=== PATIENT | male | born 1980 | race Caucasian/White ===

== ENCOUNTER 2022-05-20 16:24 | Inpatient (IN) | payer OTHER, SELFPAY ==
--- NOTE | ~2022-05-20 | CT_ITS ---
EXAMINATION: CT HEAD WITHOUT CONTRAST CT CERVICAL SPINE WITHOUT CONTRAST CLINICAL INFORMATION: Loss of consciousness. EtOH COMPARISON: None. TECHNIQUE: Imaging was performed from the skull base to vertex without intravenous administration of contrast. In addition, helical noncontrast CT imaging was acquired through the cervical spine and source images were reviewed along with axial reconstructions and sagittal and coronal MPRs. [This CT examination was performed using dose optimization techniques as appropriate, variously including the following: *Automated exposure control *Adjustment of mA and/or kV according to patient size (this includes techniques or standardized protocols for targeted exams where dose is matched to indication/reason for exam; i.e. extremities or head) *Use of iterative reconstruction technique] DLP: 1048 mGy-cm FINDINGS: HEAD: No intracranial mass, hemorrhage, or midline shift is visualized. The ventricles and sulci are proportional. No extra-axial collections are identified. The paranasal sinuses and mastoid air cells are well aerated. CERVICAL SPINE: There is no evidence of acute cervical spine fracture. Vertebral bodies remain normal in height. Cervical vertebrae have normal alignment. Degenerative endplate spurring and mild disc height narrowing C5-C6. No pre- or paravertebral soft tissue abnormality is identified. Limited assessment of the lung apices is unremarkable. CT/CT head/brain wo con IMPRESSION: 1. No acute intracranial pathology. 2. No CT evidence of acute cervical spine fracture or traumatic subluxation
--- NOTE | ~2022-05-20 | XR_ITS ---
EXAMINATION: XR CHEST CLINICAL INFORMATION: 8 0H COMPARISON: None TECHNIQUE: Frontal view of the chest was obtained. FINDINGS: No significant abnormality is noted involving the heart, lungs, mediastinum, bony thorax or soft tissues. XR/XR chest 1V IMPRESSION: Normal chest x-ray.
--- NOTE | ~2022-05-20 | CT_ITS ---
EXAMINATION: CT HEAD WITHOUT CONTRAST CT CERVICAL SPINE WITHOUT CONTRAST CLINICAL INFORMATION: Loss of consciousness. EtOH COMPARISON: None. TECHNIQUE: Imaging was performed from the skull base to vertex without intravenous administration of contrast. In addition, helical noncontrast CT imaging was acquired through the cervical spine and source images were reviewed along with axial reconstructions and sagittal and coronal MPRs. [This CT examination was performed using dose optimization techniques as appropriate, variously including the following: *Automated exposure control *Adjustment of mA and/or kV according to patient size (this includes techniques or standardized protocols for targeted exams where dose is matched to indication/reason for exam; i.e. extremities or head) *Use of iterative reconstruction technique] DLP: 1048 mGy-cm FINDINGS: HEAD: No intracranial mass, hemorrhage, or midline shift is visualized. The ventricles and sulci are proportional. No extra-axial collections are identified. The paranasal sinuses and mastoid air cells are well aerated. CERVICAL SPINE: There is no evidence of acute cervical spine fracture. Vertebral bodies remain normal in height. Cervical vertebrae have normal alignment. Degenerative endplate spurring and mild disc height narrowing C5-C6. No pre- or paravertebral soft tissue abnormality is identified. Limited assessment of the lung apices is unremarkable. CT/CT cervical spine wo con IMPRESSION: 1. No acute intracranial pathology. 2. No CT evidence of acute cervical spine fracture or traumatic subluxation
[2022-05-20 16:39] VITALS: BP 127/94; BP 134/100; PULSE 109; PULSE 123; RESP 18; TEMP 37.1; O2SAT 95; O2SAT 96; BMI 23.0
--- NOTE | 2022-05-20 16:53 | ED_ITS ---
HPI - Seizure General Chief Complaint: Seizure Stated Complaint: seizure Time Seen by Provider: 05/20/22 16:44 Source: patient and EMS Mode of arrival: EMS Limitations: no limitations History of Present Illness HPI Narrative: 42-year-old male presents via EMS for EtOH withdrawal seizure. Patient states that he drinks approximately 32 drinks per day of vodka, tried to detox at home by himself. Stopped drinking yesterday. He does have history of EtOH withdrawal seizures. He does not recall the events of his seizure, he does not know if he hit his head. He states that he is interested in detox and denies an y other drug use. States to be confused at times, denies chest pain or pressure, shortness of breath, abdominal pain, abdominal distention, jaundice, dysuria, hematuria, melena or hematochezia. MD complaint: seizure and other (ETOH withdrawal) Onset (ago): hour(s) (Within the hour of arrival) Description of Episode: tonic-clonic movement -: second(s) Witnessed: Yes - by Bystander Trauma: No Seizure History: Yes Place: Home Possible Precipitating Event: alcohol withdrawal Associated symptoms: denies other symptoms Treatments prior to arrival: none Related Data Home Medications Medication Instructions Recorded Confirmed No Known Home Meds 05/20/22 05/20/22 Allergies Allergy/AdvReac Type Severity Reaction Status Date / Time No Known Allergies Allergy Unverified 07/06/20 19:00 [No Known Allergies*] Review of Systems Review of Systems: Constitutional: No Fever, No Chills, positive seizure ENT/Mouth: No Ear Pain, No Hoarseness, No sore throat Eyes: No Eye Pain, No Swelling, No Redness, No Foreign Body Cardiovascular: No Chest Pain, No SOB Respiratory: No Cough, No Dyspnea Gastrointestinal: No Nausea, No Vomiting, No Diarrhea, No abdominal Pain Genitourinary: No Dysuria, No Hematuria Musculoskeletal: No joint pain, No Myalgias, No Joint Swelling Skin: No Skin lacerations, No rash Neuro: No Weakness, No Numbness, No Paresthesias, No Loss of Consciousness, No Dizziness, No Headache Psych: Positive alcohol withdrawal, No Anxiety/Panic, No Depression Heme/Lymph: no easy bruising, no Lymphadenopathy Endocrine: No Polyuria, No Polydipsia Yes all other systems are reviewed and are negative [facility] Past Medical History Attestation statement: The following information was validated with the patient. Source: old records reviewed Social History Social History Alcohol intake: current Alcohol intake frequency: 3 or more drinks per day Patient Tobacco Use Status: Current everyday Tobacco user Smoked in Last 30 Days: Yes Use of substances other than those prescribed or required for medical reasons: No Advance Directives: No Advance Directives Information Provided: No Physical Exam Vital Signs: Vital Signs: Last Vital Signs Temp 98.7 F 05/20/22 18:25 Pulse 102 H 05/20/22 18:25 Resp 13 05/20/22 18:25 BP 132/98 H 05/20/22 18:25 Pulse Ox 100 05/20/22 18:25 O2 Del Method 05/20/22 18:25 BMI result Body Mass Index 23.0 Appearance: Alert. Oriented X3. Tremors. Appears anxious. Eyes: Pupils equal, round and reactive to light. Sclera nonicteric. ENT: Pharynx normal. Dry mucous membranes. Neck: Normal inspection. Neck supple. CVS: Tachycardic heart rate and rhythm. Apical pulses 2 pulses to extremities. Respiratory: No respiratory distress. Breath sounds normal. Abdomen: Soft and nontender. Nondistended. Skin: Skin warm and dry. Normal skin color. Normal skin turgor. Extremities: No lower extremity edema. Moves all extremities against resistance. No asterixis is noted. Neuro: No motor deficit. No sensory deficit. Cranial nerves 2-12 intact. Course Course Course Narrative: 42-year-old male presents with EtOH withdrawal and seizure. States drink at least 32 oz of vodka daily. Has a history of EtOH withdrawal seizures, is interested in detox. Patient is not suicidal or homicidal at this time. CIWA score is 12 at this time. Will order Librium as Ativan is not available. Patient does report episodes of confusion, will order CT scan of head and cervical spine. Patient does not eat on a regular basis, will only drink Pedialyte and alcohol. Will order CBC, chemistry, lipase, LFTs, ammonia, B12 and folate. ETOH and acetone or pending. 19:02 magnesium critically low at 0.8 order for Mag 2 g IV 19:25 phosphorus noted to be 0.8. Potassium is 3.3. Will resuscitate with 15 millimoles of potassium phosphate. Potassium is 3.3. I did discuss this plan with Dr. Matthews, who agrees with this plan. 19:55 CK 228. 2 L of IV fluids ordered. 20:55 patient states to feel better, his tremors, phenobarbital given. 21:52 discussion with hospitalist, plan of care is to admit for EtOH withdrawal. Potassium phosphorus is infusing, hospitalist would like p.o. Neutra-Phos at this time. Consultations Consultation #1: Chang Time: 21:55 MDM - Seizure MDM Narrative Medical decision making narrative: ETOH withdrawal, ETOH ketoacidosis, CVA, electrolyte imbalance, encephalopathy Differential Diagnosis Differential diagnosis: Likely generalized seizure Medical Records Attestation: I reviewed the patient's medical records. Lab Data Attestation: I reviewed the patient's lab results. Result diagrams: 05/20/22 18:07 05/20/22 18:07 Labs: Lab Results 05/20/22 05/20/22 05/20/22 Range/Units 18:07 18:07 18:07 WBC 4.4 L (4.8-10.8) X10*3/uL RBC 4.03 L (4.60-5.80) X10*6/uL Hgb 14.3 (14.0-18.0) g/dl Hct 40.0 L (42.0-52.0) % MCV 99.3 H (80.0-98.0) fL MCH 35.5 H (27.0-33.0) pg MCHC 35.8 (31.0-36.0) g/dl RDW 12.2 (11.0-16.0) % Plt Count 71 L (160-400) X10*3/uL MPV 10.6 (9.4-12.4) fL Immature Gran % (Auto) 0.5 H (0.0-0.4) % Neut % (Auto) 68.9 (45-73) % Lymph % (Auto) 15.9 L (20-40) % Cameron % (Auto) 14.5 H (2-11) % Eos % (Auto) 0.0 (0-4) % Baso % (Auto) 0.2 (0-2) % Lymph # (Auto) 0.7 L (1.2-4.9) X10*3/uL Cameron # (Auto) 0.6 (0.1-1.2) X10*3/uL Eos # (Auto) 0.0 (0.0-0.4) X10*3/uL Baso # (Auto) 0.0 (0.0-0.2) X10*3/uL Abs Immat Gran (auto) 0.02 (0.00-0.03) X10*3/uL Absolute Neuts (auto) 3.0 (2.0-8.3) x10*3/uL Absolute Nucleated RBC 0.000 (0.0-0.012) X10*3/uL Nucleated RBC % (auto) 0.0 (0.0-0.2) /100WBC Smear Tech's Comments VERIFIED APTT 28.7 (26.0-36.4) SEC Sodium 134 L (135-145) mmol/L Potassium 3.3 (3.3-5.1) mmol/L Chloride 93 L (96-108) mmol/L Carbon Dioxide 25 (22-29) mmol/L Anion Gap 19 (12-20) BUN 8 L (9-16) mg/dL Creatinine 0.91 (0.5-1.4) mg/dL Estim Creat Clear Calc 114.1 Estimated GFR > 60 Random Glucose 134 H (60-115) mg/dL Calcium 8.6 (8.4-10.2) mg/dL Phosphorus 0.8 L* (2.7-4.5) mg/dL Magnesium 0.8 L* (1.6-2.6) mg/dL Total Bilirubin 1.7 H (0.0-1.0) mg/dL Direct Bilirubin 0.7 H (0.0-0.5) mg/dL AST 35 (5-37) U/L ALT 17 (0-40) U/L Alkaline Phosphatase 69 (39-117) U/L Ammonia (13-55) umol/L Total Creatine Kinase 228 H (38-174) U/L Troponin I High Sens (<3.5-35.0) ng/L Total Protein 8.1 H (6.5-8.0) g/dL Albumin 4.7 (3.5-5.0) g/dL Lipase 72 (8-78) U/L Vitamin B12 (200-900) pg/mL Folate (> or = 4.0) ng/mL Ethyl Alcohol < 10 mg/dL Acetone, Qual (Negative) COVID-19 (KECIA) (Negative) COVID-19 Clin Com 05/20/22 05/20/22 05/20/22 Range/Units 18:07 18:07 18:07 WBC (4.8-10.8) X10*3/uL RBC (4.60-5.80) X10*6/uL Hgb (14.0-18.0) g/dl Hct (42.0-52.0) % MCV (80.0-98.0) fL MCH (27.0-33.0) pg MCHC (31.0-36.0) g/dl RDW (11.0-16.0) % Plt Count (160-400) X10*3/uL MPV (9.4-12.4) fL Immature Gran % (Auto) (0.0-0.4) % Neut % (Auto) (45-73) % Lymph % (Auto) (20-40) % Cameron % (Auto) (2-11) % Eos % (Auto) (0-4) % Baso % (Auto) (0-2) % Lymph # (Auto) (1.2-4.9) X10*3/uL Cameron # (Auto) (0.1-1.2) X10*3/uL Eos # (Auto) (0.0-0.4) X10*3/uL Baso # (Auto) (0.0-0.2) X10*3/uL Abs Immat Gran (auto) (0.00-0.03) X10*3/uL Absolute Neuts (auto) (2.0-8.3) x10*3/uL Absolute Nucleated RBC (0.0-0.012) X10*3/uL Nucleated RBC % (auto) (0.0-0.2) /100WBC Smear Tech's Comments APTT (26.0-36.4) SEC Sodium (135-145) mmol/L Potassium (3.3-5.1) mmol/L Chloride (96-108) mmol/L Carbon Dioxide (22-29) mmol/L Anion Gap (12-20) BUN (9-16) mg/dL Creatinine (0.5-1.4) mg/dL Estim Creat Clear Calc Estimated GFR Random Glucose (60-115) mg/dL Calcium (8.4-10.2) mg/dL Phosphorus Cancelled (2.7-4.5) mg/dL Magnesium (1.6-2.6) mg/dL Total Bilirubin (0.0-1.0) mg/dL Direct Bilirubin (0.0-0.5) mg/dL AST (5-37) U/L ALT (0-40) U/L Alkaline Phosphatase (39-117) U/L Ammonia (13-55) umol/L Total Creatine Kinase (38-174) U/L Troponin I High Sens < 3.5 (<3.5-35.0) ng/L Total Protein (6.5-8.0) g/dL Albumin (3.5-5.0) g/dL Lipase (8-78) U/L Vitamin B12 (200-900) pg/mL Folate (> or = 4.0) ng/mL Ethyl Alcohol Cancelled mg/dL Acetone, Qual Negative (Negative) COVID-19 (KECIA) (Negative) COVID-19 Clin Com 05/20/22 05/20/22 05/20/22 Range/Units 18:07 18:07 18:39 WBC (4.8-10.8) X10*3/uL RBC (4.60-5.80) X10*6/uL Hgb (14.0-18.0) g/dl Hct (42.0-52.0) % MCV (80.0-98.0) fL MCH (27.0-33.0) pg MCHC (31.0-36.0) g/dl RDW (11.0-16.0) % Plt Count (160-400) X10*3/uL MPV (9.4-12.4) fL Immature Gran % (Auto) (0.0-0.4) % Neut % (Auto) (45-73) % Lymph % (Auto) (20-40) % Cameron % (Auto) (2-11) % Eos % (Auto) (0-4) % Baso % (Auto) (0-2) % Lymph # (Auto) (1.2-4.9) X10*3/uL Cameron # (Auto) (0.1-1.2) X10*3/uL Eos # (Auto) (0.0-0.4) X10*3/uL Baso # (Auto) (0.0-0.2) X10*3/uL Abs Immat Gran (auto) (0.00-0.03) X10*3/uL Absolute Neuts (auto) (2.0-8.3) x10*3/uL Absolute Nucleated RBC (0.0-0.012) X10*3/uL Nucleated RBC % (auto) (0.0-0.2) /100WBC Smear Tech's Comments APTT (26.0-36.4) SEC Sodium (135-145) mmol/L Potassium (3.3-5.1) mmol/L Chloride (96-108) mmol/L Carbon Dioxide (22-29) mmol/L Anion Gap (12-20) BUN (9-16) mg/dL Creatinine (0.5-1.4) mg/dL Estim Creat Clear Calc Estimated GFR Random Glucose (60-115) mg/dL Calcium (8.4-10.2) mg/dL Phosphorus (2.7-4.5) mg/dL Magnesium (1.6-2.6) mg/dL Total Bilirubin (0.0-1.0) mg/dL Direct Bilirubin (0.0-0.5) mg/dL AST (5-37) U/L ALT (0-40) U/L Alkaline Phosphatase (39-117) U/L Ammonia 22 (13-55) umol/L Total Creatine Kinase (38-174) U/L Troponin I High Sens (<3.5-35.0) ng/L Total Protein (6.5-8.0) g/dL Albumin (3.5-5.0) g/dL Lipase (8-78) U/L Vitamin B12 522 (200-900) pg/mL Folate > 20.0 (> or = 4.0) ng/mL Ethyl Alcohol mg/dL Acetone, Qual (Negative) COVID-19 (KECIA) Negative (Negative) COVID-19 Clin Com See Note Imaging Data CT head cervical spine: Attestation: I personally reviewed and interpreted this imaging study as follows: Radiologist's impression: EXAMINATION: CT HEAD WITHOUT CONTRAST CT CERVICAL SPINE WITHOUT CONTRAST CLINICAL INFORMATION: Loss of consciousness. EtOH? COMPARISON: None. TECHNIQUE: Imaging was performed from the skull base to vertex without intravenous administration of contrast. In addition, helical noncontrast CT imaging was acquired through the cervical spine and source images were reviewed along with axial reconstructions and sagittal and coronal MPRs. [This CT examination was performed using dose optimization techniques as appropriate, variously including the following: *Automated exposure control *Adjustment of mA and/or kV according to patient size (this includes techniques or standardized protocols for targeted exams where dose is matched to indication/reason for exam; i.e. extremities or head) *Use of iterative reconstruction technique] DLP: 1048 mGy-cm FINDINGS: HEAD: No intracranial mass, hemorrhage, or midline shift is visualized. The ventricles and sulci are proportional. No extra-axial collections are identified. The paranasal sinuses and mastoid air cells are well aerated. CERVICAL SPINE: There is no evidence of acute cervical spine fracture. Vertebral bodies remain normal in height. Cervical vertebrae have normal alignment. Degenerative endplate spurring and mild disc height narrowing C5-C6. No pre- or paravertebral soft tissue abnormality is identified. Limited assessment of the lung apices is unremarkable. CT/CT head/brain wo con IMPRESSION: 1. No acute intracranial pathology. 2. No CT evidence of acute cervical spine fracture or traumatic subluxation ? Chest x-ray: Attestation: I personally reviewed and interpreted this imaging study as follows: Radiologist's impression: EXAMINATION: XR CHEST CLINICAL INFORMATION: 8 0H COMPARISON: None TECHNIQUE: Frontal view of the chest was obtained. FINDINGS: No significant abnormality is noted involving the heart, lungs, mediastinum, bony thorax or soft tissues. XR/XR chest 1V IMPRESSION: Normal chest x-ray. ? ECG Data Attestation: I personally reviewed and interpreted this ECG as follows: ECG interpretation date: 05/20/22 ECG interpretation time: 18:24 Prior ECG tracings: available for review Interpretation: Vent. rate 84 BPM DC interval 170 ms QRS duration 80 ms QT/QTc 390/460 ms P-R-T axes 60 89 76 Normal sinus rhythm Septal infarct , age undetermined Abnormal ECG When compared with ECG of 11-OCT-2015 23:39, No significant change was found Critical Care Time Critical Care Time Critical Care Time: Yes Total Critical Care Time: 45 Attestation: I have personally provided critical care time exclusive of time spent on separately billable procedures. Time includes review of laboratory data, radiology results, discussion with consultants, and monitoring for potential decompensation. Interventions were performed as documented. Discharge Plan Discharge Clinical Impression: Hypomagnesemia, Hypophosphatemia, Anemia of chronic disease, Alcoholism, Alcohol withdrawal seizure, Alcohol withdrawal Patient Disposition: Admitted As Inpatient
--- NOTE | 2022-05-20 16:57 | ECG_ITS ---
Test Reason : SEIZURE Blood Pressure : / mmHG Vent. Rate : 084 BPM Atrial Rate : 084 BPM P-R Int : 170 ms QRS Dur : 080 ms QT Int : 390 ms P-R-T Axes : 060 089 076 degrees QTc Int : 460 ms Normal sinus rhythm Septal infarct , age undetermined Abnormal ECG When compared with ECG of 11-OCT-2015 23:39, No significant change was found Referred By: Ping Valdez Electronically Signed By:WINSTON KING MD
[2022-05-20] MEDS: Folic Acid 1 MG in 0.9 % Sodium Chloride 50 ML 100.4 MG IV (17:53)
[2022-05-20] MEDS: Thiamine HCL 100 MG in 0.9 % Sodium Chloride 100 ML 202 MG IV (17:54)
[2022-05-20] MEDS: 0.9 % Sodium Chloride 1,000 ML 999 ML IVCONT ×2 (17:57→20:23)
[2022-05-20] MEDS: chlordiazePOXIDE HCl 25 MG CAPSULE 50 MG PO (18:08)
[2022-05-20 18:25] VITALS: BP 132/98; PULSE 102; RESP 13; TEMP 37.1; O2SAT 100
[2022-05-20 18:28] LABS: Basophils Percent Auto 0.2 % (0-2); Monocytes Absolute Auto 0.6 X10*3/uL (0.1-1.2); Neutrophils Percent Auto 68.9 % (45-73); PLT CLUMP 1; SCAN SMEAR FLAG 1
[2022-05-20 18:30] LABS: Hemoglobin 14.3 g/dl (14.0-18.0); Imm Gran Abs Auto 0.02 X10*3/uL (0.00-0.03); Imm Gran Pct Auto 0.5 % (0.0-0.4); Lymphocytes Absolute Auto 0.7 X10*3/uL (1.2-4.9); Lymphocytes Percent Auto 15.9 % (20-40); MANUAL DIFF FLAG SCAN; Mean Corpuscular HGB Conc 35.8 g/dl (31.0-36.0); Mean Corpuscular Hemoglobin 35.5 pg (27.0-33.0); Mean Corpuscular Volume 99.3 fL (80.0-98.0); Monocytes Percent Auto 14.5 % (2-11); Red Blood Count 4.03 X10*6/uL (4.60-5.80); Red Cell Distribution Width 12.2 % (11.0-16.0)
[2022-05-20 18:31] LABS: White Blood Count 4.4 X10*3/uL (4.8-10.8)
[2022-05-20 18:32] LABS: Partial Thromboplastin Time 28.7 SEC (26.0-36.4)
--- NOTE | 2022-05-20 18:42 | PHA.MEDREC ---
Pharmacy Consult ? Medication Reconciliation Pharmacy has completed the medication reconciliation.
[2022-05-20 18:49] LABS: Mean Platelet Volume 10.6 fL (9.4-12.4); Platelet Count 71 X10*3/uL (160-400); SLIDE REVIEW VERIFIED
[2022-05-20 18:51] LABS: COVID-19 Test Negative (Negative); IDNOW Serial# 9DB6401D
[2022-05-20 19:00] LABS: Acetone, serum QL Negative (Negative); Troponin-I High Sensitivity < 3.5 ng/L (<3.5-35.0)
[2022-05-20 19:00] LABS: Ammonia 22 umol/L (13-55)
[2022-05-20 19:05] LABS: Alanine Aminotransferase 17 U/L (0-40); Albumin Level 4.7 g/dL (3.5-5.0); Alkaline Phosphatase 69 U/L (39-117); Anion Gap 19 (12-20); Aspartate Amino Transferase 35 U/L (5-37); Bilirubin Direct 0.7 mg/dL (0.0-0.5); Bilirubin Total 1.7 mg/dL (0.0-1.0); Blood Urea Nitrogen 8 mg/dL (9-16); Calcium 8.6 mg/dL (8.4-10.2); Carbon Dioxide 25 mmol/L (22-29); Chloride 93 mmol/L (96-108); Creatinine Clr Calc Pharmacy 114.1; Estimated Glomerular Filt Rate > 60; Ethanol < 10 mg/dL; Glucose Random 134 mg/dL (60-115); Lipase 72 U/L (8-78); Magnesium 0.8 mg/dL (1.6-2.6); Potassium 3.3 mmol/L (3.3-5.1); Sodium 134 mmol/L (135-145); Total Protein 8.1 g/dL (6.5-8.0)
--- NOTE | 2022-05-20 19:07 | MHC.RECOVSUP ---
? Reason for consult: Recovery Support o Current location: ED12? o Identified substance use concern: Alcohol? - Withdrawal - Support ? Intervention: o MAT started or to be started o Community resources provided o Harm reduction discussion ? Plan: o Referral to CCC ? Additional information:?I was able to connect with patient for [employer] consult with AUD. Patient is a 42 year old retired , has a long history of alcoholism dated back since his was a teenager. Patient is not employed, has relocated to [place] from [place] and resides with his girl friend at this time. Patient claims he was connected to the [facility] before and hasn't followed through with the program which resulted in a reoccurrence. In addition to patient's recent reoccurrence, David has had a few losses this past year and doesn't have the tools to cope with life. We were able to review harm reduction strategies and other options for care. Patient refuses detox, TSS or CSS at this time. I was able to leave community resources and referrals for RC and CCC. If patient is admitted a follow up is suggested.
[2022-05-20] MEDS: Magnesium Sulfate/H2O 2 GM/50 ML PIGGYBACK IV (19:30)
[2022-05-20 19:31] LABS: Phosphorus 0.8 mg/dL (2.7-4.5)
[2022-05-20 19:36] LABS: Folate > 20.0 ng/mL (> or = 4.0); Vitamin B12 522 pg/mL (200-900)
[2022-05-20] MEDS: Potassium Phosphate/NS 15 MMOL/250 ML PLAST..BAG 62.5 MMOL IV (20:19)
[2022-05-20] MEDS: PHENobarbitaL sodium 130 MG/ML IM ONCE 364 MG IM (20:30)
--- NOTE | 2022-05-20 21:51 | PM.IMHP ---
History of Present Illness Date of Service: 05/20/22 Chief Complaint: Seizure 42-year-old male with a past medical history of alcohol abuse, alcohol withdrawal seizures presented to the hospital today with a chief complaint of an episode of seizure. Patient reports that he drinks about 30 drinks of vodka every day; last drink was the day prior to coming to the hospital. Had an episode of seizure today. Denies any loss of consciousness, tongue biting, bowel or bladder incontinence. Denies any headaches numbness tingling or focal weakness. Denies any falls or trauma. Mentioned that he had similar episode in the past secondary to withdrawals from alcohol. Mentioned that he wants to go for alcohol detox this time. Denies any chest pain palpitations lightheadedness or dizziness. Denies any fever chills cough, GI symptoms. Review of all other systems is negative except mentioned above ER course: Per ER team patient noted to be dry; mildly tremulous; concern for alcohol withdrawal; given IV fluids; also started on phenobarb protocol. On labs noted to have severe hypoglycemia/hypophosphatemia-given IV magnesium and K-Phos, Neutra-Phos. Admitted to the hospital for further management PMFSH Social History Alcohol intake: current Alcohol intake frequency: 3 or more drinks per day Patient Tobacco Use Status: Current everyday Tobacco user Smoked in Last 30 Days: Yes Use of substances other than those prescribed or required for medical reasons: No Advance Directives: No Advance Directives Information Provided: No Meds Allergies Allergy/AdvReac Type Severity Reaction Status Date / Time No Known Allergies Allergy Unverified 07/06/20 19:00 [No Known Allergies*] Active Medications: Current Medications Potassium Phosphate (Kphos) 15 mmol in 250 mls @ 62.5 mls/hr IV ONCE ONE Stop: 05/20/22 23:26 Last Admin: 05/20/22 20:19 Dose: 62.5 mls/hr Pharmacy Consult (Consult Rx Etoh Phenob Im/Po) 1 each MISCELLANE ONCE PRN; Protocol PRN Reason: Consult order Phenobarbital (Phenobarbital 30 Mg Tablet) 60 mg PO BID RAFFY; Protocol Stop: 05/22/22 21:01 Phenobarbital (Phenobarbital 30 Mg Tablet) 30 mg PO BID RAFFY; Protocol Stop: 05/24/22 21:01 Phenobarbital (Phenobarbital 30 Mg Tablet) 30 mg PO DAILY RAFFY; Protocol Stop: 05/26/22 09:01 Phenobarbital Sodium (Phenobarbital Sodium 130 Mg/Ml Vial Im Q3hx2) 260 mg IM Q3H RAFFY; Protocol Stop: 05/21/22 02:01 Home Medications Medication Instructions Recorded Confirmed Last Taken Type No Known Home Meds 05/20/22 05/20/22 Unknown History Physical Exam Vital Signs and Narrative: Vital Signs: Last Vital Signs Temp 98.7 F 05/20/22 18:25 Pulse 102 H 05/20/22 18:25 Resp 13 05/20/22 18:25 BP 132/98 H 05/20/22 18:25 Pulse Ox 100 05/20/22 18:25 O2 Del Method 05/20/22 18:25 BMI result Body Mass Index 23.0 Gen: Appears be in no acute distress HEENT: NCAT, dry mucosa. Pulmonary: Vesicular breath sounds, fair air entry CVS: Normal S1-S2 Abdomen: BS+, Soft, Nontender Extremities: Warm well perfused Neuro: Alert and awake. Grossly nonfocal Results Labs CBC and Chem 7: 05/20/22 18:07 05/20/22 18:07 Labs: Laboratory Results - last 24 hr 05/20/22 05/20/22 05/20/22 18:07 18:07 18:07 MCV 99.3 H MCH 35.5 H MCHC 35.8 RDW 12.2 Plt Count 71 L MPV 10.6 Immature Gran % (Auto) 0.5 H Neut % (Auto) 68.9 Lymph % (Auto) 15.9 L Mitchell % (Auto) 14.5 H Eos % (Auto) 0.0 Baso % (Auto) 0.2 Lymph # (Auto) 0.7 L Mitchell # (Auto) 0.6 Eos # (Auto) 0.0 Baso # (Auto) 0.0 Abs Immat Gran (auto) 0.02 Absolute Neuts (auto) 3.0 Absolute Nucleated RBC 0.000 Nucleated RBC % (auto) 0.0 Smear Tech's Comments VERIFIED APTT 28.7 Anion Gap 19 Estim Creat Clear Calc 114.1 Estimated GFR > 60 Random Glucose 134 H Calcium 8.6 Phosphorus 0.8 L* Magnesium 0.8 L* Total Bilirubin 1.7 H Direct Bilirubin 0.7 H AST 35 ALT 17 Alkaline Phosphatase 69 Ammonia Total Creatine Kinase 228 H Total Protein 8.1 H Albumin 4.7 Lipase 72 Vitamin B12 Folate Ethyl Alcohol < 10 Acetone, Qual COVID-19 (KECIA) COVID-19 [employer] 05/20/22 05/20/22 05/20/22 18:07 18:07 18:07 MCV MCH MCHC RDW Plt Count MPV Immature Gran % (Auto) Neut % (Auto) Lymph % (Auto) Mitchell % (Auto) Eos % (Auto) Baso % (Auto) Lymph # (Auto) Mitchell # (Auto) Eos # (Auto) Baso # (Auto) Abs Immat Gran (auto) Absolute Neuts (auto) Absolute Nucleated RBC Nucleated RBC % (auto) Smear Tech's Comments APTT Anion Gap Estim Creat Clear Calc Estimated GFR Random Glucose Calcium Phosphorus Cancelled Magnesium Total Bilirubin Direct Bilirubin AST ALT Alkaline Phosphatase Ammonia Total Creatine Kinase Total Protein Albumin Lipase Vitamin B12 522 Folate > 20.0 Ethyl Alcohol Cancelled Acetone, Qual Negative COVID-19 (KECIA) COVID-NAVX 05/20/22 05/20/22 18:07 18:39 MCV MCH MCHC RDW Plt Count MPV Immature Gran % (Auto) Neut % (Auto) Lymph % (Auto) Mitchell % (Auto) Eos % (Auto) Baso % (Auto) Lymph # (Auto) Mitchell # (Auto) Eos # (Auto) Baso # (Auto) Abs Immat Gran (auto) Absolute Neuts (auto) Absolute Nucleated RBC Nucleated RBC % (auto) Smear Tech's Comments APTT Anion Gap Estim Creat Clear Calc Estimated GFR Random Glucose Calcium Phosphorus Magnesium Total Bilirubin Direct Bilirubin AST ALT Alkaline Phosphatase Ammonia 22 Total Creatine Kinase Total Protein Albumin Lipase Vitamin B12 Folate Ethyl Alcohol Acetone, Qual COVID-19 (KECIA) Negative COVID-NAVX See Note Imaging Radiologist's Impressions: Impressions Chest X-Ray 05/20/22 17:12 IMPRESSION: Normal chest x-ray. Cervical Spine CT 05/20/22 18:01 IMPRESSION: 1. No acute intracranial pathology. 2. No CT evidence of acute cervical spine fracture or traumatic subluxation Head CT 05/20/22 18:01 IMPRESSION: 1. No acute intracranial pathology. 2. No CT evidence of acute cervical spine fracture or traumatic subluxation Assessment and Plan (1) Seizure: Status: Acute (2) Alcohol withdrawal: Status: Acute (3) Hypomagnesemia: Status: Acute (4) Hyperphosphatemia: Status: Acute Plan 42-year-old male with a past medical history of alcohol abuse, alcohol withdrawal seizures presented to the hospital today with a chief complaint of an episode of seizure. Admitted for following Seizure: In the setting of alcohol withdrawal. Seizure precautions. If any recurrent episodes will consider Neurology consult. Exam nonfocal. Reportedly Patient had similar episode in the past. Alcohol withdrawal: Patient was started on phenobarb protocol. Thiamine folate and multivitamin. willow worker/case management follow-up for possible detox placement eventually. Severe hypomagnesemia: Repleted Severe hyperphosphatemia: Repleted Thrombocytopenia: Likely in setting of alcohol use. No obvious signs of bleeding currently. Will continue to monitor. DVT prophylaxis: SCD boots. No pharmacologic agents given severe thrombocytopenia. Code status: Full code Quality Stroke Does the patient have a stroke diagnosis?: No VTE Prior VTE?: No VTE Risk Level:: Medical - moderate - high VTE Device Contraindication: N/A - Device Ordered VTE Drug Contraindication: Treatment Not Indicated
--- NOTE | 2022-05-20 22:41 | MHC.CM.PN ---
CM attempted to meet with patient in regards to D/C planning. Pt sleeping x2.
[2022-05-20] MEDS: Sodium,Potassium Phosphates POWD.PACK 2 PACKET PO (22:56)
[2022-05-21] VITALS (8 sets, daily range): BP systolic 112–138; BP diastolic 73–97; PULSE 72–106; RESP 14–19; TEMP 36.7–37.2; O2SAT 95–99; BMI 23.0
[2022-05-21] MEDS: Dextrose 5 % and 0.9 % NaCl 1,000 ML 100 ML IVCONT (00:32)
[2022-05-21] MEDS: PHENobarbitaL sodium 130 MG/ML VIAL IM Q3Hx2 260 MG IM ×2 (00:37→04:14)
[2022-05-21 04:54] LABS: Amphetamine Screen Urine Not Detected (Not Detect); Barbiturates, Urine POSITIVE (Not Detect); Benzodiazepines Screen Urine POSITIVE (Not Detect); Cannabinoid Screen Urine Not Detected (Not Detect); Cocaine Screen Urine Not Detected (Not Detect); Fentanyl, urine Not Detected (Not Detect); Opiate Screen Urine Not Detected (Not Detect); Phencyclidine Screen Urine Not Detected (Not Detect)
[2022-05-21 04:56] LABS: Appearance Urine CLEAR; Color Urine YELLOW; Glucose Urine UA NEG (NEG); Leukocyte Esterase Urine NEG (NEG); Nitrite Urine NEG (NEG); PH 8.5 (5.0-8.0); Specific Gravity - Urine 1.015 (1.005-1.025); Urine Blood NEG (NEG); Urine Ketones NEG (NEG); Urine Protein NEG (NEG-TRACE)
[2022-05-21 06:59] LABS: MANUAL DIFF FLAG NO
--- NOTE | 2022-05-21 07:05 | PC.NURSE ---
Assumed care at 0300 - patient resting, cooperative, seizure prec in place. Patient requesting food, recieved 2nd out of 3 doses of IMC pheno. Denies hallucinations or headache. Vitals stable. HR SR.
[2022-05-21 07:07] LABS: Basophils Percent Auto 0.5 % (0-2); Eosinophils Percent Auto 0.5 % (0-4); Hematocrit 37.1 % (42.0-52.0); Hemoglobin 12.8 g/dl (14.0-18.0); Imm Gran Abs Auto 0.01 X10*3/uL (0.00-0.03); Imm Gran Pct Auto 0.3 % (0.0-0.4); Lymphocytes Percent Auto 24.5 % (20-40); Mean Corpuscular HGB Conc 34.5 g/dl (31.0-36.0); Mean Corpuscular Hemoglobin 34.8 pg (27.0-33.0); Mean Corpuscular Volume 100.8 fL (80.0-98.0); Mean Platelet Volume 10.9 fL (9.4-12.4); Monocytes Absolute Auto 0.6 X10*3/uL (0.1-1.2); Neutrophils Absolute Auto 2.3 x10*3/uL (2.0-8.3); Neutrophils Percent Auto 58.2 % (45-73); Platelet Count 57 X10*3/uL (160-400); Red Blood Count 3.68 X10*6/uL (4.60-5.80)
[2022-05-21 07:25] LABS: Anion Gap 15 (12-20); Blood Urea Nitrogen 5 mg/dL (9-16); Calcium 7.4 mg/dL (8.4-10.2); Carbon Dioxide 25 mmol/L (22-29); Chloride 101 mmol/L (96-108); Creatinine Clr Calc Pharmacy 131.5; Estimated Glomerular Filt Rate > 60; Glucose Random 98 mg/dL (60-115); Potassium 2.6 mmol/L (3.3-5.1); Sodium 138 mmol/L (135-145)
[2022-05-21 07:41] LABS: Magnesium 1.2 mg/dL (1.6-2.6); Phosphorus 2.3 mg/dL (2.7-4.5)
--- NOTE | 2022-05-21 07:44 | PC.NURSE ---
pt had a xxlg loose bm. aware
--- NOTE | 2022-05-21 09:00 | PC.NURSE ---
pt ate 75% of breakfast.
[2022-05-21] MEDS: PHENobarbitaL 30 MG TABLET 60 MG PO ×2 (09:40→20:32)
[2022-05-21] MEDS: Folic Acid 1 MG TABLET PO (09:41)
[2022-05-21] MEDS: Famotidine 20 MG TABLET PO ×2 (09:41→20:32)
[2022-05-21] MEDS: Magnesium Oxide 400 MG TABLET 800 MG PO ×2 (09:41→17:54)
[2022-05-21] MEDS: Thiamine HCL 100 MG TABLET PO (09:41)
[2022-05-21] MEDS: Multivitamin TABLET 1 TAB PO (09:41)
[2022-05-21] MEDS: 0.9 % Sodium Chloride Flush 3 ML SYRINGE IVFLUSH ×2 (09:42→20:32)
--- NOTE | 2022-05-21 10:53 | MHC.CM.PN ---
Attempted to meet with patient in regards to discharge planning. Patient currently sleeping. No family present. Will attempt to meet again. Continue to monitor for d/c needs.
--- NOTE | 2022-05-21 11:20 | PC.NURSE ---
rn to rn given to matthew pt transferred to ed overflow unit.
--- NOTE | 2022-05-21 11:40 | HO.PM.IMPN ---
Subjective Subjective Date of Service: 05/21/22 Interval History: cc: convulsions interval history:shaky Cardiovascular Cardiovascular: Reports no additional cardiovascular complaints Respiratory Respiratory: Reports no additional respiratory complaints Physical Exam Vital Signs: Vital Signs: Last Vital Signs Temp 98.0 F 05/21/22 07:33 Pulse 83 05/21/22 11:11 Resp 16 05/21/22 11:11 BP 138/97 H 05/21/22 11:11 Pulse Ox 97 05/21/22 11:11 O2 Del Method 05/21/22 11:11 BMI result Body Mass Index 23.0 General: AO X 3, no acute distress Resp: CTA bilateral, no accessory muscles used CVS: S1,S2,RRR GI: soft, non tender, non distended Neuro: motor grossly intact, alert, tremor Psych: appropriate affect, appropriate insight Objective Data Active Medications Famotidine (Famotidine 20 Mg Tablet) 20 mg PO BID [facility] Last Admin: 05/21/22 09:41 Dose: 20 mg Documented By: BRENDA Folic Acid (Folic Acid 1 Mg Tablet) 1 mg PO DAILY [facility] Stop: 05/24/22 08:59 Last Admin: 05/21/22 09:41 Dose: 1 mg Documented By: BRENDA [facility] Mg [facility] Admin: 05/21/22 09:41 Dose: 800 mg Documented By: BRENDA Multivitamins/Vitamin C (Multivitamin Tablet) 1 tab PO DAILY [facility] Stop: 05/24/22 08:59 Last Admin: 05/21/22 09:41 Dose: 1 tab Documented By: BRENDA Pharmacy Consult (Consult Rx Etoh Phenob Im/Po) 1 each MISCELLANE ONCE PRN; Protocol PRN Reason: Consult order Phenobarbital (Phenobarbital 30 Mg Tablet) 60 mg PO BID [facility]; Protocol Stop: 05/22/22 21:01 Last Admin: 05/21/22 09:40 Dose: 60 mg Documented By: BRENDA Phenobarbital (Phenobarbital 30 Mg Tablet) 30 mg PO BID [facility]; Protocol Stop: 05/24/22 21:01 Phenobarbital (Phenobarbital 30 Mg Tablet) 30 mg PO DAILY [facility]; Protocol Stop: 05/26/22 09:01 Senna (Sennosides 8.6 Mg Tablet) 17.2 mg PO BEDTIME PRN PRN Reason: Constipation Sodium Chloride (0.9 % Sodium Chloride Flush 3 Ml Syringe) 3 ml IVFLUSH QSHIFT [facility] Last Admin: 05/21/22 09:42 Dose: 3 ml Documented By: BRENDA Thiamine HCl (Thiamine Hcl 100 Mg Tablet) 100 mg PO DAILY [facility] Stop: 05/24/22 08:59 Last Admin: 05/21/22 09:41 Dose: 100 mg Documented By: BRENDA Labs CBC & Chem 7: 05/21/22 06:15 05/21/22 06:15 Labs: Laboratory Results - last 24 hr 05/20/22 05/20/22 05/20/22 18:07 18:07 18:07 MCV 99.3 H MCH 35.5 H MCHC 35.8 RDW 12.2 Plt Count 71 L MPV 10.6 Immature Gran % (Auto) 0.5 H Neut % (Auto) 68.9 Lymph % (Auto) 15.[address] [place] % (Auto) 14.5 H Eos % (Auto) 0.0 Baso % (Auto) 0.2 Lymph # (Auto) 0.[address] [place] # (Auto) 0.6 Eos # (Auto) 0.0 Baso # (Auto) 0.0 Abs Immat Gran (auto) 0.02 Absolute Neuts (auto) 3.0 Absolute Nucleated RBC 0.000 Nucleated RBC % (auto) 0.0 Smear Tech's Comments VERIFIED APTT 28.7 Anion Gap 19 Estim Creat Clear Calc 114.1 Estimated GFR > 60 Random Glucose 134 H Calcium 8.6 Phosphorus 0.8 L* Magnesium 0.8 L* Total Bilirubin 1.7 H Direct Bilirubin 0.7 H AST 35 ALT 17 Alkaline Phosphatase 69 Ammonia Total Creatine Kinase 228 H Total Protein 8.1 H Albumin 4.7 Lipase 72 Vitamin B12 Folate Urine Color Urine Appearance Urine pH Ur Specific [place] Urine Protein Urine Glucose (UA) Urine Ketones Urine Blood Urine Nitrite Ur Leukocyte Esterase Urine Opiates Screen Urine Fentanyl Screen Ur Barbiturates Screen Ur Phencyclidine Scrn Ur Amphetamines Screen U Benzodiazepines Scrn Urine Cocaine Screen U Marijuana (THC) Screen Ethyl Alcohol < 10 Acetone, Qual COVID-19 ([facility]) COVID-19 Clin Com 05/20/22 05/20/22 05/20/22 18:07 18:07 18:07 MCV MCH MCHC RDW Plt Count MPV Immature Gran % (Auto) Neut % (Auto) Lymph % (Auto) [place] % (Auto) Eos % (Auto) Baso % (Auto) Lymph # (Auto) [place] # (Auto) Eos # (Auto) Baso # (Auto) Abs Immat Gran (auto) Absolute Neuts (auto) Absolute Nucleated RBC Nucleated RBC % (auto) Smear Tech's Comments APTT Anion Gap Estim Creat Clear Calc Estimated GFR Random Glucose Calcium Phosphorus Cancelled Magnesium Total Bilirubin Direct Bilirubin AST ALT Alkaline Phosphatase Ammonia Total Creatine Kinase Total Protein Albumin Lipase Vitamin B12 522 Folate > 20.0 Urine Color Urine Appearance Urine pH Ur Specific [place] Urine Protein Urine Glucose (UA) Urine Ketones Urine Blood Urine Nitrite Ur Leukocyte Esterase Urine Opiates Screen Urine Fentanyl Screen Ur Barbiturates Screen Ur Phencyclidine Scrn Ur Amphetamines Screen U Benzodiazepines Scrn Urine Cocaine Screen U Marijuana (THC) Screen Ethyl Alcohol Cancelled Acetone, Qual Negative COVID-19 ([facility]) COVID-Extended Care Information Network 05/20/22 05/20/22 05/21/22 18:07 18:39 04:35 MCV MCH MCHC RDW Plt Count MPV Immature Gran % (Auto) Neut % (Auto) Lymph % (Auto) [place] % (Auto) Eos % (Auto) Baso % (Auto) Lymph # (Auto) [place] # (Auto) Eos # (Auto) Baso # (Auto) Abs Immat Gran (auto) Absolute Neuts (auto) Absolute Nucleated RBC Nucleated RBC % (auto) Smear Tech's Comments APTT Anion Gap Estim Creat Clear Calc Estimated GFR Random Glucose Calcium Phosphorus Magnesium Total Bilirubin Direct Bilirubin AST ALT Alkaline Phosphatase Ammonia 22 Total Creatine Kinase Total Protein Albumin Lipase Vitamin B12 Folate Urine Color YELLOW Urine Appearance CLEAR Urine pH 8.5 H Ur Specific [place] 1.015 Urine Protein NEG Urine Glucose (UA) NEG Urine Ketones NEG Urine Blood NEG Urine Nitrite NEG Ur Leukocyte Esterase NEG Urine Opiates Screen Urine Fentanyl Screen Ur Barbiturates Screen Ur Phencyclidine Scrn Ur Amphetamines Screen U Benzodiazepines Scrn Urine Cocaine Screen U Marijuana (THC) Screen Ethyl Alcohol Acetone, Qual COVID-19 ([facility]) Negative COVID-Extended Care Information Network See Note 05/21/22 05/21/22 05/21/22 04:35 06:15 06:15 MCV 100.8 H MCH 34.8 H MCHC 34.5 RDW 12.0 Plt Count 57 L MPV 10.9 Immature Gran % (Auto) 0.3 Neut % (Auto) 58.2 Lymph % (Auto) 24.5 [place] % (Auto) 16.0 H Eos % (Auto) 0.5 Baso % (Auto) 0.5 Lymph # (Auto) 1.[address] [place] # (Auto) 0.6 Eos # (Auto) 0.0 Baso # (Auto) 0.0 Abs Immat Gran (auto) 0.01 Absolute Neuts (auto) 2.3 Absolute Nucleated RBC 0.000 Nucleated RBC % (auto) 0.0 Smear Tech's Comments APTT Anion Gap 15 Estim Creat Clear Calc 131.5 Estimated GFR > 60 Random Glucose 98 Calcium 7.4 L D Phosphorus 2.3 L Magnesium 1.2 L* Total Bilirubin Direct Bilirubin AST ALT Alkaline Phosphatase Ammonia Total Creatine Kinase Total Protein Albumin Lipase Vitamin B12 Folate Urine Color Urine Appearance Urine pH Ur Specific [place] Urine Protein Urine Glucose (UA) Urine Ketones Urine Blood Urine Nitrite Ur Leukocyte Esterase Urine Opiates Screen Not Detected Urine Fentanyl Screen Not Detected Ur Barbiturates Screen POSITIVE H Ur Phencyclidine Scrn Not Detected Ur Amphetamines Screen Not Detected U Benzodiazepines Scrn POSITIVE H Urine Cocaine Screen Not Detected U Marijuana (THC) Screen Not Detected Ethyl Alcohol Acetone, Qual COVID-19 ([facility]) COVID-19 Clin Com Assessment and Plan (1) Hypomagnesemia: Status: Acute Plan 42M presented with seizure alcohol dependence with withdrawal and seizure phenobarb, ciwa, seizure precautions hypomagnesemia, hypophostphatemia replace and monitor thrombocytopenia due to etoh dvt prophylaxis - mechanical due to low platelets full code reason for continued hospitalization: ongiong withdrawal symptoms and severe hypomagnesemia Quality Stroke Does the patient have a stroke diagnosis?: No VTE Prior VTE?: No VTE Risk Level:: Medical - moderate - high VTE Device Contraindication: N/A - Device Ordered VTE Drug Contraindication: Treatment Not Indicated
[2022-05-21] MEDS: Potassium Chloride ER 20 MEQ TAB.ER.PRT 40 MEQ PO ×2 (15:36→20:32)
[2022-05-22] VITALS: BP 119/82; PULSE 82; RESP 18; TEMP 37.1; O2SAT 96
[2022-05-22 03:39] VITALS: BP 106/58; PULSE 68; RESP 20; TEMP 37; O2SAT 95
[2022-05-22 07:08] VITALS: BP 136/93; PULSE 87; RESP 20; TEMP 36.6; O2SAT 100
[2022-05-22 07:28] LABS: INTERNATIONAL NORM RATIO 0.9 (0.9-1.1); Prothrombin Time 10.8 SEC (10.0-13.1)
[2022-05-22 07:34] LABS: Hematocrit 37.8 % (42.0-52.0); Mean Corpuscular HGB Conc 34.4 g/dl (31.0-36.0); Mean Corpuscular Hemoglobin 35.2 pg (27.0-33.0); Mean Corpuscular Volume 102.4 fL (80.0-98.0); Mean Platelet Volume 10.7 fL (9.4-12.4); Red Blood Count 3.69 X10*6/uL (4.60-5.80); Red Cell Distribution Width 12.1 % (11.0-16.0)
[2022-05-22 07:39] LABS: Platelet Count 78 X10*3/uL (160-400)
[2022-05-22] MEDS: Folic Acid 1 MG TABLET PO (08:01)
[2022-05-22] MEDS: Famotidine 20 MG TABLET PO (08:01)
[2022-05-22] MEDS: PHENobarbitaL 30 MG TABLET 60 MG PO (08:01)
[2022-05-22] MEDS: Magnesium Oxide 400 MG TABLET 800 MG PO (08:01)
[2022-05-22] MEDS: Thiamine HCL 100 MG TABLET PO (08:01)
[2022-05-22] MEDS: Multivitamin TABLET 1 TAB PO (08:01)
[2022-05-22] MEDS: 0.9 % Sodium Chloride Flush 3 ML SYRINGE IVFLUSH (08:02)
[2022-05-22 08:07] LABS: Alanine Aminotransferase 18 U/L (0-40); Albumin Level 4.2 g/dL (3.5-5.0); Alkaline Phosphatase 84 U/L (39-117); Anion Gap 16 (12-20); Aspartate Amino Transferase 50 U/L (5-37); Bilirubin Direct 0.3 mg/dL (0.0-0.5); Bilirubin Total 0.7 mg/dL (0.0-1.0); Blood Urea Nitrogen 6 mg/dL (9-16); Calcium 8.3 mg/dL (8.4-10.2); Carbon Dioxide 24 mmol/L (22-29); Chloride 102 mmol/L (96-108); Creatinine Clr Calc Pharmacy 126.6; Estimated Glomerular Filt Rate > 60; Glucose Fasting 76 mg/dL (60-99); Magnesium 1.4 mg/dL (1.6-2.6); Phosphorus 2.7 mg/dL (2.7-4.5); Potassium 3.6 mmol/L (3.3-5.1); Sodium 138 mmol/L (135-145)
--- NOTE | 2022-05-22 09:06 | PM.DS ---
DS: Providers Provider Date of Service: 05/22/22 Date of admission: 05/20/22 21:49 Primary care physician: Nonstaff Physician DS: Diagnosis Discharge Diagnosis (1) Hypomagnesemia: Status: Acute DS: Summary Hospital Course Hospital Course: from initial hpi: 42-year-old male with a past medical history of alcohol abuse, alcohol withdrawal seizures presented to the hospital today with a chief complaint of an episode of seizure.? Patient reports that he drinks about 30 drinks of vodka every day; last drink was the day prior to coming to the hospital.? Had an episode of seizure today.? Denies any loss of consciousness, tongue biting, bowel or bladder incontinence.? Denies any headaches numbness tingling or focal weakness.? Denies any falls or trauma.? Mentioned that he had similar episode in the past secondary to withdrawals from alcohol.? Mentioned that he wants to go for alcohol detox this time.? Denies any chest pain palpitations lightheadedness or dizziness.? Denies any fever chills cough, GI symptoms.? Review of all other systems is negative except mentioned above ER course: Per ER team patient noted to be dry; mildly tremulous; concern for alcohol withdrawal; given IV fluids; also started on phenobarb protocol.? On labs noted to have severe hypoglycemia/hypophosphatemia-given IV magnesium and K-Phos, Neutra-Phos.? Admitted to the hospital for further management hospital course: Patient was admitted with alcohol dependence with withdrawal and seizure complicated by hypomagnesemia, hypokalemia, hypophosphatemia and thrombocytopenia. He was treated with phenobarbital and electrolyte repletion. He did not have any more seizures, He continued to have withdrawal symptoms and electrolyte abnormalities, however, patient decided to leave against medical advice. He was able to express all the risks of doing so including . Time Spent with Patient Time attestation: Total time spent providing and/or coordinating discharge services: Discharge coordination time: Greater than 30 minutes Quality: Safe Use of Opioids Does Pt have an Active Cancer Diagnosis on the Problem List?: No Quality: Stroke Does the patient have a stroke diagnosis?: No Physical Exam Vital Signs: Vital Signs: Last Vital Signs Temp 97.9 F 05/22/22 07:08 Pulse 87 05/22/22 07:08 Resp 20 05/22/22 07:08 BP 136/93 H 08/03/22 07:08 Pulse Ox 100 05/22/22 07:08 O2 Del Method 05/22/22 07:08 BMI result Body Mass Index 23.0 General: AO X 3, no acute distress Resp: CTA bilateral, no accessory muscles used CVS: S1,S2,RRR GI: soft, non tender, non distended Neuro: motor grossly intact, alert, tremor Psych: appropriate affect, appropriate insight DS: Data Data Completed and Pending Labs on day of discharge: Laboratory Results - last 24 hr 05/22/22 05/22/22 05/22/22 07:00 07:00 07:10 WBC 4.0 L RBC 3.69 L Hgb 13.0 L Hct 37.8 L MCV 102.4 H MCH 35.2 H MCHC 34.4 RDW 12.1 Plt Count 78 L D MPV 10.7 Absolute Nucleated RBC 0.000 Nucleated RBC % (auto) 0.0 PT 10.8 INR 0.9 Sodium 138 Potassium 3.6 D Chloride 102 Carbon Dioxide 24 Anion Gap 16 BUN 6 L Creatinine 0.82 Estim Creat Clear Calc 126.6 Estimated GFR > 60 Fasting Glucose 76 Calcium 8.3 L D Phosphorus 2.7 Magnesium 1.4 L* Total Bilirubin 0.7 Direct Bilirubin 0.3 AST 50 H D ALT 18 Alkaline Phosphatase 84 D Total Protein 7.0 Albumin 4.2 Discharge Plan Discharge Patient Disposition: Left Against Medical Advice Discharge Diagnosis: etoh withdrawal seizure Referrals: Physician,Nonstaff [Primary Care Provider] - 1 Week Discharge Medications: No Action No Known Home Meds Discharge Orders: Discharge Order (Routine); Ordered 05/22/22 Ordered By: Familia Agarwal Diet: Advance to usual diet Activity on Discharge: As tolerated Care Plan Goals: avoid seizures Health Concerns: etoh dependence with withdrawal and electorlyte abnormalities Plan of Treatment: cannot properly treat out of hospital Assessment: see above
--- NOTE | 2022-05-22 09:16 | MHC.CM.PN ---
Male 42 DX ETOH SZ Lives alone independent all functional mobility. DP home private transport. He is discharged today.
== END 2022-05-22 09:13 | disposition left against medical advice (07) | DRG 101 ==
LOC: HO.ED 21:58 → HO.EDOVER 22:00 → HO.IMC 05-21 14:51
PROVIDERS: Nurse Practitioner Family; Admitting Provider Hospitalist; Emergency Provider Emergency Medicine Emergency Medical Services; Visit Provider Internal Medicine
DX: R56.9 Unspecified convulsions (principal); F10.239 Alcohol dependence with withdrawal, unspecified; E83.42 Hypomagnesemia; Z20.822 Contact with and (suspected) exposure to COVID-19; E83.39 Other disorders of phosphorus metabolism; E16.2 Hypoglycemia, unspecified; D69.59 Other secondary thrombocytopenia; F17.210 Nicotine dependence, cigarettes, uncomplicated; Z71.6 Tobacco abuse counseling
CPT/HCPCS: 36415; 70450; 71045; 72125; 80048; 80076; 80307; 81003; 82009; 82077; 82140; 82550; 82607; 82746; 83690; 83735; 84100; 84484; 85025; 85027; 85610; 85730; 87635; 93005; 96361; 96372; 96374; 96375; 99285; J2560; J3411; J3475

== ENCOUNTER 2022-07-01 11:14 | Emergency (ER) | payer OTHER, SELFPAY ==
[2022-07-01] VITALS (7 sets, daily range): BP systolic 118–146; BP diastolic 82–102; PULSE 73–100; RESP 12–18; TEMP 36.6–37.1; O2SAT 94–99; BMI 22.4
--- NOTE | 2022-07-01 14:47 | ED.ALCOHOL ---
HPI - Alcohol General Chief Complaint: ETOH/Substance Use <Juan Mahmood MD - Last Filed: 07/01/22 19:09> Stated Complaint: detox <Juan Mahmood MD - Last Filed: 07/01/22 19:09> Time Seen by Provider: 07/01/22 14:13 <Juan Mahmood MD - Last Filed: 07/01/22 19:09> Source: patient and old records reviewed <Juan Mahmood MD - Last Filed: 07/01/22 19:09> History of Present Illness HPI narrative: Patient with a history of long-term alcohol use disorder. He states his typical alcohol intake is 20-30 shots of vodka per day. He states he typically has withdrawal symptoms if he does not start drinking in the morning. He drank normally yesterday. Today he states he had 3/4 of a drink total. He feels slightly tremulous. He has a history of withdrawal seizures in the past. He was hospitalized a little over a month ago at this facility secondary to alcohol abstinence syndrome. He states he would like to get into a detox program as he is ?sick of it?. He has had no specific precipitating factors. He denies current weight nausea vomiting or abdominal pain. No recent illness. <Juan Mahmood MD - Last Filed: 07/01/22 19:09> Related Data Home Medications: Home Medications Medication Instructions Recorded Confirmed No Known Home Meds 05/20/22 05/20/22 <Juan Mahmood MD - Last Filed: 07/01/22 19:09> Allergies/Adverse Reactions: Allergies Allergy/AdvReac Type Severity Reaction Status Date / Time No Known Allergies Allergy Unverified 07/06/20 19:00 [No Known Allergies*] <Juan Mahmood MD - Last Filed: 07/01/22 19:09> Review of Systems Constitutional: Comments: No fevers or chills. He does describe mild tremors at the moment <Juan Mahmood MD - Last Filed: 07/01/22 19:09> Cardiovascular: Comments: No chest pain or palpitations <Juan Mahmood MD - Last Filed: 07/01/22 19:09> Respiratory: Comments: Shortness of breath or cough <Juan Mahmood MD - Last Filed: 07/01/22 19:09> Gastrointestinal: Comments: No nausea vomiting or abdominal pain <Juan Mahmood MD - Last Filed: 07/01/22 19:09> Musculoskeletal: Comments: No musculoskeletal complaints <Juan Mahmood MD - Last Filed: 07/01/22 19:09> Neurologic: Comments: No seizures with this episode of alcohol abstinence at the moment <Juan Mahmood MD - Last Filed: 07/01/22 19:09> Psychiatric: Comments: Feeling depressed but no suicidal ideation <Juan Mahmood MD - Last Filed: 07/01/22 19:09> [facility] Social History Social History: Social History Household Members: Significant Other Housing: House Do you presently have visiting nurse or other home services: No Alcohol intake: current Alcohol intake frequency: 3 or more drinks per day Alcohol type: hard liquor Patient Tobacco Use Status: Current everyday Tobacco user Tobacco use type: Cigarette e-Cigarette/Vaping Use: Never Used Second Hand Smoke Exposure: Yes Use of substances other than those prescribed or required for medical reasons: No Advance Directives: No Advance Directives Information Provided: No service: Yes Current occupational status: retired <Juan Mahmood MD - Last Filed: 07/01/22 19:09> Physical Exam ED Vital Signs: Vital Signs - 24 hr 07/01/22 12:08 07/01/22 13:03 07/01/22 14:06 Temperature 98 F 98.2 F Pulse Rate 100 79 96 Respiratory Rate 16 13 15 Blood Pressure 146/99 H 132/90 H 118/82 Pulse Oximetry 96 99 94 Oxygen Delivery Method Room Air Room Air Room Air 07/01/22 17:19 07/01/22 19:01 07/01/22 21:02 Temperature 98.3 F 98.4 F 98.7 F Pulse Rate 73 84 76 Respiratory Rate 12 13 18 Blood Pressure 134/86 137/95 H 137/97 H Pulse Oximetry 98 98 97 Oxygen Delivery Method Room Air Room Air Room Air 07/01/22 22:21 07/02/22 00:06 Temperature 98.8 F 98.5 F Pulse Rate 82 76 Respiratory Rate 15 16 Blood Pressure 140/102 H 136/74 Pulse Oximetry 95 94 Oxygen Delivery Method Room Air Room Air BMI result Body Mass Index 22.4 <Juan Mahmood MD - Last Filed: 07/01/22 19:09> Vital Signs - 24 hr 07/01/22 12:08 07/01/22 13:03 07/01/22 14:06 Temperature 98 F 98.2 F Pulse Rate 100 79 96 Respiratory Rate 16 13 15 Blood Pressure 146/99 H 132/90 H 118/82 Pulse Oximetry 96 99 94 Oxygen Delivery Method Room Air Room Air Room Air 07/01/22 17:19 07/01/22 19:01 07/01/22 21:02 Temperature 98.3 F 98.4 F 98.7 F Pulse Rate 73 84 76 Respiratory Rate 12 13 18 Blood Pressure 134/86 137/95 H 137/97 H Pulse Oximetry 98 98 97 Oxygen Delivery Method Room Air Room Air Room Air 07/01/22 22:21 07/02/22 00:06 Temperature 98.8 F 98.5 F Pulse Rate 82 76 Respiratory Rate 15 16 Blood Pressure 140/102 H 136/74 Pulse Oximetry 95 94 Oxygen Delivery Method Room Air Room Air BMI result Body Mass Index 22.4 <Corinne Castro DO - Last Filed: 07/02/22 08:11> Const Other: Awake and alert in no acute distress <Juan Mahmood MD - Last Filed: 07/01/22 19:09> Eyes Other: No scleral icterus <Juan Mahmood MD - Last Filed: 07/01/22 19:09> Resp Other: Clear and equal bilaterally <Juan Mahmood MD - Last Filed: 07/01/22 19:09> Cardio Other: Regular rate and rhythm without murmurs rubs or gallops. Not tachycardic at the moment <Juan Mahmood MD - Last Filed: 07/01/22 19:09> GI Other: Soft and nontender. Nondistended <Juan Mahmood MD - Last Filed: 07/01/22 19:09> Skin Other: Warm pink and dry without jaundice <Juan Mahmood MD - Last Filed: 07/01/22 19:09> Neuro Other: Nonfocal neuro exam. Mild resting tremor <Juan Mahmood MD - Last Filed: 07/01/22 19:09> Psych Other: Describes depression. Denies suicidal ideation. <Juan Mahmood MD - Last Filed: 07/01/22 19:09> Course Course Course Narrative: Patient with alcohol use disorder with past history of abstinence induced seizures. Currently in mild withdrawal. Will treat with p.o. medication and reassess. Care team to be consulted 15:19. Patient with macrocytic anemia and thrombocytopenia consistent with severe alcohol use disorder 19:09. Patient re-evaluated. Still feels mildly tremulous. Vital signs are stable with a heart rate of 88. Discussing further, patient does describe history of hallucinations when withdrawing consistent with delirium tremens. Given risk of seizures, he is not safe for discharge home at the moment. Inpatient detox is not available at the moment. Will observed in the emergency department and treated with Librium in anticipation of outpatient detox. If patient deteriorates, however, he will need inpatient hospitalization. <Juan Mahmood MD - Last Filed: 07/01/22 19:09> Patient with alcohol use disorder with past history of abstinence induced seizures. Currently in mild withdrawal. Will treat with p.o. medication and reassess. Care team to be consulted 15:19. Patient with macrocytic anemia and thrombocytopenia consistent with severe alcohol use disorder 19:09. Patient re-evaluated. Still feels mildly tremulous. Vital signs are stable with a heart rate of 88. Discussing further, patient does describe history of hallucinations when withdrawing consistent with delirium tremens. Given risk of seizures, he is not safe for discharge home at the moment. Inpatient detox is not available at the moment. Will observed in the emergency department and treated with Librium in anticipation of outpatient detox. If patient deteriorates, however, he will need inpatient hospitalization. ADDENDUM: 809amPhysician observation continued. Still pending help with detox. VS stable, started on PRN ativan and IM dose of versed to allow PO to help, zofran as well. Pending detox help this AM. Patient resting comfortably, NAD <Corinne Castro DO - Last Filed: 07/02/22 08:11> MDM - Alcohol Lab Data Result diagrams: : 07/01/22 14:54 07/01/22 14:54 <Juan Mahmood MD - Last Filed: 07/01/22 19:09> Labs: Lab Results 07/01/22 07/01/22 07/01/22 Range/Units 14:54 14:54 18:06 WBC 3.3 L (4.8-10.8) X10*3/uL RBC 4.03 L (4.60-5.80) X10*6/uL Hgb 13.7 L (14.0-18.0) g/dl Hct 39.8 L (42.0-52.0) % MCV 98.8 H (80.0-98.0) fL MCH 34.0 H (27.0-33.0) pg MCHC 34.4 (31.0-36.0) g/dl RDW 12.5 (11.0-16.0) % Plt Count 50 L D (160-400) X10*3/uL MPV 8.6 L (9.4-12.4) fL Immature Gran % (Auto) 0.0 (0.0-0.4) % Neut % (Auto) 54.5 (45-73) % Lymph % (Auto) 31.7 (20-40) % [place] % (Auto) 11.7 H (2-11) % Eos % (Auto) 1.5 (0-4) % Baso % (Auto) 0.6 (0-2) % Lymph # (Auto) 1.0 L (1.2-4.9) X10*3/uL [place] # (Auto) 0.4 (0.1-1.2) X10*3/uL Eos # (Auto) 0.1 (0.0-0.4) X10*3/uL Baso # (Auto) 0.0 (0.0-0.2) X10*3/uL Abs Immat Gran (auto) 0.00 (0.00-0.03) X10*3/uL Absolute Neuts (auto) 1.8 L (2.0-8.3) x10*3/uL Absolute Nucleated RBC 0.000 (0.0-0.012) X10*3/uL Nucleated RBC % (auto) 0.0 (0.0-0.2) /100WBC Sodium 145 (135-145) mmol/L Potassium 3.9 (3.3-5.1) mmol/L Chloride 102 (96-108) mmol/L Carbon Dioxide 29 (22-29) mmol/L Anion Gap 18 (12-20) BUN 8 L (9-16) mg/dL Creatinine 0.84 (0.5-1.4) mg/dL Estim Creat Clear Calc 120.0 Estimated GFR > 60 Random Glucose 94 (60-115) mg/dL Calcium 8.4 (8.4-10.2) mg/dL Total Bilirubin 0.9 (0.0-1.0) mg/dL AST 59 H (5-37) U/L ALT 20 (0-40) U/L Alkaline Phosphatase 73 (39-117) U/L Total Protein 7.3 (6.5-8.0) g/dL Albumin 4.4 (3.5-5.0) g/dL Ethyl Alcohol 282 mg/dL COVID-19 ([facility]) Negative (Negative) COVID-19 Clin Com See Note <Juan Mahmood MD - Last Filed: 07/01/22 19:09> Lab Results 07/01/22 07/01/22 07/01/22 Range/Units 14:54 14:54 18:06 WBC 3.3 L (4.8-10.8) X10*3/uL RBC 4.03 L (4.60-5.80) X10*6/uL Hgb 13.7 L (14.0-18.0) g/dl Hct 39.8 L (42.0-52.0) % MCV 98.8 H (80.0-98.0) fL MCH 34.0 H (27.0-33.0) pg MCHC 34.4 (31.0-36.0) g/dl RDW 12.5 (11.0-16.0) % Plt Count 50 L D (160-400) X10*3/uL MPV 8.6 L (9.4-12.4) fL Immature Gran % (Auto) 0.0 (0.0-0.4) % Neut % (Auto) 54.5 (45-73) % Lymph % (Auto) 31.7 (20-40) % [place] % (Auto) 11.7 H (2-11) % Eos % (Auto) 1.5 (0-4) % Baso % (Auto) 0.6 (0-2) % Lymph # (Auto) 1.0 L (1.2-4.9) X10*3/uL [place] # (Auto) 0.4 (0.1-1.2) X10*3/uL Eos # (Auto) 0.1 (0.0-0.4) X10*3/uL Baso # (Auto) 0.0 (0.0-0.2) X10*3/uL Abs Immat Gran (auto) 0.00 (0.00-0.03) X10*3/uL Absolute Neuts (auto) 1.8 L (2.0-8.3) x10*3/uL Absolute Nucleated RBC 0.000 (0.0-0.012) X10*3/uL Nucleated RBC % (auto) 0.0 (0.0-0.2) /100WBC Sodium 145 (135-145) mmol/L Potassium 3.9 (3.3-5.1) mmol/L Chloride 102 (96-108) mmol/L Carbon Dioxide 29 (22-29) mmol/L Anion Gap 18 (12-20) BUN 8 L (9-16) mg/dL Creatinine 0.84 (0.5-1.4) mg/dL Estim Creat Clear Calc 120.0 Estimated GFR > 60 Random Glucose 94 (60-115) mg/dL Calcium 8.4 (8.4-10.2) mg/dL Total Bilirubin 0.9 (0.0-1.0) mg/dL AST 59 H (5-37) U/L ALT 20 (0-40) U/L Alkaline Phosphatase 73 (39-117) U/L Total Protein 7.3 (6.5-8.0) g/dL Albumin 4.4 (3.5-5.0) g/dL Ethyl Alcohol 282 mg/dL COVID-19 ([facility]) Negative (Negative) COVID-19 Clin Com See Note <Corinne Castro DO - Last Filed: 07/02/22 08:11> Discharge Plan Discharge Clinical Impression: Alcohol withdrawal, Alcoholism <Juan Mahmood MD - Last Filed: 07/01/22 19:09> Patient Disposition: Still a Patient <Juan Mahmood MD - Last Filed: 07/01/22 19:09> Prescriptions: No Action No Known Home Meds <Juan Mahmood MD - Last Filed: 07/01/22 19:09>
[2022-07-01 15:09] LABS: MANUAL DIFF FLAG NO
[2022-07-01 15:12] LABS: Basophils Percent Auto 0.6 % (0-2); Eosinophils Absolute Auto 0.1 X10*3/uL (0.0-0.4); Eosinophils Percent Auto 1.5 % (0-4); Hematocrit 39.8 % (42.0-52.0); Hemoglobin 13.7 g/dl (14.0-18.0); Lymphocytes Percent Auto 31.7 % (20-40); Mean Corpuscular HGB Conc 34.4 g/dl (31.0-36.0); Mean Corpuscular Volume 98.8 fL (80.0-98.0); Mean Platelet Volume 8.6 fL (9.4-12.4); Monocytes Absolute Auto 0.4 X10*3/uL (0.1-1.2); Monocytes Percent Auto 11.7 % (2-11); Neutrophils Absolute Auto 1.8 x10*3/uL (2.0-8.3); Neutrophils Percent Auto 54.5 % (45-73); Red Blood Count 4.03 X10*6/uL (4.60-5.80); Red Cell Distribution Width 12.5 % (11.0-16.0); White Blood Count 3.3 X10*3/uL (4.8-10.8)
[2022-07-01 15:13] LABS: Platelet Count 50 X10*3/uL (160-400)
[2022-07-01] MEDS: PHENobarbitaL 30 MG TABLET 120 MG PO (15:26)
[2022-07-01 15:27] LABS: Alanine Aminotransferase 20 U/L (0-40); Albumin Level 4.4 g/dL (3.5-5.0); Alkaline Phosphatase 73 U/L (39-117); Anion Gap 18 (12-20); Aspartate Amino Transferase 59 U/L (5-37); Bilirubin Total 0.9 mg/dL (0.0-1.0); Blood Urea Nitrogen 8 mg/dL (9-16); Calcium 8.4 mg/dL (8.4-10.2); Carbon Dioxide 29 mmol/L (22-29); Chloride 102 mmol/L (96-108); Estimated Glomerular Filt Rate > 60; Ethanol 282 mg/dL; Glucose Random 94 mg/dL (60-115); Potassium 3.9 mmol/L (3.3-5.1); Sodium 145 mmol/L (135-145); Total Protein 7.3 g/dL (6.5-8.0)
[2022-07-01] MEDS: Ondansetron ODT 4 MG TAB.RAPDIS TRANSLINGU (15:27)
--- NOTE | 2022-07-01 17:51 | ECG_ITS ---
Test Reason : SUBSTANCE USE Blood Pressure : / mmHG Vent. Rate : 077 BPM Atrial Rate : 077 BPM P-R Int : 178 ms QRS Dur : 086 ms QT Int : 390 ms P-R-T Axes : 064 087 077 degrees QTc Int : 441 ms Normal sinus rhythm Septal infarct (cited on or before 20-MAY-2022) Abnormal ECG When compared with ECG of 20-MAY-2022 18:24, No significant change was found Referred By: Juan Mahmood Electronically Signed By:KARIS QUICK
--- NOTE | 2022-07-01 17:55 | MHC.CARE ---
CARE team consult received for 42 year old male who arrived to the ED this afternoon seeking detox for severe alcohol use disorder. CARE team met with the pt in the main ED room 1. He was alert and oriented, dressed in hospital attire, hygiene and grooming were unremarkable, and he engaged easily in conversation. 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 He was directed to come to the ED for medical clearance. There are no concerns at this time for acute mental health symptoms (SI/HI/AVH) and decline in daily functioning and depressed mood is an outcome of his heavy alcohol use. CARE team contacted the [facility] re: availability. [place] requested labs, assessment, and medical clearance to be faxed to [phone]. ED attending physician and nurse have been notified of the additional labs requested.
[2022-07-01 18:39] LABS: COVID-19 Test Negative (Negative)
--- NOTE | 2022-07-01 19:04 | MHC.CARE ---
[facility] contacted [facility]ARE team- due to pt's history of withdrawal symptoms, most recently one month ago, he isn't able to be admitted to their facility for detox. CARE team contacted [facility] re: their availability this evening, which there is not. CARE team spoke with ED attending physician re: the change in the plan and discussed the pt remaining in the ED overnight for detox placement tomorrow. CARE team met with pt to update him and what he can expect between this evening and tomorrow. Recovery/CARE team will continue detox bedsearch in the morning.
[2022-07-01] MEDS: chlordiazePOXIDE HCl 25 MG CAPSULE 75 MG PO (19:30)
--- NOTE | 2022-07-01 19:37 | PC.NURSE ---
Assumed care of pt. at 1900. Pt. in room in bed alert and oriented. Pt. requesting food at this time. Provided with a turkey sandwich. Pt. is slightly tremulous and a bit nauseaus and thinking that some food will settle his stomach. Medicated with librium per DEC. Turned down the lights and. pt resting in bed.
[2022-07-02 00:06] VITALS: BP 136/74; PULSE 76; RESP 16; TEMP 36.9; O2SAT 94
[2022-07-02] MEDS: LORazepam 1 MG TABLET 2 MG PO ×4 (03:08→16:15)
--- NOTE | 2022-07-02 05:53 | PC.NURSE ---
I assumed nursing care of David at 1900. David has been being observed overnight as a PhysObs until AM in order to determine if he can be medically cleared to attend a detox outside of the hospital (? [facility]) or if he will need a medical admission. David has been sleeping soundly for the majority of my shift. However, after midnight the pt rang his call horn and stated that he felt as if he was beginning to withdraw. He appeared moderately tremulous, c/o SPIVEY and anxiety, and he was visibly diaphoretic. BP and HR were elevated (see VS in EMR). At that time CIWA was 9. Yadira CASTRO was notified and pt was administered 2mg PO Ativan and has been sleeping since then without visible signs of acute withdrawal. Otherwise David has had an uneventful night. He has been calm, cooperative, makes eye contact with staff. He takes PO food and fluids without difficulty. He has had mild nausea without vomiting. He has been voiding into a bedside urinal without difficulty. We will continue to monitor David.
[2022-07-02] MEDS: Midazolam HCl/PF 2 MG/2 ML VIAL IM (08:05)
[2022-07-02] MEDS: Ondansetron ODT 4 MG TAB.RAPDIS TRANSLINGU (08:05)
[2022-07-02 08:11] VITALS: BP 139/106; PULSE 70; RESP 14; TEMP 36.9; O2SAT 100
--- NOTE | 2022-07-02 08:46 | PC.NURSE ---
PT WAS MEDICATED FOR VOMITING AND ETOH WITHDRAWAL CHARTED. HE IS TREMOROUS AND HTN
--- NOTE | 2022-07-02 09:44 | MHC.RECOVRN ---
[facility] has bed availability. Referral sent, intake completed. Waiting for review.
[2022-07-02] MEDS: Nicotine 21 MG PATCH.TD24 TRANSDERMA (10:11)
[2022-07-02 10:34] VITALS: BP 147/104
--- NOTE | 2022-07-02 12:11 | MHC.RECOVRN ---
Pt declined from [facility] due to insurance reasons. [facility] requesting documentation from [facility] regarding denial for billing purposes as well as VA referral. Spoke with Linda, [place] community RN ([phone]), who informed t/w that [facility] is not contracted with the [facility]. Furthermore, Linda reporting pt needs medical admission for withdrawal and suggesting pt go to [facility]. Pts [facility] denial notification # [id number]. Currently [facility] rep is speaking with Linda. Awaiting return call from [facility].
--- NOTE | 2022-07-02 12:28 | PC.NURSE ---
pt was medicated as charted earlier, he is sleeping but easily arousable. no vomiting, withdrawal sxs are managed at this time. no seizure activity noted
[2022-07-02 14:08] VITALS: BP 152/108; PULSE 83; RESP 14; TEMP 38; O2SAT 97
--- NOTE | 2022-07-02 15:33 | MHC.RECOVRN ---
[facility] is contracted with the [place], however, VA options must be exhausted prior to referral. Pt is unable to be accepted to local [facility] due to history of seizures, pt does not meet criteria for medical [place] [facility]. Per Winifred ([place] social media developer, ext [phone]), pts case needs to be presented to Maur[facility] Munson as a [place] medical level of care case, which would include a doc to doc. Discussed options with pt, pt choosing to discharge home. Pt does report having naltrexone at home that had been prescribed by [facility], pt plans to follow up with outpatient providers. ED provider aware.
--- NOTE | 2022-07-02 19:24 | PC.NURSE ---
steady gait out of the ed. no acute sxs pt did not experience and seizure or seizure like activity during his ED stay
== END 2022-07-02 19:24 | disposition home or self-care (01) ==
PROVIDERS: Emergency Provider Emergency Medicine
DX: F10.230 Alcohol dependence with withdrawal, uncomplicated (principal); Y90.8 Blood alcohol level of 240 mg/100 ml or more; R25.1 Tremor, unspecified; D53.9 Nutritional anemia, unspecified; D69.6 Thrombocytopenia, unspecified; Z20.822 Contact with and (suspected) exposure to COVID-19; F17.210 Nicotine dependence, cigarettes, uncomplicated
CPT/HCPCS: 80053; 82077; 85025; 87635; 93005; 96372; 99285; J2250

== ENCOUNTER 2023-03-10 14:10 | Outpatient (REF) | payer OTHER, SELFPAY ==
--- NOTE | ~2023-03-10 | MR_ITS ---
EXAMINATION: MRI SHOULDER WITHOUT CONTRAST, LEFT CLINICAL INFORMATION: Left shoulder pain. Worsening. Weakness. Symptoms x5-6 months. Patient denies recent injury. COMPARISON: None available. TECHNIQUE: MR images of the shoulder were obtained on a 1.5 Abril high-field strength scanner without intravenous contrast material. FINDINGS: ROTATOR CUFF: Intact. No muscle atrophy or fatty infiltration. BICEPS: Normal. CORACOACROMIAL ARCH: The undersurface of the acromion is flat with no subacromial spur. Minimal acromioclavicular osteoarthritis. Small volume of fluid in subacromial subdeltoid bursa measures up to 2 mm in thickness. LABRUM/CAPSULE: There is a linear band of abnormal increased signal intensity at the anterior labrum which is contiguous with the anterosuperior sublabral foramen. This tear likely extends from the 2 o'clock position to the anteroinferior 4 o'clock position. There is minimal edema signal in the underlying glenoid rim anteriorly. The joint capsule is thickened at the rotator interval involving both the coracohumeral and superior glenohumeral ligaments. There is minimal surrounding edema signal at the coracohumeral ligament. GLENOHUMERAL JOINT/MARROW: Articular cartilage is well-preserved. No fracture or malalignment. No joint effusion. No osseous lesions. MR/MR shoulder LT wo con IMPRESSION: 1. Anterior labral tear. 2. Capsular thickening and mild adjacent edema signal at the rotator interval, potentially due to prior capsular sprain. Adhesive capsulitis is also possible provided the appropriate clinical findings. 3. Minimal subacromial subdeltoid bursitis.
== END 2023-03-10 14:11 | disposition home or self-care (01) ==
LOC: HO.MRI 14:10
PROVIDERS: Visit Provider Nurse Practitioner Family
DX: M25.512 Pain in left shoulder (principal)
CPT/HCPCS: 73221

== ENCOUNTER 2023-06-23 12:44 | Emergency (ER) | payer OTHER, SELFPAY ==
[2023-06-23 12:49] VITALS: BP 148/98; PULSE 99; O2SAT 16
[2023-06-23 12:55] VITALS: BP 152/96; PULSE 82; RESP 18; TEMP 36.4; O2SAT 100; BMI 22.7
--- NOTE | 2023-06-23 13:06 | PC.NURSE ---
Patient alert and oriented, arrived after smoking crack and stating that he felt lightheaded and had blurry vision. Patient reports the lightheadedness has resolved but still has some blurry vision. With patient consent security checked patients for safety. Patient denies chest pain, sob, or headache. Patient reports smokes crack often and has never had this sensation so wanted to make sure it was not laced with anything. Patient calm and cooperative.
--- NOTE | 2023-06-23 14:20 | PC.NURSE ---
Patient went to the bathroom and then left facility
== END 2023-06-23 14:21 | disposition left against medical advice (07) ==
PROVIDERS: Emergency Provider Emergency Medicine
DX: R11.2 Nausea with vomiting, unspecified (principal); R42 Dizziness and giddiness; F14.10 Cocaine abuse, uncomplicated
CPT/HCPCS: 99283; 99284

== ENCOUNTER 2024-07-18 19:11 | Outpatient (REF) | payer OTHER, SELFPAY ==
--- NOTE | ~2024-07-18 | MR_ITS ---
EXAMINATION: MR CERVICAL SPINE WITHOUT CONTRAST CLINICAL INFORMATION: Neck pain.. COMPARISON: CT cervical spine 05/20/2022. TECHNIQUE: MRI of the cervical spine was obtained using routine sequences without contrast. FINDINGS: Alignment is normal. Vertebral body heights are preserved. No acute bone marrow signal changes. There is disc desiccation at multiple levels without substantial loss of intervertebral Family Services Assistant. There is no canal compromise or cord compression. No abnormal intramedullary signal changes. The cervicomedullary junction is normal. Limited visualization of the posterior fossa reveals no abnormal finding. The occipital condyles and lateral C1 masses are intact. There is degenerative arthrosis of the atlantodental joint. C1-C2 articular facets are unremarkable. At C2-C3 the annular contour is normal. No canal stenosis. Asymmetric uncovertebral joint spurring causes mild left neuroforaminal encroachment. At C3-C4 there is a bulging disc. No canal stenosis. Asymmetric uncovertebral joint spurring and facet degenerative change causes mild left neuroforaminal encroachment. At C4-C5 there is a bulging disc. No canal stenosis. Uncovertebral joint spurring and facet degenerative change causes mild bilateral neuroforaminal encroachment. At C5-C6 there is a bulging disc. No canal stenosis. Uncovertebral joint spurring and facet degenerative change causes mild left neuroforaminal encroachment. At C6-C7 there is a shallow right foraminal soft disc protrusion superimposed upon a diffusely bulging disc. Mild canal stenosis. Uncovertebral joint spurring and facet degenerative change causes moderate to severe bilateral neuroforaminal encroachment, slightly greater on the right. At C7-T1 the annular contour is normal. No canal or neuroforaminal compromise. Visualized soft tissues of the neck are normal. Vascular flow voids are maintained. MR/MR cervical spine wo con IMPRESSION: There is multilevel degenerative spondylosis of the cervical spine. A shallow right foraminal soft disc protrusion at C6-C7 superimposed upon a bulging disc causing mild canal stenosis. There is also moderate to severe bilateral neuroforaminal encroachment, slightly greater on the right. Otherwise no canal compromise. No cord compression or abnormal intramedullary signal changes. Mild neuroforaminal encroachment at multiple additional levels. Electronically signed by: Jake Jenkins MD 07/29/2024 05:42 PM EDT RP
== END 2024-07-18 19:12 | disposition home or self-care (01) ==
LOC: HO.MRI 19:11
PROVIDERS: PCP Nurse Practitioner Family; Visit Provider Nurse Practitioner Family
DX: M54.2 Cervicalgia (principal)
CPT/HCPCS: 72141

== ENCOUNTER 2024-09-01 09:13 | Outpatient (AMB) | payer OTHER, SELFPAY ==
--- NOTE | 2024-09-01 09:25 | MHC.OFFVIS ---
Vital Signs 09/01/24 09:54 Height 6 ft Weight 191 lb 4 oz BMI 25.9 BP 125/86 Blood Pressure Location Lt brachial Position Sitting Respiration 17 Pulse 75 Pulse Source Pulse Oximeter Pulse Oximetry (%) 96 Oxygen Delivery Method Room Air Intake Visit Reasons: Worsening neck pain Intake Note: Patient comes in for initial visit [facility] Reports pain 10. Allergies No Known Allergies [No Known Allergies*] Allergy (Verified 09/01/24 09:57) HPI Comments Details: David is very pleasant 44 years old gentleman who presents in my office with complains on pain in the neck. He reports that the pain started 3 years ago. He does not believe there were any inciting event such as trauma or car accident, he believes that it might be related to some gym exercises he did at that time. He reports pain radiates in bilateral anterior and posterior shoulders left upper extremity with radiation sometimes to the fingers. He reports his pain today 05/29. Because of his pain he is unable to do activities of daily living. He can sleep normally. He can take care of himself but he can not function normally. He is currently on disability he is retired from [employer] he was suffering from PTSD. He reports that neck movements aggravate his pain. In terms of tissue damage his pain described as pulsing, pounding, jumping, shooting, stabbing, lancinating, sharp, lacerating, pinching, crushing, tingling, stinging, dull, hurting, heavy, tiring, exhausting, fearful, terrifying, tight, squeezing, tearing. To control his pain he takes gabapentin 300 mg as well as he takes p.r.n. ibuprofen. He had an MRI performed at [facility] of his neck results of which dictated as below. On the MRI there are some advanced arthritis on both facet joints as well as uncovertebral joints mostly on the left side, there are some minimal stenosis at C6-C7 interval as well. He never tried physical therapy for his pain. Never had chiropractic manipulations. He tried home traction unit and it was not helpful for his pain. His past medical history significant for alcoholism however he stopped drinking 11 months ago. He smokes half a pack per day for 25 years he is taking Chantix trying to stop smoking. He drinks coffee but not soda and he denies recreational drugs but was in rehab for alcohol. He was diagnose once with alcohol-induced pancreatitis. He reports PTSD anxiety and depression. Past surgical history significant for foot surgery 5 years ago and bone graft month implant in June of 2024. [facility] Social History Household Members: Significant Other Housing: House Do you presently have visiting nurse or other home services: No Alcohol intake: former Patient Tobacco Use Status: Current everyday Tobacco user Tobacco use type: Cigarette e-Cigarette/Vaping Use: Never Used Second Hand Smoke Exposure: Yes Substance Use Type: Crack/Cocaine service: Yes Current occupational status: retired Review of Systems Const Reports no additional complaints ENT Reports Normal hearing present Card Reports no additional complaints Resp Reports no additional complaints GI Reports no additional complaints Reports no additional complaints Musc Reports as per HPI Neuro Reports no additional complaints, Reports Normal hearing present, Denies Abnormal speech present, Denies confusion and Denies Sensory deficit (Neuro) Psych Reports as per HPI and Denies confusion Physical Exam Vital Signs: Last Vital Signs Pulse 75 09/01/24 09:54 Resp 17 09/01/24 09:54 BP 125/86 09/01/24 09:54 Pulse Ox 96 09/01/24 09:54 Oxygen Delivery Method Room Air 09/01/24 09:54 BMI result Body Mass Index 25.9 Const General: no acute distress; No confusion Orientation/consciousness: patient oriented x3 and No confusion Eyes General: appearance normal, both eyes and all related structures Pupils: Equal, round and reactive pupils present EOM: EOMs intact bilaterally Neck Other: Limited ROM, advanced lordosis of the cervical spine. Lhermitte test is negative. Valsalva test is negative. Spurling test is negative bilaterally. No tenderness on palpation in paraspinal spinal region of the cervical spine short of the very bottom of the cervical spine probably C7 area or T1. Neck: No full ROM Chest Chest palpation & inspection: normal inspection of the chest Resp Effort & Inspection: normal respiratory effort, able to speak in complete sentences, normal respiratory pattern, no audible wheezes and no cough Cardio Jugular venous distension: no JVD GI Inspection: Yes normal to inspection Neuro General: patient oriented x3, gait normal and No confusion Cranial nerves: Yes CN's II-XII intact bilaterally, Yes Equal, round and reactive pupils present, Yes Normal hearing present and Yes Ability to bilaterally elevate shoulders present Speech: No Abnormal speech present Gait exam (Neuro): Normal gait present Motor exam (neuro): 5/5 motor strength present throughout Sensory Exam: No Sensory deficit (Neuro) Extrem General: No pedal edema Psych Speech and movement: Normal speech and movement present Affect: normal affect Attitude: cooperative Thought process: Normal thought process present Thought content: Normal thought content present Insight: Good insight present (Psych) Judgement: Good judgement present (Psych) Results Reviewed Results Reviewed: MR CERVICAL SPINE WITHOUT CONTRAST CLINICAL INFORMATION: Neck pain.. COMPARISON: CT cervical spine 05/20/2022. TECHNIQUE: MRI of the cervical spine was obtained using routine sequences without contrast. FINDINGS: Alignment is normal. Vertebral body heights are preserved. No acute bone marrow signal changes. There is disc desiccation at multiple levels without substantial loss of intervertebral Teller. There is no canal compromise or cord compression. No abnormal intramedullary signal changes. The cervicomedullary junction is normal. Limited visualization of the posterior fossa reveals no abnormal finding. The occipital condyles and lateral C1 masses are intact. There is degenerative arthrosis of the atlantodental joint. C1-C2 articular facets are unremarkable. At C2-C3 the annular contour is normal. No canal stenosis. Asymmetric uncovertebral joint spurring causes mild left neuroforaminal encroachment. At C3-C4 there is a bulging disc. No canal stenosis. Asymmetric uncovertebral joint spurring and facet degenerative change causes mild left neuroforaminal encroachment. At C4-C5 there is a bulging disc. No canal stenosis. Uncovertebral joint spurring and facet degenerative change causes mild bilateral neuroforaminal encroachment. At C5-C6 there is a bulging disc. No canal stenosis. Uncovertebral joint spurring and facet degenerative change causes mild left neuroforaminal encroachment. At C6-C7 there is a shallow right foraminal soft disc protrusion superimposed upon a diffusely bulging disc. Mild canal stenosis. Uncovertebral joint spurring and facet degenerative change causes moderate to severe bilateral neuroforaminal encroachment, slightly greater on the right. At C7-T1 the annular contour is normal. No canal or neuroforaminal compromise. Visualized soft tissues of the neck are normal. Vascular flow voids are maintained. IMPRESSION: There is multilevel degenerative spondylosis of the cervical spine. A shallow right foraminal soft disc protrusion at C6-C7 superimposed upon a bulging disc causing mild canal stenosis. There is also moderate to severe bilateral neuroforaminal encroachment, slightly greater on the right. Otherwise no canal compromise. No cord compression or abnormal intramedullary signal changes. Mild neuroforaminal encroachment at multiple additional levels. Assessment & Plan Assessment & Plan (1) Cervicalgia: Code(s): M54.2 - Cervicalgia Category: Medical (2) Spondylosis of cervical region without myelopathy or radiculopathy: Code(s): M47.812 - Spondylosis without myelopathy or radiculopathy, cervical region Category: Medical (3) Degeneration, intervertebral disc, cervical: Code(s): M50.30 - Other cervical disc degeneration, unspecified cervical region Category: Medical (4) Chronic pain syndrome: Code(s): G89.4 - Chronic pain syndrome Category: Medical Plan On the MRI as above this patient has some foraminal disc encroachment as well as advanced arthritis mostly on the left. Physical exam supports spondylosis and arthritis. This patient never had physical therapy. I will send him for physical therapy. I explained to him home exercise program. If physical therapy will be not effective due to intractable nature of his back pain I will schedule him for sprint PNS bilateral cervical possibly C6 possibly C7 location. I also recommended him to start taking for 7 days 400 mg of ibuprofen on the clock not p.r.n. I told him that he can not take gabapentin as needed if he feels that it makes his pain better. I will see him upon completion of physical therapy. Orders: Orders PT Evaluation and Treatment Today G89.4 - Chronic pain syndrome, M47.812 - Spondylosis without myelopathy or radiculopathy, cervical region, M50.30 - Other cervical disc degeneration, unspecified cervical region, M54.2 - Cervicalgia Patient Instructions: I here by testify that I spent 45 minutes in conversation with this patient as well as evaluating his diagnostic studies as well as planning his care and organizing this note. Coding Level of Care Code New Pt Level 4 (48934) Diagnoses Cervicalgia M54.2 Spondylosis of cervical region without myelopathy or radiculopathy M47.812 Degeneration, intervertebral disc, cervical M50.30 Chronic pain syndrome G89.4
[2024-09-01 09:54] VITALS: BP 125/86; PULSE 75; RESP 17; O2SAT 96; BMI 25.9
== END 2024-09-01 10:02 | disposition home or self-care (01) ==
PROVIDERS: PCP Nurse Practitioner Family; Visit Provider Anesthesiology
DX: M47.812 Spondylosis without myelopathy or radiculopathy, cervical region (principal); M50.30 Other cervical disc degeneration, unspecified cervical region; G89.4 Chronic pain syndrome
CPT/HCPCS: 99204

== ENCOUNTER → 2024-09-01 09:13 | Outpatient (BNVA) | payer OTHER, SELFPAY | PROVIDERS: PCP Nurse Practitioner Family; Visit Provider Anesthesiology | DX: M47.812 Spondylosis without myelopathy or radiculopathy, cervical region (principal); M50.30 Other cervical disc degeneration, unspecified cervical region; G89.4 Chronic pain syndrome; Z91.85 Personal history of military service; Z73.6 Limitation of activities due to disability | CPT/HCPCS: 99202 ==

== ENCOUNTER 2024-10-21 14:27 | Outpatient (AMB) | payer OTHER, SELFPAY ==
[2024-10-21 14:29] VITALS: BP 141/84; PULSE 84; O2SAT 99; BMI 26.0
--- NOTE | 2024-10-21 14:29 | A.OFFVIS_ITS ---
Vital Signs 10/21/24 14:29 Height 6 ft Weight 192 lb BMI 26.0 BP 141/84 H Blood Pressure Location Rt brachial Position Sitting Pulse 84 Pulse Source Pulse Oximeter Pulse Oximetry (%) 99 Oxygen Delivery Method Room Air Intake Visit Reasons: Procedure Discussion Allergies No Known Allergies [No Known Allergies*] Allergy (Verified 10/21/24 14:32) HPI Comments Details: David is very pleasant 44 years old gentleman who presents in my office with complains on pain in the neck. He completed 6 sessions of physical therapy. He continues home exercise program. Unfortunately all of this measures alleviate his pain for no more than 2 hours after the application. He reports that he wakes up with intractable cervical pain. He reports that his pain increase the now it is 9/10. He tried home traction unit and he reports that home traction unit creates radiculopathy pain on the right side. Therefore I do not believe that this is a good idea to continue this traction unit. I decided to schedule this patient for sprint PNS on the left as a trial of treatment of intractable cervicalgia. Prior: He reports that the pain started 3 years ago. He does not believe there were any inciting event such as trauma or car accident, he believes that it might be related to some gym exercises he did at that time. He reports pain radiates in bilateral anterior and posterior shoulders left upper extremity with radiation sometimes to the fingers. He reports his pain today 8/10. Because of his pain he is unable to do activities of daily living. He can sleep normally. He can take care of himself but he can not function normally. He is currently on disability he is retired from [employer] he was suffering from PTSD. He reports that neck movements aggravate his pain. To control his pain he takes gabapentin 300 mg as well as he takes p.r.n. ibuprofen. He had an MRI performed at [facility] of his neck results of which dictated as below. On the MRI there are some advanced arthritis on both facet joints as well as uncovertebral joints mostly on the left side, there are some minimal stenosis at C6-C7 interval as well. He never tried physical therapy for his pain. Never had chiropractic manipulations. He tried home traction unit and it was not helpful for his pain. His past medical history significant for alcoholism however he stopped drinking 11 months ago. He smokes half a pack per day for 25 years he is taking Chantix trying to stop smoking. He drinks coffee but not soda and he denies recreational drugs but was in rehab for alcohol. He was diagnose once with alcohol-induced pancreatitis. He reports PTSD anxiety and depression. Past surgical history significant for foot surgery 5 years ago and bone graft month implant in June of 2024. [facility] Social History Household Members: Significant Other Housing: House Do you presently have visiting nurse or other home services: No Alcohol intake: former Patient Tobacco Use Status: Current everyday Tobacco user Tobacco use type: Cigarette e-Cigarette/Vaping Use: Never Used Second Hand Smoke Exposure: Yes Substance Use Type: Crack/Cocaine service: Yes Current occupational status: retired Review of Systems Const All systems reviewed & are unremarkable except as noted in HPI and below ENT Reports Normal hearing present Neuro Reports Normal hearing present, Denies Abnormal speech present, Denies confusion and Denies Sensory deficit (Neuro) Psych Denies confusion Physical Exam Vital Signs: Last Vital Signs Pulse 84 10/21/24 14:29 BP 141/84 H 10/21/24 14:29 Pulse Ox 99 10/21/24 14:29 Oxygen Delivery Method Room Air 10/21/24 14:29 BMI result Body Mass Index 26.0 Const General: no acute distress; No confusion Orientation/consciousness: patient oriented x3 and No confusion Eyes General: appearance normal, both eyes and all related structures Pupils: Equal, round and reactive pupils present EOM: EOMs intact bilaterally Neck Other: Limited ROM, advanced lordosis of the cervical spine. Lhermitte test is negative. Valsalva test is negative. Spurling test is negative bilaterally. No tenderness on palpation in paraspinal spinal region of the cervical spine short of the very bottom of the cervical spine probably C7 area or T1. Neck: No full ROM Chest Chest palpation & inspection: normal inspection of the chest Resp Effort & Inspection: normal respiratory effort, able to speak in complete sentences, normal respiratory pattern, no audible wheezes and no cough Cardio Jugular venous distension: no JVD GI Inspection: Yes normal to inspection Neuro General: patient oriented x3, gait normal and No confusion Cranial nerves: Yes CN's II-XII intact bilaterally, Yes Equal, round and r eactive pupils present, Yes Normal hearing present and Yes Ability to bilaterally elevate shoulders present Speech: No Abnormal speech present Gait exam (Neuro): Normal gait present Motor exam (neuro): 5/5 motor strength present throughout Sensory Exam: No Sensory deficit (Neuro) Extrem General: No pedal edema Psych Speech and movement: Normal speech and movement present Affect: normal affect Attitude: cooperative Thought process: Normal thought process present Thought content: Normal thought content present Insight: Good insight present (Psych) Judgement: Good judgement present (Psych) Results Reviewed Results Reviewed: MR CERVICAL SPINE WITHOUT CONTRAST CLINICAL INFORMATION: Neck pain.. COMPARISON: CT cervical spine 05/20/2022. TECHNIQUE: MRI of the cervical spine was obtained using routine sequences without contrast. FINDINGS: Alignment is normal. Vertebral body heights are preserved. No acute bone marrow signal changes. There is disc desiccation at multiple levels without substantial loss of intervertebral Compliance Examiner. There is no canal compromise or cord compression. No abnormal intramedullary signal changes. The cervicomedullary junction is normal. Limited visualization of the posterior fossa reveals no abnormal finding. The occipital condyles and lateral C1 masses are intact. There is degenerative arthrosis of the atlantodental joint. C1-C2 articular facets are unremarkable. At C2-C3 the annular contour is normal. No canal stenosis. Asymmetric uncovertebral joint spurring causes mild left neuroforaminal encroachment. At C3-C4 there is a bulging disc. No canal stenosis. Asymmetric uncovertebral joint spurring and facet degenerative change causes mild left neuroforaminal encroachment. At C4-C5 there is a bulging disc. No canal stenosis. Uncovertebral joint spurring and facet degenerative change causes mild bilateral neuroforaminal encroachment. At C5-C6 there is a bulging disc. No canal stenosis. Uncovertebral joint spurring and facet degenerative change causes mild left neuroforaminal encroachment. At C6-C7 there is a shallow right foraminal soft disc protrusion superimposed upon a diffusely bulging disc. Mild canal stenosis. Uncovertebral joint spurring and facet degenerative change causes moderate to severe bilateral neuroforaminal encroachment, slightly greater on the right. At C7-T1 the annular contour is normal. No canal or neuroforaminal compromise. Visualized soft tissues of the neck are normal. Vascular flow voids are maintained. IMPRESSION: There is multilevel degenerative spondylosis of the cervical spine. A shallow right foraminal soft disc protrusion at C6-C7 superimposed upon a bulging disc causing mild canal stenosis. There is also moderate to severe bilateral neuroforaminal encroachment, slightly greater on the right. Otherwise no canal compromise. No cord compression or abnormal intramedullary signal changes. Mild neuroforaminal encroachment at multiple additional levels. Assessment & Plan Assessment & Plan (1) Cervicalgia: Code(s): M54.2 - Cervicalgia Category: Medical (2) Spondylosis of cervical region without myelopathy or radiculopathy: Code(s): M47.812 - Spondylosis without myelopathy or radiculopathy, cervical region Category: Medical (3) Degeneration, intervertebral disc, cervical: Code(s): M50.30 - Other cervical disc degeneration, unspecified cervical region Category: Medical (4) Chronic pain syndrome: Code(s): G89.4 - Chronic pain syndrome Category: Medical (5) Intractable back pain: Code(s): M54.9 - Dorsalgia, unspecified Category: Medical Plan On the MRI as above this patient has some foraminal disc encroachment as well as advanced arthritis mostly on the left. Physical exam support spondylosis and arthritis. 400 mg of ibuprofen twice a day alleviates pain however very minimally. He completed 6 sessions of physical therapy continues home exercise program. However those measures make his pain better only for no more than 2 hours. We decided that I will try sprint PNS on him. Risks and benefits were explained nature of the procedure were explained to the patient. Coding Level of Care Code Est Pt Level 3 (70370) Diagnoses Cervicalgia M54.2 Spondylosis of cervical region without myelopathy or radiculopathy M47.812 Degeneration, intervertebral disc, cervical M50.30 Chronic pain syndrome G89.4 Intractable back pain M54.9
== END 2024-10-21 14:54 | disposition home or self-care (01) ==
PROVIDERS: PCP Internal Medicine Endocrinology, Diabetes & Metabolism; Visit Provider Anesthesiology
DX: M54.2 Cervicalgia (principal); M47.812 Spondylosis without myelopathy or radiculopathy, cervical region; M50.30 Other cervical disc degeneration, unspecified cervical region; G89.4 Chronic pain syndrome; M54.9 Dorsalgia, unspecified
CPT/HCPCS: 99213

== ENCOUNTER → 2024-10-21 14:27 | Outpatient (BNVA) | payer OTHER, SELFPAY | PROVIDERS: PCP Internal Medicine Endocrinology, Diabetes & Metabolism; Visit Provider Anesthesiology | DX: M54.2 Cervicalgia (principal); M47.812 Spondylosis without myelopathy or radiculopathy, cervical region; M50.30 Other cervical disc degeneration, unspecified cervical region; M54.9 Dorsalgia, unspecified; G89.4 Chronic pain syndrome | CPT/HCPCS: 99212 ==

== ENCOUNTER 2024-12-13 09:13 | Outpatient (AMB) | payer OTHER, SELFPAY ==
--- NOTE | 2024-12-13 09:25 | A.OFFVIS_ITS ---
Vital Signs 12/13/24 09:26 Height 6 ft Weight 195 lb 5.273 oz BMI 26.5 BP 122/88 Blood Pressure Location Rt brachial Position Sitting Pulse 68 Pulse Source Pulse Oximeter Pulse Oximetry (%) 98 Oxygen Delivery Method Room Air Intake Visit Reasons: Colonoscopy Screening Intake Note: NEW PATIENT for initial colo screening w/o FMHX. Chief Complaint; No current GI concerns; however, pt does report prior hx of hemorrhoids which have not bothered him as of the last few months. Computer Numerical Control Programmer Required: No Accompanied by: Self / Same As Patient Allergies No Known Allergies [No Known Allergies*] Allergy (Verified 12/13/24 09:25) HPI HPI Colonoscopy Screening: Details: 44 year old? 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 Patient was sent to us by his PCP.? This is his first colonoscopy screening.? Patient denies any ga strointestinal symptoms in the past or at present.? Denies any personal or family history of gastrointestinal disease, colon polyps, or CRC.? Denies history of difficulty with sedation or anesthesia in the past.? Negative for history of sleep apnea.? Denies any history of cardiac, renal, pulmonary, or hepatic disease.?? No history of infectious? diseases like hepatitis A, B, C, HIV or tuberculosis.? Patient is not on any anticoagulation [facility] Social History Household Members: Significant Other Housing: House Do you presently have visiting nurse or other home services: No Alcohol intake: former Patient Tobacco Use Status: Current everyday Tobacco user Tobacco use type: Cigarette e-Cigarette/Vaping Use: Never Used Second Hand Smoke Exposure: Yes Substance Use Type: Crack/Cocaine service: Yes Current occupational status: retired Review of Systems Const Denies weight gain and Denies weight loss ENT Reports no additional complaints, Denies dysphagia and Denies odynophagia Card Reports no additional complaints Resp Reports no additional complaints GI Denies abdominal pain, Denies belching, Denies melena, Denies bloating, Denies change in bowel habits, Denies dysphagia, Denies excessive flatus, Denies dyspepsia, Denies heartburn, Denies diarrhea, Denies loose stools, Denies nausea, Denies odynophagia and Denies vomiting Reports no additional complaints Musc Reports no additional complaints Neuro Reports no additional complaints Psych Reports no additional complaints Endo Reports no additional complaints Physical Exam Vital Signs: Last Vital Signs Pulse 68 12/13/24 09:26 BP 122/88 12/13/24 09:26 Pulse Ox 98 12/13/24 09:26 Oxygen Delivery Method Room Air 12/13/24 09:26 BMI result Body Mass Index 26.5 Const General: healthy appearing, no acute distress and well developed Nutritional Appearance: well nourished Orientation/consciousness: patient oriented x3 Resp Effort & Inspection: normal respiratory effort, able to speak in complete sentences, no tracheal deviation and symmetric chest movement Auscultation: clear to auscultation bilaterally Cardio Rate: regular rate GI Inspection: Yes normal to inspection and No distended Palpation (GI): Soft to palpation, not firm, nontender and No hepatosplenomegaly present Auscultation: normal bowel sounds General: Yes no CVA tenderness Back/Spine/Pelvis Back: no CVA tenderness Skin General skin exam: elasticity normal, turgor normal and dry skin Neuro General: patient oriented x3 Psych Appearance: grossly normal Mental Status: mental status grossly normal Assessment & Plan Assessment & Plan (1) Screen for colon cancer: Code(s): Z12.11 - Encounter for screening for malignant neoplasm of colon Plan Patient denies any GI, cardiac or respiratory symptoms.? Denies any issues with anesthesia in the past.? Denies any history of sleep apnea.? No history infectious diseases in the past or present.? Not on any anticoagulation therapy.? No family or personal history of colon cancer or polyps.? Patient denies melena, hematochezia, unintentional weight loss or ribbon like stools.? Discussed at length the pre-procedure,? prep, diet & medications as well as what to expect prior, during and after the procedure.?? Stressed the importance of good bowel prep.? Recommended the use of Vaseline or Calmoseptine OTC & baby wipes with bowel movements to promote comfort.? ?Patient verbalizes understanding and agrees to plan of care.? He was given the opportunity to ask questions and all questions answered.? We will see him after the procedure.? Medications: New polyethylene glycol 3350 (Miralax) As directed by gastroenterology department at [facility] 238 grams PO ONCE 238 grams 0RF Z12.11 - Encounter for screening for malignant neoplasm of colon bisacodyl (Dulcolax (bisacodyl)) take 4 tabs at noon the day before your colonoscopy 20 mg (4 x 5 mg) PO ONCE 1 day 4 tabs 0RF Z12.11 - Encounter for screening for malignant neoplasm of colon Coding Level of Care Code New Pt Level 3 (07984) Diagnoses Screen for colon cancer Z12.11 Time Spent (min) 40 Comment 30 minutes spent with the patient in additional 10 minutes spent reviewing his records
[2024-12-13 09:26] VITALS: BP 122/88; PULSE 68; O2SAT 98; BMI 26.5
--- OUTSIDE RECORDS SUMMARY | 2024-12-13 09:51 | XMS_ITS | Clinical Summary ---
Author Organization [facility] Address [address] [place] [address] Care Team Providers Care Hand Coremaker Name Role Phone Unavailable Primary Care Provider Unavailabl e Allergies No known active allergies Medications Medication Sig Dispensed Refills Start Date End Date Status amLODIPine (NORVASC) tablet 5 mgIndications:Hype rtension Take 1 tablet (5 mg total) by mouth daily. 30 tablet 0 01/09/2018 Active Additional Information Patient not taking.Reason: Other, Reported on 08/09/2019 Magnesium Oxide 400 (241.3 Mg) MG TABS tabletIndications: low magnesium Take 400 mg by mouth 2 (two) times a day. 60 tablet 0 01/09/2018 Active hydrOXYzine (VISTARIL) 50 MG capsuleIndications :Anxiety Neurosis (Inactive) Take 1 capsule (50 mg total) by mouth 3 (three) times a day as needed for anxiety. 30 capsule 1 03/11/2018 Active escitalopram (LEXAPRO) tablet 10 mgIndications:Miri r Depressive Disorder Take 1 tablet (10 mg total) by mouth daily. 30 tablet 0 03/11/2018 Active nicotine (NICODERM CQ) 21 MG/24HRIndications :Nicotine Dependence Place 1 patch onto the skin daily. 28 patch 0 03/12/2018 Active traZODone (DESYREL) 100 MG tabletIndications: Insomnia Take 100 mg by mouth every night at bedtime. 0 Active QUEtiapine (SEROQUEL) 100 MG tabletIndications: depression/insomni a Take 1 tablet (100 mg total) by mouth every night at bedtime as needed. 15 tablet 1 04/15/2018 Active Active Problems Problem Noted Date Diagnosed Date Hypomagnesemia 04/09/2018 Hypokalemia 04/09/2018 Cigarette nicotine dependence without complicati on 04/09/2018 Substance induced mood disorder 12/31/2017 Other depressive episodes 12/31/2017 Alcohol use disorder, severe, dependence 018 PTSD (post-traumatic stress disorder) 12/13/2017 Social History Tobacco Use Types Packs/Day Years Used Date Smoking Tobacco: Every Day Cigarettes 1 20 Smokeless Tobacco: Never Tobacco Cessation:Ready to Q uit: No Alcohol Use Standard Drinks/Week Comments Yes 30 (1 standard drink = 0.6 oz pu re alcohol) 30 vodka shots daily average Sex and Gender Information Value Date Recorded Sex Assigned at Male 08/09/2019 2:11 AM EDT Gender Identity Male 08/09/2019 2:11 AM EDT Sexual Orientation Not on file Job Start Date Occupation Industry Not on file Not on file Not on file Last Filed Vital Signs Vital Sign Reading Time Taken Comments Blood Pressure 127/96 09/01/2021 8:48 AM EST Pulse 90 09/01/2021 8:48 AM EST Temperature 36.7 ??C (98.1 ??F) 09/01/2021 8:48 AM ES T Respiratory Rate 16 09/01/2021 8:48 AM EST Oxygen Saturation 98% 09/01/2021 8:48 AM EST Inhaled Oxygen Concentration - - Weight 77.1 kg (170 lb) 08/31/2021 4:50 PM EST Height 185.4 cm (6' 1 ) 08/31/2021 4:50 PM EST Body Mass Index 22.43 08/31/2021 4:50 PM EST Plan of Treatment Not on file Advance Directives For more information, please contact: [phone] Latest Code Status on File Code Status Date Activated Date Inactivated Comments Full Code 04/09/2018 2:40 PM 04/15/2018 6:22 PM This code status was ascertained in the following way: per unit protocol. Code Status History Code Status Date Activated Date Inactivated Comments Full Code 03/07/2018 7:27 AM 03/11/2018 8:08 PM This code status was ascertained in the following way: per unit protocol. Full Code 12/30/2017 11:18 PM 01/09/2018 3:06 PM This code status was ascertained in the following way: per unit protocol. Full Code 12/15/2017 3:53 PM 12/16/2017 5:25 PM This code status was ascertained in the following way: per unit protocol. Full Code 12/12/2017 8:16 PM 12/15/2017 3:53 PM This code status was ascertained in the following way: per unit protocol.
--- OUTSIDE RECORDS SUMMARY | 2024-12-13 09:51 | XMS_ITS | Clinical Summary ---
Author Organization [facility] it Address [address] [place] [address] Care Team Providers Care Reinforced Concrete Inspector Name Role Phone Roman Small MD Primary Care Provider [phone] Surgical History Surgery Date Site/Laterality Comments TONSILLECTOMY PROCEDURE:TONSILLECTOMY Medical History Medical History Date Comments H/O ETOH abuse DX:H/O ETOH abus e Pancreatitis DX:Pancreatitis Depression DX:Depression Anxiety DX:Anxiety PTSD (post-traumatic stress disorder) DX:PTSD (post-traumatic stress disorder) Magnesium deficiency DX:Magnesiu m deficiency Social History Tobacco Use Types Packs/Day Years Used Date Smoking Tobacco: Every Day Cigarettes Smokeless Tobacco: Never Alcohol Use Standard Drinks/Week Comments Yes 30 (1 standard drink = 0.6 oz pu re alcohol) Sex and Gender Information Value Date Recorded Sex Assigned at Not on file Legal Sex Male 1:34 PM EST Gender Identity Not on file Sexual Orientation Not on file Obstetrics History Plan of Treatment Health Maintenance Due Date Last Done Comments DTaP,Tdap,and Td Vaccines (1 - Tdap) 1998 Hepatitis B Vaccines (1 of 3 - 19+ 3-dose series) 1998 COVID-19 Vaccine (2023-2 5 season) 2024 Influenza Vaccine (#1) 2024 07/09/2012 HIB Vaccines Aged Out No longer eligi ble based on patient's age to complete this topic HPV Vaccines Aged Out No longer eligi ble based on patient's age to complete this topic Hepatitis A Vaccines Aged Out No long er eligible based on patient's age to complete this topic IPV Vaccines Aged Out No longer eligi ble based on patient's age to complete this topic MMR Vaccines Aged Out No longer eligi ble based on patient's age to complete this topic Meningococcal ACWY Vaccine Aged Out N o longer eligible based on patient's age to complete this topic Meningococcal B Vacine Aged Out No lo nger eligible based on patient's age to complete this topic Pneumococcal Vaccine: Pediat rics (0 to 5 Years) and At-Risk Patients (6 to 64 Years) Aged Out No longer eligi ble based on patient's age to complete this topic RSV Immunization Patients Un delta 20 months Aged Out No longer eligible b ased on patient's age to complete this topic Varicella Vaccines Aged Out No longer eligible based on patient's age to complete this topic Care Teams Reinforced Concrete Inspector Relationship Specialty Start Date End Date Roman Small MD PCP - General Internal Medicine 06/23/12
== END 2024-12-13 10:44 | disposition home or self-care (01) ==
PROVIDERS: PCP Internal Medicine Endocrinology, Diabetes & Metabolism; Visit Provider Nurse Practitioner Family
DX: Z01.818 Encounter for other preprocedural examination (principal); Z12.11 Encounter for screening for malignant neoplasm of colon
CPT/HCPCS: S0285

== ENCOUNTER 2024-12-15 10:03 | Outpatient (RCR) | payer OTHER, SELFPAY ==
--- NOTE | 2024-09-29 14:38 | MHC.PT.EP ---
[facility] [place] Office [place] Office [place] Office [address] Carey Brewer [address] [phone] F: [phone] F: [phone] F: [phone] F: [phone] Physical Therapy Plan of Care Date of Evaluation: 09/29/24 Date of Surgery: n/a Diagnosis: Cervicalgia Spondylosis without myelopathy or radiculopathy, cervical region Other cervical disc degeneration, unspecified cervical region Assessment: Pt is a pleasant and motivated 44yo M who presents to PT with neck pain radiating into L UE. He has intermittent pain and impaired sensation throughout C6 dermatome region. He presents with current impairments in pain, decreased cervical ROM, soft tissue restrictions, and impaired posture. He is limited functionally by neck movements, laying flat, prolonged positions and gym program. He is a good candidate for skilled PT in order to address current impairments to facilitate return to PLOF. He is recommended to be seen 2x/week for 4 weeks and will be reassessed at that time Frequency and Duration: The patient will be seen 2x/week for 4 weeks Short Term Goals: Pt will be I with HEP to promote self management of symptoms Pt will demonstrate improvements in postural awareness throughout the day Pt will have centralization of symptoms Center Consultant Goals: Pt will tolerate prolonged sitting > 1 hour with improved posture and with minimal to no pain or discomfort Pt will return to upper body strengthening program at the gym with proper mechanics and without radicular symptoms Pt will demonstrate improvements in function as evidenced by statistically significant improvement in Neck Pain Disability Index Questionnaire Treatment Plan: Modalities to reduce pain, spasms and effusion. Manual therapy to restore motion and function. Therapeutic exercise to improve strength and flexibility. Neuromuscular re-education for posture and balance. Therapeutic activities to return to functional activities of daily living. Electronically signed by: Marcie Foss, PT, DPT Please sign and return to therapist. Thank you for your referral.
--- NOTE | 2024-12-20 14:28 | MHC.PT.DC ---
[facility] [place] Office [place] Office [place] Office [address] Carey Brewer [address] [phone] F: [phone] F: [phone] F: [phone] F: [phone] Physical Therapy Discharge Report Diagnosis: Cervicalgia Spondylosis without myelopathy or radiculopathy, cervical region Other cervical disc degeneration, unspecified cervical region Date of Surgery: n/a Date of Evaluation: 09/29/24 Date of Discharge: 12/20/24 Treatments to Date: 14 Cancellations to Date: 5 No Shows to Date: 2 Discharge Status: Improved Function Independent with HEP Discharge Summary: Pt was seen for skilled PT from 09/29/24-12/15/24. His last attended and scheduled appointment was 12/15/24. He has made good progress with skilled PT. He has demonstrated improvements in postural awareness and reports he is taking less pain medication than he was before PT. He does continue to have pain with intermittent UE radicular symptoms. He has reached a functional plateau with skilled PT. He is independent with HEP and was D/C to HEP at last attended appointment. He was recommended to perform HEP consistently. He is also going for SPRINT procedure on December 28. Electronically signed by: Marcie Foss, PT, DPT Please sign and return to therapist. Thank you for your referral.
== END 2024-12-20 14:28 | disposition home or self-care (01) ==
LOC: HO.PT 10:03
PROVIDERS: PCP Internal Medicine Endocrinology, Diabetes & Metabolism; Visit Provider Anesthesiology
DX: M54.2 Cervicalgia (principal); M47.812 Spondylosis without myelopathy or radiculopathy, cervical region
CPT/HCPCS: 97012; 97110; 97140; 97162; 97530

== ENCOUNTER 2024-12-28 06:12 | Outpatient (REF) | payer OTHER, SELFPAY ==
--- NOTE | ~2024-12-28 | FL_ITS ---
EXAMINATION: FL GUIDANCE ONLY HISTORY: M47.812 - Spondylosis without myelopathy or radiculopathy, cervical region COMPARISON: None available. TECHNIQUE: Fluoroscopy time: 0.1 minutes. Cumulative Dose: 0.626 mGy. DAP: 0.0108 mGym2 Images: 1. FINDINGS: A single fluoroscopic spot film of the cervical spine in the AP projection demonstrates a lead on the left. FL/FL guidance in treatment room IMPRESSION: Fluoroscopy during procedure. Please see procedure report for additional information. Electronically signed by: Jake Garcia MD 12/28/2024 09:50 AM EDT
--- OUTSIDE RECORDS SUMMARY | 2024-12-28 06:16 | XMS_ITS | Clinical Summary ---
Author Organization [facility] it Address [address] [place] [address] Care Team Providers Care Medical Assembly Name Role Phone Roman Small MD Primary Care Provider [phone] Surgical History Surgery Date Site/Laterality Comments TONSILLECTOMY [...] age to complete this topic Care Teams Medical Assembly Relationship Specialty Start Date End Date Roman Small MD PCP - General Internal Medicine 06/23/12
--- OUTSIDE RECORDS SUMMARY | 2024-12-28 06:16 | XMS_ITS | Clinical Summary ---
Author Organization [facility] Address [address] [place] [address] Care Team Providers Care Computer Analyst Supervisor Name Role Phone Unavailable Primary Care Provider [...] Advance Directives For more information, please contact: [phone] Latest Code Status on File Code Status [...]
== END 2024-12-28 06:13 | disposition home or self-care (01) ==
LOC: CF 06:12
PROVIDERS: Visit Provider Anesthesiology
DX: M47.812 Spondylosis without myelopathy or radiculopathy, cervical region (principal)
CPT/HCPCS: 64555; C1778; J2003

== ENCOUNTER 2024-12-28 07:56 | Outpatient (AMB) | payer OTHER, SELFPAY ==
--- OUTSIDE RECORDS SUMMARY | 2024-12-28 08:00 | XMS_ITS | Encounter Summary ---
Author Name [facility] [facility] [place] Address [address] [place] [id number] Care Team Providers Care Deputy Coroner Investigator Name Role Phone KERRIE KNIGHT Primary Care Provider Unavaila JOSE MANUEL [place] Primary Care Provider Unavailabl e Insurance Providers: All historical and current Section Date Range: From patient's date of to the date document was created. This section includes the names of all active insurance providers for the patient. Insurance Provider Type of Coverage Plan Name Start of Policy Coverage End of Policy Coverage Group Number Member ID Insurance Provider's Telephone Number Policy Dye's Name Patient's Relationship to Policy Dye MEDICARE (WNR) MEDICARE (M) PART A February 17, 2017 PART A [id number] MARY ESPINO PATIENT MEDICARE (WNR) MEDICARE (M) PART B February 17, 2017 PART B [id number] [phone] MARY ESPINO PATIENT MEDICARE (WNR) MEDICARE (M) PART A February 17, 2017 PART A [id number] [phone] MARY ESPINO PATIENT MEDICARE (WNR) MEDICARE (M) PART A February 17, 2017 PART A [id number] [phone] JASMINAINIMARY [place] PATIENT MEDICARE (WNR) MEDICARE (M) PART B February 17, 2017 PART B [id number] CIMINI,MARY [place] PATIENT MEDICARE (WNR) MEDICARE (M) PART A February 17, 2017 PART A [id number] JASMINAINI,MARY [place] PATIENT MEDICARE (WNR) MEDICARE (M) PART A February 17, 2017 PART A [id number] [phone] CIMINI,DA [place] PATIENT MEDICARE (WNR) MEDICARE (M) PART B February 17, 2017 PART B [id number] [phone] CIMINI,MARY [place] PATIENT MEDICARE (WNR) MEDICARE (M) PART B February 17, 2017 PART B [id number] CIMINI,MARY [place] PATIENT MEDICARE (WNR) MEDICARE (M) PART A February 17, 2017 PART A [id number] CIMINI,DA [place] PATIENT MEDICARE (WNR) MEDICARE (M) PART A February 17, 2017 PART A [id number] JASMINAINI,MARY [place] PATIENT MEDICARE (WNR) MEDICARE (M) PART B February 17, 2017 PART B [id number] JASMINAINIMARY PATIENT Selected Encounter This section includes the information on record at [place] for the Encounter. Date/Time Encounter Type Encounter Description Reason Pro vider Source IHE Encounter Template Text not used by [place] Social History: Smoking Status (Most current) and Tobacco Use (All prior to encounter date) This section includes the most current, and the historical, smoking and tobacco- related health factors from the [place] facility where the Encounter took place. Current Smoking Status This section includes the most current smoking, or tobacco-related health factor, from the [place] facility where the Encounter took place. Date/Time Current Smoking Status Comment Facil ity Aug 26, 2020 03:33 PM 689 [facility] SMOKING [facility] Tobacco Use History This section includes a history of the smoking, or tobacco-related health factors, that were collected on or before the date of the Encounter. The data comes from the [place] facility where the Encounter took place. Date/Time Smoking Status/Tobacco Use Comment F acility Aug 06, 2020 10:30 PM 689 [facility] REPORTS SMOKING [facility] Jul 10, 2020 07:38 PM 689 [facility] REPOR[facility] SMOKING [facility] Jun 24, 2020 01:05 AM 689 [facility] REPOR[facility] SMOKING [facility] Apr 14, 2020 06:45 AM 689 [facility]PT REPORTS SMOKING [facility] February 29, 2020 02:33 AM 689 [facility]PT REPORTS SMOKING [facility] Jul 20, 2019 06:25 PM 689 INPT REPORTS SMOKING [facility] Mar 25, 2019 05:25 AM 689 INPT REPORTS SMOKING [facility] Advance Directives: All historical and current Section Date Range: From patient's date of to the date document was created. This section includes ALL of a patient's completed or amended [place] Advance and Rescinded Directives. The entries below indicate that a directive exists for the patient, but an actual copy is not included with this document. The data comes from all [place] facilities. Date Advance Directives Provider Source Sep 13, 2019 ADVANCE DIRECTIVE JOSE MANUEL [facility] Oct 03, 2017 ADVANCE DIRECTIVE DAGMAR THAKUR [facility] Feb 07, 2016 ADVANCE DIRECTIVE SOFIE POLANCO [facility] Jan 20, 2015 ADVANCE DIRECTIVE DISCUSSION FLORINA COLON [facility]
--- OUTSIDE RECORDS SUMMARY | 2024-12-28 08:00 | XMS_ITS | Encounter Summary ---
Author Name [facility] [place] [facility] [place] [facility] [place] Address [address] [place] [address] Care Team Providers Care Processor Grain Name Role Phone KERRIE KNIGHT Primary Care Provider JOSE MANUEL Carrion Primary Care Provider Unavailroberta e Insurance Providers: All historical and current [...] PART A February 17, 2017 PART A [id number] MARY ESPINO PATIENT MEDICARE (WNR) MEDICARE (M) PART B February 17, 2017 PART B [id number] MARY ESPINO PATIENT MEDICARE (WNR) MEDICARE (M) PART A February 17, 2017 PART A [id number] [phone] MARY ESPINO PATIENT MEDICARE (WNR) MEDICARE (M) PART A February 17, 2017 PART A [id number] [phone] CIMINI,MARY [place] PATIENT MEDICARE (WNR) MEDICARE (M) PART B February 17, 2017 PART B [id number] [phone] CIMINI,MARY [place] PATIENT MEDICARE (WNR) MEDICARE (M) PART A February 17, 2017 PART A [id number] CIMINI,MARY [place] PATIENT MEDICARE (WNR) MEDICARE (M) PART A February 17, 2017 PART A [id number] CIMINI,DA [place] PATIENT MEDICARE (WNR) MEDICARE (M) PART B February 17, 2017 PART B [id number] CIMINI,MARY [place] PATIENT MEDICARE (WNR) MEDICARE (M) PART B February 17, 2017 PART B [id number] CIMINI,MARY [place] PATIENT MEDICARE (WNR) MEDICARE (M) PART A February 17, 2017 PART A [id number] CIMINI,DA [place] PATIENT MEDICARE (WNR) MEDICARE (M) PART A February 17, 2017 PART A [id number] CIMINI,MARY [place] PATIENT MEDICARE (WNR) MEDICARE (M) PART B February 17, 2017 PART B [id number] [phone] JASMINAINIMARY PATIENT Selected Encounter This section includes the information on record at [place] for the Encounter. Date/Time Encounter Type Encounter Description Reason Provider Source Apr 26, 2024 12:20 PM [facility] ICD-10-CM F14.20 Cocaine dependence, uncomplicated NARESH SHAIKH E Encounter Template Text not used by [place] Assessments - Encounter Diagnoses This section includes the primary and secondary diagnoses documented for the Encounter. Date/Time Primary/Secondary Diagnosis Diagnosis Name Provider Source Aug 26, 2024 07:18 AM PRIMARY Cocaine dependence, uncomplicated NARESH SHAIKH [facility] Plan of Treatment: Future Appointments (+ 6 months) and Future Tests (+/- 45 days) The Plan of Treatment section includes future care activities for the patient from all [place] [facility]. This section includes future appointments and future orders which are active, pending or scheduled. Future Appointments This section includes appointments that were scheduled to occur 6 months from the date of the Encounter, up to a maximum of 20 appointments. The data comes from all [place] treatment facilities. Appointment Date/Time Appointment Type Appointme nt Facility Name May 05, 2024 10:40 AM [facility] May 11, 2024 09:00 AM AMBULATORY - PS[facility]CHIATRY [facility] May 13, 2024 11:30 AM [facility] May 18, 2024 09:00 AM AMBULATORY - PS[facility]AT[facility] May 25, 2024 09:00 AM AMBULATORY - PS[facility]ATRY [facility] Jun 01, 2024 09:00 AM AMBULATORY - PS[facility] Jun 03, 2024 12:05 PM AM[facility]UL[facility]ORY [facility] Jun 08, 2024 09:00 AM AMBULATORY - PS[facility]ATRY [facility] Jun 08, 2024 11:30 AM AMBULATORY - PS[facility]AT[facility] Jun 11, 2024 03:30 PM AM[facility]ULATORY [facility] Jun 15, 2024 09:00 AM AMBULATORY - PS[facility]ATRY [facility] Jun 22, 2024 09:00 AM AMBULATORY - PS[facility] Jun 29, 2024 09:00 AM AMBULATORY - PS[facility]ATRY [facility] Jul 06, 2024 09:00 AM AMBULATORY - PS[facility] Jul 13, 2024 09:00 AM AMBULATORY - PS[facility]AT[facility] Jul 16, 2024 09:05 AM [facility]UL[facility]ORY [facility] [place] Jul 18, 2024 07:45 PM AMBULATORY [facility] [place] Jul 20, 2024 09:00 AM AMBULATORY - PS[facility]ATRY [facility] [place] Jul 22, 2024 09:30 AM AMBULATORY - PS[facility]ATRY [facility] [place] Jul 27, 2024 09:00 AM [facility] Social History: Smoking Status (Most current) and Tobacco Use (All prior to encounter date) This section includes the most current, and the historical, smoking and tobacco- related health factors from the [place] facility where the Encounter took place. Current Smoking Status This section includes the most current smoking, or tobacco-related health factor, from the [place] facility where the Encounter took place. Date/Time Current Smoking Status Comment Facil ity Oct 02, 2023 01:00 PM [facility] Tobacco Use History This section includes a history of the smoking, or tobacco-related health factors, that were collected on or before the date of the Encounter. The data comes from the [place] facility where the Encounter took place. Date/Time Smoking Status/Tobacco Use Comment F acility Oct 02, 2023 01:00 PM VA-TOBACCO USE ADVICE [facility] Oct 02, 2023 01:00 PM VA-TOBACCO USE DIRECT ENTRY MIDWIFE NO [facility] Oct 02, 2023 01:00 PM VA-TOBACCO USE MED NO [facility] Oct 02, 2023 01:00 PM VA-TOBACCO USE WI 30 MIN OF WAKEUP [facility] Oct 02, 2023 01:00 PM VA-TOBACCO USER EVERY DAY [facility] [place] Sep 10, 2022 05:31 PM VA-TOBACCO USE > 1 5 LESS THAN 30 YEARS [facility] [place] Sep 10, 2022 05:31 PM VA-TOBACCO USE ADVICE [facility] [place] Sep 10, 2022 05:31 PM VA-TOBACCO USE DIRECT ENTRY MIDWIFE NO [facility] Sep 10, 2022 05:31 PM VA-TOBACCO USE MED NO [facility] [place] Sep 10, 2022 05:31 PM VA-TOBACCO USE WI 30 MIN OF WAKEUP [facility] [place] Sep 10, 2022 05:31 PM VA-TOBACCO USER EVERY DAY [facility] Aug 26, 2020 03:33 PM 689 INPT REPORTS SMOKING [facility] Aug 06, 2020 10:30 PM 689 INPT REPORTS SMOKING [facility] Jul 10, 2020 07:38 PM 689 INPT REPORTS SMOKING [facility] Jun 24, 2020 01:05 AM 689 INPT REPORTS SMOKING [facility] Apr 14, 2020 06:45 AM 689 INPT REPORTS SMOKING [facility] February 29, 2020 02:33 AM 689 INPT REPORTS SMOKING [facility] Jul 20, 2019 06:25 PM 689 INPT REPORTS SMOKING [facility] Mar 25, 2019 05:25 AM 689 INPT REPORTS SMOKING [facility] Apr 15, 2018 06:41 PM ORYX ADMIT TOBACCO SCREEN YES [facility] Apr 15, 2018 06:41 PM ORYX ADMIT TOBACCO USE CIGS GR 5D [facility] Apr 15, 2018 06:41 PM ORYX DAILY TOBACCO DIRECT ENTRY MIDWIFE RECEIVED [facility] Apr 15, 2018 06:41 PM ORYX DAILY TOBACCO MEDS REFUSED [facility] Apr 15, 2018 02:41 PM CURRENT SMOKER [facility] March 12, 2018 11:20 AM CURRENT SMOKER [facility] March 12, 2018 11:20 AM V1-PT NOT INTEREST ED IN QUIT TOBACCO USE [facility] Apr 10, 2016 09:03 AM TOBACCO INPATIENT DESIRES MEDS [facility] Jan 28, 2016 12:53 PM TOBACCO INPATIENT DESIRES MEDS [facility] Oct 21, 2015 05:16 PM TOBACCO INPATIENT DESIRES MEDS [facility] Jul 13, 2015 11:06 PM TOBACCO INPATIENT DECLINES MEDS [facility] Dec 13, 2014 08:26 PM TOBACCO INPATIENT DECLINES MEDS [facility] Dec 13, 2014 07:39 PM CURRENT SMOKER [facility] Dec 13, 2014 07:39 PM V1-PT NOT INTEREST ED IN QUIT TOBACCO USE [facility] Advance Directives: All historical and current Section Date Range: From patient's date of to the date document was created. This section includes ALL of a patient's completed or amended [place] Advance and Rescinded Directives. The entries below indicate that a directive exists for the patient, but an actual copy is not included with this document. The data comes from all [place] facilities. Date Advance Directives Provider Source Sep 13, 2019 ADVANCE DIRECTIVE JOSE MANUEL RICO [facility] Oct 03, 2017 ADVANCE DIRECTIVE DAGMAR THAKUR [facility] Feb 07, 2016 ADVANCE DIRECTIVE SOFIE POLANCO [facility] Jan 20, 2015 ADVANCE DIRECTIVE DISCUSSION FLORINA COLON [facility] Encounter Notes: All associated encounter notes This section contains the clinical notes associated to the Encounter. Date/Time Encounter Note(s) Provider Source Apr 14, 2024 03:20 PM MENTAL HEALTH OUTR EACH NOTE: LOCAL TITLE: JUSTICE OUTREACH PROGRESS NOTE STANDARD TITLE: MENTAL HEALTH OUTREACH NOTE DATE OF NOTE: APR 14, 2024@15:20 ENTRY DATE: APR 26, 2024@12:21:06 AUTHOR: NARESH SHAIKH EXP COSIGNER: URGENCY: STATUS: COMPLETED [place] identified by: [x ] Full Name [] Address [x ] [ ] SSN [] Facial Recognition Length of contact: 60 minutes Location: [facility] [address], [facility] Content: [place] was an active participant in court session today. is at home alone now and on a SCRAM unit. He is maintaining sobriety. Met with after the court session. We discussed referral to [facility] for treatment. He is agreeable to this. He found working with [facility] very helpful. Otherwise, is doing very well. CARA to provide ongoing support. /cindy/ LENKA JACOBSON COMMUNICATIONS SUPERVISOR Signed: 04/26/2024 12:22 NARESH SHAIKH [facility]
--- OUTSIDE RECORDS SUMMARY | 2024-12-28 08:01 | XMS_ITS | Encounter Summary ---
Author Name [facility] [place] [facility] [place] Address [address] [place] [address] Care Team Providers Care Library Historian Name Role Phone KERRIE KNIGHT Primary Care [...] Member ID Insurance Provider's Telephone Number Policy Yde's Name Patient's Relationship to Policy Dye MEDICARE (WNR) MEDICARE (M) PART A February 17, 2017 PART A [id number] [phone] MARY ESPINO PATIENT MEDICARE (WNR) MEDICARE (M) PART B February 17, 2017 PART B [id number] [phone] [id number] JASMINAMARY DAS PATIENT MEDICARE (WNR) MEDICARE (M) PART A February 17, 2017 PART A [id number] [phone] JASMINAINI,DA [place] PATIENT MEDICARE (WNR) MEDICARE (M) PART A February 17, 2017 PART A [id number] JASMINAINIMARY [place] PATIENT MEDICARE (WNR) MEDICARE (M) PART B February 17, 2017 PART B [id number] JASMINAINI,MARY [place] PATIENT MEDICARE (WNR) MEDICARE (M) PART A February 17, 2017 PART A [id number] [phone] JASMINAINI,MARY [place] PATIENT MEDICARE (WNR) MEDICARE (M) PART A February 17, 2017 PART A [id number] CIMINI,MARY [place] PATIENT MEDICARE (WNR) MEDICARE (M) PART B February 17, 2017 PART B [id number] JASMINAINI,MARY [place] PATIENT MEDICARE (WNR) MEDICARE (M) PART A February 17, 2017 PART A [id number] JASMINAINIMARY [place] PATIENT MEDICARE (WNR) MEDICARE (M) PART B February 17, 2017 PART B [id number] [phone] JASMINAINIMARY [place] PATIENT MEDICARE (WNR) MEDICARE (M) PART B February 17, 2017 PART B [id number] [phone] [id number] JASMINAINIMARY [place] PATIENT MEDICARE (WNR) MEDICARE (M) PART A February 17, 2017 PART A [id number] MARY ESPINO PATIENT Selected Encounter This section includes the information on record at [place] for the Encounter. Date/Time Encounter Type Encounter Description Reason Provider Source Jun 11, 2024 03:30 PM OFFICE O/P EST LOW 20 MIN PRIMARY CARE/MEDICINE ICD-10-CM F33.3 Major depressv disorder, recurrent, severe w psych symptoms LAURYN KNIGHT AM [facility] Encounter Template Text not used by AL Assessments - Encounter Diagnoses This section includes the primary and secondary diagnoses documented for the Encounter. Date/Time Primary/Secondary Diagnosis Diagnosis Name Provider Source Jul 01, 2024 06:47 AM PRIMARY Major depressv disorder, recurrent, severe w psych symptoms LAURYN KNIGHT AM [facility] [place] [facility] Jul 01, 2024 06:47 AM SECONDARY Cervicalgia LAURYN KNIGHT AM J [facility] [place] [facility] Plan of Treatment: Future Appointments (+ 6 months) and Future Tests (+/- 45 days) The Plan of Treatment section includes future care activities for the patient from all [place] treatmentfascionhealthities. This section includes future appointments and future orders which are active, pending or scheduled. Future Appointments This section includes appointments that were scheduled to occur 6 months from the date of the Encounter, up to a maximum of 20 appointments. The data comes from all [place] treatment facilities. Appointment Date/Time Appointment Type Appointme nt Facility Name Jun 15, 2024 09:00 AM AMBULATORY - PSYCHIATRY [facility] [place] [facility] Jun 22, 2024 09:00 AM AMBULATORY - PSYCHIATRY [facility] [place] [facility] Jun 29, 2024 09:00 AM AMBULATORY - PSYCHIATRY [facility] [place] [facility] Jul 06, 2024 09:00 AM AMBULATORY - PSYCHIATRY [facility] [place] [facility] Jul 13, 2024 09:00 AM AMBULATORY - PSYCHIATRY [facility] [place] [facility] Jul 16, 2024 09:05 AM AMBULATORY - MEDICINE [facility] [place] [facility] Jul 18, 2024 07:45 PM AMBULATORY - MEDICINE [facility] [place] [facility] Jul 20, 2024 09:00 AM AMBULATORY - PSYCHIATRY [facility] [place] [facility] Jul 22, 2024 09:30 AM AMBULATORY - PSYCHIATRY [facility] [place] [facility] Jul 27, 2024 09:00 AM AMBULATORY - PSYCHIATRY [facility] [place] [facility] Aug 03, 2024 09:00 AM AMBULATORY - PSYCHIATRY [facility] [place] [facility] Aug 10, 2024 09:00 AM AMBULATORY - PSYCHIATRY [facility] [place] [facility] Aug 17, 2024 09:00 AM AMBULATORY - PSYCHIATRY [facility] [place] [facility] Aug 24, 2024 09:00 AM AMBULATORY - PSYCHIATRY [facility] [place] [facility] Aug 26, 2024 10:30 AM AMBULATORY - PSYCHIATRY [facility] [place] [facility] Aug 31, 2024 09:00 AM AMBULATORY - PSYCHIATRY [facility] [place] [facility] Sep 01, 2024 08:00 AM AMBULATORY - REHAB MEDICIN E [facility] Sep 07, 2024 09:00 AM [facility] Sep 14, 2024 09:00 AM AMBULATORY - PSYCHIATRY [facility] Sep 22, 2024 01:00 PM AMBULATORY - PSYCHIATRY [facility] Active, Pending, and Scheduled Orders This section includes a listing of several types of active, pending, and scheduled orders, including clinic medications orders, diagnostic test orders, procedure orders and consult orders; where the start date of the order is 45 days before the date of the Encounter or 45 days after the date of theEncounter. The data comes from all [place] treatment facilities. Test Date/Time Test Type Test Details Facility Name Jul 01, 2024 06:46 AM Consult Order [facility] Cons [employer] Manager's Choice [facility] Jul 22, 2024 12:54 PM Consult Order [facility] Cons [employer] Manager's Choice [facility] Lab Results: +/- 30 days of the encounter This section includes the Chemistry and Hematology Lab Results on record with AL for the patient. Radiology Reports and Pathology Reports are provided separately, in subsequent sections. Lab Results This section contains the Chemistry/Hematology Results that were resulted 30 days before or 30 daysafter the date of the Encounter. Date/Time Source Result Type Result - Unit Interpretation Reference Range Comment Jun 11, 2024 12:51 PM [facility] HEPATITIS B SURFACE ANTIBODY (HBsAb)-WH Specimen Type: SERUM No comment entered. Ordering Provider: KAMLA KNIGHT Report Released Date/Time: May 31, 2024 09:45 AM Reporting Lab: [address] [address] Performing Lab: [address] [address] HBsAb Non Reactive Non Reactive Jun 11, 2024 12:51 PM [facility] LIPID PANEL, NON FASTING Specimen Type: SERUM No comment entered. Ordering Provider: KAMLA KNIGHT Report Released Date/Time: May 31, 2024 09:45 AM Reporting Lab: [facility] [address] [address] Performing Lab: [address] [address] CHOLESTEROL 212 mg/dL H TRIGLYCERIDE 124 mg/dL 0-150 LDL calculated 152 mg/dL H 0-129 CHOL/HDL 6.1 HDL CHOLESTEROL 35 mg/dL L 40-60 Jun 11, 2024 12:51 PM [facility] BASIC METABOLIC PANEL (non-fasting) Specimen Type: SERUM No comment entered. Ordering Provider: KAMLA KNIGHT Report Released Date/Time: May 31, 2024 09:45 AM Reporting Lab: [address] [address] Performing Lab: [address] [address] UREA NITROGEN 16 mg/dL 7-25 GLUCOSE 86 mg/dL 65-100 SODIUM 141 mmol/L 135-145 POTASSIUM 4.2 mmol/L 3.5-5.0 CHLORIDE 106 mmol/L 100-110 CO2 25 meq/L 20-30 CREATININE, Serum 1.35 mg/dL 0.50-1.40 eGFR(CKD-EPI 2020) 66 mL/min >60 Jun 11, 2024 12:51 PM [facility] CBC Specimen Type: BLOOD No comment entered. Ordering Provider: KAMLA KNIGHT Report Released Date/Time: May 31, 2024 09:45 AM Reporting Lab: [address] [address] Performing Lab: [address] [address] WBC 5.98 10*3/uL 4.50-11.00 RBC 4.60 10*6/uL 4.23-5.66 HGB 13.9 g/dL 12.8-17 HCT 40.5 39.2-50.4 MCV 88.0 fL 82-99 MCHC 34.3 g/dL 30.8-35.1 PLT 190 10*3/uL 140-360 RDW-CV 13.5 12.0-16.0 MCH 30.2 pg 26.2-32.6 Jun 11, 2024 12:51 PM [facility] LIVER FUNCTION Specimen Type: SERUM No comment entered. Ordering Provider: KAMLA KNIGHT Report Released Date/Time: May 31, 2024 09:45 AM Reporting Lab: [facility] [address] [facility] [address] Performing Lab: [address] [address] PROTEIN,TOTAL 7.4 g/dL 6.0-8.3 ALBUMIN 4.5 g/dL 3.5-5.0 ALKALINE PHOSPHATASE 38 U/L L 40-150 AST 13 U/L 5-34 ALT 11 U/L BILIRUBIN, TOTAL 0.7 mg/dL 0.2-1.2 Vital Signs: All taken on the encounter date This section contains inpatient and outpatient Vital Signs collected on the date of the Encounter. Date/Time Temperature Pulse Blood Pressure Respiratory Rate SP02 Pain Height Weight Body Mass Index Source Jun 11, 2024 02:38 PM 98.7 85 103/68 20 98 5 70 186 27 [facility] Social History: Smoking Status (Most current) and Tobacco Use (All prior to encounter date) This section includes the most current, and the historical, smoking and tobacco- related health factors from the AL facility where the Encounter took place. Current Smoking Status This section includes the most current smoking, or tobacco-related health factor, from the AL facility where the Encounter took place. Date/Time Current Smoking Status Comment Facil ity Oct 02, 2023 01:00 PM VA-TOBACCO USER EVERY DAY [facility] Tobacco Use History This section includes a history of the smoking, or tobacco-related health factors, that were collected on or before the date of the Encounter. The data comes from the AL facility where the Encounter took place. 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 [facility] [place] [facility] Oct 02, 2023 01:00 PM VA-TOBACCO USE MED NO [facility] [place] [facility] Oct 02, 2023 01:00 PM VA-TOBACCO USE WI 30 MIN OF WAKEUP [facility] [place] [facility] Oct 02, 2023 01:00 PM VA-TOBACCO USER EVERY DAY [facility] [place] [facility] Sep 10, 2022 05:31 PM VA-TOBACCO USE > 1 5 LESS THAN 30 YEARS [facility] [place] [facility] Sep 10, 2022 05:31 PM VA-TOBACCO USE ADVICE [facility] [place] [facility] Sep 10, 2022 05:31 PM VA-TOBACCO USE 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 NO [facility] [place] [facility] Sep 10, 2022 05:31 PM VA-TOBACCO USE MED NO [facility] [place] [facility] Sep 10, 2022 05:31 PM VA-TOBACCO USE WI 30 MIN OF WAKEUP [facility] [place] [facility] Sep 10, 2022 05:31 PM VA-TOBACCO USER EVERY DAY [facility] [place] [facility] Aug 26, 2020 03:33 PM 689 INPT REPORTS SMOKING [facility] Aug 06, 2020 10:30 PM 689 [facility]PT REPORTS [facility] Jul 10, 2020 07:38 PM 689 INPT REPORTS [facility] Jun 24, 2020 01:05 AM 689 INPT REPORTS [facility] Apr 14, 2020 06:45 AM 689 INPT REPORTS [facility] February 29, 2020 02:33 AM 689 INPT REPORTS [facility] Jul 20, 2019 06:25 PM 689 INPT REPORTS [facility] Mar 25, 2019 05:25 AM 689 INPT REPORTS [facility] Apr 15, 2018 06:41 PM ORYX ADMIT TOBACCO SCREEN YES [facility] [place] [facility] Apr 15, 2018 06:41 PM ORYX ADMIT TOBACCO USE CIGS GR 5D [facility] [place] [facility] Apr 15, 2018 06:41 PM ORYX DAILY TOBACCO MELTER ASSISTANT RECEIVED [facility] INSTITUT[facility] [place] [facility] Apr 15, 2018 06:41 PM ORYX DAILY TOBACCO MEDS REFUSED [facility] [place] [facility] Apr 15, 2018 02:41 PM CURRENT SMOKER [facility] [place] [facility] March 12, 2018 11:20 AM CURRENT [facility]ER [facility] March 12, 2018 11:20 AM V1-PT NOT INTEREST ED IN QUIT TOBACCO USE [facility] [place] [facility] Apr 10, 2016 09:03 AM TOBACCO INPATIENT DESIRES MEDS [facility] [place] [facility] Jan 28, 2016 12:53 PM TOBACCO INPATIENT DESIRES MEDS [facility] [place] [facility] Oct 21, 2015 05:16 PM TOBACCO INPATIENT DESIRES MEDS [facility] [place] [facility] Jul 13, 2015 11:06 PM TOBACCO INPATIENT DECLINES MEDS [facility] [place] [facility] Dec 13, 2014 08:26 PM TOBACCO INPATIENT DECLINES MEDS [facility] [place] [facility] Dec 13, 2014 07:39 PM CURRENT [facility]KER [facility] Dec 13, 2014 07:39 PM V1-PT NOT INTEREST ED IN QUIT TOBACCO USE [facility] Advance Directives: All historical and current Section Date Range: From patient's date of to the date document was created. This section includes ALL of a patient's completed or amended [place] Advance and Rescinded Directives. The entries below indicate that a directive exists for the patient, but an actual copy is not included with this document. The data comes from all [place] facilities. Date Advance Directives Provider Source Sep 13, 2019 ADVANCE DIRECTIVE JOSE MANUEL RICO [facility] Oct 03, 2017 ADVANCE DIRECTIVE DAGMAR THAKUR [facility] Feb 07, 2016 ADVANCE DIRECTIVE SOFIE POLANCO [facility] Jan 20, 2015 ADVANCE DIRECTIVE DISCUSSION FLORINA COLON CONDE [facility] Encounter Notes: All associated encounter notes This section contains the clinical notes associated to the Encounter. Date/Time Encounter Note(s) Provider Source Jun 11, 2024 03:30 PM PRIMARY CARE NURSE PRACTITIONER OUTPATIENT NOTE: LOCAL TITLE: NURSE PRACTITIONER OUTPATIENT NOTE STANDARD TITLE: PRIMARY CARE NURSE PRACTITIONER OUTPATIENT NOTE DATE OF NOTE: JUN 11, 2024@15:30 ENTRY DATE: JUL 01, 2024@06:41:30 AUTHOR: KERRIE KNIGHT COSIGNER: URGENCY: STATUS: COMPLETED Chief complaint: Patient is a 44 year old . HPI: Pleasant male here to follow up. He is having worsening neck pain. Allergies: ATOMOXETINE, ADDERALL The following VA and Non-VA meds were reconciled with patient. The patient was educated on the use of the medications including indication and side effects. Active and Recently Outpatient Medications (excluding Supplies): Active Outpatient Medications Status = 1) ATOMOXETINE 40MG CAP TAKE ONE CAPSULE BY MOUTH EVERY ACTIVE MORNING FOR ADHD 2) MULTIVITAMIN CAP/TAB TAKE 1 TABLET BY MOUTH ONCE ACTIVE DAILY 3) RISPERIDONE 1MG TAB TAKE ONE TABLET BY MOUTH AT ACTIVE BEDTIME 4) VARENICLINE 0.5MG TAB TAKE ONE TABLET BY MOUTH ONCE ACTIVE DAILY FOR 1 WEEK, THEN TAKE ONE TABLET TWICE DAILY FOR 1 WEEK, THEN TAKE TWO TABLETS TWICE DAILY FOR SMOKING CESSATION Inactive Outpatient Medications Status = 1) LORATADINE 10MG TAB TAKE ONE TABLET BY MOUTH ONCE DAILY FOR ALLERGY 5 Total Medications Review of Systems: Constitutional: (-)for Fevers, chills, weakness, nights sweats On examination: 98.7 F [37.1 C] (06/11/2024 14:38)103/68 (06/11/2024 14:38)85 (06/11/2024 14:38) 20 (06/11/2024 14:38)5 (06/11/2024 14:38)BMI: 26.7186 lb [84.37 kg] (06/11/2024 14:38) is alert and oriented X3 Eyes:No scleral icterus, lids normal, Pupils equal,round and reactive to light HEENT: External without scars, lesions or masses, TM's without erythema or perforations, Oropharynx without erythema or exudates or worrisome lesions Neck: supple without masses, trachea midline, ln not palpable, no thyromegaly Cardiovasc: 2plus carotids without bruits, no JVD Heart Reguler rate and rhythm NL S1S2 no S3 or murmur Respiration: Normal respiratory effort, lungs clear ABD: Benign normal active bowel sounds no HSM no rebound or referred pain EXT: no clubbing, edema, or cyanosis All diagnostics from past month were reviewed with patient. Assessment/plan: Active problems - Computerized Problem List is the source for the followin. Cervicalgia - will get MRI 2. BP - High blood pressure (SNOMED CT [id number]) - [place] today Health Care Maintenance: refer for colonoscopy Review of medial record = 5mins Time spent with Patient including shared decision making = 20 mins Post visit documentation = 5mins Total time = 30 mins Follow up visit in 6 mos. 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 The /caregiver was informed that we will continue to ask this screening question every 5 years. They can contact their provider/healthcare team if they have concerns about exposures and would like to be screened sooner. Printed information was offered and provided if desired. Avg Risk Colorectal Cancer Screen: AVERAGE RISK colorectal cancer screening is due based on information available to this clinical reminder Screening is due now. Colonoscopy consult has been ordered. See orders tab for details. Medication Reconciliation: Outpatient: Has the patient been taking medications as documented in the EMLR? YES: The patient has been taking medications as documented in the EMLR. Essential Medication List for Review used to complete this medication reconciliation. INCLUDED IN THIS LIST: Alphabetical list of active outpatient prescriptions dispensed from this VA (local) and dispensed from another AL or DoD facility (remote) as well as inpatient orders (local, pending and active), local clinic medications, locally documented non-VA medications, and local prescriptions that have or been discontinued in the past 90 days. - All changes in medications, including all non-VA/Herbal/OTC medications were entered into CPRS. - If there were any medications the patient should no longer take, they were discontinued. - The patient/caregiver was instructed to update this list, discard old lists, and take this list to the next appointment, whether with a VA or non-VA provider. /cindy/ RHONDA Ross DNP, CHARLIE Primary Care Nurse Practitioner Signed: 07/01/2024 06:47 KERRIE KNIGHT [facility] Jun 11, 2024 02:44 PM PRIMARY CARE NURSE PRACTITIONER OUTPATIENT NOTE: LOCAL TITLE: NURSE PRACTITIONER OUTPATIENT NOTE STANDARD TITLE: PRIMARY CARE NURSE PRACTITIONER OUTPATIENT NOTE DATE OF NOTE: JUN 11, 2024@14:44 ENTRY DATE: JUN 11, 2024@14:44:39 AUTHOR: KERRIE KNIGHT EXP COSIGNER: URGENCY: STATUS: COMPLETED LAB CHEMISTRY & HEMATOLOGY Collection DT Specimen Test Name Result Units Ref Range 06/11/2024 12:51 BLOOD WBC 5.98 K/cmm 4.50 - 11.00 RBC 4.60 M/cmm 4.23 - 5.66 HGB 13.9 g/dL 12.8 - 17 HCT 40.5 % 39.2 - 50.4 MCV 88.0 fl 82 - 99 MCH 30.2 pg 26.2 - 32.6 MCHC 34.3 g/dL 30.8 - 35.1 RDW-CV 13.5 % 12.0 - 16.0 PLT 190 K/cmm 140 - 360 /RHONDA Bhagat DNP, CHARLIE Primary Care Nurse Practitioner Signed: 06/11/2024 14:49 KERRIE KNIGHT [facility] Jun 11, 2024 02:40 PM PREVENTIVE MEDICINE NURSING NOTE: LOCAL TITLE: CLINICAL REMINDERS/NURSING STANDARD TITLE: PREVENTIVE MEDICINE NURSING NOTE DATE OF NOTE: JUN 11, 2024@14:40 ENTRY DATE: JUN 11, 2024@14:40:42 AUTHOR: JIMI KOO COSIGNER: URGENCY: STATUS: COMPLETED Advance Directive Screen MH AD: Patient does not have an Advance Directive completed and is requesting more information. A consult was sent to Social Work Services at this visit so that an appointment can be made with the patient to review the advance directive. The patient received education about Advance Directives and written notification of his/her rights. Homelessness/Food Insecurity Screen: The reports the following: Within the past 12 months, you worried whether your food would run out before you got money to buy more. Never true Within the past 12 months, the food you bought just didn't last and you didn't have money to get more. Never true Depression Screening: Perform PHQ-2 A PHQ-2 screen was performed. The score was 1 which is a negative screen for depression. Over the past two weeks, how often have you been bothered by the following problems? 1. Little interest or pleasure in doing things Not at all 2. Feeling down, depressed, or hopeless Several days Alcohol Use Screen (AUDIT-C): Alcohol Screen: SCREEN FOR ALCOHOL (AUDIT-C) An alcohol screening test (AUDIT-C) was negative (score=0). 1. How often did you have a drink containing alcohol in the past year? Consider a drink to be a 12 ounce can or bottle of regular beer, 8 ounces of malt liquor, a 5 ounce glass of table wine, or a 1.5 ounce shot of liquor (like scotch, gin, or vodka). Never 2. How many drinks containing alcohol did you have on a typical day when you were drinking in the past year? Response not required due to responses to other questions. 3. How often did you have six or more drinks on one occasion in the past year? Response not required due to responses to other questions. /cindy/ Jimi Koo, Health Buckle Attaching Machine Operator SEARCH SPECIALIST,PRIMARY CARE Signed: 06/11/2024 14:42 JIMI KOO [facility] [place] [facility] Jun 01, 2024 02:45 PM NURSING NOTE: LOCAL TITLE: NURSING/TELEPHONE STANDARD TITLE: NURSING NOTE DATE OF NOTE: JUN 01, 2024@14:45 ENTRY DATE: JUN 01, 2024@14:45:41 AUTHOR: JIMI KOO EXP COSIGNER: URGENCY: STATUS: COMPLETED vet was called, HT spoke with vet inform he has an appt with PCP on 06-11-2024@ 2747,also labs have been orderd,vet acknowledge these instructions. /cindy/ Jimi Koo, Health Buckle Attaching Machine Operator SEARCH SPECIALIST,PRIMARY CARE Signed: 06/01/2024 14:48 JIMI KOO [facility]
--- OUTSIDE RECORDS SUMMARY | 2024-12-28 08:01 | XMS_ITS | Encounter Summary ---
Author Name [facility] [place] [facility] [place] Address [address] [place] [address] Care Team Providers Care Boat Ride Operator Name Role Phone KERRIE KNIGHT Primary Care [...] PART A February 17, 2017 PART A [id number] MARY ESPINO PATIENT MEDICARE (WNR) MEDICARE (M) PART B February 17, 2017 PART B [id number] [phone] MARY ESPINO PATIENT MEDICARE (WNR) MEDICARE (M) PART A February 17, 2017 PART A [id number] MARY ESPINO PATIENT MEDICARE (WNR) MEDICARE (M) PART A February 17, 2017 PART A [id number] CIMINI,DA [place] PATIENT MEDICARE (WNR) MEDICARE (M) PART B February 17, 2017 PART B [id number] CIMINI,DA [place] PATIENT MEDICARE (WNR) MEDICARE (M) PART A February 17, 2017 PART A [id number] CIMINI,DA [place] PATIENT MEDICARE (WNR) MEDICARE (M) PART A February 17, 2017 PART A [id number] [phone] CIMINI,DA MAIRETTA PATIENT MEDICARE (WNR) MEDICARE (M) PART B February 17, 2017 PART B [id number] [phone] CIMINI,DA [place] PATIENT MEDICARE (WNR) MEDICARE (M) PART A February 17, 2017 PART A [id number] CIMINI,DA [place] PATIENT MEDICARE (WNR) MEDICARE (M) PART B February 17, 2017 PART B [id number] [phone] CIMINI,DA [place] PATIENT MEDICARE (WNR) MEDICARE (M) PART B February 17, 2017 PART B [id number] CIMINI,MARY [place] PATIENT MEDICARE (WNR) MEDICARE (M) PART A February 17, 2017 PART A [id number] CIMINI,MARY [place] PATIENT Selected Encounter This section includes the information on record at [place] for the Encounter. Date/Time Encounter Type Encounter Description Reason Provider Source Nov 24, 2024 01:00 PM GROUP PSYCHOTHERAPY SUBSTANCE USE DISORDR GRP ICD-10-CM F14.20 Cocaine dependence, uncomplicated LEATHA SIDDIQI NA IHE Encounter Template Text not used by [place] Assessments - Encounter Diagnoses This section includes the primary and secondary diagnoses documented for the Encounter. Date/Time Primary/Secondary Diagnosis Diagnosis Name Provider Source Nov 24, 2024 02:02 PM PRIMARY Cocaine dependence, uncomplicated SABI [facility]IDDIQI [facility] [place] [facility] Nov 24, 2024 02:02 PM SECONDARY Alcohol dependence with other alcohol-induced disorder SABI SIDDIQI [facility] [place] [facility] Nov 24, 2024 02:02 PM SECONDARY Attention-deficit hyperactivity disorder, unspecified type SABI SIDDIQI [facility] [place] [facility] Nov 24, 2024 02:02 PM SECONDARY Nicotine dependence, cigarettes, uncomplicated SABI SIDDIQI [facility] [place] [facility] Nov 24, 2024 02:02 PM SECONDARY Other recurrent depressive disorders SABI SIDDIQI [facility] [place] [facility] Nov 24, 2024 02:02 PM SECONDARY Post-traumatic stress disorder, chronic [facility]DI[facility] [place] [facility] Plan of Treatment: Future Appointments (+ 6 months) and Future Tests (+/- 45 days) The Plan of Treatment section includes future care activities for the [facility] [place] [facility] This section includes future appointments and future orders which are active, pending or scheduled. Future Appointments This section includes appointments that were scheduled to occur 6 months from the date of the Encounter, up to a maximum of 20 appointments. The data comes from all [place] treatment facilities. Appointment Date/Time Appointment Type Appointme nt Facility Name Nov 25, 2024 09:30 AM AMBULATORY - PSYCHIATRY [facility] [place] [facility] Nov 30, 2024 10:00 AM AMBULATORY - PSYCHIATRY [facility] [place] [facility] Nov 30, 2024 11:40 AM AMBULATORY - MEDICINE [facility] [place] [facility] Dec 13, 2024 09:00 AM AMBULATORY - NONE [facility] [place] [facility] Dec 14, 2024 03:10 PM AMBULATORY - MEDICINE [facility] [place] [facility] Dec 16, 2024 09:30 AM AMBULATORY - MEDICINE [facility] [place] [facility] Dec 30, 2024 09:15 AM AMBULATORY - NONE [facility] [place] [facility] Jan 13, 2025 09:00 AM AMBULATORY - PSYCHIATRY [facility] [place] [facility] Active, Pending, and Scheduled Orders This section includes a listing of several types of active, pending, and scheduled orders, including clinic medications orders, diagnostic test orders, procedure orders and consult orders; where the start date of the order is 45 days before the date of the Encounter or 45 days after the date of theEncounter. The data comes from all [place] treatment facilities. Test Date/Time Test Type Test Details Facility Name Dec 03, 2024 11:49 AM Consult Order COMMUNITY CARE-DENTAL SPECIALTY Cons Progress Clerk's Choice [facility] Dec 16, 2024 12:42 PM Consult Order NUTRITION ASSESSMENT/EDUCATION /NHM OUTPT Cons Progress Clerk's Choice [facility] Dec 17, 2024 12:00 AM Laboratory - Chemi stry Order OCCULT BLOOD FIT X1 SCREEN(IN-HOUSE) STOOL FECES SP [facility] Lab Results: +/- 30 days of the encounter This section includes the Chemistry and Hematology Lab Results on record with [place] for the patient. Radiology Reports and Pathology Reports are provided separately, in subsequent sections. Lab Results This section contains the Chemistry/Hematology Results that were resulted 30 days before or 30 daysafter the date of the Encounter. Date/Time Source Result Type Result - Unit Interpretation Reference Range Comment Dec 16, 2024 08:30 AM [facility] HEPATITIS B SURFACE ANTIBODY (HBsAb)-WH Specimen Type : SERUM No comment entered. Ordering Provider: LAURYN KNIGHT AM Report Released Date/Time: Dec 09, 2024 04:19 PM Reporting Lab: [address] [address] Performing Lab: [address] [address] HBsAb Non Reactive Non Reactive Dec 16, 2024 08:30 AM [facility] LIPID PANEL, NON FASTING Specimen Type: SERUM No comment entered. Ordering Provider: LAURYN KNIGHT AM Report Released Date/Time: Dec 09, 2024 04:19 PM Reporting Lab: [address] [address] Performing Lab: [address] [address] CHOLESTEROL 261 mg/dL H TRIGLYCERIDE 179 mg/dL H 0-150 LDL calculated 186 mg/dL H 0-129 CHOL/HDL 6.7 HDL CHOLESTEROL 39 mg/dL L 40-60 Dec 16, 2024 08:30 AM [facility] LIVER FUNCTION Specimen Type: SERUM No comment entered. Ordering Provider: LAURYN KNIGHT AM Report Released Date/Time: Dec 09, 2024 04:19 PM Reporting Lab: [address] [address] Performing Lab: [address] [address] PROTEIN,TOTAL 7.6 g/dL 6.0-8.3 ALBUMIN 4.4 g/dL 3.5-5.0 ALKALINE PHOSPHATASE 48 U/L 40-150 AST 13 U/L 5-34 ALT 14 U/L BILIRUBIN, TOTAL 0.3 mg/dL 0.2-1.2 Dec 16, 2024 08:30 AM [facility] CBC Specimen Type: BLOOD No comment entered. Ordering Provider: LAURYN KNIGHT AM Report Released Date/Time: Dec 09, 2024 04:19 PM Reporting Lab: [address] [address] Performing Lab: [address] [address] WBC 5.27 10*3/uL 4.50-11.00 RBC 4.47 10*6/uL 4.23-5.66 HGB 13.5 g/dL 12.8-17 HCT 40.3 39.2-50.4 MCV 90.2 fL 82-99 MCHC 33.5 g/dL 30.8-35.1 PLT 178 10*3/uL 140-360 RDW-CV 12.4 12.0-16.0 MCH 30.2 pg 26.2-32.6 Dec 16, 2024 08:30 AM [facility] BASIC METABOLIC PANEL (non-fasting) Specimen Type: SERUM No comment entered. Ordering Provider: LAURYN KNIGHT AM Report Released Date/Time: Dec 09, 2024 04:19 PM Reporting Lab: [place] [address] [facility] [address] Performing Lab: [facility] [address] [facility] [address] UREA NITROGEN 12 mg/dL 7-25 GLUCOSE 97 mg/dL 65-100 SODIUM 139 mmol/L 135-145 POTASSIUM 4.7 mmol/L 3.5-5.0 CHLORIDE 106 mmol/L 100-110 CO2 26 meq/L 20-30 CALCIUM 9.4 mg/dL 8.5-10.2 CREATININE, Serum 1.11 mg/dL 0.50-1.40 eGFR(CKD-EPI 2020) 83 mL/min >60 Dec 16, 2024 08:30 AM [facility] YEN SCREEN/TITER Specimen Type: SERUM No comment entered. Ordering Provider: LAURYN KNIGHT AM Report Released Date/Time: Dec 16, 2024 11:19 AM Reporting Lab: [facility] [address] [facility] [address] Performing Lab: [facility] [address] [facility] [address] YEN SCREEN NEG NEG <1:40 Dec 16, 2024 08:30 AM [facility] RHEUMATOID FACTOR Specimen Type: SERUM No comment entered. Ordering Provider: LAURYN KNIGHT AM Report Released Date/Time: Dec 16, 2024 11:19 AM Reporting Lab: [facility] [address] [facility] [address] Performing Lab: [facility] [address] [facility] [address] RHEUMATOID FACTOR <13 0-15 Dec 16, 2024 08:30 AM [facility] HEMOGLOBIN A1C PANEL Specimen Type: BLOOD Comment: Values obtained from A1C measurements can vary. For atypical A1C assays, a reported value of 7.0 could actually be between 6.72 and 7.28 if measured by a reference method. A reported value of 9.0 could actually be between 8.73 and 9.27. Ref: http://www.ngs p.org/CAPdata. asp Ordering Provider: KNIGHT,WILLI AM J Report Released Date/Time: Dec 16, 2024 11:19 AM Reporting Lab: [facility] [place] [facility] [address] [facility] [address] Performing Lab: [facility] [place] [facility] [address] [facility] [address] HEMOGLOBIN A1C 5.3 4.0-5.6 Social History: Smoking Status (Most current) and Tobacco Use (All prior to encounter date) This section includes the most current, and the historical, smoking and tobacco- related health factors from the [place] facility where the Encounter took place. Current Smoking Status This section includes the most current smoking, or tobacco-related health factor, from the [place] facility where the Encounter took place. Date/Time Current Smoking Status Comment Facil ity Oct 02, 2023 01:00 PM VA-TOBACCO USER EVERY DAY [facility] [place] [facility] Tobacco Use History This section includes a history of the smoking, or tobacco-related health factors, that were collected on or before the date of the Encounter. The data comes from the [place] facility where the Encounter took place. Date/Time Smoking Status/Tobacco Use Comment F acility Oct 02, 2023 01:00 PM VA-TOBACCO USE ADVICE [facility] [place] [facility] Oct 02, 2023 01:00 PM VA-TOBACCO USE LAND COMMISSIONER NO [facility] [place] [facility] Oct 02, 2023 01:00 PM VA-TOBACCO USE MED NO [facility] [place] [facility] Oct 02, 2023 01:00 PM VA-TOBACCO USE WI 30 MIN OF WAKEUP [facility] [place] [facility] Oct 02, 2023 01:00 PM VA-TOBACCO USER EVERY DAY [facility] [place] [facility] Sep 10, 2022 05:31 PM VA-TOBACCO USE > 1 5 LESS THAN 30 YEARS [facility] [place] [facility] Sep 10, 2022 05:31 PM VA-TOBACCO USE ADVICE [facility] [place] [facility] Sep 10, 2022 05:31 PM VA-TOBACCO USE LAND COMMISSIONER NO [facility] [place] [facility] Sep 10, 2022 05:31 PM VA-TOBACCO USE MED NO [facility] [place] [facility] Sep 10, 2022 05:31 PM VA-TOBACCO USE WI 30 MIN OF WAKEUP [facility] [place] [facility] Sep 10, 2022 05:31 PM VA-TOBACCO USER EVERY DAY [facility] [place] [facility] Aug 26, 2020 03:33 PM 689 INPT REPORTS SMOKING [facility] Aug 06, 2020 10:30 PM [facility] Jul 10, 2020 07:38 PM [facility] Jun 24, 2020 01:05 AM 689 INPT REPORTS SMOKING [facility] Apr 14, 2020 06:45 AM 689 [facility] February 29, 2020 02:33 AM 689 [facility] Jul 20, 2019 06:25 PM 689 [facility] Mar 25, 2019 05:25 AM 689 [facility] Apr 15, 2018 06:41 PM ORYX ADMIT TOBACCO SCREEN YES [facility] [place] [facility] Apr 15, 2018 06:41 PM ORYX ADMIT TOBACCO USE CIGS GR 5D [facility] [place] [facility] Apr 15, 2018 06:41 PM ORYX DAILY TOBACCO LAND COMMISSIONER RECEIVED [facility] [place] [facility] Apr 15, 2018 06:41 PM ORYX DAILY TOBACCO MEDS REFUSED [facility] [place] [facility] Apr 15, 2018 02:41 PM CURRENT SMOKER [facility] [place] [facility] March 12, 2018 11:20 AM CURRENT SMOKER [facility] [place] [facility] March 12, 2018 11:20 AM V1-PT NOT INTEREST ED IN QUIT TOBACCO USE [facility] [place] [facility] Apr 10, 2016 09:03 AM TOBACCO INPATIENT DESIRES MEDS [facility] [place] [facility] Jan 28, 2016 12:53 PM TOBACCO INPATIENT DESIRES MEDS [facility] [place] [facility] Oct 21, 2015 05:16 PM TOBACCO INPATIENT DESIRES MEDS [facility] [place] [facility] Jul 13, 2015 11:06 PM TOBACCO INPATIENT DECLINES MEDS [facility] [place] [facility] Dec 13, 2014 08:26 PM TOBACCO INPATIENT DECLINES MEDS [facility] Dec 13, 2014 07:39 PM CURRENT SMOKER [place] [facility] Dec 13, 2014 07:39 PM V1-PT NOT INTEREST ED IN QUIT TOBACCO USE [facility] Advance Directives: All historical and current Section Date Range: From patient's date of to the date document was created. This section includes ALL of a patient's completed or amended [place] Advance and Rescinded Directives. The entries below indicate that a directive exists for the patient, but an actual copy is not included with this document. The data comes from all [place] facilities. Date Advance Directives Provider Source Sep 13, 2019 ADVANCE DIRECTIVE JOSE MANUEL R[facility] Oct 03, 2017 ADVANCE DIRECTIVE DAGMAR THAKUR [facility] Feb 07, 2016 ADVANCE DIRECTIVE SOFIE POLANCO [facility] Jan 20, 2015 ADVANCE DIRECTIVE DISCUSSION FLORINA COLON CONDE [facility] Encounter Notes: All associated encounter notes This section contains the clinical notes associated to the Encounter. Date/Time Encounter Note(s) Provider Source Nov 24, 2024 01:00 PM SOCIAL WORK GROUP COUNSELING NOTE: LOCAL TITLE: SOCIAL WORK GROUP NOTE STANDARD TITLE: SOCIAL WORK GROUP COUNSELING NOTE DATE OF NOTE: NOV 24, 2024@13:00 ENTRY DATE: NOV 24, 2024@13:36:56 AUTHOR: ADRIANA SIDDIQI EXP COSIGNER: URGENCY: STATUS: COMPLETED INFORMED CONSENT TO PARTICIPATE: At beginning of session reviewed rights and limits of confidentiality, mandatory reporting situations, duty to warn and protect, Osorio Warning, (if treatment team finds patient to be an acute danger to self or others, that this information could be relayed to a court of law and presented to a industrial photographer), and DOD access for active-duty service members. Provided Suicide Prevention Hotline number, and other contact numbers as necessary. DATE: 11/24/2024 TIME: 1300 DURATION IN MINUTES: 40 NAY-C GROUP: Friends and Family Education Group for Substance Use Disorders TOPIC: Wellness and Safety Planning FACILITATORS: LENKA Flores & Jj Treviño, Cable Respooler Numbers of Veterans Participated who were also supporting each other: 2 CONTENT: The Friends and Family Education Group for Substance Use Disorders is a weekly 5- session group for Veterans and their friend, family, or support person to rebuild trust and gain mutual support through education and skills building. Today's group goal was to provide an opportunity for participants to start to co-create an action plan for wellness and safety for each participant individually and as a support unit. Participants were provided an opportunity to share ideas and solutions in the following topics: wellness actions to use on a regular basis; daily maintenance plan to remind self what it is like when things are going well; an action plan for when things are breaking down; and a crisis safety plan. Group discussed and processed questions and concerns based on these goals and topics. MSE: [place] was an active participant in group. engaged with the tunneling machine operator and with other group members appropriately. Did not endorse current suicidal or homicidal ideation. Did not endorse current use or cravings. MSE: Friend/family/support member was an active participant in group. Friend/family/support member engaged with the tunneling machine operator and with other group members appropriately. Did not endorse current suicidal or homicidal ideation. PARTICIPATION: reported reported helpfulness to engage in conversation with support that was with Peer and Corporate Sales Trainer for coordination and guidance and to reinforce effective communication. PARTICIPATION: [place]'s friend/family/support member reported not feeling well and wanted to end session early. All respected his decision to do so. [place] shared helpfulness to plan ahead for safety and wellness with support. PLAN: [place] and 's friend/family/support member committed to home practice. and 's friend/family/support member committed to continue Friends and Family Education Group for Substance Use Disorders. 'S DIAGNOSES: Cocaine Use Disorder, Severe; Tobacco Use Disorder, Severe; Alcohol Use Disorder, Severe; PTSD; ADHD; MDD ([place]) [place] [employer] Connect (VVC) Standard Documentation VV Clinician Resources Only: E911 (Emergency Call Relay Center): [phone] National Veterans Crisis Line - (9-365-413-TALK) press #1. SUSANA Suicide Coordinator [phone], Ext. [phone]; Back-up Ext. [phone] Inspector Packer of the Day(AOD)SUSANA Leeds [phone], Ext. [phone] Introduction: Visit is being conducted by [facility]. identified with 2 identifiers: [X] Full Name [X] Date of [ ] VA ID Card Emergency Plan: confirmed and/or provided the following information in case of emergency or technology failure. PATIENT PHONE - PHONE NUMBER [CELLULAR] - Is patient phone number correct, if not, enter below: 's phone number: JASMINATHIAGOTOMI BRAYDON [address] [facility] [address] [place]'s present location and address for appointment: [facility] [address] [facility] [facility]. [place], [place]'s emergency contact name and phone number: E-Cont.: JULIAN PENG E2-Cont.: MALI FRANCE Relation Type: SISTER Relation Type: MOTHER Relation Note: SISTER Relation Note: MOTHER [address] [place] [address] [place] [address] [facility] Work Phone: UNSPECIFIED [place] reported that location is private and safe: Yes Informed Consent: informed of the risks and benefits of Telehealth video care. [place] has the right to refuse video services. If refuses video visit, a [id number]-[id number] visit will be scheduled. verbalized consent for this video visit: Yes provided consent for any other persons present for visit: Yes. HERON sent to interoffice mail to be scanned into chart. If yes, who and relationship to patient: friend/roomate Secure visit: Visit was locked for security and privacy:Yes Secure visit: Yes Visit was locked for security and privacy: Yes /cindy/ LENKA FLORES CLINICAL INSPECTOR [employer]CU[employer] Signed: 11/24/2024 14:02 ADRIANA SIDDIQI [place] [facility]
--- OUTSIDE RECORDS SUMMARY | 2024-12-28 08:01 | XMS_ITS | Encounter Summary ---
Author Name [facility] [place] [facility] [facility] [place] Address [address] [place] [address] Care Team Providers Care Form Drafter Name Role Phone KERRIE KNIGHT Primary Care [...] PART A February 17, 2017 PART A [id number] MARY ESPINO PATIENT MEDICARE (WNR) MEDICARE (M) PART B February 17, 2017 PART B [id number] MARY ESPINO PATIENT MEDICARE (WNR) MEDICARE (M) PART A February 17, 2017 PART A [id number] [phone] MARY ESPINO PATIENT MEDICARE (WNR) MEDICARE (M) PART A February 17, 2017 PART A [id number] CIMINI,MARY [place] PATIENT MEDICARE (WNR) MEDICARE (M) PART B February 17, 2017 PART B [id number] [phone] CIMINI,MARY [place] PATIENT MEDICARE (WNR) MEDICARE (M) PART A February 17, 2017 PART A [id number] CIMINI,MARY [place] PATIENT MEDICARE (WNR) MEDICARE (M) PART A February 17, 2017 PART A [id number] CIMINI,DA [place] PATIENT MEDICARE (WNR) MEDICARE (M) PART B February 17, 2017 PART B [id number] CIMINI,MARY [place] PATIENT MEDICARE (WNR) MEDICARE (M) PART A February 17, 2017 PART A [id number] [phone] JASMINAINI,MARY [place] PATIENT MEDICARE (WNR) MEDICARE (M) PART B February 17, 2017 PART B [id number] CIMINI,MARY [place] PATIENT MEDICARE (WNR) MEDICARE (M) PART B February 17, 2017 PART B [id number] JASMINAINI,MARY [place] PATIENT MEDICARE (WNR) MEDICARE (M) PART A February 17, 2017 PART A [id number] [phone] JASMINAINIMARY PATIENT Selected Encounter This section includes the information on record at [place] for the Encounter. Date/Time Encounter Type Encounter Description Reason Provider Source Jun 10, 2024 11:44 AM [facility] MANAG[facility] ICD-10-CM F14.20 Cocaine dependence, uncomplicated NARESH SHAIKH E Encounter Template Text not used by [place] Assessments - Encounter Diagnoses This section includes the primary and secondary diagnoses documented for the Encounter. Date/Time Primary/Secondary Diagnosis Diagnosis Name Provider Source Jul 27, 2024 02:30 PM PRIMARY Cocaine dependence, uncomplicated NARESH SHAIKH [facility] Plan of Treatment: Future Appointments (+ 6 months) and Future Tests (+/- 45 days) The Plan of Treatment section includes future care activities for the [facility] [place] [facility] This section includes future appointments and future orders which are active, pending or scheduled. Future Appointments This section includes appointments that were scheduled to occur 6 months from the date of the Encounter, up to a maximum of 20 appointments. The data comes from all [place] treatment facilities. Appointment Date/Time Appointment Type Appointme nt Facility Name Jun 11, 2024 03:30 PM [facility]ULATORY [facility] MEDIC[facility] [place] [facility] Jun 15, 2024 09:00 AM AMBULATORY - PSYCHIATRY [facility] [place] [facility] Jun 22, 2024 09:00 AM AMBULATORY - PS[facility]CHIATRY [facility] [place] [facility] Jun 29, 2024 09:00 AM AMBULATORY - PSYCHIATRY [facility] [place] [facility] Jul 06, 2024 09:00 AM AMBULATORY - PS[facility]CHIATRY [facility] [place] [facility] Jul 13, 2024 09:00 AM AMBULATORY - PS[facility]CHIATRY [facility] [place] [facility] Jul 16, 2024 09:05 AM AMBULATORY [facility] MEDICINE [facility] [place] [facility] Jul 18, 2024 07:45 PM AMBULATORY - MEDICINE [facility] [place] [facility] Jul 20, 2024 09:00 AM AMBULATORY - PS[facility]CHIATRY [facility] [place] [facility] Jul 22, 2024 09:30 AM AMBULATORY - PS[facility]CHIATRY [facility] [place] [facility] Jul 27, 2024 09:00 AM AMBULATORY - PS[facility]CHIATRY [facility] [place] [facility] Aug 03, 2024 09:00 AM AMBULATORY - PS[facility]CHIATRY [facility] [place] [facility] Aug 10, 2024 09:00 AM AMBULATORY - PSYCHIATRY [facility] [place] [facility] Aug 17, 2024 09:00 AM AMBULATORY - PS[facility]CHIATRY [facility] [place] [facility] Aug 24, 2024 09:00 AM AMBULATORY - PSYCHIATRY [facility] [place] [facility] Aug 26, 2024 10:30 AM AMBULATORY - PSYCHIATRY [facility] [place] [facility] Aug 31, 2024 09:00 AM AMBULATORY - PSYCHIATRY [facility] [place] [facility] Sep 01, 2024 08:00 AM AMBULATORY - REHAB MEDICIN E [facility] Sep 07, 2024 09:00 AM AMBULATORY - PSYCHIATRY [facility] Sep 14, 2024 09:00 AM AMBULATORY - PSYCHIATRY [facility] Active, Pending, and Scheduled Orders This section includes a listing of several types of active, pending, and scheduled orders, including clinic medications orders, diagnostic test orders, procedure orders and consult orders; where the start date of the order is 45 days before the date of the Encounter or 45 days after the date of theEncounter. The data comes from all [place] treatment facilities. Test Date/Time Test Type Test Details Facility Name Jul 01, 2024 06:46 AM Consult Order COUNT INCLUDES THE [facility]-COLONOSCOPY SCREENING Cons Voice Over Artist's Choice [facility] Jul 22, 2024 12:54 PM Consult Order COUNT INCLUDES THE [facility]-DENTAL SPECIALTY Cons Voice Over Artist's Choice [facility] Lab Results: +/- 30 days of the encounter This section includes the Chemistry and Hematology Lab Results on record with [place] for the patient. Radiology Reports and Pathology Reports are provided separately, in subsequent sections. Lab Results This section contains the Chemistry/Hematology Results that were resulted 30 days before or 30 daysafter the date of the Encounter. Date/Time Source Result Type Result - Unit Interpretation Reference Range Comment Jun 11, 2024 12:51 PM [facility] HEPATITIS B SURFACE ANTIBODY (HBsAb)-WH Specimen Type: SERUM No comment entered. Ordering Provider: KAMLA KNIGHT Report Released Date/Time: May 31, 2024 09:45 AM Reporting Lab: [facility] [address] [address] Performing Lab: [facility] [address] [address] HBsAb Non Reactive Non Reactive Jun 11, 2024 12:51 PM [facility] LIPID PANEL, NON FASTING Specimen Type: SERUM No comment entered. Ordering Provider: KAMLA KNIGHT Report Released Date/Time: May 31, 2024 09:45 AM Reporting Lab: [address] [address] Performing Lab: [facility] [address] [address] CHOLESTEROL 212 mg/dL H TRIGLYCERIDE 124 mg/dL 0-150 LDL calculated 152 mg/dL H 0-129 CHOL/HDL 6.1 HDL CHOLESTEROL 35 mg/dL L 40-60 Jun 11, 2024 12:51 PM [facility] BASIC METABOLIC PANEL (non-fasting) Specimen Type: SERUM No comment entered. Ordering Provider: KAMLA KNIGHT Report Released Date/Time: May 31, 2024 09:45 AM Reporting Lab: [address] [address] Performing Lab: [address] [address] UREA NITROGEN 16 mg/dL 7-25 GLUCOSE 86 mg/dL 65-100 SODIUM 141 mmol/L 135-145 POTASSIUM 4.2 mmol/L 3.5-5.0 CHLORIDE 106 mmol/L 100-110 CO2 25 meq/L 20-30 CREATININE, Serum 1.35 mg/dL 0.50-1.40 eGFR(CKD-EPI 2020) 66 mL/min >60 Jun 11, 2024 12:51 PM [facility] CBC Specimen Type: BLOOD No comment entered. Ordering Provider: KAMLA KNIGHT Report Released Date/Time: May 31, 2024 09:45 AM Reporting Lab: [address] [address] Performing Lab: [address] [address] WBC 5.98 10*3/uL 4.50-11.00 RBC 4.60 10*6/uL 4.23-5.66 HGB 13.9 g/dL 12.8-17 HCT 40.5 39.2-50.4 MCV 88.0 fL 82-99 MCHC 34.3 g/dL 30.8-35.1 PLT 190 10*3/uL 140-360 RDW-CV 13.5 12.0-16.0 MCH 30.2 pg 26.2-32.6 Jun 11, 2024 12:51 PM [facility] LIVER FUNCTION Specimen Type: SERUM No comment entered. Ordering Provider: KAMLA KNIGHT Report Released Date/Time: May 31, 2024 09:45 AM Reporting Lab: [facility] [address] [address] Performing Lab: [facility] [address] [address] PROTEIN,TOTAL 7.4 g/dL 6.0-8.3 ALBUMIN 4.5 g/dL 3.5-5.0 ALKALINE PHOSPHATASE 38 U/L L 40-150 AST 13 U/L 5-34 ALT 11 U/L BILIRUBIN, TOTAL 0.7 mg/dL 0.2-1.2 Social History: Smoking Status (Most current) and Tobacco Use (All prior to encounter date) This section includes the most current, and the historical, smoking and tobacco- related health factors from the [place] facility where the Encounter took place. Current Smoking Status This section includes the most current smoking, or tobacco-related health factor, from the [place] facility where the Encounter took place. Date/Time Current Smoking Status Comment Facil ity Oct 02, 2023 01:00 PM VA-TOBACCO USER EVERY DAY [facility] Tobacco Use History This section includes a history of the smoking, or tobacco-related health factors, that were collected on or before the date of the Encounter. The data comes from the [place] facility where the Encounter took place. Date/Time Smoking Status/Tobacco Use Comment F acility Oct 02, 2023 01:00 PM VA-TOBACCO USE ADVICE [facility] Oct 02, 2023 01:00 PM VA-TOBACCO USE DATA MANAGEMENT ENGINEER NO [facility] Oct 02, 2023 01:00 PM VA-TOBACCO USE MED NO [place] [facility] Oct 02, 2023 01:00 PM VA-TOBACCO USE WI 30 MIN OF WAKEUP [facility] [place] [facility] Oct 02, 2023 01:00 PM VA-TOBACCO USER EVERY DAY [facility] Sep 10, 2022 05:31 PM VA-TOBACCO USE > 1 5 LESS THAN 30 YEARS [facility] [place] [facility] Sep 10, 2022 05:31 PM VA-TOBACCO USE ADVICE [facility] [place] [facility] Sep 10, 2022 05:31 PM VA-TOBACCO USE DATA MANAGEMENT ENGINEER NO [facility] [place] [facility] Sep 10, 2022 05:31 PM VA-TOBACCO USE MED NO [facility] [place] [facility] Sep 10, 2022 05:31 PM VA-TOBACCO USE WI 30 MIN OF WAKEUP [facility] [place] [facility] Sep 10, 2022 05:31 PM VA-TOBACCO USER EVERY DAY [facility] [place] [facility] Aug 26, 2020 03:33 PM [facility] Aug 06, 2020 10:30 PM [facility] Jul 10, 2020 07:38 PM 689 [facility] Jun 24, 2020 01:05 AM 6[facility] Apr 14, 2020 06:45 AM 689 [facility] February 29, 2020 02:33 AM 689 [facility] Jul 20, 2019 06:25 PM 689 [facility] Mar 25, 2019 05:25 AM 689 [facility] Apr 15, 2018 06:41 PM ORYX ADMIT TOBACCO SCREEN YES [facility] [place] [facility] Apr 15, 2018 06:41 PM ORYX ADMIT TOBACCO USE CIGS GR 5D [facility] [place] [facility] Apr 15, 2018 06:41 PM ORYX DAILY TOBACCO DATA MANAGEMENT ENGINEER RECEIVED [facility] [place] [facility] Apr 15, 2018 06:41 PM ORYX DAILY TOBACCO MEDS REFUSED [facility] [place] [facility] Apr 15, 2018 02:41 PM CURRENT SMOKER [facility] [place] [facility] March 12, 2018 11:20 AM CURRENT SMOKER [facility] [place] [facility] March 12, 2018 11:20 AM V1-PT NOT INTEREST ED IN QUIT TOBACCO USE [facility] [place] [facility] Apr 10, 2016 09:03 AM TOBACCO INPATIENT DESIRES MEDS [facility] [place] [facility] Jan 28, 2016 12:53 PM TOBACCO INPATIENT DESIRES MEDS [facility] [place] [facility] Oct 21, 2015 05:16 PM TOBACCO INPATIENT DESIRES MEDS [facility] [place] [facility] Jul 13, 2015 11:06 PM TOBACCO INPATIENT DECLINES MEDS [facility] Dec 13, 2014 08:26 PM TOBACCO INPATIENT DECLINES MEDS [facility] Dec 13, 2014 07:39 PM CURRENT SMOKER [facility] Dec 13, 2014 07:39 PM V1-PT NOT INTEREST ED IN QUIT TOBACCO USE [facility] Advance Directives: All historical and current Section Date Range: From patient's date of to the date document was created. This section includes ALL of a patient's completed or amended [place] Advance and Rescinded Directives. The entries below indicate that a directive exists for the patient, but an actual copy is not included with this document. The data comes from all [place] facilities. Date Advance Directives Provider Source Sep 13, 2019 ADVANCE DIRECTIVE JOSE MANUEL RICO [facility] Oct 03, 2017 ADVANCE DIRECTIVE DAGMAR THAKUR [facility] Feb 07, 2016 ADVANCE DIRECTIVE SOFIE POLANCO [facility] Jan 20, 2015 ADVANCE DIRECTIVE DISCUSSION FLORINA COLON [facility] Encounter Notes: All associated encounter notes This section contains the clinical notes associated to the Encounter. Date/Time Encounter Note(s) Provider Source Jun 09, 2024 03:44 PM MENTAL HEALTH OUTR EACH NOTE: LOCAL TITLE: JUSTICE OUTREACH PROGRESS NOTE STANDARD TITLE: MENTAL HEALTH OUTREACH NOTE DATE OF NOTE: JUN 09, 2024@15:44 ENTRY DATE: JUN 10, 2024@11:44:54 AUTHOR: NARESH SHAIKH COSIGNER: URGENCY: STATUS: COMPLETED identified by: [x ] Full Name [] Address [x ] [ ] SSN [] Facial Recognition Length of contact: 60 minutes Location: [facility] Content: was an active participant in court session today. He continues to do well and maintain his sobriety. He is compliant with treatment. He shares today that he has adopted a puppy. He has not had a dog in the past but feels this will be good for him and help give him focus. He is keeping busy around his house. CARA to provide ongoing support. /cindy/ LENKA JACOBSON ORDER TAKERS SUPERVISOR Signed: 06/10/2024 11:47 NARESH SHAIKH [facility]
--- OUTSIDE RECORDS SUMMARY | 2024-12-28 08:01 | XMS_ITS | Encounter Summary ---
Author Name [facility] [place] Organization [facility] [place] Address [address] [place] [address] Care Team Providers Care Science Writer Name Role Phone KERRIE KNIGHT Primary Care [...] PART A February 17, 2017 PART A [id number] MARY ESPINO PATIENT MEDICARE (WNR) MEDICARE (M) PART B February 17, 2017 PART B [id number] MARY ESPINO PATIENT MEDICARE (WNR) MEDICARE (M) PART A February 17, 2017 PART A [id number] [phone] MARY ESPINO PATIENT MEDICARE (WNR) MEDICARE (M) PART A February 17, 2017 PART A [id number] [phone] CIMINI,MARY [place] PATIENT MEDICARE (WNR) MEDICARE (M) PART B February 17, 2017 PART B [id number] CIMINI,DA [place] PATIENT MEDICARE (WNR) MEDICARE (M) PART A February 17, 2017 PART A [id number] [phone] CIMINI,MARY [place] PATIENT MEDICARE (WNR) MEDICARE (M) PART B February 17, 2017 PART B [id number] CIMINI,DA [place] PATIENT MEDICARE (WNR) MEDICARE (M) PART A February 17, 2017 PART A [id number] CIMINI,MARY [place] PATIENT MEDICARE (WNR) MEDICARE (M) PART A February 17, 2017 PART A [id number] CIMINI,MARY [place] PATIENT MEDICARE (WNR) MEDICARE (M) PART B February 17, 2017 PART B [id number] CIMINI,DA [place] PATIENT MEDICARE (WNR) MEDICARE (M) PART A February 17, 2017 PART A [id number] [id number] CIMINI,MARY [place] PATIENT MEDICARE (WNR) MEDICARE (M) PART B February 17, 2017 PART B [id number] [phone] JASMINAINIMARY PATIENT Selected Encounter This section includes the information on record at OR for the Encounter. Date/Time Encounter Type Encounter Description Reason Provider Source May 13, 2024 04:03 PM CASE MANAGEMENT [facility] ICD-10-CM F14.20 Cocaine dependence, uncomplicated NARESH SHAIKH E Encounter Template Text not used by [place] Assessments - Encounter Diagnoses This section includes the primary and secondary diagnoses documented for the Encounter. Date/Time Primary/Secondary Diagnosis Diagnosis Name Provider Source Jul 27, 2024 02:29 PM PRIMARY Cocaine dependence, uncomplicated NARESH SHAIKH [facility] Plan of Treatment: Future Appointments (+ 6 months) and Future Tests (+/- 45 days) The Plan of Treatment section includes [facility] This section includes future appointments and future orders which are active, pending or scheduled. Future Appointments This section includes appointments that were scheduled to occur 6 months from the date of the Encounter, up to a maximum of 20 appointments. The data comes from all [place] treatment facilities. Appointment Date/Time Appointment Type Appointme nt Facility Name May 18, 2024 09:00 AM AMBULATORY [facility] May 25, 2024 09:00 AM AMBULATORY - [facility] [place] Jun 01, 2024 09:00 AM AMBULATORY - [facility] [place] [facility] Jun 03, 2024 12:05 PM AMBULATORY - MEDICINE [facility] [place] [facility] Jun 08, 2024 09:00 AM AMBULATORY [facility] [place] [facility] Jun 08, 2024 11:30 AM AMBULATORY - [facility] [place] [facility] Jun 11, 2024 03:30 PM AMBULATORY - MEDICINE [facility] [place] [facility] Jun 15, 2024 09:00 AM AMBULATORY - PS[facility]ATRY [facility] [place] [facility] Jun 22, 2024 09:00 AM AMBULATORY - [facility] [place] [facility] Jun 29, 2024 09:00 AM AMBULATORY - [facility] [place] [facility] Jul 06, 2024 09:00 AM AMBULATORY - PS[facility]IATRY [facility] [place] [facility] Jul 13, 2024 09:00 AM AMBULATORY - PS[facility]IATRY [facility] [place] [facility] Jul 16, 2024 09:05 AM AMBULATORY - MEDICINE [facility] [place] [facility] Jul 18, 2024 07:45 PM AMBULATORY - MEDICINE [facility] [place] [facility] Jul 20, 2024 09:00 AM AMBULATORY - PS[facility]IATRY [facility] [place] [facility] Jul 22, 2024 09:30 AM AMBULATORY - PS[facility]CHIATRY [facility] [place] [facility] Jul 27, 2024 09:00 AM AMBULATORY - PS[facility]IATRY [facility] [place] [facility] Aug 03, 2024 09:00 AM AM[facility]UL[facility] Aug 10, 2024 09:00 AM AMBULATORY - PSYCHIATRY [facility] Aug 17, 2024 09:00 AM AMBULATORY - PSYCHIATRY [facility] Lab Results: +/- 30 days of the encounter This section includes the Chemistry and Hematology Lab Results on record with VA for the patient. Radiology Reports and Pathology Reports are provided separately, in subsequent sections. Lab Results This section contains the Chemistry/Hematology Results that were resulted 30 days before or 30 daysafter the date of the Encounter. Date/Time Source Result Type Result - Unit Interpretation Reference Range Comment Jun 11, 2024 12:51 PM [facility] HEPATITIS B SURFACE ANTIBODY (HBsAb)-WH Specimen Type: SERUM No comment entered. Ordering Provider: KAMLA KNIGHT Report Released Date/Time: May 31, 2024 09:45 AM Reporting Lab: [address] [address] Performing Lab: [address] [address] HBsAb Non Reactive Non Reactive Jun 11, 2024 12:51 PM [facility] LIPID PANEL, NON FASTING Specimen Type: SERUM No comment entered. Ordering Provider: KAMLA KNIGHT Report Released Date/Time: May 31, 2024 09:45 AM Reporting Lab: [address] [address] Performing Lab: [address] [address] CHOLESTEROL 212 mg/dL H TRIGLYCERIDE 124 mg/dL 0-150 LDL calculated 152 mg/dL H 0-129 CHOL/HDL 6.1 HDL CHOLESTEROL 35 mg/dL L 40-60 Jun 11, 2024 12:51 PM [facility] LIVER FUNCTION Specimen Type: SERUM No comment entered. Ordering Provider: KAMLA KNIGHT Report Released Date/Time: May 31, 2024 09:45 AM Reporting Lab: [address] [address] Performing Lab: [address] [address] PROTEIN,TOTAL 7.4 g/dL 6.0-8.3 ALBUMIN 4.5 g/dL 3.5-5.0 ALKALINE PHOSPHATASE 38 U/L L 40-150 AST 13 U/L 5-34 ALT 11 U/L BILIRUBIN, TOTAL 0.7 mg/dL 0.2-1.2 Jun 11, 2024 12:51 PM [facility] BASIC METABOLIC PANEL (non-fasting) Specimen Type: SERUM No comment entered. Ordering Provider: KAMLA KNIGHT Report Released Date/Time: May 31, 2024 09:45 AM Reporting Lab: [address] [address] Performing Lab: [address] [address] UREA NITROGEN 16 mg/dL 7-25 GLUCOSE 86 mg/dL 65-100 SODIUM 141 mmol/L 135-145 POTASSIUM 4.2 mmol/L 3.5-5.0 CHLORIDE 106 mmol/L 100-110 CO2 25 meq/L 20-30 CREATININE, Serum 1.35 mg/dL 0.50-1.40 eGFR(CKD-EPI 2020) 66 mL/min >60 Jun 11, 2024 12:51 PM [facility] CBC Specimen Type: BLOOD No comment entered. Ordering Provider: KAMLA KNIGHT Report Released Date/Time: May 31, 2024 09:45 AM Reporting Lab: [address] [address] Performing Lab: [address] [address] WBC 5.98 10*3/uL 4.50-11.00 RBC 4.60 10*6/uL 4.23-5.66 HGB 13.9 g/dL 12.8-17 HCT 40.5 39.2-50.4 MCV 88.0 fL 82-99 MCHC 34.3 g/dL 30.8-35.1 PLT 190 10*3/uL 140-360 RDW-CV 13.5 12.0-16.0 MCH 30.2 pg 26.2-32.6 Social History: Smoking Status (Most current) and Tobacco Use (All prior to encounter date) This section includes the most current, and the historical, smoking and tobacco- related health factors from the [place] facility where the Encounter took place. Current Smoking Status This section includes the most current smoking, or tobacco-related health factor, from the [place] facility where the Encounter took place. Date/Time Current Smoking Status Comment Facil ity Oct 02, 2023 01:00 PM VA-TOBACCO USER EVERY DAY [facility] [place] [facility] Tobacco Use History This section includes a history of the smoking, or tobacco-related health factors, that were collected on or before the date of the Encounter. The data comes from the [place] facility where the Encounter took place. Date/Time Smoking Status/Tobacco Use Comment F acility Oct 02, 2023 01:00 PM VA-TOBACCO USE ADVICE [facility] [place] [facility] Oct 02, 2023 01:00 PM VA-TOBACCO USE SOLAR PHOTOVOLTAIC ELECTRICIAN NO [facility] [place] [facility] Oct 02, 2023 01:00 PM VA-TOBACCO USE MED NO [facility] [place] [facility] Oct 02, 2023 01:00 PM VA-TOBACCO USE WI 30 MIN OF WAKEUP [facility] [place] [facility] Oct 02, 2023 01:00 PM VA-TOBACCO USER EVERY DAY [facility] [place] [facility] Sep 10, 2022 05:31 PM VA-TOBACCO USE > 1 5 LESS THAN 30 YEARS [facility] [place] [facility] Sep 10, 2022 05:31 PM VA-TOBACCO USE ADVICE [facility] [place] [facility] Sep 10, 2022 05:31 PM VA-TOBACCO USE SOLAR PHOTOVOLTAIC ELECTRICIAN NO [facility] [place] [facility] Sep 10, 2022 05:31 PM VA-TOBACCO USE MED NO [facility] [place] [facility] Sep 10, 2022 05:31 PM VA-TOBACCO USE WI 30 MIN OF WAKEUP [facility] [place] [facility] Sep 10, 2022 05:31 PM VA-TOBACCO USER EVERY DAY [facility] [place] [facility] Aug 26, 2020 03:33 PM 689 [facility]PT [facility]TS [facility] Aug 06, 2020 10:30 PM 689 [facility]PT RE[facility]TS [facility] Jul 10, 2020 07:38 PM 689 INPT REPORTS SMOKING [facility] Jun 24, 2020 01:05 AM 689 INPT REPORTS SMOKING [facility] Apr 14, 2020 06:45 AM 689 INPT REPORTS SMOKING [facility] February 29, 2020 02:33 AM 689 INPT REPORTS SMOKING [facility] Jul 20, 2019 06:25 PM 689 INPT REPORTS SMOKING [facility] Mar 25, 2019 05:25 AM 689 [facility] Apr 15, 2018 06:41 PM ORYX ADMIT TOBACCO SCREEN YES [facility] [place] [facility] Apr 15, 2018 06:41 PM ORYX ADMIT TOBACCO USE CIGS GR 5D [facility] [place] [facility] Apr 15, 2018 06:41 PM ORYX DAILY TOBACCO SOLAR PHOTOVOLTAIC ELECTRICIAN RECEIVED [facility] [place] [facility] Apr 15, 2018 06:41 PM ORYX DAILY TOBACCO MEDS REFUSED [facility] [place] [facility] Apr 15, 2018 02:41 PM CURRENT SMOKER [facility] [place] [facility] March 12, 2018 11:20 AM CURRENT SMOKER [facility] [place] [facility] March 12, 2018 11:20 AM V1-PT NOT INTEREST ED IN QUIT TOBACCO USE [facility] [place] [facility] Apr 10, 2016 09:03 AM TOBACCO INPATIENT DESIRES MEDS [facility] [place] [facility] Jan 28, 2016 12:53 PM TOBACCO INPATIENT DESIRES MEDS [facility] [place] [facility] Oct 21, 2015 05:16 PM TOBACCO INPATIENT DESIRES MEDS [facility] [place] [facility] Jul 13, 2015 11:06 PM TOBACCO INPATIENT DECLINES MEDS [facility] [place] [facility] Dec 13, 2014 08:26 PM TOBACCO INPATIENT DECLINES MEDS [facility] [place] [facility] Dec 13, 2014 07:39 PM CURRENT SMOKER [facility] [place] [facility] Dec 13, 2014 07:39 PM V1-PT NOT INTEREST ED IN QUIT TOBACCO USE [facility] Advance Directives: All historical and current Section Date Range: From patient's date of to the date document was created. This section includes ALL of a patient's completed or amended [place] Advance and Rescinded Directives. The entries below indicate that a directive exists for the patient, but an actual copy is not included with this document. The data comes from all [place] facilities. Date Advance Directives Provider Source Sep 13, 2019 ADVANCE DIRECTIVE TRISHAJOSE MANUEL Consuelo TAYLOR [facility] Oct 03, 2017 ADVANCE DIRECTIVE [facility]AGMAR [facility]UR [facility] Feb 07, 2016 ADVANCE DIRECTIVE SOFIE POLANCO [facility] Jan 20, 2015 ADVANCE DIRECTIVE DISCUSSION FLORINA COLON [facility] Encounter Notes: All associated encounter notes This section contains the clinical notes associated to the Encounter. Date/Time Encounter Note(s) Provider Source May 12, 2024 03:03 PM MENTAL HEALTH OUTR EACH NOTE: LOCAL TITLE: JUSTICE OUTREACH PROGRESS NOTE STANDARD TITLE: MENTAL HEALTH OUTREACH NOTE DATE OF NOTE: MAY 12, 2024@15:03 ENTRY DATE: MAY 13, 2024@16:03:59 AUTHOR: NARESH SHAIKH EXP COSIGNER: URGENCY: STATUS: COMPLETED [place] identified by: [x ] Full Name [] Address [x ] [ ] SSN [] Facial Recognition Length of contact: 60 minutes Location: [facility] [address], [facility] Content: was an active participant in court session today. [place] is at home alone now and on a SCRAM unit. He is maintaining sobriety. He is working with MELIZA Treviño in the [facility]. Otherwise, is doing very well. CARA to provide ongoing support. /cindy/ LENKA JACOBSON ORNAMENT STITCHER Signed: 05/13/2024 16:05 NARESH SHAIKH [facility]
--- OUTSIDE RECORDS SUMMARY | 2024-12-28 08:01 | XMS_ITS | Encounter Summary ---
Author Name [facility] [place] [facility] [place] Address [address] [place] [address] Care Team Providers Care Senior Customer Service Representative Name Role Phone KERRIE KNIGHT Primary Care Provider JOSE MANUEL [place] Primary Care Provider Unavailabl e Insurance Providers: [...] PART A February 17, 2017 PART A [id number] MARY ESPINO PATIENT MEDICARE (WNR) MEDICARE (M) PART B February 17, 2017 PART B [id number] [phone] MARY ESPINO PATIENT MEDICARE (WNR) MEDICARE (M) PART A February 17, 2017 PART A [id number] [phone] MARY ESPINO PATIENT MEDICARE (WNR) MEDICARE (M) PART B February 17, 2017 PART B [id number] [phone] JASMINAINIMARY [place] PATIENT MEDICARE (WNR) MEDICARE (M) PART A February 17, 2017 PART A [id number] CIMINI,MARY [place] PATIENT MEDICARE (WNR) MEDICARE (M) PART A February 17, 2017 PART A [id number] [phone] JASMINAINIMARY [place] PATIENT MEDICARE (WNR) MEDICARE (M) PART A February 17, 2017 PART A [id number] CIMINI,MARY [place] PATIENT MEDICARE (WNR) MEDICARE (M) PART B February 17, 2017 PART B [id number] JASMINAINI,MARY [place] PATIENT MEDICARE (WNR) MEDICARE (M) PART A February 17, 2017 PART A [id number] JASMINAINIMARY [place] PATIENT MEDICARE (WNR) MEDICARE (M) PART B February 17, 2017 PART B [id number] JASMINAINIMARY [place] PATIENT MEDICARE (WNR) MEDICARE (M) PART A February 17, 2017 PART A [id number] JASMINAINIMARY [place] PATIENT MEDICARE (WNR) MEDICARE (M) PART B February 17, 2017 PART B [id number] [phone] MARY ESPINO PATIENT Selected Encounter This section includes the information on record at [place] for the Encounter. Date/Time Encounter Type Encounter Description Reason Pro vider Source Feb 06, 2024 10:00 AM Outpatient Encounter SUBSTANCE USE DISORDER IND IHE Encounter Template Text not used by [place] Plan of Treatment: Future Appointments (+ 6 months) and Future Tests (+/- 45 days) The Plan of Treatment section includes future care activities for the patient from all [place] treatmentfacilities. This section includes future appointments and future orders which are active, pending or scheduled. Future Appointments This section includes appointments that were scheduled to occur 6 months from the date of the Encounter, up to a maximum of 20 appointments. The data comes from all [place] treatment facilities. Appointment Date/Time Appointment Type Appointme nt Facility Name Feb 09, 2024 11:00 AM AMBULATORY [facility] Feb 10, 2024 09:00 AM AMBULATORY [facility] [place] Feb 10, 2024 11:00 AM AMBULATORY - MEDICINE [facility] [place] [facility] Feb 11, 2024 10:00 AM AMBULATORY [facility] PS[facility] [place] Feb 13, 2024 10:00 AM AMBULATORY - [facility]RY [facility] [place] [facility] Feb 16, 2024 03:30 PM AMBULATORY - MEDICINE [facility] [facility] Feb 17, 2024 10:00 AM AMBULATORY - PS[facility] May 05, 2024 10:40 AM AMBULATORY - MEDICINE [facility] May 11, 2024 09:00 AM AMBULATORY - PS[facility] May 13, 2024 11:30 AM AMBULATORY - MEDICINE [facility] May 18, 2024 09:00 AM AMBULATORY - PS[facility] May 25, 2024 09:00 AM AMBULATORY [facility] Jun 01, 2024 09:00 AM AMBULATORY [facility] Jun 03, 2024 12:05 PM AMBULATORY - MEDICINE [facility] [place] [facility] Jun 08, 2024 09:00 AM AMBULATORY [facility] Jun 08, 2024 11:30 AM AMBULATORY - [facility] Jun 11, 2024 03:30 PM AMBULATORY - MEDICINE [facility] [place] [facility] Jun 15, 2024 09:00 AM AMBULATORY - PS[facility]RY [facility] Jun 22, 2024 09:00 AM AMBULATORY [facility] Jun 29, 2024 09:00 AM AMBULATORY [facility]RY [facility] Social History: Smoking Status (Most current) and Tobacco Use (All prior to encounter date) This section includes the most current, and the historical, smoking and tobacco- related health factors from the [place] facility where the Encounter took place. Current Smoking Status This section includes the most current smoking, or tobacco-related health factor, from the [place] facility where the Encounter took place. Date/Time Current Smoking Status Comment Facil ity Oct 02, 2023 01:00 PM VA-TOBACCO USER EVERY DAY [place] [facility] [facility] Tobacco Use History This section includes a history of the smoking, or tobacco-related health factors, that were collected on or before the date of the Encounter. The data comes from the [place] facility where the Encounter took place. Date/Time Smoking Status/Tobacco Use Comment F acility Oct 02, 2023 01:00 PM VA-TOBACCO USE ADVICE [facility] Oct 02, 2023 01:00 PM VA-TOBACCO USE SOLE LEVELER MACHINE NO [facility] Oct 02, 2023 01:00 PM VA-TOBACCO USE MED NO [facility] Oct 02, 2023 01:00 PM VA-TOBACCO USE WI 30 MIN OF WAKEUP [facility] Oct 02, 2023 01:00 PM VA-TOBACCO USER EVERY DAY [facility] Sep 10, 2022 05:31 PM VA-TOBACCO USE > 1 5 LESS THAN 30 YEARS [facility] Sep 10, 2022 05:31 PM VA-TOBACCO USE ADVICE [facility] Sep 10, 2022 05:31 PM VA-TOBACCO USE SOLE LEVELER MACHINE NO [facility] Sep 10, 2022 05:31 PM VA-TOBACCO USE MED NO [facility] Sep 10, 2022 05:31 PM VA-TOBACCO USE WI 30 MIN OF WAKEUP [facility] Sep 10, 2022 05:31 PM VA-TOBACCO USER EVERY DAY [facility] [facility] Aug 26, 2020 03:33 PM 689 INPT REPORTS SMOKING [facility] Aug 06, 2020 10:30 PM 689 INPT REPORTS SMOKING [facility] Jul 10, 2020 07:38 PM 689 INPT REPORTS SMOKING [facility] Jun 24, 2020 01:05 AM 689 INPT REPORTS SMOKING [facility] Apr 14, 2020 06:45 AM 689 INPT REPORTS SMOKING [facility] February 29, 2020 02:33 AM 689 INPT REPORTS SMOKING [facility] Jul 20, 2019 06:25 PM 689 INPT REPORTS SMOKING [facility] Mar 25, 2019 05:25 AM 689 INPT REPORTS SMOKING [facility] Apr 15, 2018 06:41 PM ORYX ADMIT TOBACCO SCREEN YES [facility] Apr 15, 2018 06:41 PM ORYX ADMIT TOBACCO USE CIGS GR 5D [facility] [place] Apr 15, 2018 06:41 PM ORYX DAILY TOBACCO SOLE LEVELER MACHINE RECEIVED [place] [facility] [place] Apr 15, 2018 06:41 PM ORYX DAILY TOBACCO MEDS REFUSED [place] [facility] [place] [facility] Apr 15, 2018 02:41 PM CURRENT SMOKER [facility] [place] [facility] March 12, 2018 11:20 AM CURRENT SMOKER [facility] March 12, 2018 11:20 AM V1-PT NOT INTEREST ED IN QUIT TOBACCO USE [facility] Apr 10, 2016 09:03 AM TOBACCO INPATIENT DESIRES MEDS [facility] Jan 28, 2016 12:53 PM TOBACCO INPATIENT DESIRES MEDS [facility] [place] Oct 21, 2015 05:16 PM TOBACCO INPATIENT DESIRES MEDS [facility] Jul 13, 2015 11:06 PM TOBACCO INPATIENT DECLINES MEDS [facility] [place] Dec 13, 2014 08:26 PM TOBACCO INPATIENT DECLINES MEDS [facility] [place] Dec 13, 2014 07:39 PM CURRENT SMOKER [facility] [facility] Dec 13, 2014 07:39 PM V1-PT NOT INTEREST ED IN QUIT TOBACCO USE [place] [facility] [facility] Advance Directives: All historical and current Section Date Range: From patient's date of to the date document was created. This section includes ALL of a patient's completed or amended [place] Advance and Rescinded Directives. The entries below indicate that a directive exists for the patient, but an actual copy is not included with this document. The data comes from all [place] facilities. Date Advance Directives Provider Source Sep 13, 2019 ADVANCE DIRECTIVE JOSE MANUEL [facility] Oct 03, 2017 ADVANCE DIRECTIVE DAGMAR THAKUR [facility] Feb 07, 2016 ADVANCE DIRECTIVE SOFIE POLANCO [facility] Jan 20, 2015 ADVANCE DIRECTIVE DISCUSSION FLORINA COLON [facility] Encounter Notes: All associated encounter notes This section contains the clinical notes associated to the Encounter. Date/Time Encounter Note(s) Provider Source Feb 06, 2024 10:14 AM CLERICAL NOTE: LOCAL TITLE: APPOINTMENT NO SHOW STANDARD TITLE: CLERICAL NOTE DATE OF NOTE: FEB 06, 2024@10:14 ENTRY DATE: FEB 06, 2024@10:14:42 AUTHOR: YOUSIF FAUST COSIGNER: URGENCY: STATUS: COMPLETED Patient Name: TOMI ESPINO Patient SSN: [id number] Date and time of Appointment No show : 02/06/24 10:00 PATIENT PHONE - PHONE NUMBER [CELLULAR] - Patient's medical record was reviewed. Follow-up actions were determined and initiated: Please check/complete as applies: [X]Telephoned Directly [ ]Re-scheduled for next available appt [ ]Sent a N0-show letter ( must call for appointment) [ ]Other (Emergent/Overbook, etc.): Additional Comments: did not show for 11 AM [facility] appointment today. Called and went straight to voicemail. Left a message with upcoming appointment times. Future Clinic Visits 02/09/2024 11:00 CWM/NO/VVC/NAY/PEER/NAVA 02/10/2024 11:00 NHM/OPTOMETRY/MYLES/ 02/11/2024 10:00 CWM/SO/MHC/SW4 GROUP 02/13/2024 10:00 CWM/SO/MHC/SW4 GROUP 02/13/2024 14:00 CWM/NO/VVC/NAY/GOVIND 02/16/2024 15:30 CWM/NO/PACT 7 02/17/2024 10:00 CWKayla/LAM/CHRISTIAN/JAYDEN 1 /es/ YOUSIF FAUST [facility] Chemistry Intern Signed: 02/06/2024 10:16 YOUSIF FAUST [facility]
--- OUTSIDE RECORDS SUMMARY | 2024-12-28 08:01 | XMS_ITS | Encounter Summary ---
Author Name [facility] [facility] [place] [facility] [place] [facility] [place] Address [address] [place] [address] Care Team Providers Care Moving Picture Operator Name Role Phone KERRIE ESQUIVEL Primary Care Provider Unavaila JOSE MANUEL Victoria [...] PART A February 17, 2017 PART A [id number] [phone] MARY ESPINO PATIENT MEDICARE (WNR) MEDICARE (M) PART B February 17, 2017 PART B [id number] JASMINAMARY DAS PATIENT MEDICARE (WNR) MEDICARE (M) PART A February 17, 2017 PART A [id number] [phone] JASMINAINI,DA [place] PATIENT MEDICARE (WNR) MEDICARE (M) PART A February 17, 2017 PART A [id number] [phone] JASMINAINIMARY [place] PATIENT MEDICARE (WNR) MEDICARE (M) PART B February 17, 2017 PART B [id number] [phone] JASMINAINI,MARY [place] PATIENT MEDICARE (WNR) MEDICARE (M) PART A February 17, 2017 PART A [id number] JASMINAINI,MARY [place] PATIENT MEDICARE (WNR) MEDICARE (M) PART A February 17, 2017 PART A [id number] CIMINI,MARY [place] PATIENT MEDICARE (WNR) MEDICARE (M) PART B February 17, 2017 PART B [id number] [phone] JASMINAINI,MARY [place] PATIENT MEDICARE (WNR) MEDICARE (M) PART B February 17, 2017 PART B [id number] [phone] JASMINAINI,MARY [place] PATIENT MEDICARE (WNR) MEDICARE (M) PART A February 17, 2017 PART A [id number] JASMINAINI,MARY [place] PATIENT MEDICARE (WNR) MEDICARE (M) PART A February 17, 2017 PART A [id number] JASMINAINI,MARY [place] PATIENT MEDICARE (WNR) MEDICARE (M) PART B February 17, 2017 PART B [id number] [phone] MARY ESPINO PATIENT Selected Encounter This section includes the information on record at [place] for the Encounter. Date/Time Encounter Type Encounter Description Reason Provider Source Dec 16, 2024 09:30 AM OFFICE O/P EST HI 40 MIN PRIMARY CARE/MEDICINE ICD-10-CM M54.2 Cervicalgia LAURYN ESQUIVEL AM Encounter Template Text not used by [place] Assessments - Encounter Diagnoses This section includes the primary and secondary diagnoses documented for the Encounter. Date/Time Primary/Secondary Diagnosis Diagnosis Name Provider Source Dec 16, 2024 10:11 AM PRIMARY Cervicalgia KAMLA ESQUIVEL [facility] Dec 16, 2024 10:11 AM SECONDARY Alcohol dependence with other alcohol-induced disorder KAMLA ESQUIVELM J [facility] Dec 16, 2024 10:11 AM SECONDARY Major depressv disorder, recurrent, severe w psych symptoms ESQUIVEL,WILL AMAYA Starkey [facility] Dec 16, 2024 10:11 AM SECONDARY Nicotine dependence, cigarettes, uncomplicated ESQUIVEL,WILL AMAYA Starkey [facility] Plan of Treatment: Future Appointments (+ 6 months) and Future Tests (+/- 45 days) The Plan of Treatment section includes future care activities for the [facility] [place] [facility] This section includes future appointments and future orders which are active, pending or scheduled. Future Appointments This section includes appointments that were scheduled to occur 6 months from the date of the Encounter, up to a maximum of 20 appointments. The data comes from all [facility] facilities. Appointment Date/Time Appointment Type Appointme nt Facility Name Dec 30, 2024 09:15 AM AMBULATORY - NONE [facility] Jan 13, 2025 09:00 AM AMBULATORY - PSYCHIATRY [facility] Jun 15, 2025 09:30 AM AMBULATORY - MEDICINE [facility] Active, Pending, and Scheduled Orders This section includes a listing of several types of active, pending, and scheduled orders, including clinic medications orders, diagnostic test orders, procedure orders and consult orders; where the start date of the order is 45 days before the date of the Encounter or 45 days after the date of theEncounter. The data comes from all [facility]. Test Date/Time Test Type Test Details Facility Name Dec 03, 2024 11:49 AM Consult Order COMMUNITY CARE-DENTAL SPECIALTY Cons Inspector [employer] [facility] Dec 16, 2024 12:42 PM Consult Order NUTRITION ASSESSMENT/EDUCATION /NHM OUTPT Cons Inspector [employer] [facility] Dec 17, 2024 12:00 AM Laboratory - Chemi stry Order OCCULT BLOOD FIT X1 SCREEN(IN-HOUSE) STOOL FECES SP [facility] Lab Results: +/- 30 days of the encounter This section includes the Chemistry and Hematology Lab Results on record with [place] for the patient. Radiology Reports and Pathology Reports are provided separately, in subsequent sections. Lab Results This section contains the Chemistry/Hematology Results that were resulted 30 days before or 30 daysafter the date of the Encounter. Date/Time Source Result Type Result - Unit Interpretation Reference Range Comment Dec 16, 2024 08:30 AM [facility] HEPATITIS B SURFACE ANTIBODY (HBsAb)-WH Specimen Type : SERUM No comment entered. Ordering Provider: LAURYN ESQUIVEL AM Report Released Date/Time: Dec 09, 2024 04:19 PM Reporting Lab: [address] [address] Performing Lab: [address] [address] HBsAb Non Reactive Non Reactive Dec 16, 2024 08:30 AM [facility] CBC Specimen Type: BLOOD No comment entered. Ordering Provider: LAURYN ESQUIVEL AM Report Released Date/Time: Dec 09, 2024 04:19 PM Reporting Lab: [address] [address] Performing Lab: [address] [address] WBC 5.27 10*3/uL 4.50-11.00 RBC 4.47 10*6/uL 4.23-5.66 HGB 13.5 g/dL 12.8-17 HCT 40.3 39.2-50.4 MCV 90.2 fL 82-99 MCHC 33.5 g/dL 30.8-35.1 PLT 178 10*3/uL 140-360 RDW-CV 12.4 12.0-16.0 MCH 30.2 pg 26.2-32.6 Dec 16, 2024 08:30 AM [facility] LIPID PANEL, NON FASTING Specimen Type: SERUM No comment entered. Ordering Provider: LAURYN ESQUIVEL AM Report Released Date/Time: Dec 09, 2024 04:19 PM Reporting Lab: [address] [address] Performing Lab: [facility] [address] [facility] [address] CHOLESTEROL 261 mg/dL H TRIGLYCERIDE 179 mg/dL H 0-150 LDL calculated 186 mg/dL H 0-129 CHOL/HDL 6.7 HDL CHOLESTEROL 39 mg/dL L 40-60 Dec 16, 2024 08:30 AM [facility] BASIC METABOLIC PANEL (non-fasting) Specimen Type: SERUM No comment entered. Ordering Provider: LAURYN ESQUIVEL AM Report Released Date/Time: Dec 09, 2024 04:19 PM Reporting Lab: [facility] [address] [facility] [address] Performing Lab: [address] [address] UREA NITROGEN 12 mg/dL 7-25 GLUCOSE 97 mg/dL 65-100 SODIUM 139 mmol/L 135-145 POTASSIUM 4.7 mmol/L 3.5-5.0 CHLORIDE 106 mmol/L 100-110 CO2 26 meq/L 20-30 CALCIUM 9.4 mg/dL 8.5-10.2 CREATININE, Serum 1.11 mg/dL 0.50-1.40 eGFR(CKD-EPI 2020) 83 mL/min >60 Dec 16, 2024 08:30 AM [facility] LIVER FUNCTION Specimen Type: SERUM No comment entered. Ordering Provider: LAURYN ESQUIVEL AM Report Released Date/Time: Dec 09, 2024 04:19 PM Reporting Lab: [address] [address] Performing Lab: [address] [address] PROTEIN,TOTAL 7.6 g/dL 6.0-8.3 ALBUMIN 4.4 g/dL 3.5-5.0 ALKALINE PHOSPHATASE 48 U/L 40-150 AST 13 U/L 5-34 ALT 14 U/L BILIRUBIN, TOTAL 0.3 mg/dL 0.2-1.2 Dec 16, 2024 08:30 AM [facility] YEN SCREEN/TITER Specimen Type: SERUM No comment entered. Ordering Provider: LAURYN ESQUIVEL AM Report Released Date/Time: Dec 16, 2024 11:19 AM Reporting Lab: [facility] [address] [facility] [address] Performing Lab: [facility] [address] [facility] [address] YEN SCREEN NEG NEG <1:40 Dec 16, 2024 08:30 AM [facility] RHEUMATOID FACTOR Specimen Type: SERUM No comment entered. Ordering Provider: LAURYN ESQUIVEL AM Report Released Date/Time: Dec 16, 2024 11:19 AM Reporting Lab: [facility] [address] [facility] [address] Performing Lab: [facility] [address] [facility] [address] RHEUMATOID FACTOR <13 0-15 Dec 16, 2024 08:30 AM [facility] HEMOGLOBIN A1C PANEL Specimen Type: BLOOD Comment: Values obtained from A1C measurements can vary. For atypical A1C assays, a reported value of 7.0 could actually be between 6.72 and 7.28 if measured by a reference method. A reported value of 9.0 could actually be between 8.73 and 9.27. Ref: http://www.ngs p.org/CAPdata. asp Ordering Provider: LAURYN ESQUIVEL AM Report Released Date/Time: Dec 16, 2024 11:19 AM Reporting Lab: [facility] [address] [facility] [address] Performing Lab: [facility] [address] [facility] [address] HEMOGLOBIN A1C 5.3 4.0-5.6 Vital Signs: All taken on the encounter date This section contains inpatient and outpatient Vital Signs collected on the date of the Encounter. Date/Time Temperature Pulse Blood Pressure Respiratory Rate SP02 Pain Height Weight Body Mass Index Source Dec 16, 2024 09:35 AM 98.3 81 117/79 20 100 7 71 195 27 [facility] Social History: Smoking Status (Most current) and Tobacco Use (All prior to encounter date) This section includes the most current, and the historical, smoking and tobacco- related health factors from the [place] facility where the Encounter took place. Current Smoking Status This section includes the most current smoking, or tobacco-related health factor, from the [place] facility where the Encounter took place. Date/Time Current Smoking Status Comment Faisal de los santos Dec 16, 2024 09:30 AM VA-TOBACCO USE FOR NIYA CIGARETTES [facility] [place] [facility] Tobacco Use History This section includes a history of the smoking, or tobacco-related health factors, that were collected on or before the date of the Encounter. The data comes from the [place] facility where the Encounter took place. Date/Time Smoking Status/Tobacco Use Comment Walt sawyer Dec 16, 2024 09:30 AM VA-TOBACCO USE FOR NIYA CIGARETTES [facility] [place] [facility] Oct 02, 2023 01:00 PM VA-TOBACCO USE > 1 5 LESS THAN 30 YEARS [facility] [place] [facility] Oct 02, 2023 01:00 PM VA-TOBACCO USE ADVICE [facility] [place] [facility] Oct 02, 2023 01:00 PM VA-TOBACCO USE DEAN OF INSTRUCTION NO [facility] [place] [facility] Oct 02, 2023 01:00 PM VA-TOBACCO USE MED NO [facility] [place] [facility] Oct 02, 2023 01:00 PM VA-TOBACCO USE WI 30 MIN OF WAKEUP [facility] [place] [facility] Oct 02, 2023 01:00 PM VA-TOBACCO USER EVERY DAY [facility] [place] [facility] Sep 10, 2022 05:31 PM VA-TOBACCO USE > 1 5 LESS THAN 30 YEARS [facility] [place] [facility] Sep 10, 2022 05:31 PM VA-TOBACCO USE ADVICE [facility] [place] [facility] Sep 10, 2022 05:31 PM VA-TOBACCO USE DEAN OF INSTRUCTION NO [facility] [place] [facility] Sep 10, 2022 05:31 PM VA-TOBACCO USE MED NO [facility] [place] [facility] Sep 10, 2022 05:31 PM VA-TOBACCO USE WI 30 MIN OF WAKEUP [facility] [place] [facility] Sep 10, 2022 05:31 PM VA-TOBACCO USER EVERY DAY [facility] [place] [facility] Aug 26, 2020 03:33 PM 689 INPT REPORTS SMOKING [facility] Aug 06, 2020 10:30 PM 689 INPT REPORTS SMOKING [facility] Jul 10, 2020 07:38 PM 689 INPT REPORTS SMOKING [facility] Jun 24, 2020 01:05 AM 689 INPT REPORTS SMOKING [facility] Apr 14, 2020 06:45 AM 689 INPT REPORTS SMOKING [facility] February 29, 2020 02:33 AM 689 INPT REPORTS SMOKING [facility] Jul 20, 2019 06:25 PM 689 INPT REPORTS SMOKING [facility] Mar 25, 2019 05:25 AM 689 INPT REPORTS SMOKING [facility] Apr 15, 2018 06:41 PM ORYX ADMIT TOBACCO SCREEN YES [facility] [place] [facility] Apr 15, 2018 06:41 PM ORYX ADMIT TOBACCO USE CIGS GR 5D [facility] [place] [facility] Apr 15, 2018 06:41 PM ORYX DAILY TOBACCO DEAN OF INSTRUCTION RECEIVED [facility] [place] [facility] Apr 15, 2018 06:41 PM ORYX DAILY TOBACCO MEDS REFUSED [facility] [place] [facility] Apr 15, 2018 02:41 PM CURRENT SMOKER [facility] [place] [facility] March 12, 2018 11:20 AM CURRENT SMOKER [facility] [place] [facility] March 12, 2018 11:20 AM V1-PT NOT INTEREST ED IN QUIT TOBACCO USE [facility] [place] [facility] Apr 10, 2016 09:03 AM TOBACCO INPATIENT DESIRES MEDS [facility] [place] [facility] Jan 28, 2016 12:53 PM TOBACCO INPATIENT DESIRES MEDS [facility] [place] [facility] Oct 21, 2015 05:16 PM TOBACCO INPATIENT DESIRES MEDS [facility] [place] [facility] Jul 13, 2015 11:06 PM TOBACCO INPATIENT DECLINES MEDS [facility] [place] [facility] Dec 13, 2014 08:26 PM TOBACCO INPATIENT DECLINES MEDS [facility] [place] [facility] Dec 13, 2014 07:39 PM CURRENT SMOKER [facility] [place] [facility] Dec 13, 2014 07:39 PM V1-PT NOT INTEREST ED IN QUIT TOBACCO USE [place] [facility] Advance Directives: All historical and current Section Date Range: From patient's date of to the date document was created. This section includes ALL of a patient's completed or amended [place] Advance and Rescinded Directives. The entries below indicate that a directive exists for the patient, but an actual copy is not included with this document. The data comes from all [place] facilities. Date Advance Directives Provider Source Sep 13, 2019 ADVANCE DIRECTIVE TRISHAJOSE MANUEL Consuelo [facility] Oct 03, 2017 ADVANCE DIRECTIVE BLAZECICIArnold [facility] Feb 07, 2016 ADVANCE DIRECTIVE SOFIE POLANCO [facility] Jan 20, 2015 ADVANCE DIRECTIVE DISCUSSION FLORINA COLON [facility] Encounter Notes: All associated encounter notes This section contains the clinical notes associated to the Encounter. Date/Time Encounter Note(s) Provider Source Dec 17, 2024 09:50 AM ADDENDUM: LOCAL TITLE: Addendum STANDARD TITLE: ADDENDUM DATE OF NOTE: DEC 17, 2024@09:50:12 ENTRY DATE: DEC 17, 2024@09:50:13 AUTHOR: KERRIE ESQUIVEL EXP COSIGNER: URGENCY: STATUS: COMPLETED FIT ordered - alert to [employer], please send kit with label and instructions. thank you /cindy/ Kerrie Esquivel DNP, DOCUMENT CONTROLLER-BC, CNL Primary Care Nurse Practitioner Signed: 12/17/2024 09:50 Receipt Acknowledged By: 12/21/2024 09:58 /cindy/ Jimi Koo, [facility] [place] Helper CAN FILLING ROOM SWEEPER,PRIMARY CARE ====== --- Original Document --- 12/16/24 NURSE PRACTITIONER OUTPATIENT NOTE: Chief complaint: Patient is a 44 year old . HPI: Pleasant male here to follow up. He has ongoing issues with left sided neck pain radiates into shoulder. He is followed at the pain clinic at [facility]. He is scheduled for stim placement on 12/28/2024. He is taking gabapentin and ibuprofen with some benefit but pain persists. He asks about other meds, i suggested a trial in interchanging acetaminophen with ibuprofen, he is in agreement. He also notes he quit smoking, one month, praised these efforts. He is also making dietary changes. He is concerned about possible diabetes in the future. Adding HGB A1C to current labs. I suggested nutrition consult. He is in agreement. He also expresses concern for RH arthritis noting that he father was recently diagnosed, added yen/rh to current labs. Allergies: ATOMOXETINE, ADDERALL The following VA and Non-VA meds were reconciled with patient. The patient was educated on the use of the medications including indication and side effects. Active and Recently Outpatient Medications (excluding Supplies): Active Outpatient Medications Status ====== 1) CLONIDINE HCL 0.3MG TAB TAKE ONE TABLET BY MOUTH AT BEDTIME ACTIVE Indication: ADHD 2) GABAPENTIN 300MG CAP TAKE THREE CAPSULES BY MOUTH THREE ACTIVE TIMES A DAY DOSE INCREASE Indication: FOR NERVE PAIN 3) IBUPROFEN 400MG TAB TAKE ONE TABLET BY MOUTH EVERY 6 HOURS ACTIVE NEEDED TAKE WITH FOOD Indication: FOR PAIN 4) METHYLPHENIDATE(EQV-CONC ERTA)54MG SA TAB TAKE ONE TABLET BY HOLD MOUTH EVERY MORNING NEXT FILL 01/20 Indication: FOR ADHD 5) VARENICLINE 1MG TAB TAKE ONE TABLET BY MOUTH TWICE DAILY ACTIVE (S) Indication: FOR SMOKING CESSATION Pending Outpatient Medications Status ====== 1) ACETAMINOPHEN 325MG TAB TAKE TWO TABLETS BY MOUTH EVERY 6 PENDING HOURS NEEDED Indication: FOR PAIN Inactive Outpatient Medications Status ====== 1) METHYLPHENID(EQV-METADAT E CD)30MG SA CAP TAKE ONE CAPSULE BY MOUTH EVERY MORNING Indication: ADHD 7 Total Medications Review of Systems: Constitutional: (-)for Fevers, chills, weakness, nights sweats On examination: 98.3 F [36.8 C] (12/16/2024 09:35)117/79 (12/16/2024 09:35)81 (12/16/2024 09:35)20 (12/16/2024 09:35)7 (12/16/2024 09:35)BMI: 27.3195 lb [88.45 kg] (12/16/2024 09:35) is alert and oriented X3 Cardiovasc: 2plus carotids without bruits, no JVD [...] the source for the followin. Cervicalgia - see above 2. Psychotic disorder - follows . 3. Cocaine dependence - maintains abstinence. 4. Nicotine dependence - quit x1 month. 5. Elevated blood pressure - well controlled. 6. Alcohol dependence - maintains abstinence. Health Care Maintenance: CRC in process of being scheduled, declines vaccinations. Today I spent 40 minutes on some or all of the following: chart review, history, physical examination, treatment planning, education and counseling of the patient/family/care director rn, placing orders, communicating with other health care providers, completing health and wellness screenings (see below) and documentation in the electronic health record. Follow up visit in 6 mos. Avg Risk Colorectal Cancer Screen: AVERAGE RISK colorectal cancer screening is due based on information available to this clinical reminder Colorectal cancer screening already scheduled or in process of being scheduled. Comment: [facility] Pneumococcal Conjugate Vaccine (PCV15/PCV20/PCV21): Refuses PCV vaccine Immunization: PNEUMOCOCCAL CONJUGATE, UNSPECIFIED FORMULATION Refusal Reason: PATIENT DECISION Patient refuses all immunization(s) in the PneumoPCV group Date Documented: 12/16/24 10:08 Tobacco Use Screening: The patient is a former cigarette smoker. The patient has never used other types of tobacco. Influenza Immunization: Deferral / Refusal The patient declines to receive the recommended dose of seasonal influenza vaccine. Immunization: INFLUENZA, UNSPECIFIED FORMULATION Refusal Reason: PATIENT DECISION Patient refuses all immunization(s) in the FLU group Date Documented: 12/16/24 10:09 COVID-19 Immunization: Refused Moderna Monovalent COVID-19 vaccine Immunization: COVID-19 (MODERNA), MRNA, LNP-S, PF, 50 MCG/0.5 ML (AGES 12+ YEARS) Refusal Reason: PATIENT DECISION Patient refuses all immunization(s) in the COVID-19 group Date Documented: 12/16/24 10:09 Medication Reconciliation: Outpatient: Has the patient been taking medications as documented in the EMLR? YES: The patient has been taking medications as documented in the EMLR. Essential Medication List for Review used to complete this medication reconciliation. INCLUDED IN THIS LIST: Alphabetical list of active outpatient prescriptions dispensed from this [facility] (local) and dispensed from another [place] or [facility] facility (remote) as well as [...] with a VA or non-VA provider. /cindy/ Krerie Esquivel DNP, DOCUMENT CONTROLLER-BC, CNL Primary Care Nurse Practitioner Signed: 12/16/2024 10:10 KERRIE ESQUIVEL [facility] [place] [facility] Dec 16, 2024 10:00 AM PRIMARY CARE NURSE PRACTITIONER OUTPATIENT NOTE: LOCAL TITLE: NURSE PRACTITIONER OUTPATIENT NOTE STANDARD TITLE: PRIMARY CARE NURSE PRACTITIONER OUTPATIENT NOTE DATE OF NOTE: DEC 16, 2024@10:00 ENTRY DATE: DEC 16, 2024@10:00:24 AUTHOR: KERRIE ESQUIVEL: URGENCY: STATUS: COMPLETED NURSE PRACTITIONER OUTPATIENT NOTE Has ADDENDA Chief complaint: Patient is a 44 year old [place]. HPI: Pleasant male [place] here to follow up. He has ongoing issues with left sided neck pain radiates into shoulder. He is followed at the pain clinic at [facility]. He is scheduled for stim placement on 12/28/2024. He is taking gabapentin and ibuprofen with some benefit but pain persists. He asks about other meds, i suggested a trial in interchanging acetaminophen with ibuprofen, he is in agreement. He also notes he quit smoking, one month, praised these efforts. He is also making dietary changes. He is concerned about possible diabetes in the future. Adding HGB A1C to current labs. I suggested nutrition consult. He is in agreement. He also expresses concern for RH arthritis noting that he father was recently diagnosed, added yen/rh to current labs. Allergies: ATOMOXETINE, ADDERALL The following VA and Non-VA meds were reconciled with patient. The patient was educated on the use of the medications including indication and side effects. Active and Recently Outpatient Medications (excluding Supplies): Active Outpatient Medications Status ====== 1) CLONIDINE HCL 0.3MG TAB TAKE ONE TABLET BY MOUTH AT BEDTIME ACTIVE Indication: ADHD 2) GABAPENTIN 300MG CAP TAKE THREE CAPSULES BY MOUTH THREE ACTIVE TIMES A DAY DOSE INCREASE Indication: FOR NERVE PAIN 3) IBUPROFEN 400MG TAB TAKE ONE TABLET BY MOUTH EVERY 6 HOURS ACTIVE NEEDED TAKE WITH FOOD Indication: FOR PAIN 4) METHYLPHENIDATE(EQV-CONC ERTA)54MG SA TAB TAKE ONE TABLET BY HOLD MOUTH EVERY MORNING NEXT FILL 01/20 Indication: FOR ADHD 5) VARENICLINE 1MG TAB TAKE ONE TABLET BY MOUTH TWICE DAILY ACTIVE (S) Indication: FOR SMOKING CESSATION Pending Outpatient Medications Status ====== 1) ACETAMINOPHEN 325MG TAB TAKE TWO TABLETS BY MOUTH EVERY 6 PENDING HOURS NEEDED Indication: FOR PAIN Inactive Outpatient Medications Status ====== 1) METHYLPHENID(EQV-METADAT E CD)30MG SA CAP TAKE ONE CAPSULE BY MOUTH EVERY MORNING Indication: ADHD 7 Total Medications Review of Systems: Constitutional: (-)for Fevers, chills, weakness, nights sweats On examination: 98.3 F [36.8 C] (12/16/2024 09:35)117/79 (12/16/2024 09:35)81 (12/16/2024 09:35)20 (12/16/2024 09:35)7 (12/16/2024 09:35)BMI: 27.3195 lb [88.45 kg] (12/16/2024 09:35) is alert and oriented X3 Cardiovasc: 2plus carotids without bruits, no JVD [...] the source for the followin. Cervicalgia - see above 2. Psychotic disorder - follows . 3. Cocaine dependence - maintains abstinence. 4. Nicotine dependence - quit x1 month. 5. Elevated blood pressure - well controlled. 6. Alcohol dependence - maintains abstinence. Health Care Maintenance: CRC in process of being scheduled, declines vaccinations. Today I spent 40 minutes on some or all of the following: chart review, history, physical examination, treatment planning, education and counseling of the patient/family/care director rn, placing orders, communicating with other health care providers, completing health and wellness screenings (see below) and documentation in the electronic health record. Follow up visit in 6 mos. Avg Risk Colorectal Cancer Screen: AVERAGE RISK colorectal cancer screening is due based on information available to this clinical reminder Colorectal cancer screening already scheduled or in process of being scheduled. Comment: [facility] Pneumococcal Conjugate Vaccine (PCV15/PCV20/PCV21): Refuses PCV vaccine Immunization: PNEUMOCOCCAL CONJUGATE, UNSPECIFIED FORMULATION Refusal Reason: PATIENT DECISION Patient refuses all immunization(s) in the PneumoPCV group Date Documented: 12/16/24 10:08 Tobacco Use Screening: The patient is a former cigarette smoker. The patient has never used other types of tobacco. Influenza Immunization: Deferral / Refusal The patient declines to receive the recommended dose of seasonal influenza vaccine. Immunization: INFLUENZA, UNSPECIFIED FORMULATION Refusal Reason: PATIENT DECISION Patient refuses all immunization(s) in the FLU group Date Documented: 12/16/24 10:09 COVID-19 Immunization: Refused Moderna Monovalent COVID-19 vaccine Immunization: COVID-19 (MODERNA), MRNA, LNP-S, PF, 50 MCG/0.5 ML (AGES 12+ YEARS) Refusal Reason: PATIENT DECISION Patient refuses all immunization(s) in the COVID-19 group Date Documented: 12/16/24 10:09 Medication Reconciliation: Outpatient: Has the patient been taking medications as documented in the EMLR? YES: The patient has been taking medications as documented in the EMLR. Essential Medication List for Review used to complete this medication reconciliation. INCLUDED IN THIS LIST: Alphabetical list of active outpatient prescriptions dispensed from this [place] (local) and dispensed from another VA or [facility] facility (remote) as well as [...] with a VA or non-VA provider. /cindy/ Kerrie Esquivel DNP, RHONDA, CHARLIE Primary Care Nurse Practitioner Signed: 12/16/2024 10:10 12/17/2024 ADDENDUM STATUS: COMPLETED FIT ordered - alert to [employer], please send kit with label and instructions. thank you /cindy/ RHONDA Ross DNP, CHARLIE Primary Care Nurse Practitioner Signed: 12/17/2024 09:50 Receipt Acknowledged By: 12/21/2024 09:58 /cindy/ Jimi Koo, [facility] Helper CAN FILLING ROOM SWEEPER,PRIMARY CARE 12/21/2024 ADDENDUM STATUS: COMPLETED HT called, spoke with vet. Confirmed contact and address information, mailed out Stool Kit on 12-21-2024@1000. /cecy Koo [facility] CAN FILLING ROOM SWEEPER,PRIMARY CARE Signed: 12/21/2024 10:00 KERRIE ESQUIVEL [facility] Dec 16, 2024 09:37 AM PREVENTIVE MEDICINE NURSING NOTE: LOCAL TITLE: CLINICAL REMINDERS/NURSING STANDARD TITLE: PREVENTIVE MEDICINE NURSING NOTE DATE OF NOTE: DEC 16, 2024@09:37 ENTRY DATE: DEC 16, 2024@09:37:23 AUTHOR: JIMI KOO EXP COSIGNER: URGENCY: STATUS: COMPLETED Advance Directive Screen MH AD: Patient does not have an Advance Directive completed and is requesting more information. A consult was sent to Social Work Services at this visit so that an appointment can be made with the patient to review the advance directive. The patient received education about Advance Directives and written notification of his/her rights. Tobacco Use Screening: The patient is a former cigarette smoker. The patient has never used other types of tobacco. /cecy Koo [facility] CAN FILLING ROOM SWEEPER,PRIMARY CARE Signed: 12/16/2024 09:38 JIMI KOO [facility]
--- OUTSIDE RECORDS SUMMARY | 2024-12-28 08:02 | XMS_ITS | Encounter Summary ---
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 Name Role Phone KERRIE KNIGHT Primary Care [...] PART A February 17, 2017 PART A [id number] JASMINAMARY DAS PATIENT MEDICARE (WNR) MEDICARE (M) PART B February 17, 2017 PART B [id number] JASMINAMARY DAS PATIENT MEDICARE (WNR) MEDICARE (M) PART A February 17, 2017 PART A [id number] [phone] [id number] JASMINAINI,DA [place] PATIENT MEDICARE (WNR) MEDICARE (M) PART A February 17, 2017 PART A [id number] JASMINAINIMARY [place] PATIENT MEDICARE (WNR) MEDICARE (M) PART B February 17, 2017 PART B [id number] JASMINAINIMARY [place] PATIENT MEDICARE (WNR) MEDICARE (M) PART A February 17, 2017 PART A [id number] JASMINAINIMARY [place] PATIENT MEDICARE (WNR) MEDICARE (M) PART B February 17, 2017 PART B [id number] CIMINIMARY [place] PATIENT MEDICARE (WNR) MEDICARE (M) PART A February 17, 2017 PART A [id number] [phone] [id number] JASMINAINIMARY [place] PATIENT MEDICARE (WNR) MEDICARE (M) PART A February 17, 2017 PART A [id number] [id number] [id number] MRAY ESPINO [place] PATIENT MEDICARE (WNR) MEDICARE (M) PART B February 17, 2017 PART B [id number] [id number] JASMINAINIMARY [place] PATIENT MEDICARE (WNR) MEDICARE (M) PART A February 17, 2017 PART A [id number] [phone] [id number] MARY ESPINO [place] PATIENT MEDICARE (WNR) MEDICARE (M) PART B February 17, 2017 PART B [id number] MARY ESPINO PATIENT Selected Encounter This section includes the information on record at [place] for the Encounter. Date/Time Encounter Type Encounter Description Reason Pro vider Source Nov 03, 2024 01:00 PM Outpatient Encounter SUBSTANCE USE DISORDR GRP IHE Encounter Template Text not used by VA Plan of Treatment: Future Appointments (+ 6 months) and Future Tests (+/- 45 days) The Plan of Treatment section includes future care activities for the patient from all [place] treatmentfacilities. This section includes future appointments and future orders which are active, pending or scheduled. Future Appointments This section includes appointments that were scheduled to occur 6 months from the date of the Encounter, up to a maximum of 20 appointments. The data comes from all [place] treatment facilities. Appointment Date/Time Appointment Type Appointme nt Facility Name Nov 10, 2024 01:00 PM AMBULATORY [facility]IATRY [facility] [place] [facility] Nov 16, 2024 10:00 AM AMBULATORY - PS[facility]IATRY [facility] [place] [facility] Nov 17, 2024 01:00 PM AMBULATORY - PS[facility]CHIATRY [facility] [place] [facility] Nov 23, 2024 09:00 AM AMBULATORY - NONE [facility] [place] [facility] Nov 23, 2024 10:00 AM AMBULATORY - PS[facility]IATRY [facility] [place] [facility] Nov 24, 2024 01:00 PM AMBULATORY - PS[facility]CHIATRY [facility] [place] [facility] Nov 25, 2024 09:30 AM AMBULATORY - PS[facility]CHIATRY [facility] [place] [facility] Nov 30, 2024 10:00 AM AMBULATORY - PS[facility]CHIATRY [facility] [place] [facility] Nov 30, 2024 11:40 AM AMBULATORY [facility] MEDICINE [facility] [place] [facility] Dec 13, 2024 09:00 AM AMBULATORY - NONE [facility] [place] [facility] Dec 14, 2024 03:10 PM AMBULATORY - MEDICINE [facility] [place] [facility] Dec 16, 2024 09:30 AM AMBULATORY - MEDICINE [facility] [place] [facility] Dec 30, 2024 09:15 AM AMBULATORY - NONE [facility] [place] [facility] Jan 13, 2025 09:00 AM AMBULATORY - PSYCHIATRY [facility] [place] [facility] Active, Pending, and Scheduled Orders This section includes a listing of several types of active, pending, and scheduled orders, including clinic medications orders, diagnostic test orders, procedure orders and consult orders; where the start date of the order is 45 days before the date of the Encounter or 45 days after the date of theEncounter. The data comes from all [place] treatment facilities. Test Date/Time Test Type Test Details Facility Name Sep 29, 2024 12:56 PM Consult Order COMMUNITY CARE-DENTAL SPECIALTY Cons [place] [employer] Installer's Choice [facility] [place] [facility] Dec 03, 2024 11:49 AM Consult Order COMMUNITY CARE-DENTAL SPECIALTY Cons [place] [facility] Installer's Choice [facility] [place] [facility] Dec 16, 2024 12:42 PM Consult Order NUTRITION ASSESSMENT/EDUCATION /NHM OUTPT [facility] [place] [facility] Installer[facility] [place] [facility] Dec 17, 2024 12:00 AM Laboratory - Chemi stry Order OCCULT BLOOD FIT X1 SCREEN(IN-HOUSE) STOOL FECES SP [facility] [place] [facility] Social History: Smoking Status (Most current) and Tobacco Use (All prior to encounter date) This section includes the most current, and the historical, smoking and tobacco- related health factors from the [place] facility where the Encounter took place. Current Smoking Status This section includes the most current smoking, or tobacco-related health factor, from the [place] facility where the Encounter took place. Date/Time Current Smoking Status Comment Facil ity Oct 02, 2023 01:00 PM VA-TOBACCO USER EVERY DAY [facility] [place] [facility] Tobacco Use History This section includes a history of the smoking, or tobacco-related health factors, that were collected on or before the date of the Encounter. The data comes from the [place] facility where the Encounter took place. 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 [facility] [place] [facility] Oct 02, 2023 01:00 PM VA-TOBACCO USE MED NO [facility] [place] [facility] Oct 02, 2023 01:00 PM VA-TOBACCO USE WI 30 MIN OF WAKEUP [facility] [place] [facility] Oct 02, 2023 01:00 PM VA-TOBACCO USER EVERY DAY [facility] [place] [facility] Sep 10, 2022 05:31 PM VA-TOBACCO USE > 1 5 LESS THAN 30 YEARS [facility] [place] [facility] Sep 10, 2022 05:31 PM VA-TOBACCO USE ADVICE [facility] [place] [facility] Sep 10, 2022 05:31 PM 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 [facility] [place] [facility] Sep 10, 2022 05:31 PM VA-TOBACCO USE MED NO [facility] [place] [facility] Sep 10, 2022 05:31 PM VA-TOBACCO USE WI 30 MIN OF WAKEUP [facility] [place] [facility] Sep 10, 2022 05:31 PM VA-TOBACCO USER EVERY DAY [facility] [place] [facility] Aug 26, 2020 03:33 PM 689 INPT REPORTS SMOKING [facility] Aug 06, 2020 10:30 PM [facility] Jul 10, 2020 07:38 PM 689 [facility] Jun 24, 2020 01:05 AM 689 [facility]TS [facility] Apr 14, 2020 06:45 AM 689 [facility]TS [facility] February 29, 2020 02:33 AM 689 [facility]TS [facility] Jul 20, 2019 06:25 PM 689 [facility] RE[facility]TS [facility] Mar 25, 2019 05:25 AM 689 [facility] Apr 15, 2018 06:41 PM ORYX ADMIT TOBACCO SCREEN YES [facility] [place] [facility] Apr 15, 2018 06:41 PM ORYX ADMIT TOBACCO USE CIGS GR 5D [facility] [place] [facility] Apr 15, 2018 06:41 PM ORYX DAILY TOBACCO CHAIN MAKER RECEIVED [facility] [place] [facility] Apr 15, 2018 06:41 PM ORYX DAILY TOBACCO MEDS REFUSED [facility] [place] [facility] Apr 15, 2018 02:41 PM CURRENT SMOKER [facility] [place] [facility] March 12, 2018 11:20 AM CURRENT SMOKER [facility] [place] [facility] March 12, 2018 11:20 AM V1-PT NOT INTEREST ED IN QUIT TOBACCO USE [facility] [place] [facility] Apr 10, 2016 09:03 AM TOBACCO INPATIENT DESIRES MEDS [facility] [place] [facility] Jan 28, 2016 12:53 PM TOBACCO INPATIENT DESIRES MEDS [facility] [place] [facility] Oct 21, 2015 05:16 PM TOBACCO INPATIENT DESIRES MEDS [facility] [place] [facility] Jul 13, 2015 11:06 PM TOBACCO INPATIENT DECLINES MEDS [facility] [place] [facility] Dec 13, 2014 08:26 PM TOBACCO INPATIENT DECLINES MEDS [facility] Dec 13, 2014 07:39 PM CURRENT SMOKER [facility] Dec 13, 2014 07:39 PM V1-PT NOT INTEREST ED IN QUIT TOBACCO USE [facility] Advance Directives: All historical and current Section Date Range: From patient's date of to the date document was created. This section includes ALL of a patient's completed or amended [place] Advance and Rescinded Directives. The entries below indicate that a directive exists for the patient, but an actual copy is not included with this document. The data comes from all [place] facilities. Date Advance Directives Provider Source Sep 13, 2019 ADVANCE DIRECTIVE JOSE MANUEL [facility] [facility] Oct 03, 2017 ADVANCE DIRECTIVE DAGMAR THAKUR [facility] Feb 07, 2016 ADVANCE DIRECTIVE SOFIE POLANCO [facility] Jan 20, 2015 ADVANCE DIRECTIVE DISCUSSION FLORINA COLON [facility] Encounter Notes: All associated encounter notes This section contains the clinical notes associated to the Encounter. Date/Time Encounter Note(s) Provider Source Nov 03, 2024 03:45 PM ADMINISTRATIVE NOTE: LOCAL TITLE: ADMINISTRATIVE NOTE STANDARD TITLE: ADMINISTRATIVE NOTE DATE OF NOTE: NOV 03, 2024@15:45 ENTRY DATE: NOV 03, 2024@15:45:47 AUTHOR: LESVIA LING EXP COSIGNER: URGENCY: STATUS: COMPLETED ADMINISTRATIVE NOTE Has ADDENDA KIET spoke with [place], who wants to continue with Group. /cindy/ LESVIA LING ADVANCED CUSTOMER SERVICE ADVOCATE Signed: 11/03/2024 15:53 Receipt Acknowledged By: 11/03/2024 18:04 /cindy/ ADRIANA SIDDIQI [facility] CADDYMASTER 11/03/2024 ADDENDUM STATUS: COMPLETED Belden explained that he's had court and will be free for the next month. The holiday's also made meeting difficult. /cindy/ LESVIA LING ADVANCED CUSTOMER SERVICE ADVOCATE Signed: 11/03/2024 15:56 LESVIA LING [facility]
--- OUTSIDE RECORDS SUMMARY | 2024-12-28 08:02 | XMS_ITS | Encounter Summary ---
Author Name [facility] Organization [facility] Address [address] [place] [address] Care Team Providers Care Confidential Investigator Name Role Phone KERRIE KNIGHT Primary [...] PART A February 17, 2017 PART A [id number] MARY ESPINO PATIENT MEDICARE (WNR) MEDICARE (M) PART B February 17, 2017 PART B [id number] JASMINAMARY DAS PATIENT MEDICARE (WNR) MEDICARE (M) PART A February 17, 2017 PART A [id number] JASMINAINI,DA [place] PATIENT MEDICARE (WNR) MEDICARE (M) PART B February 17, 2017 PART B [id number] CIMINI,DA [place] PATIENT MEDICARE (WNR) MEDICARE (M) PART A February 17, 2017 PART A [id number] CIMINI,DA [place] PATIENT MEDICARE (WNR) MEDICARE (M) PART A February 17, 2017 PART A [id number] CIMINI,DA [place] PATIENT MEDICARE (WNR) MEDICARE (M) PART A February 17, 2017 PART A [id number] CIMINI,DA [place] PATIENT MEDICARE (WNR) MEDICARE (M) PART B February 17, 2017 PART B [id number] [phone] [id number] CIMINI,DA [place] PATIENT MEDICARE (WNR) MEDICARE (M) PART A February 17, 2017 PART A [id number] [id number] CIMINI,DA [place] PATIENT MEDICARE (WNR) MEDICARE (M) PART B February 17, 2017 PART B [id number] [phone] [id number] CIMINI,DA [place] PATIENT MEDICARE (WNR) MEDICARE (M) PART A February 17, 2017 PART A [id number] CIMINI,DA [place] PATIENT MEDICARE (WNR) MEDICARE (M) PART B February 17, 2017 PART B [id number] [phone] [id number] JASMINAINI,MARY [place] PATIENT Selected Encounter This section includes the information on record at [place] for the Encounter. 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 PALLAVI HASTINGS [facility] [place] [facility] Aug 28, 2024 02:02 PM SECONDARY Attention-deficit hyperactivity disorder, unspecified type RAYMUNDO HASTINGSBertrand YEAGER E [facility] [place] [facility] Aug 28, 2024 02:02 PM SECONDARY Nicotine dependence, cigarettes, uncomplicated RAYMUNDO HASTINGSI CA E [facility] [place] [facility] Plan of Treatment: Future Appointments (+ 6 months) and Future Tests (+/- 45 days) The Plan of Treatment section includes future care activities for the patient [facility]. This section includes future appointments and future orders which are active, pending or scheduled. Future Appointments This section includes appointments that were scheduled to occur 6 months from the date of the Encounter, up to a maximum of 20 appointments. The data comes from all ME treatment facilities. Appointment Date/Time Appointment Type Appointme nt Facility Name Aug 31, 2024 09:00 AM AMBULATORY - PSYCHIATRY [facility] [place] [facility] Sep 01, 2024 08:00 AM AMBULATORY - REHAB MEDICIN E [facility] [place] [facility] Sep 07, 2024 09:00 AM AMBULATORY - PSYCHIATRY [facility] [place] [facility] Sep 14, 2024 09:00 AM AMBULATORY - PSYCHIATRY [facility] [place] [facility] Sep 22, 2024 01:00 PM AMBULATORY - PSYCHIATRY [facility] [place] [facility] Sep 28, 2024 10:00 AM AMBULATORY - PSYCHIATRY [facility] [place] [facility] Sep 29, 2024 01:00 PM AMBULATORY - PSYCHIATRY [facility] [place] [facility] Sep 30, 2024 09:30 AM AMBULATORY - PSYCHIATRY [facility] [place] [facility] Oct 05, 2024 10:00 AM AMBULATORY - PSYCHIATRY [facility] [place] [facility] Oct 06, 2024 01:00 PM AMBULATORY - PSYCHIATRY [facility] [place] [facility] Oct 11, 2024 12:30 PM AMBULATORY - PSYCHIATRY [facility] [place] [facility] Oct 21, 2024 09:30 AM AMBULATORY - PSYCHIATRY [facility] [place] [facility] Oct 27, 2024 01:00 PM AMBULATORY - PSYCHIATRY [facility] [place] [facility] Nov 03, 2024 01:00 PM AMBULATORY - PSYCHIATRY [facility] [place] [facility] Nov 10, 2024 01:00 PM AMBULATORY - PSYCHIATRY [facility] [place] [facility] Nov 16, 2024 10:00 AM AMBULATORY - PSYCHIATRY [facility] [place] [facility] Nov 17, 2024 01:00 PM AMBULATORY - PSYCHIATRY [facility] [place] [facility] Nov 23, 2024 09:00 AM [facility] [place] [facility] Nov 23, 2024 10:00 AM AMBULATORY - PSYCHIATRY [facility] [place] [facility] Nov 24, 2024 01:00 PM [facility] Active, Pending, and Scheduled Orders This section includes a listing of several types of active, pending, and scheduled orders, including clinic medications orders, diagnostic test orders, procedure orders and consult orders; where the start date of the order is 45 days before the date of the Encounter or 45 days after the date of theEncounter. The data comes from all ME treatment facilities. Test Date/Time Test Type Test Details Facility Name Jul 22, 2024 12:54 PM Consult Order COMMUNITY CARE-DENTAL SPECIALTY Cons Lead Portfolio Manager's Choice [facility] Sep 29, 2024 12:56 PM Consult Order COMMUNITY CARE-DENTAL SPECIALTY Cons Lead Portfolio Manager's Choice [facility] Social History: Smoking Status (Most current) and Tobacco Use (All prior to encounter date) This section includes the most current, and the historical, smoking and tobacco- related health factors from the ME facility where the Encounter took place. Current Smoking Status This section includes the most current smoking, or tobacco-related health factor, from the ME facility where the Encounter took place. Date/Time Current Smoking Status Comment Facil ity Oct 02, 2023 01:00 PM VA-TOBACCO USER EVERY DAY [facility] Tobacco Use History This section includes a history of the smoking, or tobacco-related health factors, that were collected on or before the date of the Encounter. The data comes from the ME facility where the Encounter took place. Date/Time Smoking Status/Tobacco Use Comment F acility Oct 02, 2023 01:00 PM VA-TOBACCO USE ADVICE [facility] [place] [facility] Oct 02, 2023 01:00 PM VA-TOBACCO USE FREELANCE TRANSLATOR NO [facility] [place] [facility] Oct 02, 2023 01:00 PM VA-TOBACCO USE MED NO [facility] [place] [facility] Oct 02, 2023 01:00 PM VA-TOBACCO USE WI 30 MIN OF WAKEUP [facility] [place] [facility] Oct 02, 2023 01:00 PM VA-TOBACCO USER EVERY DAY [facility] [place] [facility] Sep 10, 2022 05:31 PM VA-TOBACCO USE > 1 5 LESS THAN 30 YEARS [facility] [place] [facility] Sep 10, 2022 05:31 PM VA-TOBACCO USE ADVICE [facility] [place] [facility] Sep 10, 2022 05:31 PM VA-TOBACCO USE FREELANCE TRANSLATOR NO [facility] [place] [facility] Sep 10, 2022 05:31 PM VA-TOBACCO USE MED NO [facility] [place] [facility] Sep 10, 2022 05:31 PM VA-TOBACCO USE WI 30 MIN OF WAKEUP [facility] [place] [facility] Sep 10, 2022 05:31 PM VA-TOBACCO USER EVERY DAY [facility] [place] [facility] Aug 26, 2020 03:33 PM [address] [facility] Aug 06, 2020 10:30 PM [address] [facility] Jul 10, 2020 07:38 PM [address] [facility] Jun 24, 2020 01:05 AM [address] [facility] Apr 14, 2020 06:45 AM [address] [facility] February 29, 2020 02:33 AM [address] [facility] Jul 20, 2019 06:25 PM [address] [facility] Mar 25, 2019 05:25 AM [address] [facility] Apr 15, 2018 06:41 PM ORYX ADMIT TOBACCO SCREEN YES [facility] [place] [facility] Apr 15, 2018 06:41 PM ORYX ADMIT TOBACCO USE CIGS GR 5D [facility] [place] [facility] Apr 15, 2018 06:41 PM ORYX DAILY TOBACCO FREELANCE TRANSLATOR RECEIVED [facility] [place] [facility] Apr 15, 2018 06:41 PM ORYX DAILY TOBACCO MEDS REFUSED [facility] [place] [facility] Apr 15, 2018 02:41 PM CURRENT SMOKER [facility] [place] [facility] March 12, 2018 11:20 AM CURRENT SMOKER [facility] March 12, 2018 11:20 AM V1-PT NOT INTEREST ED IN QUIT TOBACCO USE [facility] [place] [facility] Apr 10, 2016 09:03 AM TOBACCO INPATIENT DESIRES MEDS [facility] [place] [facility] Jan 28, 2016 12:53 PM TOBACCO INPATIENT DESIRES MEDS [facility] [place] [facility] Oct 21, 2015 05:16 PM TOBACCO INPATIENT DESIRES MEDS [facility] [place] [facility] Jul 13, 2015 11:06 PM TOBACCO INPATIENT DECLINES MEDS [facility] [facility] Dec 13, 2014 08:26 PM TOBACCO INPATIENT DECLINES MEDS [facility] [place] [facility] Dec 13, 2014 07:39 PM CURRENT SMOKER [facility] [place] [facility] Dec 13, 2014 07:39 PM V1-PT NOT INTEREST ED IN QUIT TOBACCO USE [facility] [place] [facility] Advance Directives: All historical and current Section Date Range: From patient's date of to the date document was created. This section includes ALL of a patient's completed or amended ME Advance and Rescinded Directives. The entries below indicate that a directive exists for the patient, but an actual copy is not included with this document. The data comes from all ME facilities. Date Advance Directives Provider Source Sep 13, 2019 ADVANCE DIRECTIVE JOSE MANUEL RICO [facility] Oct 03, 2017 ADVANCE DIRECTIVE DAGMAR THAKUR [facility] Feb 07, 2016 ADVANCE DIRECTIVE SOFIE POLANCO [facility] Jan 20, 2015 ADVANCE DIRECTIVE DISCUSSION FLORINA COLON [facility] Encounter Notes: All associated encounter notes This section contains the clinical notes associated to the Encounter. Date/Time Encounter Note(s) Provider Source Aug 27, 2024 08:57 AM ACCOUNTING OF DISCLOSURES NOTE: LOCAL TITLE: STATE PRESCRIPTION DRUG MONITORING PROGRAM STANDARD TITLE: ACCOUNTING OF DISCLOSURES NOTE DATE OF NOTE: AUG 27, 2024@08:57:50 ENTRY DATE: AUG 27, 2024@08:57:50 AUTHOR: BRANDON HASTINGS COSIGNER: URGENCY: STATUS: COMPLETED This PDMP query was submitted by Brandon Hastings. The clinical justification for this PDMP query is to review controlled substances prescribed outside of the VA, and any additional information that may become available, as an important component of standard clinical care, and in accordance with [facility] policy. Patient information was shared with the PDMP [place]. No prescription(s) for controlled substances outside the VA were found in the last 90 days. 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 Continues in court program, maintains sobriety, gets utox and random drug testing for the next 1.5 years. Wants to revisit a stimulant. Mood is good, says his life is stable now and he feels confident that he will be able to use it appropriately. Feels he has made progress psychologically. Stopped varenicline because he started smoking again--I encouraged him to restart. CURRENT MEDICATIONS Active Outpatient Medications (including Supplies): ATOMOXETINE 80MG CAP TAKE ONE CAPSULE BY MOUTH EVERY ACTIVE MORNING FOR ADHD GABAPENTIN 300MG CAP TAKE ONE CAPSULE BY MOUTH THREE TIMES ACTIVE A DAY ANXIETY MULTIVITAMIN CAP/TAB TAKE 1 TABLET BY MOUTH ONCE DAILY ACTIVE VARENICLINE 1MG TAB TAKE ONE TABLET BY MOUTH TWICE DAILY ACTIVE FOR SMOKING CESSATION SUPPLEMENTS: ALLERGIES: ATOMOXETINE, ADDERALL MEDICAL HISTORY Active Problem Cervicalgia M54.2 07/01/2024 KERRIE KNIGHT Psychotic disorder F29. 09/25/2023 YOUSIF FAUST Cocaine dependence F14.20 09/19/2023 STAR SHELLEY Cocaine-induced psychotic disorder 07/03/2023 TOMMIE CHOWDHURY Erectile dysfunction N52.9 03/21/2023 KERRIE KNIGHT Abnormal results of liver function 07/20/2015 ARTURO GONZALEZ Nicotine dependence F17.210 07/20/2015 LISAGRACEDIANE JAWED Elevated blood pressure 796.2 12/15/2014 SARAH HAWKINS Adult attention deficit hyperactivi 12/17/2022 BRANDON HASTINGS Posttraumatic stress disorder F43.1 07/20/2015 ARTURO GONZALEZ JAWED Unemployment * V62.0 11/05/2013 NIKKO EVANS Low back pain 724.2 11/01/2013 SIOBHAN KENNEDY Arthralgia of the lower leg 719.46 11/01/2013 SIOBHAN KENNEDY Arthralgia of the pelvic region and 11/01/2013 SIOBHAN KENNEDY Concussion with loss of consciousne 10/26/2013 HERBER BRICEÑO BP - High blood pressure (SNOMED CT 04/10/2016 KATIE CARMONA Hypertriglyceridemia E78.2 07/20/2015 LISAGRACEDIANE MILESLOUISA elevated B12 of unknown cause 799.9 10/04/2013 GUILLE GALLEGOS Alcohol dependence ([place] [address] 07/20/2015 ARTURO GONZALEZ JAWLOUISA Hyperlipidemia (SNOMED CT 41450401) 04/16/2018 CRISTOFER GUERRERO Alcohol-induced acute pancreatitis 08/20/2013 JUNIE ROE 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 Caffeine: up to 3-4 cups. Opiates: None Cocaine: Long history of cocaine use, denies recent Other: MENTAL STATUS EXAM: Awake, alert, cooperative, well groomed, has 2 hoop earrings, short hair, a necklace and t shirt. Sleeve tattoo. Calmer and more forthcoming today. No abnormal movements seen via video. Speech nml r/r/r/v/p Mood mildly dysphoric Affect: euthymic Thought Process Linear Thought Content: No delusions. no worthlessness or hopelessness SI/HI: Denies SI, active or passive. No : AH/VH a/ox3 I/J limited ASESSMENT 42yoM single man, currently not working, h/o severe ETOH use disorder, with DTs and seizures, also h/o cocaine use, now in early remission (5 months), many prior detox admissions, now referred for management of ETOH use disorder, anxiety, mood, and poor focus. Trials of vilazodone for anxiety/mood as well as methylphenidate and Adderall we're not effective, and vet reveals he had relapsed to cocaine 6 months ago, and had misused Adderall. Currently with +AH, anxiety, and dysphoria in the context of heavy crack use. Also has been drinking ETOH. He is off vilazodone, using quetiapine 50mg for sleep only. DIAGNOSIS I ETOH USe disorder -cocaine use disorder -depressive disorder DIFFERENTIAL Mood: dysphoria and anxiety likely 2/2 cocaine use, ETOH, and subsequent psychotic sx. ADHD: reports history PLAN -stop atomoxetine -ADD metadate CR 20mg. We reviewed the risks of stimulant medications including anxiety, anorexia, insomnia, and hypertension. Reviewed risk of abuse and advised to use only as directed. Advised vet to not share medication and to keep in a secure location. Informed regarding policy of no early refills for lost medication. -varenicline 1mg BID -ADD back gabapentin 300mg TID for anxiety/pain. Advised to contact me via call center or secure messaging for any questions or concerns between visits. Pt was reminded to call [phone] option 1 if in crisis, or to call 911 or go to nearest ED if risk of acute harm to self or others. FOLLOW UP IN CLINIC: 1 mo TIME SPENT FACE TO FACE: 35m TOTAL TIME INCLUDING CHART REVIEW AND DOCUMENTATION: 45m OK for refills of regular medications. SUICDE RISK ASSESSMENT: RISK ASSESSMENT: Suicide/Homicide Risk Assessment: Risk Factors: [ ]suicidal/homicidal ideation [ ]suicidal/homicidal intent [ ]suicidal/homicidal plan [ ]recent suicidal/homicidal behavior [ ]recent psychiatric admission [ ]hopelessness [x ]chronic mental illness [x ]substance use problems [ ]minimal support [x ]problems with finances, housing, or work, disability [ ]recent deployment [ x]mental status abnormalities--psychosis [ ]dementia [ ]age []race [x ]gender [ ]access to lethal means [ ]history of suicide attempt(s)/self-directed violence [ ]chronic pain [ ]relationship problems or pending divorce [ ](other): Protective Factors: [ x]absence of suicidal/homicidal ideation, intent, plan, or behaviors [x]absence of substance use problems [x]strong support system [x ]responsibility for family, children, or pets [x ]future oriented [x ]help-seeking. [x ]positive therapeutic relationship [x ]medication compliant [ ](other): Ronald is at an elevated risk of self-harm given active substance use, psychosis, low mood, anxiety. However he is engaged in intensive outpatient treatment and motivated to stop using. He has strong support at home. Will work to lower risk by stabilizing psychosis and anxiety, and supporting sobriety. Advised to contact me via call center or secure messaging for any questions or concerns between visits. Pt was reminded to call [phone] option 1 if in crisis, or to call 911 or go to [facility] ED if risk of acute harm to self or others. The discussion with patient about treatments including medications involved shared decision making. The patient was educated about the rationale and plan for the psychiatric medications. Medication instructions were reviewed with the patient. Alternatives to treatment were discussed with the patient. The side effect profile of the psychiatric medications was reviewed with the patient. This also included discussion of potential drug interactions associated with psychiatric medication. The patient discussed/verbalized back the understanding of the medication, side effects, and the plan/instructions, and the patient asked good questions. The patient demonstrated reasonable understanding of the medication side effects and the above-mentioned issues. The benefits of psychiatric medications outweigh risks for this patient. The patient consents to medication treatment. I encouraged the to call or message me or to come to open access if the does not like the effect of psychiatric medication or if has side effects. Medication Reconciliation: Outpatient: Has the patient been taking medications as documented in the EMLR? YES: The patient has been taking medications as documented in the EMLR. Essential Medication List for Review used to complete this medication reconciliation. INCLUDED IN THIS LIST: Alphabetical list of active outpatient prescriptions dispensed from this VA (local) and dispensed from another VA or [...] whether with a VA or non-VA provider. Problem List was reviewed and updated. VA Video Connect (VVC) Standard Documentation V[facility] Clinician Resources Only: E911 (Emergency Call Relay Center): [phone] [facility] Line - ([phone]) press #1. SUSANA Suicide Coordinator ? [phone], Ext. [phone]; Back-up Ext. [phone] Manuscript Reader of the Day(AOD), Yanci MEZA ? [phone], Ext. [phone] Introduction: Visit is being conducted by [employer]. [place] identified with 2 identifiers: [X] Full Name [X] Date of [ ] VA ID Card Emergency Plan: confirmed and/or provided the following information in case of emergency or technology failure. 's present location and address for appointment: Located at home address as in CPRS 's emergency contact name and phone number: Emergency contact as per listed in chart reported that location is private and safe: Yes Informed Consent: informed of the risks and benefits of Telehealth video care. [place] has the right to refuse video services. If refuses video visit, a oarf-uc-kbce visit will be scheduled. [place] verbalized consent for this video visit: Yes [place] provided consent for any other persons present for visit: Yes If yes, who and relationship to patient: Secure visit: Visit was locked for security and privacy:Yes __ _ __ // BRANDON HASTINGS PSYCHIATRIST Signed: 08/28/2024 14:02 BRANDON HASTINGS [facility] [place] [facility]
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
--- OUTSIDE RECORDS SUMMARY | 2024-12-28 08:03 | XMS_ITS | Encounter Summary ---
Author Name [facility] [place] [facility] [place] Address [address] [place] [address] Care Team Providers Care Kitchen Work Supervisor Name Role Phone KERRIE KNIGHT Primary Care Provider UnavailJOSE MANUEL Quesada Primary Care Provider Unavailabl e Insurance Providers: [...] Policy Dye MEDICARE (WNR) MEDICARE (M) PART B February 17, 2017 PART B [id number] MARY ESPINO PATIENT MEDICARE (WNR) MEDICARE (M) PART A February 17, 2017 PART A [id number] MARY ESPINO PATIENT MEDICARE (WNR) MEDICARE (M) PART A February 17, 2017 PART A [id number] [facility] CIMINI,DA [place] PATIENT MEDICARE (WNR) MEDICARE (M) PART A February 17, 2017 PART A [id number] [phone] CIMINI,MARY [place] PATIENT MEDICARE (WNR) MEDICARE (M) PART B February 17, 2017 PART B [id number] [phone] CIMINI,MARY [place] PATIENT MEDICARE (WNR) MEDICARE (M) PART A February 17, 2017 PART A [id number] [phone] CIMINI,MARY [place] PATIENT MEDICARE (WNR) MEDICARE (M) PART A February 17, 2017 PART A [id number] [phone] CIMINI,DA [place] PATIENT MEDICARE (WNR) MEDICARE (M) PART B February 17, 2017 PART B [id number] CIMINI,MARY [place] PATIENT MEDICARE (WNR) MEDICARE (M) PART A February 17, 2017 PART A [id number] [phone] JASMINAINI,MARY [place] PATIENT MEDICARE (WNR) MEDICARE (M) PART B February 17, 2017 PART B [id number] CIMINI,DA [place] PATIENT MEDICARE (WNR) MEDICARE (M) PART A February 17, 2017 PART A [id number] CIMINI,MARY [place] PATIENT MEDICARE (WNR) MEDICARE (M) PART B February 17, 2017 PART B [id number] JASMINAINIMARY PATIENT Selected Encounter This section includes the information on record at [place] for the Encounter. 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 This section includes future appointments and future orders which are active, pending or scheduled. Future Appointments This section includes appointments that were scheduled to occur 6 months from the date of the Encounter, up to a maximum of 20 appointments. The data comes from all [place] treatment facilities. Appointment Date/Time Appointment Type Appointme nt Facility Name Jul 06, 2024 09:00 AM AMBULATORY - PSYCHIATRY [facility] [place] [facility] Jul 13, 2024 09:00 AM AMBULATORY - PSYCHIATRY [facility] [place] [facility] Jul 16, 2024 09:05 AM AMBULATORY - MEDICINE [facility] [place] [facility] Jul 18, 2024 07:45 PM AMBULATORY - MEDICINE [facility] [place] [facility] Jul 20, 2024 09:00 AM AMBULATORY - PSYCHIATRY [facility] [place] [facility] Jul 22, 2024 09:30 AM AMBULATORY - PSYCHIATRY [facility] [place] [facility] Jul 27, 2024 09:00 AM AMBULATORY - PSYCHIATRY [facility] [place] [facility] Aug 03, 2024 09:00 AM AMBULATORY - PSYCHIATRY [facility] [place] [facility] Aug 10, 2024 09:00 AM AMBULATORY - PSYCHIATRY [facility] [place] [facility] Aug 17, 2024 09:00 AM AMBULATORY - PSYCHIATRY [facility] [place] [facility] Aug 24, 2024 09:00 AM AMBULATORY - PSYCHIATRY [facility] [place] [facility] Aug 26, 2024 10:30 AM AMBULATORY - PSYCHIATRY [facility] [place] [facility] Aug 31, 2024 09:00 AM AMBULATORY - PSYCHIATRY [facility] [place] [facility] Sep 01, 2024 08:00 AM AMBULATORY - REHAB MEDICIN E [facility] [place] [facility] Sep 07, 2024 09:00 [facility] [place] [facility] Sep 14, 2024 09:00 AM [facility] [place] [facility] Sep 22, 2024 01:00 PM [facility] [place] [facility] Sep 28, 2024 10:00 AM [facility] Sep 29, 2024 01:00 PM [facility] Sep 30, 2024 09:30 AM AMBULATORY - PSYCHIATRY [facility] Active, Pending, and Scheduled Orders This section includes a listing of several types of active, pending, and scheduled orders, including clinic medications orders, diagnostic test orders, procedure orders and consult orders; where the start date of the order is 45 days before the date of the Encounter or 45 days after the date of theEncounter. The data comes from all [place] treatment facilities. Test Date/Time Test Type Test Details Facility Name Jul 01, 2024 06:46 AM Consult Order [facility]COLONOSCOPY SCREENING Cons Chart Writer's Choice [facility] Jul 22, 2024 12:54 PM Consult Order [facility]-DENTAL SPECIALTY Cons Chart Writer's Choice [facility] Lab Results: +/- 30 days of the encounter This section includes the Chemistry and Hematology Lab Results on record with [place] for the patient. Radiology Reports and Pathology Reports are provided separately, in subsequent sections. Lab Results This section contains the Chemistry/Hematology Results that were resulted 30 days before or 30 daysafter the date of the Encounter. Date/Time Source Result Type Result - Unit Interpretation Reference Range Comment Jun 11, 2024 12:51 PM [facility] HEPATITIS B SURFACE ANTIBODY (HBsAb)-WH Specimen Type: SERUM No comment entered. Ordering Provider: KAMLA KNIGHT Report Released Date/Time: May 31, 2024 09:45 AM Reporting Lab: [address] [address] Performing Lab: [address] [address] HBsAb Non Reactive Non Reactive Jun 11, 2024 12:51 PM [facility] LIPID PANEL, NON FASTING Specimen Type: SERUM No comment entered. Ordering Provider: KAMLA KNIGHT Report Released Date/Time: May 31, 2024 09:45 AM Reporting Lab: [address] [address] Performing Lab: [address] [address] CHOLESTEROL 212 mg/dL H TRIGLYCERIDE 124 mg/dL 0-150 LDL calculated 152 mg/dL H 0-129 CHOL/HDL 6.1 HDL CHOLESTEROL 35 mg/dL L 40-60 Jun 11, 2024 12:51 PM [facility] LIVER FUNCTION Specimen Type: SERUM No comment entered. Ordering Provider: KAMAL KNIGHT Report Released Date/Time: May 31, 2024 09:45 AM Reporting Lab: [address] [address] Performing Lab: [address] [address] PROTEIN,TOTAL 7.4 g/dL 6.0-8.3 ALBUMIN 4.5 g/dL 3.5-5.0 ALKALINE PHOSPHATASE 38 U/L L 40-150 AST 13 U/L 5-34 ALT 11 U/L BILIRUBIN, TOTAL 0.7 mg/dL 0.2-1.2 Jun 11, 2024 12:51 PM [facility] CBC Specimen Type: BLOOD No comment entered. Ordering Provider: KAMLA KNIGHT Report Released Date/Time: May 31, 2024 09:45 AM Reporting Lab: [address] [address] Performing Lab: [address] [address] WBC 5.98 10*3/uL 4.50-11.00 RBC 4.60 10*6/uL 4.23-5.66 HGB 13.9 g/dL 12.8-17 HCT 40.5 39.2-50.4 MCV 88.0 fL 82-99 MCHC 34.3 g/dL 30.8-35.1 PLT 190 10*3/uL 140-360 RDW-CV 13.5 12.0-16.0 MCH 30.2 pg 26.2-32.6 Jun 11, 2024 12:51 PM [facility] BASIC METABOLIC PANEL (non-fasting) Specimen Type: SERUM No comment entered. Ordering Provider: KAMLA KNIGHT Report Released Date/Time: May 31, 2024 09:45 AM Reporting Lab: [facility] [address] [facility] [address] Performing Lab: [facility] [address] [facility] [address] UREA NITROGEN 16 mg/dL 7-25 GLUCOSE 86 mg/dL 65-100 SODIUM 141 mmol/L 135-145 POTASSIUM 4.2 mmol/L 3.5-5.0 CHLORIDE 106 mmol/L 100-110 CO2 25 meq/L 20-30 CREATININE, Serum 1.35 mg/dL 0.50-1.40 eGFR(CKD-EPI 2020) 66 mL/min >60 Social History: Smoking Status (Most current) and [...] ity Oct 02, 2023 01:00 PM VA-TOBACCO USE WI 30 MIN OF WAKEUP [facility] Tobacco Use History This section includes a history of the smoking, or tobacco-related health factors, that were collected on or before the date of the Encounter. The data comes from the [place] facility where the Encounter took place. Date/Time Smoking Status/Tobacco Use Comment F acility Oct 02, 2023 01:00 PM VA-TOBACCO USE ADVICE [facility] Oct 02, 2023 01:00 PM VA-TOBACCO USE CLERICAL SUPERVISOR NO [facility] Oct 02, 2023 01:00 PM VA-TOBACCO USE MED NO [facility] [place] [facility] Oct 02, 2023 01:00 PM VA-TOBACCO USE WI 30 MIN OF WAKEUP [facility] [place] [facility] Oct 02, 2023 01:00 PM VA-TOBACCO USER EVERY DAY [facility] [place] [facility] Sep 10, 2022 05:31 PM VA-TOBACCO USE > 1 5 LESS THAN 30 YEARS [facility] [place] [facility] Sep 10, 2022 05:31 PM VA-TOBACCO USE ADVICE [facility] [place] [facility] Sep 10, 2022 05:31 PM VA-TOBACCO USE CLERICAL SUPERVISOR NO [facility] [place] [facility] Sep 10, 2022 05:31 PM VA-TOBACCO USE MED NO [facility] [place] [facility] Sep 10, 2022 05:31 PM VA-TOBACCO USE WI 30 MIN OF WAKEUP [facility] [place] [facility] Sep 10, 2022 05:31 PM VA-TOBACCO USER EVERY DAY [facility] [place] [facility] Aug 26, 2020 03:33 PM 689 INPT REPORTS SMOKING [facility] Aug 06, 2020 10:30 PM 689 INPT REPORTS SMOKING [facility] Jul 10, 2020 07:38 PM 689 INPT REPORTS SMOKING [facility] Jun 24, 2020 01:05 AM 689 INPT REPORTS SMOKING [facility] Apr 14, 2020 06:45 AM 689 INPT REPORTS SMOKING [facility] February 29, 2020 02:33 AM 689 INPT REPORTS SMOKING [facility] Jul 20, 2019 06:25 PM 689 INPT REPORTS SMOKING [facility] Mar 25, 2019 05:25 AM 689 INPT REPORTS SMOKING [facility] Apr 15, 2018 06:41 PM ORYX ADMIT TOBACCO SCREEN YES [facility] [place] [facility] Apr 15, 2018 06:41 PM ORYX ADMIT TOBACCO USE CIGS GR 5D [facility] [place] [facility] Apr 15, 2018 06:41 PM ORYX DAILY TOBACCO CLERICAL SUPERVISOR RECEIVED [facility] [place] [facility] Apr 15, 2018 06:41 PM ORYX DAILY TOBACCO MEDS REFUSED [facility] [place] [facility] Apr 15, 2018 02:41 PM CURRENT SMOKER [facility] [place] [facility] March 12, 2018 11:20 AM CURRENT SMOKER [facility] [place] [facility] March 12, 2018 11:20 AM V1-PT NOT INTEREST ED IN QUIT TOBACCO USE [facility] [place] [facility] Apr 10, 2016 09:03 AM TOBACCO INPATIENT DESIRES MEDS [facility] [place] [facility] Jan 28, 2016 12:53 PM TOBACCO INPATIENT DESIRES MEDS [facility] [place] [facility] Oct 21, 2015 05:16 PM TOBACCO INPATIENT DESIRES MEDS [facility] [place] [facility] Jul 13, 2015 11:06 PM TOBACCO INPATIENT DECLINES MEDS [facility] [place] [facility] Dec 13, 2014 08:26 PM TOBACCO INPATIENT DECLINES MEDS [facility] [place] [facility] Dec 13, 2014 07:39 PM CURRENT SMOKER [facility] [place] [facility] Dec 13, 2014 07:39 PM V1-PT NOT INTEREST ED IN QUIT TOBACCO USE [facility] Advance Directives: All historical and current Section Date Range: From patient's date of to the date document was created. This section includes ALL of a patient's completed or amended [place] Advance and Rescinded Directives. The entries below indicate that a directive exists for the patient, but an actual copy is not included with this document. The data comes from all [place] facilities. Date Advance Directives Provider Source Sep 13, 2019 ADVANCE DIRECTIVE JOSE MANUEL RICO [facility] Oct 03, 2017 ADVANCE DIRECTIVE DAGMAR THAKUR [facility] Feb 07, 2016 ADVANCE DIRECTIVE SOFIE POLANCO [facility] Jan 20, 2015 ADVANCE DIRECTIVE DISCUSSION FLORINA COLON [facility] Encounter Notes: All associated encounter notes This section contains the clinical notes associated to the Encounter. Date/Time Encounter Note(s) Provider Source Jun 29, 2024 09:54 AM MENTAL HEALTH COUNSELING NOTE: LOCAL TITLE: PEER SUPPORT NOTE STANDARD TITLE: MENTAL HEALTH COUNSELING NOTE DATE OF NOTE: JUN 29, 2024@09:54:46 ENTRY DATE: JUN 29, 2024@09:54:46 AUTHOR: KADEEM MARMOLEJO COSIGNER: URGENCY: STATUS: COMPLETED These assessments were completed by TOMI ESPINO via provider direct entry on 06/29/2024 9:53:52 AM. BRIEF ADDICTION MONITOR-INTENSIVE OUTPATIENT TREATMENT (BAM-IOP) Patient reported the following over the last 7 days: 1. Physical health: Good 2. Nights trouble falling asleep or staying asleep: Two nights 3. Days depressed, anxious, angry or very upset: Three days 4. Days drank ANY alcohol: None 5. Days drank at least 5/4 drinks (male/female): N/A 6. Days used any illegal/street drugs or abused any prescription medications: None 7. Days used: a. Marijuana (cannabis, pot, weed): N/A b. Sedatives/Tranquilizers : N/A c. Cocaine/Crack: N/A d. Other stimulants: N/A e. Opiates: N/A f. Inhalants: N/A g. Other drugs: N/A 8. Bothered by cravings or urges to drink alcohol/use drugs: Moderately 9. Confidence in ability to be abstinent in the next 30 days: Considerably 10. Days attended self-help meetings (AA or NA): Three days 11. Days in any situations that might have increased risk for using alcohol/drugs: None 12. Hinduism or spirituality supports recovery: Extremely 13. Days with much of the time spent at work, school, or volunteering: One day 14. Enough income (from legal sources) to pay for necessities: Yes 15. Bothered by arguments or problems getting along with family/friends: Not at all 16. Days in contact with family/friends supportive of recovery: Three days 17. Satisfied with progress toward achieving recovery goals: Extremely BAM Subscales: USE: 0 Scores range from 0 to 12, >1 suggests need for clinical attention RISK: 9 Scores range from 0 to 24, High (>12) or rising scores suggest need for clinical attention PROTECTION: 18 Scores range from 0 to 24, Low (<12) or decreasing scores suggest need for clinical attention BAM-IOP Risk (past 180 days): 06/29/2024 9 06/01/2024 6 05/25/2024 5 05/18/2024 8 BAM-IOP Protective (past 180 days): 06/29/2024 18 06/01/2024 20 05/25/2024 21 05/18/2024 20 BAM-IOP Use (past 180 days): 06/29/2024 0 06/01/2024 0 05/25/2024 0 05/18/2024 0 /cindy/ KADEEM MARMOLEJO Signed: 06/30/2024 11:21 [facility]
--- OUTSIDE RECORDS SUMMARY | 2024-12-28 08:03 | XMS_ITS | Clinical Summary ---
[facility] Address [address] [place] [address] Care Team Providers Care Quarter Seamer Name Role Phone Roman Small MD Primary Care Provider Surgical History Surgery Date Site/Laterality Comments TONSILLECTOMY [...] age to complete this topic Care Teams Quarter Seamer Relationship Specialty Start Date End Date Roman Small MD PCP - General Internal Medicine 06/23/12
--- OUTSIDE RECORDS SUMMARY | 2024-12-28 08:03 | XMS_ITS | Encounter Summary ---
Author Name [facility] Organization [facility] Address [address] [place] [address] Care Team Providers Care Department [employer] Name Role Phone KERRIE KNIGHT Primary Care [...] PART A February 17, 2017 PART A [id number] [phone] MARY ESPINO PATIENT MEDICARE (WNR) MEDICARE (M) PART B February 17, 2017 PART B [id number] MARY ESPINO PATIENT MEDICARE (WNR) MEDICARE (M) PART A February 17, 2017 PART A [id number] [facility] [place] CIMINI,DA [place] PATIENT MEDICARE (WNR) MEDICARE (M) PART B February 17, 2017 PART B [id number] [phone] CIMINI,MARY [place] PATIENT MEDICARE (WNR) MEDICARE (M) PART A February 17, 2017 PART A [id number] [phone] CIMINI,MARY [place] PATIENT MEDICARE (WNR) MEDICARE (M) PART A February 17, 2017 PART A [id number] [phone] CIMINI,MARY [place] PATIENT MEDICARE (WNR) MEDICARE (M) PART A February 17, 2017 PART A [id number] CIMINI,DA [place] PATIENT MEDICARE (WNR) MEDICARE (M) PART B February 17, 2017 PART B [id number] CIMINI,MARY [place] PATIENT MEDICARE (WNR) MEDICARE (M) PART A February 17, 2017 PART A [id number] [phone] JASMINAINI,MARY [place] PATIENT MEDICARE (WNR) MEDICARE (M) PART B February 17, 2017 PART B [id number] [phone] CIMINI,DA [place] PATIENT MEDICARE (WNR) MEDICARE (M) PART A February 17, 2017 PART A [id number] CIMINI,MARY [place] PATIENT MEDICARE (WNR) MEDICARE (M) PART B February 17, 2017 PART B [id number] [id number] [phone] JASMINAINIMARY PATIENT Selected Encounter This section includes the information on record at [place] for the Encounter. Date/Time Encounter Type Encounter Description Reason Provider Source Jun 15, 2024 09:00 AM SELF-HELP/PEER SVC PER 15MIN SUBSTANCE USE DISORDER IND ICD-10-CM F29 Unsp psychosis not due to a substance or known physiol cond RAJESH MARMOLEJO [facility] Encounter Template Text not used by [place] Assessments - Encounter Diagnoses This section includes the primary and secondary diagnoses documented for the Encounter. 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 AUGUSTA MARMOLEJO R [facility] [place] [facility] Jun 15, 2024 11:44 AM SECONDARY Cocaine dependence, uncomplicated AUGUSTA MARMOLEJO R [facility] [place] [facility] Jun 15, 2024 11:44 AM SECONDARY Post-traumatic stress disorder, chronic AUGUSTA MARMOLEJO R [facility] [place] [facility] Plan of Treatment: Future Appointments (+ 6 months) and Future Tests (+/- 45 days) The Plan of Treatment section includes future care activities for the patient [facility]. This section includes future appointments and future orders which are active, pending or scheduled. Future Appointments This section includes appointments that were scheduled to occur 6 months from the date of the Encounter, up to a maximum of 20 appointments. The data comes from all [place] treatment facilities. Appointment Date/Time Appointment Type Appointme nt Facility Name Jun 22, 2024 09:00 AM AMBULATORY - PSYCHIATRY [facility] [place] [facility] Jun 29, 2024 09:00 AM AMBULATORY - PSYCHIATRY [facility] [place] [facility] Jul 06, 2024 09:00 AM AMBULATORY - PSYCHIATRY [facility] [place] [facility] Jul 13, 2024 09:00 AM AMBULATORY - PSYCHIATRY [facility] [place] [facility] Jul 16, 2024 09:05 AM AMBULATORY - MEDICINE [facility] [place] [facility] Jul 18, 2024 07:45 PM AMBULATORY - MEDICINE [facility] [place] [facility] Jul 20, 2024 09:00 AM AMBULATORY - PSYCHIATRY [facility] [place] [facility] Jul 22, 2024 09:30 AM AMBULATORY - PSYCHIATRY [facility] [place] [facility] Jul 27, 2024 09:00 AM AMBULATORY - PSYCHIATRY [facility] [place] [facility] Aug 03, 2024 09:00 AM AMBULATORY - PSYCHIATRY [facility] [place] [facility] Aug 10, 2024 09:00 AM AMBULATORY - PSYCHIATRY [facility] [place] [facility] Aug 17, 2024 09:00 AM AMBULATORY - PSYCHIATRY [facility] [place] [facility] Aug 24, 2024 09:00 AM AMBULATORY - PSYCHIATRY [facility] [place] [facility] Aug 26, 2024 10:30 AM AMBULATORY - PSYCHIATRY [facility] [place] [facility] Aug 31, 2024 09:00 AM AMBULATORY - PSYCHIATRY [facility] [place] [facility] Sep 01, 2024 08:00 AM AMBULATORY - REHAB MEDICIN E [facility] [place] [facility] Sep 07, 2024 09:00 AM AMBULATORY - PSYCHIATRY [facility] [place] [facility] Sep 14, 2024 09:00 AM AMBULATORY - PSYCHIATRY [facility] [place] [facility] Sep 22, 2024 01:00 PM AMBULATORY - PSYCHIATRY [facility] [place] [facility] Sep 28, 2024 10:00 AM [facility] Active, Pending, and Scheduled Orders This section includes a listing of several types of active, pending, and scheduled orders, including clinic medications orders, diagnostic test orders, procedure orders and consult orders; where the start date of the order is 45 days before the date of the Encounter or 45 days after the date of theEncounter. The data comes from all [place] treatment facilities. Test Date/Time Test Type Test Details Facility Name Jul 01, 2024 06:46 AM Consult Order COMMUNITY CARE-COLONOSCOPY SCREENING Cons Satellite Instruction Facilitator's Choice [facility] Jul 22, 2024 12:54 PM Consult Order COMM[facility]ITY [facility]ENTAL [facility]TY Cons Satellite Instruction Facilitator's Choice [facility] Lab Results: +/- 30 days of the encounter This section includes the Chemistry and Hematology Lab Results on record with [place] for the patient. Radiology Reports and Pathology Reports are provided separately, in subsequent sections. Lab Results This section contains the Chemistry/Hematology Results that were resulted 30 days before or 30 daysafter the date of the Encounter. Date/Time Source Result Type Result - Unit Interpretation Reference Range Comment Jun 11, 2024 12:51 PM [facility] HEPATITIS B SURFACE ANTIBODY (HBsAb)-WH Specimen Type: SERUM No comment entered. Ordering Provider: KAMLA KNIGHT Report Released Date/Time: May 31, 2024 09:45 AM Reporting Lab: [address] [address] Performing Lab: [address] [address] HBsAb Non Reactive Non Reactive Jun 11, 2024 12:51 PM [facility] LIPID PANEL, NON FASTING Specimen Type: SERUM No comment entered. Ordering Provider: KAMLA KNIGHT Report Released Date/Time: May 31, 2024 09:45 AM Reporting Lab: [address] [address] Performing Lab: [address] [address] CHOLESTEROL 212 mg/dL H TRIGLYCERIDE 124 mg/dL 0-150 LDL calculated 152 mg/dL H 0-129 CHOL/HDL 6.1 HDL CHOLESTEROL 35 mg/dL L 40-60 Jun 11, 2024 12:51 PM [facility] CBC Specimen Type: BLOOD No comment entered. Ordering Provider: KAMLA KNIGHT Report Released Date/Time: May 31, 2024 09:45 AM Reporting Lab: [address] [address] Performing Lab: [address] [address] WBC 5.98 10*3/uL 4.50-11.00 RBC 4.60 10*6/uL 4.23-5.66 HGB 13.9 g/dL 12.8-17 HCT 40.5 39.2-50.4 MCV 88.0 fL 82-99 MCHC 34.3 g/dL 30.8-35.1 PLT 190 10*3/uL 140-360 RDW-CV 13.5 12.0-16.0 MCH 30.2 pg 26.2-32.6 Jun 11, 2024 12:51 PM [facility] BASIC METABOLIC PANEL (non-fasting) Specimen Type: SERUM No comment entered. Ordering Provider: KAMLA KNIGHT Report Released Date/Time: May 31, 2024 09:45 AM Reporting Lab: [address] [address] Performing Lab: [address] [address] UREA NITROGEN 16 mg/dL 7-25 GLUCOSE 86 mg/dL 65-100 SODIUM 141 mmol/L 135-145 POTASSIUM 4.2 mmol/L 3.5-5.0 CHLORIDE 106 mmol/L 100-110 CO2 25 meq/L 20-30 CREATININE, Serum 1.35 mg/dL 0.50-1.40 eGFR(CKD-EPI 2020) 66 mL/min >60 Jun 11, 2024 12:51 PM [facility] LIVER FUNCTION Specimen Type: SERUM No comment entered. Ordering Provider: KAMLA KNIGHT Report Released Date/Time: May 31, 2024 09:45 AM Reporting Lab: [address] [address] Performing Lab: [address] [address] PROTEIN,TOTAL 7.4 g/dL 6.0-8.3 ALBUMIN 4.5 g/dL 3.5-5.0 ALKALINE PHOSPHATASE 38 U/L L 40-150 AST 13 U/L 5-34 ALT 11 U/L BILIRUBIN, TOTAL 0.7 mg/dL 0.2-1.2 Social History: Smoking Status (Most current) and Tobacco Use (All prior to encounter date) This section includes the most current, and the historical, smoking and tobacco- related health factors from the [place] facility where the Encounter took place. Current Smoking Status This section includes the most current smoking, or tobacco-related health factor, from the [place] facility where the Encounter took place. Date/Time Current Smoking Status Comment Facil ity Oct 02, 2023 01:00 PM VA-TOBACCO USER EVERY DAY [facility] Tobacco Use History This section includes a history of the smoking, or tobacco-related health factors, that were collected on or before the date of the Encounter. The data comes from the [place] facility where the Encounter took place. Date/Time Smoking Status/Tobacco Use Comment F acility Oct 02, 2023 01:00 PM VA-TOBACCO USE ADVICE [facility] [place] [facility] Oct 02, 2023 01:00 PM VA-TOBACCO USE MANUSCRIPT READER NO [facility] [place] [facility] Oct 02, 2023 01:00 PM VA-TOBACCO USE MED NO [facility] [place] [facility] Oct 02, 2023 01:00 PM VA-TOBACCO USE WI 30 MIN OF WAKEUP [facility] [place] [facility] Oct 02, 2023 01:00 PM VA-TOBACCO USER EVERY DAY [facility] [place] [facility] Sep 10, 2022 05:31 PM VA-TOBACCO USE > 1 5 LESS THAN 30 YEARS [facility] [place] [facility] Sep 10, 2022 05:31 PM VA-TOBACCO USE ADVICE [facility] [place] [facility] Sep 10, 2022 05:31 PM VA-TOBACCO USE MANUSCRIPT READER NO [facility] [place] [facility] Sep 10, 2022 05:31 PM VA-TOBACCO USE MED NO [facility] [place] [facility] Sep 10, 2022 05:31 PM VA-TOBACCO USE WI 30 MIN OF WAKEUP [facility] [place] [facility] Sep 10, 2022 05:31 PM VA-TOBACCO USER EVERY DAY [facility] [place] [facility] Aug 26, 2020 03:33 PM 689 [facility]PT REPORTS SMO[facility] Aug 06, 2020 10:30 PM 689 [facility] Jul 10, 2020 07:38 PM 689 [facility] RE[facility] Jun 24, 2020 01:05 AM 689 [facility] Apr 14, 2020 06:45 AM 689 [facility]PT RE[facility] February 29, 2020 02:33 AM 689 INPT REPORTS [facility] Jul 20, 2019 06:25 PM 689 INPT REPORTS [facility] Mar 25, 2019 05:25 AM 689 INPT REPORTS SMOKING [facility] Apr 15, 2018 06:41 PM ORYX ADMIT TOBACCO SCREEN YES [facility] [place] [facility] Apr 15, 2018 06:41 PM ORYX ADMIT TOBACCO USE CIGS GR 5D [facility] [place] [facility] Apr 15, 2018 06:41 PM ORYX DAILY TOBACCO MANUSCRIPT READER [facility] Apr 15, 2018 06:41 PM ORYX DAILY TOBACCO MEDS REFUSED [facility] [place] [facility] Apr 15, 2018 02:41 PM CURRENT SMOKER [facility] [place] [facility] March 12, 2018 11:20 AM CURRENT SMOKER [facility] [place] [facility] March 12, 2018 11:20 AM V1-PT NOT INTEREST ED IN QUIT TOBACCO USE [facility] [place] [facility] Apr 10, 2016 09:03 AM TOBACCO INPATIENT DESIRES MEDS [facility] [place] [facility] Jan 28, 2016 12:53 PM TOBACCO INPATIENT DESIRES MEDS [facility] [place] [facility] Oct 21, 2015 05:16 PM TOBACCO INPATIENT DESIRES MEDS [facility] [place] [facility] Jul 13, 2015 11:06 PM TOBACCO INPATIENT DECLINES MEDS [facility] [place] [facility] Dec 13, 2014 08:26 PM TOBACCO INPATIENT DECLINES MEDS [facility] [place] [facility] Dec 13, 2014 07:39 PM CURRENT SMOKER [facility] Dec 13, 2014 07:39 PM V1-PT NOT INTEREST ED IN QUIT TOBACCO USE [facility] Advance Directives: All historical and current Section Date Range: From patient's date of to the date document was created. This section includes ALL of a patient's completed or amended [place] Advance and Rescinded Directives. The entries below indicate that a directive exists for the patient, but an actual copy is not included with this document. The data comes from all [place] facilities. Date Advance Directives Provider Source Sep 13, 2019 ADVANCE DIRECTIVE JOSE MANUEL RICO [facility] Oct 03, 2017 ADVANCE DIRECTIVE DAGMAR THAKUR [facility] Feb 07, 2016 ADVANCE DIRECTIVE SOFIE [facility] Jan 20, 2015 ADVANCE DIRECTIVE DISCUSSION FLORINA COLON [facility] Encounter Notes: All associated encounter notes This section contains the clinical notes associated to the Encounter. Date/Time Encounter Note(s) Provider Source Jun 15, 2024 09:00 AM MENTAL HEALTH COUNSELING NOTE: LOCAL TITLE: PEER SUPPORT NOTE STANDARD TITLE: MENTAL HEALTH COUNSELING NOTE DATE OF NOTE: JUN 15, 2024@09:00 ENTRY DATE: JUN 15, 2024@11:31:43 AUTHOR: KADEEM MARMOLEJO COSIGNER: URGENCY: STATUS: COMPLETED PEER SUPPORT NOTE DATE: 06/15/2024 TIME: 0800 hours. TIME IN SESSION (in minutes): 15 minutes CHARGE ENTRY: Kadeem Marmolejo M.Ed., CPS PURPOSE/FOCUS: Peer Support Service, 1:1 Peer Mentoring, LOCATION: [facility] [address] ONTENT: met PEER SUPPORT NOTE DATE: 06/15/2024 TIME: 0800 hours. TIME IN SESSION (in minutes): 15 minutes CHARGE ENTRY: Kadeem Marmolejo M.Ed., CPS PURPOSE/FOCUS: Peer Support Service, 1:1 Peer Mentoring, LOCATION: [facility] [address] ONTENT: met telephonically with 55-year-old male outpatient for peer support. Shared what services that Peer support provides. Devoted time towards reviewing the events since last meeting 7 months ago. reported being medically retired from the [employer] and awaiting primary care visit in 2 weeks to being enrolled into [facility] services. [place] recently got engaged to long time relationship and is happy with life at the moment. interested in attending outpatient group sessions and getting active in the community. 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 identified with 2 identifiers: [X] Full Name [ ] Date of [ ] VA ID Card [X] Facial Recognition INFORMED CONSENT: informed of the risks and benefits of Telehealth video care. has the right to refuse video services. If refuses video visit, a [id number] visit will be scheduled. [place] verbalized consent for this video visit: Yes PEER INTERVENTIONS USED: Mutuality, Motivational Interviewing, Recovery Coaching RESPONSE: reporting being satisfied with recovery progress and being able to manage chronic pain issues from service. OBSERVED STRENGTHS: is sincere in recovery. PLAN: as needed PROCEDURE: F2F DIAGNOSES: Alcohol dependence ([facility] [id number], PEER SUPPORT NOTE DATE: 06/15/2024 TIME: 0800 hours. TIME IN SESSION (in minutes): 15 minutes CHARGE ENTRY: Kadeem Marmolejo M.Ed., CPS PURPOSE/FOCUS: Peer Support Service, 1:1 Peer Mentoring, LOCATION: [facility], [facility] ONTENT: met [facility] with 44-year-old male outpatient for peer support. Opened today session reviewing the events since last meeting . reported being busy with maintining house and managing budget much better than the past. Nursing Project Coordinator and discussed the reasons and importance of companionship. [place] shared that past urges to care for the needs of relationships led to feeling unappreaciated triggering relapse. 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 [place] identified with 2 identifiers: [X] Full Name [ ] Date of [ ] VA ID Card [X] Facial Recognition INFORMED CONSENT: informed of the risks and benefits of Telehealth video care. has the right to refuse video services. If refuses video visit, a [id number] visit will be scheduled. [place] verbalized consent for this video visit: Yes PEER INTERVENTIONS USED: Mutuality, Motivational Interviewing, Recovery Coaching RESPONSE: [place] reporting being satisfied with recovery progress and being able to manage life issues OBSERVED STRENGTHS: is sincere in recovery. 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 Shared what services that Peer support provides. Devoted time towards reviewing the events since last meeting 7 months ago. reported being medically retired from the [employer] and awaiting primary care visit in 2 weeks to being enrolled into VA services. [place] recently got engaged to long time relationship and is happy with life at the moment. [place] interested in attending outpatient group sessions and getting active in the community. 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 identified with 2 identifiers: [X] Full Name [ ] Date of [ ] VA ID Card [X] Facial Recognition INFORMED CONSENT: [place] informed of the risks and benefits of Telehealth video care. has the right to refuse video services. If refuses video visit, a [id number] visit will be scheduled. [place] verbalized consent for this video visit: Yes PEER INTERVENTIONS USED: Mutuality, Motivational Interviewing, Recovery Coaching RESPONSE: reporting being satisfied with recovery progress and being able to manage chronic pain issues from service. OBSERVED STRENGTHS: is sincere in recovery. PLAN: as needed PROCEDURE: F2F DIAGNOSES: Alcohol dependence ([facility] [id number], /es/ KADEEM MARMOLEJO Signed: 06/15/2024 11:45 KADEEM MARMOLEJO [facility]
--- OUTSIDE RECORDS SUMMARY | 2024-12-28 08:03 | XMS_ITS | Encounter Summary ---
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 Name Role Phone KERRIE KNIGHT Primary Care [...] PART A February 17, 2017 PART A [id number] [phone] MARY ESPINO PATIENT MEDICARE (WNR) MEDICARE (M) PART B February 17, 2017 PART B [id number] JASMINAMARY DAS PATIENT MEDICARE (WNR) MEDICARE (M) PART A February 17, 2017 PART A [id number] [id number] JASMINAINI,DA [place] PATIENT MEDICARE (WNR) MEDICARE (M) PART A February 17, 2017 PART A [id number] MARY ESPINO [place] PATIENT MEDICARE (WNR) MEDICARE (M) PART B February 17, 2017 PART B [id number] JASMINAINI,MARY [place] PATIENT MEDICARE (WNR) MEDICARE (M) PART A February 17, 2017 PART A [id number] JASMINAINIMARY [place] PATIENT MEDICARE (WNR) MEDICARE (M) PART A February 17, 2017 PART A [id number] JASMINAINI,MARY [place] PATIENT MEDICARE (WNR) MEDICARE (M) PART B February 17, 2017 PART B [id number] [phone] JASMINAINI,MARY [place] PATIENT MEDICARE (WNR) MEDICARE (M) PART B February 17, 2017 PART B [id number] [id number] [id number] MARY ESPINO [place] PATIENT MEDICARE (WNR) MEDICARE (M) PART A February 17, 2017 PART A [id number] JASMINAINIMARY [place] PATIENT MEDICARE (WNR) MEDICARE (M) PART A February 17, 2017 PART A [id number] [phone] [id number] JASMINAINIMARY [place] PATIENT MEDICARE (WNR) MEDICARE (M) PART B February 17, 2017 PART B [id number] MARY ESPINO PATIENT Selected Encounter This section includes the information on record at CT for the Encounter. Date/Time Encounter Type Encounter Description Reason Provider Source May 13, 2024 11:30 AM OFFICE O/P EST LOW 20 MIN GENERAL INTERNAL MEDICINE ICD-10-CM H10.12 Acute atopic conjunctiviti s, left eye BERGER,RAZ TALBOT IHE Encounter Template Text not used by [facility] Assessments - Encounter Diagnoses This section includes the primary and secondary diagnoses documented for the Encounter. Date/Time Primary/Secondary Diagnosis Diagnosis Name Provider Source May 13, 2024 11:57 AM PRIMARY Acute atopic conjunctivitis, left eye BERGER,RAZ TALBOT [facility] [place] [facility] May 13, 2024 11:57 AM SECONDARY Hyperlipidemia, unspecified BERGER,RAZ [employer]IP[employer] TENDER [facility] [place] [facility] May 13, 2024 11:57 AM SECONDARY Post-traumatic stress disorder, chronic BERGER,RAZ [employer]IP[employer] TENDER [facility] [place] [facility] Plan of Treatment: Future Appointments (+ 6 months) and Future Tests (+/- 45 days) The Plan of Treatment section includes future care activities for the patient from all CT treatmentfacritical access hospitalities. This section includes future appointments and future orders which are active, pending or scheduled. Future Appointments This section includes appointments that were scheduled to occur 6 months from the date of the Encounter, up to a maximum of 20 appointments. The data comes from all CT treatment facilities. Appointment Date/Time Appointment Type Appointme nt Facility Name May 18, 2024 09:00 AM AMBULATORY - PSYCHIATRY [facility] [place] [facility] May 25, 2024 09:00 AM AMBULATORY - PSYCHIATRY [facility] [place] [facility] Jun 01, 2024 09:00 AM AMBULATORY - PSYCHIATRY [facility] [place] [facility] Jun 03, 2024 12:05 PM AMBULATORY - MEDICINE [facility] [place] [facility] Jun 08, 2024 09:00 AM AMBULATORY - PSYCHIATRY [facility] [place] [facility] Jun 08, 2024 11:30 AM AMBULATORY - PSYCHIATRY [facility] [place] [facility] Jun 11, 2024 03:30 PM AMBULATORY - MEDICINE [facility] [place] [facility] Jun 15, 2024 09:00 AM AMBULATORY - PSYCHIATRY [facility] [place] [facility] Jun 22, 2024 09:00 AM AMBULATORY - PSYCHIATRY [facility] [place] [facility] Jun 29, 2024 09:00 AM AMBULATORY - PSYCHIATRY [facility] [place] [facility] Jul 06, 2024 09:00 AM AMBULATORY - PSYCHIATRY [facility] [place] [facility] Jul 13, 2024 09:00 AM AMBULATORY - PSYCHIATRY [facility] [place] [facility] Jul 16, 2024 09:05 AM AMBULATORY - MEDICINE [facility] [place] [facility] Jul 18, 2024 07:45 PM AMBULATORY - MEDICINE [facility] [place] [facility] Jul 20, 2024 09:00 AM [facility] Jul 22, 2024 09:30 AM [facility] Jul 27, 2024 09:00 AM [facility] Aug 03, 2024 09:00 AM [facility] Aug 10, 2024 09:00 AM [facility] Aug 17, 2024 09:00 AM [facility] Lab Results: +/- 30 days of the encounter This section includes the Chemistry and Hematology Lab Results on record with CT for the patient. Radiology Reports and Pathology Reports are provided separately, in subsequent sections. Lab Results This section contains the Chemistry/Hematology Results that were resulted 30 days before or 30 daysafter the date of the Encounter. Date/Time Source Result Type Result - Unit Interpretation Reference Range Comment Jun 11, 2024 12:51 PM [facility] HEPATITIS B SURFACE ANTIBODY (HBsAb)-WH Specimen Type: SERUM No comment entered. Ordering Provider: KAMLA KNIGHT Report Released Date/Time: May 31, 2024 09:45 AM Reporting Lab: [address] [address] Performing Lab: [address] [address] HBsAb Non Reactive Non Reactive Jun 11, 2024 12:51 PM [facility] LIPID PANEL, NON FASTING Specimen Type: SERUM No comment entered. Ordering Provider: KAMLA KNIGHT Report Released Date/Time: May 31, 2024 09:45 AM Reporting Lab: [address] [address] Performing Lab: [address] [address] CHOLESTEROL 212 mg/dL H TRIGLYCERIDE 124 mg/dL 0-150 LDL calculated 152 mg/dL H 0-129 CHOL/HDL 6.1 HDL CHOLESTEROL 35 mg/dL L 40-60 Jun 11, 2024 12:51 PM [facility] CBC Specimen Type: BLOOD No comment entered. Ordering Provider: KAMLA KNIGHT Report Released Date/Time: May 31, 2024 09:45 AM Reporting Lab: [facility] [address] [address] Performing Lab: [address] [address] WBC 5.98 10*3/uL 4.50-11.00 RBC 4.60 10*6/uL 4.23-5.66 HGB 13.9 g/dL 12.8-17 HCT 40.5 39.2-50.4 MCV 88.0 fL 82-99 MCHC 34.3 g/dL 30.8-35.1 PLT 190 10*3/uL 140-360 RDW-CV 13.5 12.0-16.0 MCH 30.2 pg 26.2-32.6 Jun 11, 2024 12:51 PM [facility] LIVER FUNCTION Specimen Type: SERUM No comment entered. Ordering Provider: KAMLA KNIGHT Report Released Date/Time: May 31, 2024 09:45 AM Reporting Lab: [address] [address] Performing Lab: [address] [address] PROTEIN,TOTAL 7.4 g/dL 6.0-8.3 ALBUMIN 4.5 g/dL 3.5-5.0 ALKALINE PHOSPHATASE 38 U/L L 40-150 AST 13 U/L 5-34 ALT 11 U/L BILIRUBIN, TOTAL 0.7 mg/dL 0.2-1.2 Jun 11, 2024 12:51 PM [facility] BASIC METABOLIC PANEL (non-fasting) Specimen Type: SERUM No comment entered. Ordering Provider: KAMLA KNIGHT Report Released Date/Time: May 31, 2024 09:45 AM Reporting Lab: [address] [address] Performing Lab: [facility] [place] [facility] [address] [address] UREA NITROGEN 16 mg/dL 7-25 GLUCOSE 86 [...] and tobacco- related health factors from the CT facility where the Encounter took place. Current Smoking Status This section includes the most current smoking, or tobacco-related health factor, from the [place] facility where the Encounter took place. Date/Time Current Smoking Status Comment Facil ity Oct 02, 2023 01:00 PM VA-TOBACCO USER EVERY DAY [facility] Tobacco Use History This section includes a history of the smoking, or tobacco-related health factors, that were collected on or before the date of the Encounter. The data comes from the CT facility where the Encounter took place. Date/Time Smoking Status/Tobacco Use Comment F acility Oct 02, 2023 01:00 PM VA-TOBACCO USE ADVICE [facility] [place] [facility] Oct 02, 2023 01:00 PM VA-TOBACCO USE PORTFOLIO LEAD NO [facility] [place] [facility] Oct 02, 2023 01:00 PM VA-TOBACCO USE MED NO [facility] [place] [facility] Oct 02, 2023 01:00 PM VA-TOBACCO USE WI [address] [facility] [place] [facility] Oct 02, 2023 01:00 PM VA-TOBACCO USER EVERY DAY [facility] [place] [facility] Sep 10, 2022 05:31 PM VA-TOBACCO USE > 1 [address]ESS THAN [address] [facility] [place] [facility] Sep 10, 2022 05:31 PM VA-TOBACCO USE ADVICE [facility] [place] [facility] Sep 10, 2022 05:31 PM VA-TOBACCO USE PORTFOLIO LEAD NO [facility] [place] [facility] Sep 10, 2022 05:31 PM VA-TOBACCO USE MED NO [facility] [place] [facility] Sep 10, 2022 05:31 PM VA-TOBACCO USE WI [address] [facility] [place] [facility] Sep 10, 2022 05:31 PM VA-TOBACCO USER EVERY DAY [facility] [place] [facility] Aug 26, 2020 03:33 PM [facility] Aug 06, 2020 10:30 PM 689 [facility] Jul 10, 2020 07:38 PM 689 [facility] Jun 24, 2020 01:05 AM 689 [facility] Apr 14, 2020 06:45 AM 689 [facility]PT RE[facility]TS [facility] February 29, 2020 02:33 AM 689 INPT RE[facility]TS [facility] Jul 20, 2019 06:25 PM 689 [facility] Mar 25, 2019 05:25 AM 689 [facility]PT [facility] Apr 15, 2018 06:41 PM ORYX ADMIT TOBACCO SCREEN YES [facility] [place] [facility] Apr 15, 2018 06:41 PM ORYX ADMIT TOBACCO USE CIGS GR 5D [facility] [place] [facility] Apr 15, 2018 06:41 PM ORYX DAILY TOBACCO PORTFOLIO LEAD RECEIVED CT [facility] [place] [facility] Apr 15, 2018 06:41 PM ORYX DAILY TOBACCO MEDS REFUSED [facility] [place] [facility] Apr 15, 2018 02:41 PM CURRENT SMOKER [facility] [place] [facility] March 12, 2018 11:20 AM CURRENT SMOKER [facility] [place] [facility] March 12, 2018 11:20 AM V1-PT NOT INTEREST ED IN QUIT TOBACCO USE [facility] [place] [facility] Apr 10, 2016 09:03 AM TOBACCO INPATIENT DESIRES MEDS [facility] [place] [facility] Jan 28, 2016 12:53 PM TOBACCO INPATIENT DESIRES MEDS [facility] [place] [facility] Oct 21, 2015 05:16 PM TOBACCO INPATIENT DESIRES MEDS [facility] [place] [facility] Jul 13, 2015 11:06 PM TOBACCO INPATIENT DECLINES MEDS [facility] [place] [facility] Dec 13, 2014 08:26 PM TOBACCO INPATIENT DECLINES MEDS [facility] [place] [facility] Dec 13, 2014 07:39 PM CURRENT SMOKER [facility] Dec 13, 2014 07:39 PM V1-PT NOT INTEREST ED IN QUIT TOBACCO USE [facility] Advance Directives: All historical and current Section Date Range: From patient's date of to the date document was created. This section includes ALL of a patient's completed or amended CT Advance and Rescinded Directives. The entries below indicate that a directive exists for the patient, but an actual copy is not included with this document. The data comes from all CT facilities. Date Advance Directives Provider Source Sep 13, 2019 ADVANCE DIRECTIVE JOSE MANUEL RICO [facility] Oct 03, 2017 [address] DAGMAR THAKUR [facility] Feb 07, 2016 ADVANCE DIRECTIVE SOFIE POLANCO [facility] Jan 20, 2015 ADVANCE DIRECTIVE DISCUSSION FLORINA COLON [facility] Encounter Notes: All associated encounter notes This section contains the clinical notes associated to the Encounter. Date/Time Encounter Note(s) Provider Source May 13, 2024 11:30 AM TELEHEALTH NOTE: LOCAL TITLE: TELE EMERGENCY CARE NOTE STANDARD TITLE: TELEHEALTH NOTE DATE OF NOTE: MAY 13, 2024@11:30 ENTRY DATE: MAY 13, 2024@11:30:59 AUTHOR: RAZ BERGER NP EXP COSIGNER: URGENCY: STATUS: COMPLETED This is a tele-emergency care visit to address acute/urgent issues. Definitive care on chronic medical issues will be deferred to routine Primary Care appointment/provider. Consult Origin: Referral from the Clinical Contact Center/Call Center Type of Visit: Video Visit: Telehealth Disclosure: Visit conducted by synchronous telehealth. Patient verbal consent obtained. Location/emergency number confirmed. Environment surveyed and all participants identified. Virtual conference room locked. Emergency contact information was obtained as follows: Patient's current address [address] [place] [address] [address] [place], [place] [address] Patient's Phone Number:PATIENT PHONE - PHONE NUMBER [CELLULAR] - Primary NOK: JULIAN PENG Relation: SISTER [address] [place], [place] [address] Secondary NOK: KRISTOPHER POTTS Relation: UNRELATED FRIEND/ [address] [place], [place] [address] Subjective: Mr. Espino is 44M w/ hx ED, HTN, HL, MDD, PTSD. report of X 2 week +left eye discharge - feels like gunk in it +yellowish/whitish +medial aspect. Self treatment: none -restart Bendryl at night. Deny photophobia, new flashes, floaters, diplopia, pain, trauma or loss of vision, fever/chill, sob/cooper, cp, palpitation, syncope. Objective: Telephone interview Unable to perform complete physical exam due to nature of tele- health visit. No active distress noted. Clear speech, appropriate respond. No sound of distress w/ interview. No wheezes or shortness of breath while speaking. VVC ENT: NAD, clear speech, appropriate respond -No headache or rastafarian pain. -Nose - no flaring/irritation/boggy/edema/ pain/maxillary-sinus edema -Throat - tongue midline, no exudate/pain/problem swallowing/erythema -Submandibular Lymph node -no tender/swollen /lump/tenderness -Eye -no erythema/pain/vision change, +EOM +slight mucous/yellow drainage visible on medial aspect. -Swallow - no pain -Ear - NO popping/pressure -Deep breath - No sob/cooper/wheeze ACTIVE PROBLEMS: Code Description F29. 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 ([facility] [id number]) N52.9 Erectile dysfunction ([facility] [id number]) R94.5 Abnormal results of liver function studies ([facility] [id number]) F17.210 Nicotine dependence ([facility] 54662493) 796.2 Elevated blood pressure ([facility] [id number]) F90.9 Adult attention deficit hyperactivity disorder ([facility] [id number]) F43.12 Posttraumatic stress disorder ([facility] [id number]) 724.2 Low back pain ([facility] [id number]) 719.46 Arthralgia of the lower leg ([facility] [id number]) 719.45 Arthralgia of the pelvic region and thigh ([facility] [id number]) 850.5 Concussion with loss of consciousness (ICD-9-CM 850.5) F33.3 BP - High blood pressure ([facility] [id number]) E78.2 Hypertriglyceridemia ([facility] [id number]) 799.9 elevated B12 of unknown cause (ICD-9-CM 799.9) F10.288 Alcohol dependence ([facility] 19237737) E78.5 Hyperlipidemia ([facility] 76984588) 577.0 Alcohol-induced acute pancreatitis ([facility] [id number]) F33.8 Mild major depression ([facility] 02678769) 389.9 Bilateral hearing loss ([facility] [id number]) ALLERGIES/ADR: ATOMOXETINE, ADDERALL Active Outpatient Medications (including Supplies): MULTIVITAMIN CAP/TAB TAKE 1 TABLET BY MOUTH ONCE DAILY ACTIVE RISPERIDONE 1MG TAB TAKE ONE TABLET BY MOUTH AT BEDTIME ACTIVE Current medications reviewed with patient/caregiver and reconciliation of medications related to today's visit completed, including non-VA medications and discrepancies, if identified, were addressed. Medication changes and the importance of medication management were reviewed with the patient/caregiver today based on individual needs. Patient/caregiver acknowledged understanding of instructions as stated. Objective: Reason for Referral: Eye Assessment/Impression: Conjunctivitis r/t allergies- LEFT Plan: -Pt agree to try OTC anhitamine and/or tylneol prn. -Pt agree to continue self are: warm compress - 5X day, wash hand often, wash face daily, avoid touching eye lid, -Pt agree to go ER if extreme eye pain, vision change, photophobia, s/s infection, sob, cp. -Notify PAT[facility] team Plan: Issue resolved with Tele Urgent Care appointment Patient verbalizes understanding of the care plan Time spent in telephone/video visit: es/ RAZ BERGER AGPCNP-BC VISN 1 Clinical Contact Center Signed: 05/13/2024 11:57 Receipt Acknowledged By: 05/13/2024 12:42 /es/ Rashmi MOORE RN CNL Primary Care RAZ JOHNSTON NP [facility]
--- OUTSIDE RECORDS SUMMARY | 2024-12-28 08:03 | XMS_ITS | Encounter Summary ---
Author Name [facility] [place] [facility] [place] Address [address] [place] [address] Care Team Providers Care Manager In Training Name Role Phone KERRIE KNIGHT Primary Care Provider JOSE MANUEL Carrion Primary Care Provider Unavailroberta sue Insurance Providers: All historical and current Section [...] PART B February 17, 2017 PART B [id number] MARY ESPINO PATIENT MEDICARE (WNR) MEDICARE (M) PART A February 17, 2017 PART A [id number] [phone] MARY ESPINO PATIENT MEDICARE (WNR) MEDICARE (M) PART A February 17, 2017 PART A [id number] MARY ESPINO PATIENT MEDICARE (WNR) MEDICARE (M) PART A February 17, 2017 PART A [id number] CIMINIMARY [place] PATIENT MEDICARE (WNR) MEDICARE (M) PART B February 17, 2017 PART B [id number] CIMINI,MARY [place] PATIENT MEDICARE (WNR) MEDICARE (M) PART A February 17, 2017 PART A [id number] JASMINAINI,MARY [place] PATIENT MEDICARE (WNR) MEDICARE (M) PART A February 17, 2017 PART A [id number] [phone] CIMINI,MARY [place] PATIENT MEDICARE (WNR) MEDICARE (M) PART B February 17, 2017 PART B [id number] [phone] CIMINI,MARY [place] PATIENT MEDICARE (WNR) MEDICARE (M) PART A February 17, 2017 PART A [id number] JASMINAINI,MARY [place] PATIENT MEDICARE (WNR) MEDICARE (M) PART B February 17, 2017 PART B [id number] CIMINI,MARY [place] PATIENT MEDICARE (WNR) MEDICARE (M) PART A February 17, 2017 PART A [id number] JASMINAINI,MARY [place] PATIENT MEDICARE (WNR) MEDICARE (M) PART B February 17, 2017 PART B [id number] JASMINAINIMARY PATIENT Selected Encounter This section includes the information on record at [place] for the Encounter. Date/Time Encounter Type Encounter Description Reason Provider Source Mar 25, 2024 10:50 AM CASE MANAGEMENT [facility] ICD-10-CM F43.12 Post-traumatic stress disorder, NARESH Da Silva E Encounter Template Text not used by [place] Assessments - Encounter Diagnoses This section includes the primary and secondary diagnoses documented for the Encounter. Date/Time Primary/Secondary Diagnosis Diagnosis Name Provider Source Mar 30, 2024 09:54 AM PRIMARY Post-traumatic stress disorder, NARESH Da Silva [facility] Plan of Treatment: Future Appointments (+ 6 months) and Future Tests (+/- 45 days) The Plan of Treatment section includes [facility] This section includes future appointments and future orders which are active, pending or scheduled. Future Appointments This section includes appointments that were scheduled to occur 6 months from the date of the Encounter, up to a maximum of 20 appointments. The data comes from all [place] treatment facilities. Appointment Date/Time Appointment Type Appointme nt Facility Name May 05, 2024 10:40 AM [facility]UL[facility] [place] [facility] May 11, 2024 09:00 AM AMBULATORY [facility] PS[facility]CHIATRY [facility] [place] [facility] May 13, 2024 11:30 AM AM[facility]ULATORY [facility]ICINE [facility] [place] [facility] May 18, 2024 09:00 AM AMBULATORY [facility] PS[facility]IATRY [facility] [place] [facility] May 25, 2024 09:00 AM AMBULATORY [facility]ATRY [facility] [place] [facility] Jun 01, 2024 09:00 AM AMBULATORY [facility]RY [facility] [place] [facility] Jun 03, 2024 12:05 PM AMBULATORY [facility] MEDICINE [facility] [place] [facility] Jun 08, 2024 09:00 AM AMBULATORY [facility] PS[facility]IATRY [facility] [place] [facility] Jun 08, 2024 11:30 AM AMBULATORY - PS[facility]IATRY [facility] [place] [facility] Jun 11, 2024 03:30 PM AM[facility]ULATORY [facility] MEDICINE [facility] [place] [facility] Jun 15, 2024 09:00 AM AMBULATORY - PS[facility]CHIATRY [facility] [place] [facility] Jun 22, 2024 09:00 AM AMBULATORY [facility] PS[facility]IATRY [facility] [place] [facility] Jun 29, 2024 09:00 AM AMBULATORY - PS[facility]CHIATRY [facility] [place] [facility] Jul 06, 2024 09:00 AM AMBULATORY - PS[facility]CHIATRY [facility] [place] [facility] Jul 13, 2024 09:00 AM AMBULATORY [facility] PS[facility]CHIATRY [facility] [place] [facility] Jul 16, 2024 09:05 AM [facility]UL[facility]ORY [facility]ICINE [facility] [place] [facility] Jul 18, 2024 07:45 PM AMBULATORY - MEDICINE [facility] [place] [facility] Jul 20, 2024 09:00 AM AMBULATORY [facility] PS[facility]IATRY [facility] [place] [facility] Jul 22, 2024 09:30 AM AMBULATORY [place] [facility] [place] [facility] Jul 27, 2024 09:00 AM AMBULATORY - [place]ATRY [facility] [place] [facility] Social History: Smoking Status (Most current) and Tobacco Use (All prior to encounter date) This section includes the most current, and the historical, smoking and tobacco- related health factors from the [place] facility where the Encounter took place. Current Smoking Status This section includes the most current smoking, or tobacco-related health factor, from the [place] facility where the Encounter took place. Date/Time Current Smoking Status Comment Facil ity Oct 02, 2023 01:00 PM VA-TOBACCO USE [place] 30 MIN OF WAKEUP [facility] Tobacco Use History This section includes a history of the smoking, or tobacco-related health factors, that were collected on or before the date of the Encounter. The data comes from the [place] facility where the Encounter took place. Date/Time Smoking Status/Tobacco Use Comment F acility Oct 02, 2023 01:00 PM VA-TOBACCO USE ADVICE [facility] [place] [facility] Oct 02, 2023 01:00 PM VA-TOBACCO USE TERMITE CONTROL TECHNICIAN NO [facility] [place] Oct 02, 2023 01:00 PM VA-TOBACCO USE MED NO [facility] [place] [facility] Oct 02, 2023 01:00 PM VA-TOBACCO USE WI 30 MIN OF WAKEUP [place] [facility] [place] [facility] Oct 02, 2023 01:00 PM VA-TOBACCO USER EVERY DAY [facility] [place] [facility] Sep 10, 2022 05:31 PM VA-TOBACCO USE > 1 5 LESS THAN 30 YEARS [facility] [place] [facility] Sep 10, 2022 05:31 PM VA-TOBACCO USE ADVICE [facility] [place] [facility] Sep 10, 2022 05:31 PM VA-TOBACCO USE TERMITE CONTROL TECHNICIAN NO [facility] [place] [facility] Sep 10, 2022 05:31 PM VA-TOBACCO USE MED NO [facility] [place] [facility] Sep 10, 2022 05:31 PM VA-TOBACCO USE WI 30 MIN OF WAKEUP [facility] [place] [facility] Sep 10, 2022 05:31 PM VA-TOBACCO USER EVERY DAY [facility] [place] Aug 26, 2020 03:33 PM 689 [facility] [employer] [facility]MO[facility] Aug 06, 2020 10:30 PM 689 [employer] [facility] Jul 10, 2020 07:38 PM 689 [employer] [facility] Jun 24, 2020 01:05 AM 689 [employer] [facility] Apr 14, 2020 06:45 AM [facility] February 29, 2020 02:33 AM 689 [employer] [facility] Jul 20, 2019 06:25 PM 689 [employer] [facility] Mar 25, 2019 05:25 AM [facility] Apr 15, 2018 06:41 PM ORYX ADMIT TOBACCO SCREEN YES [facility] [place] [facility] Apr 15, 2018 06:41 PM ORYX ADMIT TOBACCO USE CIGS GR 5D [facility] [place] Apr 15, 2018 06:41 PM ORYX DAILY TOBACCO TERMITE CONTROL TECHNICIAN RECEIVED [facility] [place] [facility] Apr 15, 2018 06:41 PM ORYX DAILY TOBACCO MEDS REFUSED [facility] [place] [facility] Apr 15, 2018 02:41 PM CURRENT SMOKER [facility] [place] [facility] March 12, 2018 11:20 AM CURRENT SMOKER [facility] [place] [facility] March 12, 2018 11:20 AM V1-PT NOT INTEREST ED IN QUIT TOBACCO USE [facility] [place] [facility] Apr 10, 2016 09:03 AM TOBACCO INPATIENT DESIRES MEDS [facility] [place] Jan 28, 2016 12:53 PM TOBACCO INPATIENT DESIRES MEDS [facility] [place] [facility] Oct 21, 2015 05:16 PM TOBACCO INPATIENT DESIRES MEDS [facility] [place] [facility] Jul 13, 2015 11:06 PM TOBACCO INPATIENT DECLINES MEDS [facility] [place] [facility] Dec 13, 2014 08:26 PM TOBACCO INPATIENT DECLINES MEDS [facility] [place] [facility] Dec 13, 2014 07:39 PM CURRENT SMOKER [facility] Dec 13, 2014 07:39 PM V1-PT NOT INTEREST ED IN QUIT TOBACCO USE [facility] Advance Directives: All historical and current Section Date Range: From patient's date of to the date document was created. This section includes ALL of a patient's completed or amended [place] Advance and Rescinded Directives. The entries below indicate that a directive exists for the patient, but an actual copy is not included with this document. The data comes from all [place] facilities. Date Advance Directives Provider Source Sep 13, 2019 ADVANCE DIRECTIVE TRISHAJOSE MANUEL Consuelo [facility] Oct 03, 2017 ADVANCE DIRECTIVE DAGMAR THAKUR [facility] Feb 07, 2016 ADVANCE DIRECTIVE SOFIE POLANCO [facility] Jan 20, 2015 ADVANCE DIRECTIVE DISCUSSION FLORINA COLON CONDE [facility] Encounter Notes: All associated encounter notes This section contains the clinical notes associated to the Encounter. Date/Time Encounter Note(s) Provider Source Mar 24, 2024 04:50 PM MENTAL HEALTH OUTR EACH NOTE: LOCAL TITLE: JUSTICE OUTREACH PROGRESS NOTE STANDARD TITLE: MENTAL HEALTH OUTREACH NOTE DATE OF NOTE: MAR 24, 2024@16:50 ENTRY DATE: MAR 25, 2024@10:50:54 AUTHOR: NARESH SHAIKH EXP COSIGNER: URGENCY: STATUS: COMPLETED Hugo identified by: [x ] Full Name [] Address [x ] [ ] SSN [] Facial Recognition Length of contact: 60 minutes Location: [facility] [address], [facility] Content: was an active participant in court session today.He was released from skilled nursing and was able to resolve his cases in [facility] [address]. His girlfriend has moved out of his house and there is a stay away/no contact order in place. is also on a [facility]CR[facility] unit for now to assist with maintaining sobriety. willing to reengage with treatment providers. [facility] will continue to provide ongoing support. /cindy/ LENKA JACOBSON TRAILER TRUCK DRIVER Signed: 03/25/2024 10:53 NARESH SHAIKH [facility]
--- OUTSIDE RECORDS SUMMARY | 2024-12-28 08:04 | XMS_ITS | Encounter Summary ---
Author Name [facility] [place] Organization [facility] [place] Address [address] [place] [address] Care Team Providers Care Pediatric Cns Name Role Phone KERRIE KNIGHT Primary Care [...] PART A February 17, 2017 PART A [id number] MARY ESPINO PATIENT MEDICARE (WNR) MEDICARE (M) PART B February 17, 2017 PART B [id number] MARY ESPINO PATIENT MEDICARE (WNR) MEDICARE (M) PART A February 17, 2017 PART A [id number] MARY ESPINO PATIENT MEDICARE (WNR) MEDICARE (M) PART A February 17, 2017 PART A [id number] CIMINI,MARY [place] PATIENT MEDICARE (WNR) MEDICARE (M) PART B February 17, 2017 PART B [id number] CIMINI,MARY [place] PATIENT MEDICARE (WNR) MEDICARE (M) PART A February 17, 2017 PART A [id number] [phone] CIMINI,MARY [place] PATIENT MEDICARE (WNR) MEDICARE (M) PART B February 17, 2017 PART B [id number] CIMINI,DA [place] PATIENT MEDICARE (WNR) MEDICARE (M) PART A February 17, 2017 PART A [id number] CIMINI,MARY [place] PATIENT MEDICARE (WNR) MEDICARE (M) PART A February 17, 2017 PART A [id number] CIMINI,MARY [place] PATIENT MEDICARE (WNR) MEDICARE (M) PART B February 17, 2017 PART B [id number] [phone] CIMINI,MARY [place] PATIENT MEDICARE (WNR) MEDICARE (M) PART A February 17, 2017 PART A [id number] CIMINI,MARY [place] PATIENT MEDICARE (WNR) MEDICARE (M) PART B February 17, 2017 PART B [id number] JASMINAINIMARY PATIENT Selected Encounter This section includes the information on record at [place] for the Encounter. Date/Time Encounter Type Encounter Description Reason Provider Source Dec 07, 2024 10:10 AM PEER RECOVER SUPPORT SVS SUBSTANCE USE DISORDER IND ICD-10-CM F14.20 Cocaine dependence, uncomplicated AUGUSTA MARMOLEJO R E Encounter Template Text not used by [place] Assessments - Encounter Diagnoses This section includes the primary and secondary diagnoses documented for the Encounter. 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 [place]A MARMOLEJO [place] [facility] [place] [facility] Dec 14, 2024 01:28 PM SECONDARY Post-traumatic stress disorder, chronic [facility] Dec 14, 2024 01:28 PM SECONDARY Unsp psychosis not due to a substance or known physiol cond [facility]MOLEJO [facility] Plan of Treatment: Future Appointments (+ 6 months) and Future Tests (+/- 45 days) The Plan of Treatment section includes future care activities for the patient [facility] [place] [facility] This section includes future appointments and future orders which are active, pending or scheduled. Future Appointments This section includes appointments that were scheduled to occur 6 months from the date of the Encounter, up to a maximum of 20 appointments. The data comes from all [facility] facilities. Appointment Date/Time Appointment Type Appointme nt Facility Name Dec 13, 2024 09:00 AM AMBULATORY - NONE [place] [facility] [place] [facility] Dec 14, 2024 03:10 PM AM[place]UL[place] [facility] Dec 16, 2024 09:30 AM AMBUL[place]ORY - [place]ICINE [place] [facility] [facility] Dec 30, 2024 09:15 AM AMBULATORY - NONE [place] [facility] [place] [facility] Jan 13, 2025 09:00 AM [facility] Active, Pending, and Scheduled Orders This section includes a listing of several types of active, pending, and scheduled orders, including clinic medications orders, diagnostic test orders, procedure orders and consult orders; where the start date of the order is 45 days before the date of the Encounter or 45 days after the date of theEncounter. The data comes from all [facility] facilities. Test Date/Time Test Type Test Details Facility Name Dec 03, 2024 11:49 AM Consult Order COMMUNITY CARE-DENTAL SPECIALTY Cons Enterprise Architect's Choice [facility] Dec 16, 2024 12:42 PM Consult Order NUTRITION ASSESSMENT/EDUCATION /NHM OUTPT Cons Enterprise Architect's Choice [facility] Dec 17, 2024 12:00 AM Laboratory [...] SERUM No comment entered. Ordering Provider: LAURYN KINGHT AM Report Released Date/Time: Dec 09, 2024 04:19 PM Reporting Lab: [address] [address] Performing Lab: [address] [address] HBsAb Non Reactive Non Reactive Dec 16, 2024 08:30 AM [facility] CBC Specimen Type: BLOOD No comment entered. Ordering Provider: LAURYN KNIGHT AM Report Released Date/Time: Dec 09, 2024 04:19 PM Reporting Lab: [address] [address] Performing Lab: [address] [address] WBC 5.27 10*3/uL 4.50-11.00 RBC 4.47 10*6/uL [...] Dec 09, 2024 04:19 PM Reporting Lab: [facility] [address] [facility] [address] Performing Lab: [address] [address] CHOLESTEROL 261 mg/dL H TRIGLYCERIDE 179 mg/dL H 0-150 LDL calculated 186 mg/dL H 0-129 CHOL/HDL 6.7 HDL CHOLESTEROL 39 mg/dL L 40-60 Dec 16, 2024 08:30 AM [facility] BASIC METABOLIC PANEL (non-fasting) Specimen Type: SERUM No comment entered. Ordering Provider: LAURYN KNIGHT AM Report Released Date/Time: Dec 09, 2024 04:19 PM Reporting Lab: [address] [address] Performing Lab: [address] [address] UREA NITROGEN 12 mg/dL 7-25 GLUCOSE 97 [...] Dec 09, 2024 04:19 PM Reporting Lab: [address] [address] Performing Lab: [address] [address] PROTEIN,TOTAL 7.6 g/dL 6.0-8.3 ALBUMIN 4.4 g/dL 3.5-5.0 ALKALINE PHOSPHATASE 48 U/L 40-150 AST 13 U/L 5-34 ALT 14 U/L BILIRUBIN, TOTAL 0.3 mg/dL 0.2-1.2 Dec 16, 2024 08:30 AM [facility] YEN SCREEN/TITER Specimen Type: SERUM No comment entered. Ordering Provider: LAURYN KNIGHT AM Report Released Date/Time: Dec 16, 2024 11:19 AM Reporting Lab: [facility] [address] [facility] [address] Performing Lab: [facility] [address] [facility] [address] YEN SCREEN NEG NEG <1:40 Dec 16, 2024 08:30 AM [facility] RHEUMATOID FACTOR Specimen Type: SERUM No comment entered. Ordering Provider: LAURYN KNIGHT AM Report Released Date/Time: Dec 16, 2024 11:19 AM Reporting Lab: [facility] [address] [facility] [address] Performing Lab: [facility] [address] [facility] [address] RHEUMATOID FACTOR <13 0-15 Dec 16, 2024 [...] Ref: [email or web address] Ordering Provider: LAURYN KNIGHT AM Report Released Date/Time: Dec 16, 2024 11:19 AM Reporting Lab: [facility] [address] [facility] [address] Performing Lab: [address] [address] HEMOGLOBIN A1C 5.3 4.0-5.6 Social History: Smoking Status (Most current) and Tobacco Use (All prior to encounter date) This section includes the most current, and the historical, smoking and tobacco- related health factors from the [place] facility where the Encounter took place. Current Smoking Status This section includes the most current smoking, or tobacco-related health factor, from the [place] facility where the Encounter took place. Date/Time Current Smoking Status Comment Facil ity Oct 02, 2023 01:00 PM VA-TOBACCO USER EVERY DAY [place] [facility] [place] [facility] Tobacco Use History This section includes a history of the smoking, or tobacco-related health factors, that were collected on or before the date of the Encounter. The data comes from the [place] facility where the Encounter took place. Date/Time Smoking Status/Tobacco Use Comment F acility Oct 02, 2023 01:00 PM VA-TOBACCO USE ADVICE [facility] [place] [facility] Oct 02, 2023 01:00 PM VA-TOBACCO USE PHOTO MANAGER NO [facility] [place] [facility] Oct 02, 2023 01:00 PM VA-TOBACCO USE MED NO [facility] [place] [facility] Oct 02, 2023 01:00 PM VA-TOBACCO USE WI 30 MIN OF WAKEUP [facility] [place] [facility] Oct 02, 2023 01:00 PM VA-TOBACCO USER EVERY DAY [facility] [place] [facility] Sep 10, 2022 05:31 PM VA-TOBACCO USE > 1 5 LESS THAN 30 YEARS [facility] [place] [facility] Sep 10, 2022 05:31 PM VA-TOBACCO USE ADVICE [facility] [place] [facility] Sep 10, 2022 05:31 PM VA-TOBACCO USE PHOTO MANAGER NO [facility] [place] [facility] Sep 10, 2022 05:31 PM VA-TOBACCO USE MED NO [facility] [place] [facility] Sep 10, 2022 05:31 PM VA-TOBACCO USE WI 30 MIN OF WAKEUP [facility] [place] [facility] Sep 10, 2022 05:31 PM VA-TOBACCO USER EVERY DAY [facility] [place] [facility] Aug 26, 2020 03:33 PM 689 INPT REPORTS SMOKING [facility] Aug 06, 2020 10:30 PM 689 INPT REPORTS SMOKING [facility] Jul 10, 2020 07:38 PM 689 INPT REPORTS SMOKING [facility] Jun 24, 2020 01:05 AM 689 INPT REPORTS SMOKING [facility] Apr 14, 2020 06:45 AM 689 INPT REPORTS SMOKING [facility] February 29, 2020 02:33 AM 689 INPT REPORTS SMOKING [facility] Jul 20, 2019 06:25 PM 689 INPT REPORTS SMOKING [facility] Mar 25, 2019 05:25 AM 689 INPT REPORTS SMOKING [facility] Apr 15, 2018 06:41 PM ORYX ADMIT TOBACCO SCREEN YES [facility] [place] [facility] Apr 15, 2018 06:41 PM ORYX ADMIT TOBACCO USE CIGS GR 5D [facility] [place] [facility] Apr 15, 2018 06:41 PM ORYX DAILY TOBACCO PHOTO MANAGER RECEIVED [place] [facility] [place] [facility] Apr 15, 2018 06:41 PM ORYX DAILY TOBACCO MEDS REFUSED [facility] [place] [facility] Apr 15, 2018 02:41 PM CURRENT SMOKER [facility] [place] [facility] March 12, 2018 11:20 AM CURRENT SMOKER [facility] [place] [facility] March 12, 2018 11:20 AM V1-PT NOT INTEREST ED IN QUIT TOBACCO USE [facility] [place] [facility] Apr 10, 2016 09:03 AM TOBACCO INPATIENT DESIRES MEDS [facility] [place] [facility] Jan 28, 2016 12:53 PM TOBACCO INPATIENT DESIRES MEDS [facility] [place] [facility] Oct 21, 2015 05:16 PM TOBACCO INPATIENT DESIRES MEDS [facility] [place] [facility] Jul 13, 2015 11:06 PM TOBACCO INPATIENT DECLINES MEDS [facility] [place] [facility] Dec 13, 2014 08:26 PM TOBACCO INPATIENT DECLINES MEDS [facility] [place] [facility] Dec 13, 2014 07:39 PM CURRENT SMOKER [facility] [place] [facility] Dec 13, 2014 07:39 PM V1-PT NOT INTEREST ED IN QUIT TOBACCO USE [facility] [place] [facility] Advance Directives: All historical and current Section Date Range: From patient's date of to the date document was created. This section includes ALL of a patient's completed or amended [place] Advance and Rescinded Directives. The entries below indicate that a directive exists for the patient, but an actual copy is not included with this document. The data comes from all [place] facilities. Date Advance Directives Provider Source Sep 13, 2019 ADVANCE DIRECTIVE JOSE MANUEL [facility] Oct 03, 2017 ADVANCE DIRECTIVE DAGMAR THAKUR [facility] Feb 07, 2016 ADVANCE DIRECTIVE SOFIE POLANCO [facility] Jan 20, 2015 ADVANCE DIRECTIVE DISCUSSION FLORINA COLON [facility] Encounter Notes: All associated encounter notes This section contains the clinical notes associated to the Encounter. Date/Time Encounter Note(s) Provider Source Dec 07, 2024 10:10 AM MENTAL HEALTH COUNSELING NOTE: LOCAL TITLE: PEER SUPPORT NOTE STANDARD TITLE: MENTAL HEALTH COUNSELING NOTE DATE OF NOTE: DEC 07, 2024@10:10 ENTRY DATE: DEC 07, 2024@10:26:09 AUTHOR: KADEEM MARMOLEJO EXP COSIGNER: URGENCY: STATUS: COMPLETED Peer Support Note Purpose/Focus: telephonic check in Date: 12/07/2024 Time: 1530 hours Length: 15 minutes Author: Kadeem Marmolejo M.Ed., CPS 1 to 1 CHECK IN Please check/complete as applies: [X]Telephoned Directly [ ]Re-scheduled for next available appt [ ]Sent a N0-show letter ( must call for appointment) [ ]Other (Emergent/Overbook, etc.): INFORMED CONSENT: [place] informed of the risks and benefits of Telehealth video care. has the right to refuse video services. If refuses video visit, a [id number] visit will be scheduled. verbalized consent for this video visit: Yes Additional Comments: met telephonally with 44-year-old male outpatient for peer support. Devoted time towards reviewing the events of the past week and check in with cravings and coping strategies. Reviewed section one of the WRAP Plan covering wellness tools. 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
--- OUTSIDE RECORDS SUMMARY | 2024-12-28 08:04 | XMS_ITS | Encounter Summary ---
Author Name [facility] [place] [facility] [place] Address [address] [place] [address] Care Team Providers Care Meat Seafood Associate Name Role Phone KERRIE KNIGHT Primary Care [...] PART B February 17, 2017 PART B [id number] MARY ESPINO PATIENT MEDICARE (WNR) MEDICARE (M) PART A February 17, 2017 PART A [id number] MARY ESPINO PATIENT MEDICARE (WNR) MEDICARE (M) PART A February 17, 2017 PART A [id number] [facility] CIMINI,DA [place] PATIENT MEDICARE (WNR) MEDICARE (M) PART A February 17, 2017 PART A [id number] CIMINI,MARY [place] PATIENT MEDICARE (WNR) MEDICARE (M) PART B February 17, 2017 PART B [id number] [phone] CIMINI,MARY [place] PATIENT MEDICARE (WNR) MEDICARE (M) PART A February 17, 2017 PART A [id number] CIMINI,MARY [place] PATIENT MEDICARE (WNR) MEDICARE (M) PART A February 17, 2017 PART A [id number] [phone] CIMINI,DA [place] PATIENT MEDICARE (WNR) MEDICARE (M) PART B February 17, 2017 PART B [id number] [phone] CIMINI,MARY [place] PATIENT MEDICARE (WNR) MEDICARE (M) PART A February 17, 2017 PART A [id number] JASMINAINI,MARY [place] PATIENT MEDICARE (WNR) MEDICARE (M) PART B February 17, 2017 PART B [id number] CIMINI,DA [place] PATIENT MEDICARE (WNR) MEDICARE (M) PART A February 17, 2017 PART A [id number] CIMINI,MARY [place] PATIENT MEDICARE (WNR) MEDICARE (M) PART B February 17, 2017 PART B [id number] JASMINAINIMARY PATIENT Selected Encounter This section includes the information on record at [place] for the Encounter. 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 This section includes future appointments and future orders which are active, pending or scheduled. Future Appointments This section includes appointments that were scheduled to occur 6 months from the date of the Encounter, up to a maximum of 20 appointments. The data comes from all [place] treatment facilities. Appointment Date/Time Appointment Type Appointme nt Facility Name Jul 13, 2024 09:00 AM AMBULATORY - PSYCHIATRY [facility] [place] Jul 16, 2024 09:05 AM AMBULATORY - MEDICINE [facility] Jul 18, 2024 07:45 PM AMBULATORY - MEDICINE [facility] Jul 20, 2024 09:00 AM AMBULATORY - PSYCHIATRY [facility] Jul 22, 2024 09:30 AM AMBULATORY - PSYCHIATRY [facility] Jul 27, 2024 09:00 AM AMBULATORY - PSYCHIATRY [facility] Aug 03, 2024 09:00 AM AMBULATORY - PSYCHIATRY [facility] Aug 10, 2024 09:00 AM AMBULATORY - PSYCHIATRY [facility] Aug 17, 2024 09:00 AM AMBULATORY - PSYCHIATRY [facility] Aug 24, 2024 09:00 AM AMBULATORY - PSYCHIATRY [facility] Aug 26, 2024 10:30 AM AMBULATORY - PSYCHIATRY [facility] Aug 31, 2024 09:00 AM AMBULATORY - PSYCHIATRY [facility] Sep 01, 2024 08:00 AM AMBULATORY - REHAB MEDICIN E [facility] [place] Sep 07, 2024 09:00 AM AMBULATORY - PSYCHIATRY [facility] Sep 14, 2024 09:00 AM AMBULATORY - PSYCHIATRY [facility] Sep 22, 2024 01:00 PM AMBULATORY - PSYCHIATRY [facility] Sep 28, 2024 10:00 AM AMBULATORY - PSYCHIATRY [facility] Sep 29, 2024 01:00 PM AMBULATORY - PSYCHIATRY [facility] Sep 30, 2024 09:30 AM AMBULATORY - PSYCHIATRY [facility] [place] Oct 05, 2024 10:00 AM AMBULATORY - PSYCHIATRY [facility] [place] Active, Pending, and Scheduled Orders This section includes a listing of several types of active, pending, and scheduled orders, including clinic medications orders, diagnostic test orders, procedure orders and consult orders; where the start date of the order is 45 days before the date of the Encounter or 45 days after the date of theEncounter. The data comes from all [place] treatment facilities. Test Date/Time Test Type Test Details Facility Name Jul 01, 2024 06:46 AM Consult Order COMMUNITY CARE-COLONOSCOPY SCREENING Cons Public Health Technologist's Choice [facility] [place] [facility] Jul 22, 2024 12:54 PM Consult Order COMMUNITY [facility] Cons Public Health Technologist's Choice [facility] [place] Lab Results: +/- 30 days of the encounter This section includes the Chemistry and Hematology Lab Results on record with [place] for the patient. Radiology Reports and Pathology Reports are provided separately, in subsequent sections. Lab Results This section contains the Chemistry/Hematology Results that were resulted 30 days before or 30 daysafter the date of the Encounter. Date/Time Source Result Type Result - Unit Interpretation Reference Range Comment Jun 11, 2024 12:51 PM [facility] HEPATITIS B SURFACE ANTIBODY (HBsAb)-WH Specimen Type: SERUM No comment entered. Ordering Provider: KAMLA KNIGHT Report Released Date/Time: May 31, 2024 09:45 AM Reporting Lab: [facility] [address] [facility] [id number] Performing Lab: [address] [address] HBsAb Non Reactive Non Reactive Jun 11, 2024 12:51 PM [facility] LIPID PANEL, NON FASTING Specimen Type: SERUM No comment entered. Ordering Provider: KAMLA KNIGHT Report Released Date/Time: May 31, 2024 09:45 AM Reporting Lab: [address] [address] Performing Lab: [address] [address] CHOLESTEROL 212 mg/dL H TRIGLYCERIDE 124 mg/dL 0-150 LDL calculated 152 mg/dL H 0-129 CHOL/HDL 6.1 HDL CHOLESTEROL 35 mg/dL L 40-60 Jun 11, 2024 12:51 PM [facility] LIVER FUNCTION Specimen Type: SERUM No comment entered. Ordering Provider: KAMLA KNIGHT Report Released Date/Time: May 31, 2024 09:45 AM Reporting Lab: [address] [address] Performing Lab: [address] [address] PROTEIN,TOTAL 7.4 g/dL 6.0-8.3 ALBUMIN 4.5 g/dL 3.5-5.0 ALKALINE PHOSPHATASE 38 U/L L 40-150 AST 13 U/L 5-34 ALT 11 U/L BILIRUBIN, TOTAL 0.7 mg/dL 0.2-1.2 Jun 11, 2024 12:51 PM [facility] CBC Specimen Type: BLOOD No comment entered. Ordering Provider: KAMLA KNIGHT Report Released Date/Time: May 31, 2024 09:45 AM Reporting Lab: [facility] [address] [facility] [address] Performing Lab: [address] [address] WBC 5.98 10*3/uL 4.50-11.00 RBC 4.60 10*6/uL 4.23-5.66 HGB 13.9 g/dL 12.8-17 HCT 40.5 39.2-50.4 MCV 88.0 fL 82-99 MCHC 34.3 g/dL 30.8-35.1 PLT 190 10*3/uL 140-360 RDW-CV 13.5 12.0-16.0 MCH 30.2 pg 26.2-32.6 Jun 11, 2024 12:51 PM [facility] BASIC METABOLIC PANEL (non-fasting) Specimen Type: SERUM No comment entered. Ordering Provider: KAMLA KNIGHT Report Released Date/Time: May 31, 2024 09:45 AM Reporting Lab: [address] [address] Performing Lab: [address] [address] UREA NITROGEN 16 mg/dL 7-25 GLUCOSE 86 [...] and tobacco- related health factors from the [place] facility where the Encounter took place. Current Smoking Status This section includes the most current smoking, or tobacco-related health factor, from the [place] facility where the Encounter took place. Date/Time Current Smoking Status Comment [facility] Oct 02, 2023 01:00 PM VA-TOBACCO USE WI 30 MIN OF WAKEUP [facility] Tobacco Use History This section includes a history of the smoking, or tobacco-related health factors, that were collected on or before the date of the Encounter. The data comes from the [place] facility where the Encounter took place. Date/Time Smoking Status/Tobacco Use Comment F acility Oct 02, 2023 01:00 PM VA-TOBACCO USE ADVICE [facility] Oct 02, 2023 01:00 PM VA-TOBACCO USE AFTERSCHOOL NO [facility] Oct 02, 2023 01:00 PM VA-TOBACCO USE MED NO [facility] Oct 02, 2023 01:00 PM VA-TOBACCO USE WI 30 MIN OF WAKEUP [facility] Oct 02, 2023 01:00 PM VA-TOBACCO USER EVERY DAY [facility] [place] Sep 10, 2022 05:31 PM VA-TOBACCO USE > 1 5 LESS THAN 30 YEARS [facility] [place] Sep 10, 2022 05:31 PM VA-TOBACCO USE ADVICE [facility] Sep 10, 2022 05:31 PM VA-TOBACCO USE AFTERSCHOOL NO [facility] Sep 10, 2022 05:31 PM VA-TOBACCO USE MED NO [facility] Sep 10, 2022 05:31 PM VA-TOBACCO USE WI 30 MIN OF WAKEUP [facility] Sep 10, 2022 05:31 PM VA-TOBACCO USER EVERY DAY [facility] Aug 26, 2020 03:33 PM 689 [facility] RE[facility] Aug 06, 2020 10:30 PM 689 [facility] Jul 10, 2020 07:38 PM 689 [facility] Jun 24, 2020 01:05 AM 689 [facility]PT RE[facility] Apr 14, 2020 06:45 AM 689 [facility]PT RE[facility] February 29, 2020 02:33 AM 689 [facility]PT REPORTS [facility] Jul 20, 2019 06:25 PM 689 INPT REPORTS S[facility]KING [facility] Mar 25, 2019 05:25 AM 689 INPT REPORTS SMO[facility] Apr 15, 2018 06:41 PM ORYX ADMIT TOBACCO SCREEN YES [facility] Apr 15, 2018 06:41 PM ORYX ADMIT TOBACCO USE CIGS GR 5D [facility] Apr 15, 2018 06:41 PM ORYX DAILY TOBACCO AFTERSCHOOL RECEIVED [facility] Apr 15, 2018 06:41 PM ORYX DAILY TOBACCO MEDS REFUSED [facility] Apr 15, 2018 02:41 PM CURRENT SMOKER [facility] [place] March 12, 2018 11:20 AM CURRENT SMOKER [facility] March 12, 2018 11:20 AM V1-PT NOT INTEREST ED IN QUIT TOBACCO USE [facility] Apr 10, 2016 09:03 AM [facility] Jan 28, 2016 12:53 PM TOBACCO INPATIENT DESIRES MEDS [facility] Oct 21, 2015 05:16 PM TOBACCO INPATIENT DESIRES MEDS [facility] Jul 13, 2015 11:06 PM TOBACCO INPATIENT DECLINES MEDS [facility] Dec 13, 2014 08:26 PM TOBACCO INPATIENT DECLINES MEDS [facility] Dec 13, 2014 07:39 PM CURRENT SMOKER [facility] Dec 13, 2014 07:39 PM V1-PT NOT INTEREST ED IN QUIT TOBACCO USE [facility] Advance Directives: All historical and current Section Date Range: From patient's date of to the date document was created. This section includes ALL of a patient's completed or amended [place] Advance and Rescinded Directives. The entries below indicate that a directive exists for the patient, but an actual copy is not included with this document. The data comes from all [place] facilities. Date Advance Directives Provider Source Sep 13, 2019 ADVANCE DIRECTIVE JOSE MANUEL RICO [facility] Oct 03, 2017 [facility] Feb 07, 2016 ADVANCE DIRECTIVE SOFIE POLANCO V [facility] Jan 20, 2015 ADVANCE DIRECTIVE DISCUSSION ISAIAHFLORINA MEEK CONDE [facility] Encounter Notes: All associated encounter notes This section contains the clinical notes associated to the Encounter. Date/Time Encounter Note(s) Provider Source Jul 06, 2024 09:00 AM MENTAL HEALTH COUNSELING NOTE: LOCAL TITLE: PEER SUPPORT NOTE STANDARD TITLE: MENTAL HEALTH COUNSELING NOTE DATE OF NOTE: JUL 06, 2024@09:00 ENTRY DATE: JUL 06, 2024@10:21:28 AUTHOR: KADEEM MARMOLEJO EXP COSIGNER: URGENCY: STATUS: COMPLETED PEER SUPPORT NOTE DATE: 07/06/2024 TIME: 0800 hours. TIME IN SESSION (in minutes): 15 minutes RETREAD MOLD OPERATOR: Kadeem Marmolejo M.Ed. [facility] PURPOSE/FOCUS: Peer Support Service, 1:1 Peer Mentoring, LOCATION: [facility], F2F CONTENT: met [facility] with 44-year-old male outpatient for peer support. Devoted time towards reviewing the events of the past week and reviewing section one of the WRAP Plan covering wellness tools. Spine Nurse noted that did not spend any time discussing a former fiancee nor the pain from the relationship. focused on their spiritual growth. identified with 2 identifiers: [X] Full Name [ ] Date of [ ] VA ID Card [X] Facial Recognition INFORMED CONSENT: [place] informed of the risks and benefits of Telehealth video care. [place] has the right to refuse video services. If refuses video visit, a fmcd-rp-avoc visit will be scheduled. verbalized consent for this video visit: Yes PEER INTERVENTIONS USED: Mutuality, Motivational Interviewing, Recovery Coaching RESPONSE: reporting being successful in the process of getting their drivers license restored with taking care of all the fines and fees for [place] and [place] they have a meeting this week to start the final processes with [place]. [place] shared the craving has gone down OBSERVED STRENGTHS: is sincere in recovery. PLAN: as needed PROCEDURE: F2F DIAGNOSES: Alcohol dependence ([facility] [id number], /es/ KADEEM MARMOLEJO Signed: 07/06/2024 10:28 KADEEM MARMOLEJO [facility]
--- OUTSIDE RECORDS SUMMARY | 2024-12-28 08:04 | XMS_ITS | Clinical Summary ---
Author Organization [facility] Address [address] [place] [address] Care Team Providers Care Gatekeeper Name Role Phone Unavailable Primary Care Provider [...] Advance Directives For more information, please contact: [phone] Latest Code Status on File Code Status [...]
--- OUTSIDE RECORDS SUMMARY | 2024-12-28 08:04 | XMS_ITS | Encounter Summary ---
Author Name [facility] [place] [facility] [place] [facility] [place] [facility] [place] Address [address] [place] [address] Care Team Providers Care Review Rn Name Role Phone KERRIE KNIGHT Primary Care [...] PART A February 17, 2017 PART A [id number] MARY ESPINO PATIENT MEDICARE (WNR) MEDICARE (M) PART B February 17, 2017 PART B [id number] MARY ESPINO PATIENT MEDICARE (WNR) MEDICARE (M) PART A February 17, 2017 PART A [id number] [facility] CIMINI,DA [place] PATIENT MEDICARE (WNR) MEDICARE (M) PART A February 17, 2017 PART A [id number] [phone] CIMINI,MARY [place] PATIENT MEDICARE (WNR) MEDICARE (M) PART B February 17, 2017 PART B [id number] JASMINAINI,MARY [place] PATIENT MEDICARE (WNR) MEDICARE (M) PART A February 17, 2017 PART A [id number] CIMINI,MARY [place] PATIENT MEDICARE (WNR) MEDICARE (M) PART A February 17, 2017 PART A [id number] CIMINI,DA [place] PATIENT MEDICARE (WNR) MEDICARE (M) PART B February 17, 2017 PART B [id number] [phone] [id number] JASMINAINI,MARY [place] PATIENT MEDICARE (WNR) MEDICARE (M) PART A February 17, 2017 PART A [id number] [phone] [id number] JASMINAINI,MARY [place] PATIENT MEDICARE (WNR) MEDICARE (M) PART B February 17, 2017 PART B [id number] CIMINI,DA [place] PATIENT MEDICARE (WNR) MEDICARE (M) PART A February 17, 2017 PART A [id number] [phone] [id number] JASMINAINI,MARY [place] PATIENT MEDICARE (WNR) MEDICARE (M) PART B February 17, 2017 PART B [id number] JASMINAINIMARY PATIENT Selected Encounter This section includes the information on record at [place] for the Encounter. Date/Time Encounter Type Encounter Description Reason Provider Source Jul 13, 2024 09:00 AM SELF-HELP/PEER SVC PER 15MIN SUBSTANCE USE DISORDER IND ICD-10-CM F29 Unsp psychosis not due to a substance or known physiol cond RAJESH MARMOLEJO E Encounter Template Text not used by [place] Assessments - Encounter Diagnoses This section includes the primary and secondary diagnoses documented for the Encounter. Date/Time Primary/Secondary Diagnosis Diagnosis Name Provider Source Jul 13, 2024 11:51 AM PRIMARY Unsp psychosis not due to a substance or known physiol cond [place]A MARMOLEJO [facility] [place] [facility] Jul 13, 2024 11:51 AM SECONDARY Alcohol dependence with other alcohol-induced disorder [place]A MARMOLEJO R [facility] [place] [facility] Jul 13, 2024 11:51 AM SECONDARY Attention-deficit hyperactivity disorder, unspecified type [place]A MARMOLEJO R [facility] [place] [facility] Jul 13, 2024 11:51 AM SECONDARY 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 AUGUSTA MARMOLEJO ALD R [facility] [place] [facility] Jul 13, 2024 11:51 AM SECONDARY Cocaine dependence, uncomplicated AUGUSTA MARMOLEJO ALD R [facility] [place] [facility] Jul 13, 2024 11:51 AM SECONDARY Nicotine dependence, cigarettes, uncomplicated AUGUSTA MARMOLEJO ALD R [facility] [place] [facility] Jul 13, 2024 11:51 AM SECONDARY Other recurrent depressive disorders AUGUSTA MARMOLEJO R [facility] [place] [facility] Jul 13, 2024 11:51 AM SECONDARY Post-traumatic stress disorder, chronic AUGUSTA MARMOLEJO ALD R [facility] [place] [facility] Plan of Treatment: Future Appointments (+ 6 months) and Future Tests (+/- 45 days) The Plan of Treatment section includes future care activities for the patient from all [place] [facility]. This section includes future appointments and future orders which are active, pending or scheduled. Future Appointments This section includes appointments that were scheduled to occur 6 months from the date of the Encounter, up to a maximum of 20 appointments. The data comes from all [place] treatment facilities. Appointment Date/Time Appointment Type Appointme nt Facility Name Jul 16, 2024 09:05 AM AMBULATORY - MEDICINE [place] [facility] [place] [facility] Jul 18, 2024 07:45 PM AMBULATORY - MEDICINE [place] [facility] [place] [facility] Jul 20, 2024 09:00 AM AMBULATORY - PSYCHIATRY [facility] [place] [facility] Jul 22, 2024 09:30 AM AMBULATORY - PSYCHIATRY [facility] [place] [facility] Jul 27, 2024 09:00 AM AMBULATORY - PSYCHIATRY [facility] [place] [facility] Aug 03, 2024 09:00 AM AMBULATORY - PSYCHIATRY [facility] [place] [facility] Aug 10, 2024 09:00 AM AMBULATORY - PSYCHIATRY [facility] [place] [facility] Aug 17, 2024 09:00 AM AMBULATORY - PSYCHIATRY [facility] [place] [facility] Aug 24, 2024 09:00 AM AMBULATORY - PSYCHIATRY [facility] [place] [facility] Aug 26, 2024 10:30 AM AMBULATORY - PSYCHIATRY [facility] [place] [facility] Aug 31, 2024 09:00 AM AMBULATORY - PSYCHIATRY [facility] [place] [facility] Sep 01, 2024 08:00 AM AMBULATORY - REHAB MEDICIN E [facility] [place] [facility] Sep 07, 2024 09:00 AM AMBULATORY - PSYCHIATRY [facility] [place] [facility] Sep 14, 2024 09:00 AM AMBULATORY - PSYCHIATRY [facility] [place] [facility] Sep 22, 2024 01:00 PM AMBULATORY - PSYCHIATRY [facility] [place] [facility] Sep 28, 2024 10:00 AM AMBULATORY - PSYCHIATRY [facility] [place] [facility] Sep 29, 2024 01:00 PM AMBULATORY - PSYCHIATRY [facility] [place] [facility] Sep 30, 2024 09:30 AM AMBULATORY - PSYCHIATRY [facility] [place] [facility] Oct 05, 2024 10:00 AM AMBULATORY - PSYCHIATRY [facility] [place] [facility] Oct 06, 2024 01:00 PM AMBULATORY - PSYCHIATRY [facility] [place] [facility] Active, Pending, and Scheduled Orders This section includes a listing of several types of active, pending, and scheduled orders, including clinic medications orders, diagnostic test orders, procedure orders and consult orders; where the start date of the order is 45 days before the date of the Encounter or 45 days after the date of theEncounter. The data comes from all [place] treatment facilities. Test Date/Time Test Type Test Details Facility Name Jul 01, 2024 06:46 AM Consult Order COMMUNITY CARE-COLONOSCOPY SCREENING Cons Hide Handler's Choice [facility] [place] [facility] Jul 22, 2024 12:54 PM Consult Order COMMUNITY CARE-DENTAL SPECIALTY Cons Hide Handler's Choice [facility] [place] [facility] Social History: Smoking Status (Most current) and Tobacco Use (All prior to encounter date) This section includes the most current, and the historical, smoking and tobacco- related health factors from the [place] facility where the Encounter took place. Current Smoking Status This section includes the most current smoking, or tobacco-related health factor, from the [place] facility where the Encounter took place. Date/Time Current Smoking Status Comment Facil ity Oct 02, 2023 01:00 PM VA-TOBACCO USE WI 30 MIN OF WAKEUP [facility] [place] [facility] Tobacco Use History This section includes a history of the smoking, or tobacco-related health factors, that were collected on or before the date of the Encounter. The data comes from the [place] facility where the Encounter took place. 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 [facility] [place] [facility] Oct 02, 2023 01:00 PM VA-TOBACCO USE MED NO [facility] [place] [facility] Oct 02, 2023 01:00 PM VA-TOBACCO USE WI 30 MIN OF WAKEUP [facility] [place] [facility] Oct 02, 2023 01:00 PM VA-TOBACCO USER EVERY DAY [facility] [place] [facility] Sep 10, 2022 05:31 PM VA-TOBACCO USE > 1 5 LESS THAN 30 YEARS [facility] [place] [facility] Sep 10, 2022 05:31 PM VA-TOBACCO USE ADVICE [facility] [place] [facility] Sep 10, 2022 05:31 PM 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 [facility] [place] [facility] Sep 10, 2022 05:31 PM VA-TOBACCO USE MED NO [facility] [place] [facility] Sep 10, 2022 05:31 PM VA-TOBACCO USE WI 30 MIN OF WAKEUP [facility] [place] [facility] Sep 10, 2022 05:31 PM VA-TOBACCO USER EVERY DAY [facility] [place] [facility] Aug 26, 2020 03:33 PM 689 INPT REPORTS SMOKING [facility] Aug 06, 2020 10:30 PM 689 INPT REPORTS SMOKING [facility] Jul 10, 2020 07:38 PM 689 INPT REPORTS SMOKING [facility] Jun 24, 2020 01:05 AM 689 INPT REPORTS SMOKING [facility] Apr 14, 2020 06:45 AM 689 INPT REPORTS SMOKING [facility] February 29, 2020 02:33 AM 689 INPT REPORTS SMOKING [facility] Jul 20, 2019 06:25 PM 689 INPT REPORTS SMOKING [facility] Mar 25, 2019 05:25 AM 689 INPT REPORTS SMOKING [facility] Apr 15, 2018 06:41 PM ORYX ADMIT TOBACCO SCREEN YES [facility] [place] [facility] Apr 15, 2018 06:41 PM ORYX ADMIT TOBACCO USE CIGS GR 5D [facility] [place] [facility] Apr 15, 2018 06:41 PM ORYX DAILY 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 [facility] [place] [facility] Apr 15, 2018 06:41 PM ORYX DAILY TOBACCO MEDS REFUSED [facility] [place] [facility] Apr 15, 2018 02:41 PM CURRENT SMOKER [facility] [place] [facility] March 12, 2018 11:20 AM CURRENT SMOKER [facility] [place] [facility] March 12, 2018 11:20 AM V1-PT NOT INTEREST ED IN QUIT TOBACCO USE [facility] [place] [facility] Apr 10, 2016 09:03 AM TOBACCO INPATIENT DESIRES MEDS [facility] [place] [facility] Jan 28, 2016 12:53 PM TOBACCO INPATIENT DESIRES MEDS [facility] [place] [facility] Oct 21, 2015 05:16 PM TOBACCO INPATIENT DESIRES MEDS [facility] [place] [facility] Jul 13, 2015 11:06 PM TOBACCO INPATIENT DECLINES MEDS [facility] [place] [facility] Dec 13, 2014 08:26 PM TOBACCO INPATIENT DECLINES MEDS [facility] [place] [facility] Dec 13, 2014 07:39 PM CURRENT SMOKER [facility] [place] [facility] Dec 13, 2014 07:39 PM V1-PT NOT INTEREST ED IN QUIT TOBACCO USE [facility] [place] [facility] Advance Directives: All historical and current Section Date Range: From patient's date of to the date document was created. This section includes ALL of a patient's completed or amended [place] Advance and Rescinded Directives. The entries below indicate that a directive exists for the patient, but an actual copy is not included with this document. The data comes from all [place] facilities. Date Advance Directives Provider Source Sep 13, 2019 ADVANCE DIRECTIVE JOSE MANUEL R[facility] Oct 03, 2017 ADVANCE DIRECTIVE DAGMAR THAKUR [facility] Feb 07, 2016 ADVANCE DIRECTIVE SOFIE POLANCO [facility] Jan 20, 2015 ADVANCE DIRECTIVE DISCUSSION FLORINA COLON [facility] Encounter Notes: All associated encounter notes This section contains the clinical notes associated to the Encounter. Date/Time Encounter Note(s) Provider Source Jul 21, 2024 10:29 AM MENTAL HEALTH COUNSELING NOTE: LOCAL TITLE: PEER SUPPORT NOTE STANDARD TITLE: MENTAL HEALTH COUNSELING NOTE DATE OF NOTE: JUL 21, 2024@10:29:47 ENTRY DATE: JUL 21, 2024@10:29:47 AUTHOR: KADEEM MARMOLEJO COSIGNER: URGENCY: STATUS: COMPLETED Assessments were sent to the via text/email. These assessments were completed by TOMI ESPINO on their own device on 07/21/2024 1:27:50 AM. BRIEF ADDICTION MONITOR-INTENSIVE OUTPATIENT TREATMENT (BAM-IOP) Patient reported the following over the last 7 days: 1. Physical health: Good 2. Nights trouble falling asleep or staying asleep: One night 3. Days depressed, anxious, angry or very upset: One day 4. Days drank ANY alcohol: None 5. Days drank at least 5/4 drinks (male/female): N/A 6. Days used any illegal/street drugs or abused any prescription medications: None 7. Days used: a. Marijuana (cannabis, pot, weed): N/A b. Sedatives/Tranquilizers: N/A c. Cocaine/Crack: N/A d. Other stimulants: N/A e. Opiates: N/A f. Inhalants: N/A g. Other drugs: N/A 8. Bothered by cravings or urges to drink alcohol/use drugs: Slightly 9. Confidence in ability to be abstinent in the next 30 days: Extremely 10. Days attended self-help meetings (AA or NA): Two days 11. Days in any situations that might have increased risk for using alcohol/drugs: None 12. Buddhist or spirituality supports recovery: Extremely 13. Days with much of the time spent at work, school, or volunteering: One day 14. Enough income (from legal sources) to pay for necessities: Yes 15. Bothered by arguments or problems getting along with family/friends: Not at all 16. Days in contact with family/friends supportive of recovery: Four or more days 17. Satisfied with progress toward achieving recovery goals: Extremely BAM Subscales: USE: 0 Scores range from 0 to 12, >1 suggests need for clinical attention RISK: 5 Scores range from 0 to 24, High (>12) or rising scores suggest need for clinical attention PROTECTION: 19 Scores range from 0 to 24, Low (<12) or decreasing scores suggest need for clinical attention BAM-IOP Risk (past 180 days): 07/21/2024 5 07/14/2024 5 06/29/2024 9 06/01/2024 6 05/25/2024 5 05/18/2024 8 BAM-IOP Protective (past 180 days): 07/21/2024 19 07/14/2024 17 06/29/2024 18 06/01/2024 20 05/25/2024 21 05/18/2024 20 BAM-IOP Use (past 180 days): 07/21/2024 0 07/14/2024 0 06/29/2024 0 06/01/2024 0 05/25/2024 0 05/18/2024 0 /cindy/ KADEEM MARMOLEJO Signed: 07/22/2024 08:47 KADEEM MARMOLEJO [facility] [place] [facility] Jul 19, 2024 08:20 AM MENTAL HEALTH COUNSELING NOTE: LOCAL TITLE: PEER SUPPORT NOTE STANDARD TITLE: MENTAL HEALTH COUNSELING NOTE DATE OF NOTE: JUL 19, 2024@08:20:22 ENTRY DATE: JUL 19, 2024@08:20:22 AUTHOR: KADEEM MARMOLEJOIGNER: URGENCY: STATUS: COMPLETED Assessments were sent to the [place] via text/email. These assessments were completed by TOMI ESPINO on their own device on 07/14/2024 8:32:42 AM. BRIEF ADDICTION MONITOR-INTENSIVE OUTPATIENT TREATMENT (BAM-IOP) Patient reported the following over the last 7 days: 1. Physical health: Good 2. Nights trouble falling asleep or staying asleep: None 3. Days depressed, anxious, angry or very upset: Two days 4. Days drank ANY alcohol: None 5. Days drank at least 5/4 drinks (male/female): N/A 6. Days used any illegal/street drugs or abused any prescription medications: None 7. Days used: a. Marijuana (cannabis, pot, weed): N/A b. Sedatives/Tranquilizers: N/A c. Cocaine/Crack: N/A d. Other stimulants: N/A e. Opiates: N/A f. Inhalants: N/A g. Other drugs: N/A 8. Bothered by cravings or urges to drink alcohol/use drugs: Slightly 9. Confidence in ability to be abstinent in the next 30 days: Extremely 10. Days attended self-help meetings (AA or NA): Three days 11. Days in any situations that might have increased risk for using alcohol/drugs: None 12. Buddhist or spirituality supports recovery: Extremely 13. Days with much of the time spent at work, school, or volunteering: None 14. Enough income (from legal sources) to pay for necessities: Yes 15. Bothered by arguments or problems getting along with family/friends: Not at all 16. Days in contact with family/friends supportive of recovery: Two days 17. Satisfied with progress toward achieving recovery goals: Extremely BAM Subscales: USE: 0 Scores range from 0 to 12, >1 suggests need for clinical attention RISK: 5 Scores range from 0 to 24, High (>12) or rising scores suggest need for clinical attention PROTECTION: 17 Scores range from 0 to 24, Low (<12) or decreasing scores suggest need for clinical attention BAM-IOP Risk (past 180 days): 07/14/2024 5 06/29/2024 9 06/01/2024 6 05/25/2024 5 05/18/2024 8 BAM-IOP Protective (past 180 days): 07/14/2024 17 06/29/2024 18 06/01/2024 20 05/25/2024 21 05/18/2024 20 BAM-IOP Use (past 180 days): 07/14/2024 0 06/29/2024 0 06/01/2024 0 05/25/2024 0 05/18/2024 0 /es/ KADEEM MARMOLEJO Signed: 07/21/2024 10:25 KADEEM MARMOLEJO [facility] Jul 13, 2024 11:44 AM MENTAL HEALTH COUNSELING NOTE: LOCAL TITLE: PEER SUPPORT NOTE STANDARD TITLE: MENTAL HEALTH COUNSELING NOTE DATE OF NOTE: JUL 13, 2024@11:44 ENTRY DATE: JUL 13, 2024@11:44:21 AUTHOR: KADEEM MARMOLEJO EXP COSIGNER: URGENCY: STATUS: COMPLETED PEER SUPPORT NOTE DATE: 07/13/2024 TIME: 0800 hours. TIME IN SESSION (in minutes): 15 minutes LOGISTICS SUPPORT: Kadeem Marmolejo M.Ed., [facility] PURPOSE/FOCUS: Peer Support Service, 1:1 Peer Mentoring, LOCATION: [facility], [facility] CONTENT: met [facility] with 44-year-old male outpatient for peer support. [place] has been doing well into recovery with no relapses for 4 months and is living alone in the home but has daily [facility] connection with close family members. 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 [place] stay deeply connected with their spirituality that is wrking effectively in their recovery effort. spoke noticeably less about their ex-fiancee and is recognizing the the affect on others around him and not focused on own experiences. is becoming more empathic to others plights. [place] identified with 2 identifiers: [X] Full Name [ ] Date of [ ] [place] ID Card [X] Facial Recognition INFORMED CONSENT: informed of the risks and benefits of Telehealth video care. has the right to refuse video services. If refuses video visit, a riet-iy-ieaw visit will be scheduled. [place] verbalized consent for this video visit: Yes PEER INTERVENTIONS USED: Mutuality, Motivational Interviewing, Recovery Coaching RESPONSE: [place] reporting being pleased with noticing that cravings are becoming less fequent and powerful. Realizes they are still early in recovery and will need months of hard efforts ahead. OBSERVED STRENGTHS: is sincere in recovery. 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) - Cocaine dependence with cocaine-induced psychotic disorder with delusions (ICD-10-CM F14.250) Nicotine dependence (SCT 38752009) - Nicotine dependence, cigarettes, uncomplicated (ICD-10-CM F17.210) Adult attention deficit hyperactivity disorder (SCT 503742142) - Attention- deficit hyperactivity disorder, unspecified type (ICD-10-CM F90.9) Posttraumatic stress disorder (SCT 07248740) - Post-traumatic stress disorder, chronic (ICD-10-CM F43.12) Alcohol dependence (SCT 42167941) - Alcohol dependence with other alcohol- induced disorder (ICD-10-CM F10.288) 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
--- OUTSIDE RECORDS SUMMARY | 2024-12-28 08:04 | XMS_ITS | Encounter Summary ---
Author Name [facility] [place] [facility] [place] [facility] [facility] [place] Address [address] [place] [address] Care Team Providers Care Learning Support Aide Name Role Phone KERRIE KNIGHT Primary Care [...] PART A February 17, 2017 PART A [id number] MARY ESPINO PATIENT MEDICARE (WNR) MEDICARE (M) PART B February 17, 2017 PART B [id number] MARY ESPINO PATIENT MEDICARE (WNR) MEDICARE (M) PART A February 17, 2017 PART A [id number] MARY ESPINO PATIENT MEDICARE (WNR) MEDICARE (M) PART A February 17, 2017 PART A [id number] CIMINI,MARY [place] PATIENT MEDICARE (WNR) MEDICARE (M) PART B February 17, 2017 PART B [id number] CIMINI,MARY [place] PATIENT MEDICARE (WNR) MEDICARE (M) PART A February 17, 2017 PART A [id number] CIMINI,MARY [place] PATIENT MEDICARE (WNR) MEDICARE (M) PART A February 17, 2017 PART A [id number] [phone] [id number] CIMINI,DA [place] PATIENT MEDICARE (WNR) MEDICARE (M) PART B February 17, 2017 PART B [id number] [phone] [id number] CIMINI,MARY [place] PATIENT MEDICARE (WNR) MEDICARE (M) PART A February 17, 2017 PART A [id number] [phone] [id number] JASMINAINI,MARY [place] PATIENT MEDICARE (WNR) MEDICARE (M) PART B February 17, 2017 PART B [id number] CIMINI,MARY [place] PATIENT MEDICARE (WNR) MEDICARE (M) PART B February 17, 2017 PART B [id number] [id number] JASMINAINI,MARY [place] PATIENT MEDICARE (WNR) MEDICARE (M) PART A February 17, 2017 PART A [id number] [id number] JASMINAINIMARY PATIENT Selected Encounter This section includes the information on record at [place] for the Encounter. 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 This section includes future appointments and future orders which are active, pending or scheduled. Future Appointments This section includes appointments that were scheduled to occur 6 months from the date of the Encounter, up to a maximum of 20 appointments. The data comes from all [place] treatment facilities. Appointment Date/Time Appointment Type Appointme nt Facility Name Nov 03, 2024 01:00 PM AMBULATORY - PSYCHIATRY [facility] [place] [facility] Nov 10, 2024 01:00 PM AMBULATORY - PSYCHIATRY [facility] [place] [facility] Nov 16, 2024 10:00 AM AMBULATORY - PSYCHIATRY [facility] [place] [facility] Nov 17, 2024 01:00 PM AMBULATORY - PSYCHIATRY [facility] [place] [facility] Nov 23, 2024 09:00 AM AMBULATORY - NONE [facility] [place] [facility] Nov 23, 2024 10:00 AM AMBULATORY - PSYCHIATRY [facility] [place] [facility] Nov 24, 2024 01:00 PM AMBULATORY - PSYCHIATRY [facility] [place] [facility] Nov 25, 2024 09:30 AM AMBULATORY - PSYCHIATRY [facility] [place] [facility] Nov 30, 2024 10:00 AM AMBULATORY - PSYCHIATRY [facility] [place] [facility] Nov 30, 2024 11:40 AM AMBULATORY - MEDICINE [place] [facility] [place] [facility] Dec 13, 2024 09:00 AM AMBULATORY - NONE [facility] [place] [facility] Dec 14, 2024 03:10 PM AMBULATORY - MEDICINE [place] [facility] [place] [facility] Dec 16, 2024 09:30 AM AMBULATORY - MEDICINE [place] [facility] [place] [facility] Dec 30, 2024 09:15 AM AMBULATORY - NONE [facility] [place] [facility] Jan 13, 2025 09:00 AM AMBULATORY - PSYCHIATRY [facility] [place] [facility] Active, Pending, and Scheduled Orders This section includes a listing of several types of active, pending, and scheduled orders, including clinic medications orders, diagnostic test orders, procedure orders and consult orders; where the start date of the order is 45 days before the date of the Encounter or 45 days after the date of theEncounter. The data comes from all [place] treatment facilities. Test Date/Time Test Type Test Details Facility Name Sep 29, 2024 12:56 PM Consult Order [facility] Cons Clinical Dietitian's Choice [facility] [place] [facility] Dec 03, 2024 11:49 AM Consult Order [facility] Cons Clinical Dietitian's Choice [place] [facility] [place] [facility] Social History: Smoking Status (Most current) and Tobacco Use (All prior to encounter date) This section includes the most current, and the historical, smoking and tobacco- related health factors from the [place] facility where the Encounter took place. Current Smoking Status This section includes the most current smoking, or tobacco-related health factor, from the [place] facility where the Encounter took place. Date/Time Current Smoking Status Comment Facil ity Oct 02, 2023 01:00 PM VA-TOBACCO USER EVERY DAY [place] [facility] [place] [facility] Tobacco Use History This section includes a history of the smoking, or tobacco-related health factors, that were collected on or before the date of the Encounter. The data comes from the [place] facility where the Encounter took place. 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 [facility] [place] [facility] Oct 02, 2023 01:00 PM VA-TOBACCO USE MED NO [facility] [place] [facility] Oct 02, 2023 01:00 PM VA-TOBACCO USE WI 30 MIN OF WAKEUP [facility] [place] [facility] Oct 02, 2023 01:00 PM VA-TOBACCO USER EVERY DAY [facility] [place] [facility] Sep 10, 2022 05:31 PM VA-TOBACCO USE > 1 5 LESS THAN 30 YEARS [facility] [place] [facility] Sep 10, 2022 05:31 PM VA-TOBACCO USE ADVICE [facility] [place] [facility] Sep 10, 2022 05:31 PM 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 [facility] [place] [facility] Sep 10, 2022 05:31 PM VA-TOBACCO USE MED NO [facility] [place] [facility] Sep 10, 2022 05:31 PM VA-TOBACCO USE WI 30 MIN OF WAKEUP [facility] [place] [facility] Sep 10, 2022 05:31 PM VA-TOBACCO USER EVERY DAY [facility] [place] [facility] Aug 26, 2020 03:33 PM [facility] Aug 06, 2020 10:30 PM [facility] Jul 10, 2020 07:38 PM [facility] Jun 24, 2020 01:05 AM [facility] Apr 14, 2020 06:45 AM 6[facility] February 29, 2020 02:33 AM 689 INPT REPORTS SMOKING [facility] Jul 20, 2019 06:25 PM 689 [facility] Mar 25, 2019 05:25 AM 689 [facility] Apr 15, 2018 06:41 PM ORYX ADMIT TOBACCO SCREEN YES [facility] [place] [facility] Apr 15, 2018 06:41 PM ORYX ADMIT TOBACCO USE CIGS GR 5D [facility] [place] [facility] Apr 15, 2018 06:41 PM ORYX 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 [facility] [place] [facility] Apr 15, 2018 06:41 PM ORYX DAILY TOBACCO MEDS REFUSED [facility] [place] [facility] Apr 15, 2018 02:41 PM CURRENT SMOKER [facility] [place] [facility] March 12, 2018 11:20 AM CURRENT SMOKER [facility] [place] [facility] March 12, 2018 11:20 AM V1-PT NOT INTEREST ED IN QUIT TOBACCO USE [facility] [place] [facility] Apr 10, 2016 09:03 AM TOBACCO INPATIENT DESIRES MEDS [facility] [place] [facility] Jan 28, 2016 12:53 PM TOBACCO INPATIENT DESIRES MEDS [facility] [place] [facility] Oct 21, 2015 05:16 PM TOBACCO INPATIENT DESIRES MEDS [facility] [place] [facility] Jul 13, 2015 11:06 PM TOBACCO INPATIENT DECLINES MEDS [facility] Dec 13, 2014 08:26 PM [facility] Dec 13, 2014 07:39 PM CURRENT SMOKER [facility] Dec 13, 2014 07:39 PM V1-PT NOT INTEREST ED IN QUIT TOBACCO USE [facility] Advance Directives: All historical and current Section Date Range: From patient's date of to the date document was created. This section includes ALL of a patient's completed or amended [place] Advance and Rescinded Directives. The entries below indicate that a directive exists for the patient, but an actual copy is not included with this document. The data comes from all [place] facilities. Date Advance Directives Provider Source Sep 13, 2019 ADVANCE DIRECTIVE JOSE MANUEL [facility] Oct 03, 2017 ADVANCE DIRECTIVE [facility]AGMAR [facility]UR [facility] Feb 07, 2016 ADVANCE DIRECTIVE SOFIE POLANCO [facility] Jan 20, 2015 ADVANCE DIRECTIVE DISCUSSION FLORINA COLON CON[facility] Encounter Notes: All associated encounter notes This section contains the clinical notes associated to the Encounter. Date/Time Encounter Note(s) Provider Source Oct 27, 2024 03:03 PM MENTAL HEALTH OUTR EACH NOTE: LOCAL TITLE: JUSTICE OUTREACH PROGRESS NOTE STANDARD TITLE: MENTAL HEALTH OUTREACH NOTE DATE OF NOTE: OCT 27, 2024@15:03 ENTRY DATE: OCT 28, 2024@17:03:55 AUTHOR: NARESH SHAIKH EXP COSIGNER: URGENCY: STATUS: COMPLETED identified by: [x ] Full Name [] Address [x ] [ ] SSN [] Facial Recognition Length of contact: 60 minutes Location: [facility] [address], [facility] [address] Content: was an active participant in court session today. He has been fully compliant with all treatment and testing. He has a good support system. No issues reported today. He states his puppy is doing well. VJO to provide ongoing support. /cindy/ LENKA JACOBSON RN DOCUMENT IMPROVEMENT Signed: 10/28/2024 17:04 NARESH SHAIKH [facility]
--- OUTSIDE RECORDS SUMMARY | 2024-12-28 08:04 | XMS_ITS | Encounter Summary ---
Author Name [facility] [place] [facility] [place] Address [address] [place] [address] Care Team Providers Care Wholesaler Name Role Phone KERRIE KNIGHT Primary Care [...] PART A February 17, 2017 PART A [id number] MARY ESPINO PATIENT MEDICARE (WNR) MEDICARE (M) PART B February 17, 2017 PART B [id number] [phone] MARY ESPINO PATIENT MEDICARE (WNR) MEDICARE (M) PART A February 17, 2017 PART A [id number] [phone] MARY ESPINO PATIENT MEDICARE (WNR) MEDICARE (M) PART A February 17, 2017 PART A [id number] CIMINI,MARY [place] PATIENT MEDICARE (WNR) MEDICARE (M) PART B February 17, 2017 PART B [id number] CIMINI,MARY [place] PATIENT MEDICARE (WNR) MEDICARE (M) PART A February 17, 2017 PART A [id number] [phone] CIMINI,MARY [place] PATIENT MEDICARE (WNR) MEDICARE (M) PART A February 17, 2017 PART A [id number] CIMINI,DA [place] PATIENT MEDICARE (WNR) MEDICARE (M) PART B February 17, 2017 PART B [id number] [phone] CIMINI,MARY [place] PATIENT MEDICARE (WNR) MEDICARE (M) PART A February 17, 2017 PART A [id number] JASMINAINI,MARY [place] PATIENT MEDICARE (WNR) MEDICARE (M) PART B February 17, 2017 PART B [id number] CIMINI,MARY [place] PATIENT MEDICARE (WNR) MEDICARE (M) PART B February 17, 2017 PART B [id number] JASMINAINI,MARY [place] PATIENT MEDICARE (WNR) MEDICARE (M) PART A February 17, 2017 PART A [id number] JASMINAINIMARY PATIENT Selected Encounter This section includes the information on record at [place] for the Encounter. Date/Time Encounter Type Encounter Description Reason Provider Source Jun 03, 2024 11:21 AM CASE MANAGEMENT [facility] ICD-10-CM F14.20 Cocaine dependence, uncomplicated NARESH SHAIKH E Encounter Template Text not used by [place] Assessments - Encounter Diagnoses This section includes the primary and secondary diagnoses documented for the Encounter. Date/Time Primary/Secondary Diagnosis Diagnosis Name Provider Source Jul 27, 2024 02:30 PM PRIMARY Cocaine dependence, uncomplicated NARESH SHAIKH [facility] Plan of Treatment: Future Appointments (+ 6 months) and Future Tests (+/- 45 days) The Plan of Treatment section includes future care activities for the [facility] This section includes future appointments and future orders which are active, pending or scheduled. Future Appointments This section includes appointments that were scheduled to occur 6 months from the date of the Encounter, up to a maximum of 20 appointments. The data comes from all [place] treatment facilities. Appointment Date/Time Appointment Type Appointme nt Facility Name Jun 08, 2024 09:00 AM AMBULATORY [facility] PS[facility]ATRY [facility] [place] [facility] Jun 08, 2024 11:30 AM AMBULATORY - PS[facility]IATRY [facility] [place] [facility] Jun 11, 2024 03:30 PM AMBULATORY - MEDICINE [facility] [place] [facility] Jun 15, 2024 09:00 AM AMBULATORY - PSYCHIATRY [facility] [place] [facility] Jun 22, 2024 09:00 AM AMBULATORY - PS[facility]CHIATRY [facility] [place] [facility] Jun 29, 2024 09:00 AM AMBULATORY - PSYCHIATRY [facility] [place] [facility] Jul 06, 2024 09:00 AM AMBULATORY - PSYCHIATRY [facility] [place] [facility] Jul 13, 2024 09:00 AM AMBULATORY - PSYCHIATRY [facility] [place] [facility] Jul 16, 2024 09:05 AM AMBULATORY - MEDICINE [facility] [place] [facility] Jul 18, 2024 07:45 PM AMBULATORY - MEDICINE [facility] [place] [facility] Jul 20, 2024 09:00 AM AMBULATORY - PSYCHIATRY [facility] [place] [facility] Jul 22, 2024 09:30 AM AMBULATORY - PS[facility]CHIATRY [facility] [place] [facility] Jul 27, 2024 09:00 AM AMBULATORY - PSYCHIATRY [facility] [place] [facility] Aug 03, 2024 09:00 AM AMBULATORY - PS[facility]CHIATRY [facility] [place] [facility] Aug 10, 2024 09:00 AM AMBULATORY - PSYCHIATRY [facility] [place] [facility] Aug 17, 2024 09:00 AM AMBULATORY - PS[facility]CHIATRY [facility] [place] [facility] Aug 24, 2024 09:00 AM AMBULATORY - PSYCHIATRY [facility] [place] [facility] Aug 26, 2024 10:30 AM AMBULATORY - PS[facility]CHIATRY [facility] [place] [facility] Aug 31, 2024 09:00 AM [facility] Sep 01, 2024 08:00 AM [facility] Active, Pending, and Scheduled Orders This section includes a listing of several types of active, pending, and scheduled orders, including clinic medications orders, diagnostic test orders, procedure orders and consult orders; where the start date of the order is 45 days before the date of the Encounter or 45 days after the date of theEncounter. The data comes from all [place] treatment facilities. Test Date/Time Test Type Test Details Facility Name Jul 01, 2024 06:46 AM Consult Order COMMUNITY CARE-COLONOSCOPY SCREENING Cons Dry Cleaning Attendant's Choice [facility] Lab Results: +/- 30 days of the encounter This section includes the Chemistry and Hematology Lab Results on record with [place] for the patient. Radiology Reports and Pathology Reports are provided separately, in subsequent sections. Lab Results This section contains the Chemistry/Hematology Results that were resulted 30 days before or 30 daysafter the date of the Encounter. Date/Time Source Result Type Result - Unit Interpretation Reference Range Comment Jun 11, 2024 12:51 PM [facility] HEPATITIS B SURFACE ANTIBODY (HBsAb)-WH Specimen Type: SERUM No comment entered. Ordering Provider: KAMLA KNIGHT Report Released Date/Time: May 31, 2024 09:45 AM Reporting Lab: [address] [address] Performing Lab: [address] [address] HBsAb Non Reactive Non Reactive Jun 11, 2024 12:51 PM [facility] LIPID PANEL, NON FASTING Specimen Type: SERUM No comment entered. Ordering Provider: KAMLA KNIGHT Report Released Date/Time: May 31, 2024 09:45 AM Reporting Lab: [address] [address] Performing Lab: [address] [address] CHOLESTEROL 212 mg/dL H TRIGLYCERIDE 124 mg/dL 0-150 LDL calculated 152 mg/dL H 0-129 CHOL/HDL 6.1 HDL CHOLESTEROL 35 mg/dL L 40-60 Jun 11, 2024 12:51 PM [facility] BASIC METABOLIC PANEL (non-fasting) Specimen Type: SERUM No comment entered. Ordering Provider: KAMLA KNIGHT Report Released Date/Time: May 31, 2024 09:45 AM Reporting Lab: [address] [address] Performing Lab: [address] [address] UREA NITROGEN 16 mg/dL 7-25 GLUCOSE 86 mg/dL 65-100 SODIUM 141 mmol/L 135-145 POTASSIUM 4.2 mmol/L 3.5-5.0 CHLORIDE 106 mmol/L 100-110 CO2 25 meq/L 20-30 CREATININE, Serum 1.35 mg/dL 0.50-1.40 eGFR(CKD-EPI 2020) 66 mL/min >60 Jun 11, 2024 12:51 PM [facility] CBC Specimen Type: BLOOD No comment entered. Ordering Provider: KAMLA KNIGHT Report Released Date/Time: May 31, 2024 09:45 AM Reporting Lab: [address] [address] Performing Lab: [address] [address] WBC 5.98 10*3/uL 4.50-11.00 RBC 4.60 10*6/uL 4.23-5.66 HGB 13.9 g/dL 12.8-17 HCT 40.5 39.2-50.4 MCV 88.0 fL 82-99 MCHC 34.3 g/dL 30.8-35.1 PLT 190 10*3/uL 140-360 RDW-CV 13.5 12.0-16.0 MCH 30.2 pg 26.2-32.6 Jun 11, 2024 12:51 PM [facility] LIVER FUNCTION Specimen Type: SERUM No comment entered. Ordering Provider: KAMLA KNIGHT Report Released Date/Time: May 31, 2024 09:45 AM Reporting Lab: [facility] [place] [facility] [address] [address] Performing Lab: [place] [facility] [place] [facility] [address] [address] PROTEIN,TOTAL 7.4 g/dL 6.0-8.3 ALBUMIN 4.5 g/dL 3.5-5.0 ALKALINE PHOSPHATASE 38 U/L L 40-150 AST 13 U/L 5-34 ALT 11 U/L BILIRUBIN, TOTAL 0.7 mg/dL 0.2-1.2 Social History: Smoking Status (Most current) and Tobacco Use (All prior to encounter date) This section includes the most current, and the historical, smoking and tobacco- related health factors from the [place] facility where the Encounter took place. Current Smoking Status This section includes the most current smoking, or tobacco-related health factor, from the [place] facility where the Encounter took place. Date/Time Current Smoking Status Comment Facil ity Oct 02, 2023 01:00 PM VA-TOBACCO USER EVERY DAY [facility] Tobacco Use History This section includes a history of the smoking, or tobacco-related health factors, that were collected on or before the date of the Encounter. The data comes from the [place] facility where the Encounter took place. 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 [facility] [place] [facility] Oct 02, 2023 01:00 PM VA-TOBACCO USE MED NO [facility] [place] [facility] Oct 02, 2023 01:00 PM VA-TOBACCO USE WI 30 MIN OF WAKEUP [facility] [place] [facility] Oct 02, 2023 01:00 PM VA-TOBACCO USER EVERY DAY [facility] [place] [facility] Sep 10, 2022 05:31 PM VA-TOBACCO USE > 1 5 LESS THAN 30 YEARS [facility] [place] [facility] Sep 10, 2022 05:31 PM VA-TOBACCO USE ADVICE [facility] [place] [facility] Sep 10, 2022 05:31 PM 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 [facility] [place] [facility] Sep 10, 2022 05:31 PM VA-TOBACCO USE MED NO [facility] [place] [facility] Sep 10, 2022 05:31 PM VA-TOBACCO USE WI 30 MIN OF WAKEUP [facility] [place] [facility] Sep 10, 2022 05:31 PM VA-TOBACCO USER EVERY DAY [facility] [place] [facility] Aug 26, 2020 03:33 PM 689 INPT REPORTS SMOKING [facility] Aug 06, 2020 10:30 PM 689 [facility] Jul 10, 2020 07:38 PM 689 INPT RE[facility]TS SMOKING [facility] Jun 24, 2020 01:05 AM 689 INPT RE[facility]TS SMOKING [facility] Apr 14, 2020 06:45 AM 689 INPT REPORTS SMOKING [facility] February 29, 2020 02:33 AM 689 INPT REPORTS SMOKING [facility] Jul 20, 2019 06:25 PM 689 [facility]TS [facility] Mar 25, 2019 05:25 AM 689 INPT REPORTS SMOKING [facility] Apr 15, 2018 06:41 PM ORYX ADMIT TOBACCO SCREEN YES [facility] [place] [facility] Apr 15, 2018 06:41 PM ORYX ADMIT TOBACCO USE CIGS GR 5D [facility] [place] [facility] Apr 15, 2018 06:41 PM 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 [facility] [place] [facility] Apr 15, 2018 06:41 PM ORYX DAILY TOBACCO MEDS REFUSED [facility] [place] [facility] Apr 15, 2018 02:41 PM CURRENT SMOKER [facility] [place] [facility] March 12, 2018 11:20 AM CURRENT SMOKER [facility] [place] [facility] March 12, 2018 11:20 AM V1-PT NOT INTEREST ED IN QUIT TOBACCO USE [facility] [place] [facility] Apr 10, 2016 09:03 AM TOBACCO INPATIENT DESIRES MEDS [facility] [place] [facility] Jan 28, 2016 12:53 PM TOBACCO INPATIENT DESIRES MEDS [facility] [place] [facility] Oct 21, 2015 05:16 PM TOBACCO INPATIENT DESIRES MEDS [facility] Jul 13, 2015 11:06 PM TOBACCO INPATIENT DECLINES MEDS [facility] Dec 13, 2014 08:26 PM TOBACCO INPATIENT DECLINES MEDS [facility] Dec 13, 2014 07:39 PM CURRENT SMOKER [facility] Dec 13, 2014 07:39 PM V1-PT NOT INTEREST ED IN QUIT TOBACCO USE [facility] Advance Directives: All historical and current Section Date Range: From patient's date of to the date document was created. This section includes ALL of a patient's completed or amended [place] Advance and Rescinded Directives. The entries below indicate that a directive exists for the patient, but an actual copy is not included with this document. The data comes from all [place] facilities. Date Advance Directives Provider Source Sep 13, 2019 ADVANCE DIRECTIVE JOSE MANUEL RICO [facility] Oct 03, 2017 ADVANCE DIRECTIVE DAGMAR THAKUR [facility] Feb 07, 2016 ADVANCE DIRECTIVE SOFIE POLANCO [facility] Jan 20, 2015 ADVANCE DIRECTIVE DISCUSSION FLORINA COLON [facility] Encounter Notes: All associated encounter notes This section contains the clinical notes associated to the Encounter. Date/Time Encounter Note(s) Provider Source Jun 02, 2024 03:21 PM MENTAL HEALTH OUTR EACH NOTE: LOCAL TITLE: JUSTICE OUTREACH PROGRESS NOTE STANDARD TITLE: MENTAL HEALTH OUTREACH NOTE DATE OF NOTE: JUN 02, 2024@15:21 ENTRY DATE: JUN 03, 2024@11:22:15 AUTHOR: NARESH SHAIKH EXP COSIGNER: URGENCY: STATUS: COMPLETED VJO met with at his house in [place]. 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 is doing very well. No current issues. VJO to provide ongoing support as needed. /cindy/ LENKA JACOBSON SPRING UP SUPERVISOR Signed: 06/03/2024 11:26 NARESH SHAIKH [facility]
[2024-12-28 08:05] VITALS: BP 128/85; PULSE 75; RESP 16; O2SAT 100
--- NOTE | 2024-12-28 08:05 | A.OFFVIS_ITS ---
Vital Signs 12/28/24 08:05 12/28/24 08:59 BP 128/85 143/96 H Blood Pressure Location Lt brachial Lt brachial Position Sitting Sitting Respiration 16 16 Pulse 75 67 Pulse Source Pulse Oximeter Pulse Oximeter Pulse Oximetry (%) 100 100 Oxygen Delivery Method Room Air Room Air Intake Visit Reasons: LEFT C6 (POSS C7) SPRINT PNS TRIAL Ecologist Technician Required: No Allergies No Known Allergies [No Known Allergies*] Allergy (Verified 12/28/24 08:06) [facility] Social History Household Members: Significant Other Housing: House Do you presently have visiting nurse or other home services: No Alcohol intake: former Patient Tobacco Use Status: Current everyday Tobacco user Tobacco use type: Cigarette e-Cigarette/Vaping Use: Never Used Second Hand Smoke Exposure: Yes Substance Use Type: Crack/Cocaine service: Yes Current occupational status: retired Physical Exam Vital Signs: Last Vital Signs Pulse 75 12/28/24 08:05 Resp 16 12/28/24 08:05 BP 128/85 12/28/24 08:05 Pulse Ox 100 12/28/24 08:05 Oxygen Delivery Method Room Air 12/28/24 08:05 Assessment & Plan Assessment & Plan (1) Spondylosis of cervical region without myelopathy or radiculopathy: Code(s): M47.812 - Spondylosis without myelopathy or radiculopathy, cervical region Category: Medical Plan Percutaneous implantation of peripheral nerve stimulation Sprint system C6 left side After the risks, benefits and alternatives were discussed with the patient and informed consent was obtained, patient was placed in the prone position and padded to foster comfort. Time out was performed delineating correct site and side of the procedure , name and of the patient, patient participated in time out procedure. C-arm was brought over the operating field and clear picture of the C6 lamina on the left was delineated on the screen. The upper central portion of the lamina was chosen as a target of the needle tip insertion . After identifying and marking the intended target, the skin around the planned entry point and the subcutaneous tissues were injected with local anesthetic forming skin wheal.. A percutaneous sleeve and stimulating probe lead introduction system were assembled, inserted and advanced through the skin wheal to the point of interest under C-arm view left C6 lamina., the introducer needle was delivered to a location in proximity to the nerve. Multiple stimulation parameters were used to deliver stimulation to the nerve in concert with stimulating at multiple positions around the nerve. The patient reported that his pain is corresponding to the stimulation area. Multiple stimulation parameters were used to deliver stimulation to the nerve in concert with stimulating at multiple positions around the nerve. This time patient reported relation corresponding to the where he usually feels the pain. The nerve target acquisition was confirmed noting generation of in the corresponding to the nerve being stimulated. Various electrical parameter combinations were tested, and the lead location was adjusted (physically relocated) until the patient indicated overlapping the distribution of the patient?s typical region of pain. The stimulating probe was removed from the introducer and a percutaneous lead was guided through the needle and delivered to a location in similar proximity to the nerve. Final location was verified with electrical stimulation. The intro ducer needle was removed, and the exposed end of the percutaneous lead was attached to an external stimulator unit. At the end of the case various electrical parameter combinations were again tested until the patient indicated paresthesia or muscle tension overlapping the distribution of the patient?s typical region of pain. After confirming that lead impedance was in the normal range, the external unit was detached, the needle was removed, and the lead was anchored at the skin. The lead was threaded into the connector block and electrical continuity and desired patient response was confirmed. The connector block was attached to the external stimulator unit. The site was covered with a sterile occlusive dressing and a image was taken to document final placement. Upon completion of the procedure the patient was taken outside the OR where he recovered uneventfully he went home without immediate complications. Orders: Orders [place] guidance in treatment room Today M47.812 - Spondylosis without myelopathy or radiculopathy, cervical region Coding Level of Care Code Procedure Only Diagnoses Spondylosis of cervical region without myelopathy or radiculopathy M47.812
--- OUTSIDE RECORDS SUMMARY | 2024-12-28 08:05 | XMS_ITS | Encounter Summary ---
Author Name [facility] [place] Address [address] [place] [address] Care Team Providers Care Convex Grinder Operator Name Role Phone KERRIE KNIGHT Primary [...] PART A February 17, 2017 PART A [id number] MARY ESPINO PATIENT MEDICARE (WNR) MEDICARE (M) PART B February 17, 2017 PART B [id number] MARY ESPINO PATIENT MEDICARE (WNR) MEDICARE (M) PART A February 17, 2017 PART A [id number] [phone] [id number] MARY ESPINO PATIENT MEDICARE (WNR) MEDICARE (M) PART A February 17, 2017 PART A [id number] CIMINI,MARY [place] PATIENT MEDICARE (WNR) MEDICARE (M) PART B February 17, 2017 PART B [id number] [phone] CIMINI,MARY [place] PATIENT MEDICARE (WNR) MEDICARE (M) PART A February 17, 2017 PART A [id number] [phone] CIMINI,MARY [place] PATIENT MEDICARE (WNR) MEDICARE (M) PART A February 17, 2017 PART A [id number] CIMINI,DA [place] PATIENT MEDICARE (WNR) MEDICARE (M) PART B February 17, 2017 PART B [id number] [phone] CIMINI,MARY [place] PATIENT MEDICARE (WNR) MEDICARE (M) PART A February 17, 2017 PART A [id number] CIMINI,MARY [place] PATIENT MEDICARE (WNR) MEDICARE (M) PART B February 17, 2017 PART B [id number] CIMINI,MARY [place] PATIENT MEDICARE (WNR) MEDICARE (M) PART B February 17, 2017 PART B [id number] CIMINI,MARY [place] PATIENT MEDICARE (WNR) MEDICARE (M) PART A February 17, 2017 PART A [id number] JASMINAINIMARY PATIENT Selected Encounter This section includes the information on [place] at [place] for the Encounter. Date/Time Encounter Type Encounter Description Reason Provider Source March 18, 2024 12:18 PM [facility]NA[facility] ICD-10-CM F14.20 Cocaine dependence, uncomplicated NARESH SHAIKH E Encounter Template Text not used by [place] Assessments - Encounter Diagnoses This section includes the primary and secondary diagnoses documented for the Encounter. Date/Time Primary/Secondary Diagnosis Diagnosis Name Provider Source Mar 30, 2024 09:55 AM PRIMARY Cocaine dependence, uncomplicated NARESH SHAIKH [place] [facility] Plan of Treatment: Future Appointments (+ 6 months) and Future Tests (+/- 45 days) The Plan of Treatment section includes future care activities for the patient [facility] [place] [facility] This section includes future appointments and future orders which are active, pending or scheduled. Future Appointments This section includes appointments that were scheduled to occur 6 months from the date of the Encounter, up to a maximum of 20 appointments. The data comes from all [place] treatment facilities. Appointment Date/Time Appointment Type Appointme nt Facility Name May 05, 2024 10:40 AM AMBULATORY [facility]ICINE [facility] [place] [facility] May 11, 2024 09:00 AM AMBULATORY - PS[facility]CHIATRY [facility] [place] [facility] May 13, 2024 11:30 AM AMBULATORY [facility] MEDICINE [facility] [place] [facility] May 18, 2024 09:00 AM AMBULATORY - PS[facility]CHIATRY [facility] [place] [facility] May 25, 2024 09:00 AM AMBULATORY - PS[facility]IATRY [facility] [place] [facility] Jun 01, 2024 09:00 AM AMBULATORY - PS[facility]IATRY [facility] [place] [facility] Jun 03, 2024 12:05 PM AMBULATORY - MEDICINE [facility] [place] [facility] Jun 08, 2024 09:00 AM AMBULATORY - PS[facility]CHIATRY [facility] [place] [facility] Jun 08, 2024 11:30 AM AMBULATORY - PS[facility]CHIATRY [facility] [place] [facility] Jun 11, 2024 03:30 PM AMBULATORY - MEDICINE [facility] [place] [facility] Jun 15, 2024 09:00 AM AMBULATORY - PS[facility]CHIATRY [facility] [place] [facility] Jun 22, 2024 09:00 AM AMBULATORY - PS[facility]CHIATRY [facility] [place] [facility] Jun 29, 2024 09:00 AM AMBULATORY - PS[facility]CHIATRY [facility] [place] [facility] Jul 06, 2024 09:00 AM AMBULATORY - PS[facility]CHIATRY [facility] [place] [facility] Jul 13, 2024 09:00 AM AMBULATORY - PS[facility]CHIATRY [facility] [place] [facility] Jul 16, 2024 09:05 AM AMBULATORY - MEDICINE [facility] [place] [facility] Jul 18, 2024 07:45 PM AMBULATORY - MEDICINE [facility] [place] [facility] Jul 20, 2024 09:00 AM AMBULATORY - PS[facility]CHIATRY [facility] [place] [facility] Jul 22, 2024 09:30 AM AMBULATORY - PS[place]IATRY [place] [facility] [place] [facility] Jul 27, 2024 09:00 AM [facility] [place] [facility] Social History: Smoking Status (Most current) and Tobacco Use (All prior to encounter date) This section includes the most current, and the historical, smoking and tobacco- related health factors from the [place] facility where the Encounter took place. Current Smoking Status This section includes the most current smoking, or tobacco-related health factor, from the [place] facility where the Encounter took place. Date/Time Current Smoking Status Comment Facil ity Oct 02, 2023 01:00 PM VA-TOBACCO USER EVERY [facility] Tobacco Use History This section includes a history of the smoking, or tobacco-related health factors, that were collected on or before the date of the Encounter. The data comes from the [place] facility where the Encounter took place. Date/Time Smoking Status/Tobacco Use Comment F acility Oct 02, 2023 01:00 PM VA-TOBACCO USE ADVICE [facility] [place] [facility] Oct 02, 2023 01:00 PM VA-TOBACCO USE RAMP JOCKEY NO [place] [facility] [place] [facility] Oct 02, 2023 01:00 PM VA-TOBACCO USE MED NO [facility] [place] [facility] Oct 02, 2023 01:00 PM VA-TOBACCO USE WI 30 MIN OF WAKEUP [place] [facility] [place] [facility] Oct 02, 2023 01:00 PM VA-TOBACCO USER EVERY DAY [place] [facility] [place] [facility] Sep 10, 2022 05:31 PM VA-TOBACCO USE > 1 5 LESS THAN 30 YEARS [place] [facility] [place] [facility] Sep 10, 2022 05:31 PM VA-TOBACCO USE ADVICE [facility] [place] [facility] Sep 10, 2022 05:31 PM VA-TOBACCO USE RAMP JOCKEY NO [facility] [place] [facility] Sep 10, 2022 05:31 PM VA-TOBACCO USE MED NO [facility] [place] [facility] Sep 10, 2022 05:31 PM VA-TOBACCO USE WI 30 MIN OF WAKEUP [place] [facility] [place] [facility] Sep 10, 2022 05:31 PM VA-TOBACCO USER EVERY DAY [facility] [place] [facility] Aug 26, 2020 03:33 PM 689 [facility] RE[facility]TS [facility] Aug 06, 2020 10:30 PM 689 [facility] Jul 10, 2020 07:38 PM 689 [facility]PT RE[facility] Jun 24, 2020 01:05 AM 689 [facility]PT RE[facility] Apr 14, 2020 06:45 AM 689 [facility] February 29, 2020 02:33 AM 689 [facility]PT RE[facility] Jul 20, 2019 06:25 PM 689 INPT RE[facility]TS [facility] Mar 25, 2019 05:25 AM 689 INPT RE[facility] Apr 15, 2018 06:41 PM ORYX ADMIT TOBACCO SCREEN YES [facility] [place] [facility] Apr 15, 2018 06:41 PM ORYX ADMIT TOBACCO USE CIGS GR 5D [facility] [place] [facility] Apr 15, 2018 06:41 PM ORYX DAILY TOBACCO RAMP JOCKEY RECEIVED [facility] [place] [facility] Apr 15, 2018 06:41 PM ORYX DAILY TOBACCO MEDS REFUSED [facility] [place] [facility] Apr 15, 2018 02:41 PM CURRENT SMOKER [facility] [place] [facility] March 12, 2018 11:20 AM CURRENT SMOKER [facility] [place] [facility] March 12, 2018 11:20 AM V1-PT NOT INTEREST ED IN QUIT TOBACCO USE [facility] [place] [facility] Apr 10, 2016 09:03 AM TOBACCO INPATIENT DESIRES MEDS [facility] [place] [facility] Jan 28, 2016 12:53 PM TOBACCO INPATIENT DESIRES MEDS [facility] [place] [facility] Oct 21, 2015 05:16 PM TOBACCO INPATIENT DESIRES MEDS [facility] [place] [facility] Jul 13, 2015 11:06 PM TOBACCO INPATIENT DECLINES MEDS [facility] [place] [facility] Dec 13, 2014 08:26 PM TOBACCO INPATIENT DECLINES MEDS [facility] [place] [facility] Dec 13, 2014 07:39 PM CURRENT SMOKER [facility] Dec 13, 2014 07:39 PM V1-PT NOT INTEREST ED IN QUIT TOBACCO USE [place] [facility] Advance Directives: All historical and current Section Date Range: From patient's date of to the date document was created. This section includes ALL of a patient's completed or amended [place] Advance and Rescinded Directives. The entries below indicate that a directive exists for the patient, but an actual copy is not included with this document. The data comes from all [place] facilities. Date Advance Directives Provider Source Sep 13, 2019 ADVANCE DIRECTIVE JOSE MANUEL [facility] Oct 03, 2017 ADVANCE DIRECTIVE [facility]MAR [facility]UR [facility] Feb 07, 2016 ADVANCE DIRECTIVE SOFIE POLANCO [facility] Jan 20, 2015 ADVANCE DIRECTIVE DISCUSSION FLORINA COLON [facility] Encounter Notes: All associated encounter notes This section contains the clinical notes associated to the Encounter. Date/Time Encounter Note(s) Provider Source March 17, 2024 03:18 PM MENTAL HEALTH OUTR EACH NOTE: LOCAL TITLE: JUSTICE OUTREACH PROGRESS NOTE STANDARD TITLE: MENTAL HEALTH OUTREACH NOTE DATE OF NOTE: MARCH 17, 2024@15:18 ENTRY DATE: MARCH 18, 2024@12:18:36 AUTHOR: NARESH SHAIKH EXP COSIGNER: URGENCY: STATUS: COMPLETED [place] identified by: [x ] Full Name [] Address [x ] [ ] SSN [] Facial Recognition Length of contact: 60 minutes Location: [facility] [address], [facility] Content: [place] was an active observer in court session today. He is still held at the [facility]. spoke with policy writer typist after the session and he states he does want to participate in the program. V will continue to provide ongoing support. /cindy/ LENKA JACOBSON TRANSFER CAR OPERATOR Signed: 03/18/2024 12:20 NARESH SHAIKH [facility]
--- OUTSIDE RECORDS SUMMARY | 2024-12-28 08:05 | XMS_ITS | Encounter Summary ---
Author Name [facility] [place] Address [address] [place] [address] Care Team Providers Care Technical Training Coordinator Name Role Phone KERRIE KNIGHT Primary Care [...] PART A February 17, 2017 PART A [id number] [phone] JASMINAMARY DAS PATIENT MEDICARE (WNR) MEDICARE (M) PART B February 17, 2017 PART B [id number] [phone] MARY ESPINO PATIENT MEDICARE (WNR) MEDICARE (M) PART A February 17, 2017 PART A [id number] MARY ESPINO PATIENT MEDICARE (WNR) MEDICARE (M) PART A February 17, 2017 PART A [id number] JASMINAINIMARY [place] PATIENT MEDICARE (WNR) MEDICARE (M) PART B February 17, 2017 PART B [id number] [phone] JASMINAINIMARY [place] PATIENT MEDICARE (WNR) MEDICARE (M) PART A February 17, 2017 PART A [id number] JASMINAINIMARY [place] PATIENT MEDICARE (WNR) MEDICARE (M) PART B February 17, 2017 PART B [id number] [phone] CIMINI,MARY [place] PATIENT MEDICARE (WNR) MEDICARE (M) PART A February 17, 2017 PART A [id number] [phone] JASMINAINIMARY [place] PATIENT MEDICARE (WNR) MEDICARE (M) PART A February 17, 2017 PART A [id number] JASMINAINIMARY [place] PATIENT MEDICARE (WNR) MEDICARE (M) PART B February 17, 2017 PART B [id number] JASMINAINIMARY [place] PATIENT MEDICARE (WNR) MEDICARE (M) PART A February 17, 2017 PART A [id number] [id number] MARY ESPINO PATIENT MEDICARE (WNR) MEDICARE (M) PART B February 17, 2017 PART B [id number] MARY ESPINO PATIENT Selected Encounter This section includes the [place] for the Encounter. Date/Time Encounter Type Encounter Description Reason Pro vider Source Mar 30, 2024 11:35 AM Outpatient Encounter COMMUNITY CARE CONSULT IHE Encounter Template Text not used by [place] Plan of Treatment: Future Appointments (+ 6 months) and Future Tests (+/- 45 days) The Plan of Treatment section includes future care activities for the patient from all VA treatmentfacilities. This section includes future appointments and [...] - MEDICINE [facility] [place] [facility] May 11, 2024 09:00 AM AMBULATORY - PSYCHIATRY [facility] [place] [facility] May 13, 2024 11:30 AM AMBULATORY - MEDICINE [facility] [place] [facility] May 18, 2024 09:00 AM AMBULATORY - PSYCHIATRY [facility] [place] [facility] May 25, 2024 09:00 AM AMBULATORY - PSYCHIATRY [facility] [place] [facility] Jun 01, 2024 09:00 AM AMBULATORY - PSYCHIATRY [facility] [place] [facility] Jun 03, 2024 12:05 PM AMBULATORY - MEDICINE [facility] [place] [facility] Jun 08, 2024 09:00 AM AMBULATORY - PSYCHIATRY [facility] [place] [facility] Jun 08, 2024 11:30 AM AMBULATORY - PSYCHIATRY [facility] [place] [facility] Jun 11, 2024 03:30 PM AMBULATORY - MEDICINE [facility] [place] [facility] Jun 15, 2024 09:00 AM AMBULATORY - PSYCHIATRY [facility] [place] [facility] Jun 22, 2024 09:00 AM AMBULATORY - PSYCHIATRY [facility] [place] [facility] Jun 29, 2024 09:00 AM AMBULATORY - PSYCHIATRY [facility] [place] [facility] Jul 06, 2024 09:00 AM AMBULATORY - PSYCHIATRY [facility] [place] [facility] Jul 13, 2024 09:00 AM AMBULATORY - PSYCHIATRY [facility] [place] [facility] Jul 16, 2024 09:05 AM AMBULATORY - MEDICINE [facility] [place] [facility] Jul 18, 2024 07:45 PM AMBULATORY - MEDICINE [facility] [place] [facility] Jul 20, 2024 09:00 AM AMBULATORY - PSYCHIATRY [facility] [place] [facility] Jul 22, 2024 09:30 AM AMBULATORY - PSYCHIATRY [facility] [place] [facility] Jul 27, 2024 09:00 AM AMBULATORY - PSYCHIATRY [facility] [place] [facility] Social History: Smoking Status (Most [...] place. Date/Time Current Smoking Status Comment Faisal ity Oct 02, 2023 01:00 PM VA-TOBACCO USER EVERY DAY [place] [facility] [place] [facility] Tobacco Use History This section includes a history of the smoking, or tobacco-related health factors, that were collected on or before the date of the Encounter. The data comes from the [place] facility where the Encounter took place. Date/Time Smoking Status/Tobacco Use Comment F acility Oct 02, 2023 01:00 PM VA-TOBACCO USE ADVICE [facility] [place] [facility] Oct 02, 2023 01:00 PM VA-TOBACCO USE PIE DOUGH ROLLER NO [facility] [place] [facility] Oct 02, 2023 01:00 PM VA-TOBACCO USE MED NO [place] [facility] [place] [facility] Oct 02, 2023 01:00 PM VA-TOBACCO USE WI 30 MIN OF WAKEUP [place] [facility] [place] [facility] Oct 02, 2023 01:00 PM VA-TOBACCO USER EVERY DAY [facility] [place] [facility] Sep 10, 2022 05:31 PM VA-TOBACCO USE > 1 5 LESS THAN 30 YEARS [facility] [place] [facility] Sep 10, 2022 05:31 PM VA-TOBACCO USE ADVICE [facility] [place] [facility] Sep 10, 2022 05:31 PM VA-TOBACCO USE PIE DOUGH ROLLER NO [facility] [place] [facility] Sep 10, 2022 05:31 PM VA-TOBACCO USE MED NO [facility] [place] [facility] Sep 10, 2022 05:31 PM VA-TOBACCO USE WI 30 MIN OF WAKEUP [facility] [place] [facility] Sep 10, 2022 05:31 PM VA-TOBACCO USER EVERY DAY [facility] [place] [facility] Aug 26, 2020 03:33 PM [...] TOBACCO SCREEN YES [facility] [place] [facility] Apr 15, 2018 06:41 PM ORYX ADMIT TOBACCO USE CIGS GR 5D [facility] [place] [facility] Apr 15, 2018 06:41 PM ORYX DAILY TOBACCO PIE DOUGH ROLLER RECEIVED [place] [facility] [place] [facility] Apr 15, 2018 06:41 PM ORYX DAILY TOBACCO MEDS REFUSED [place] [facility] [place] [facility] Apr 15, 2018 02:41 PM CURRENT SMOKER [facility] [place] [facility] March 12, 2018 11:20 AM CURRENT SMOKER [facility] [place] [facility] March 12, 2018 11:20 AM V1-PT NOT INTEREST ED IN QUIT TOBACCO USE [facility] [place] [facility] Apr 10, 2016 09:03 AM TOBACCO INPATIENT DESIRES MEDS [facility] [place] [facility] Jan 28, 2016 12:53 PM TOBACCO INPATIENT DESIRES MEDS [facility] [place] [facility] Oct 21, 2015 05:16 PM TOBACCO INPATIENT DESIRES MEDS [facility] [place] [facility] Jul 13, 2015 11:06 PM TOBACCO INPATIENT DECLINES MEDS [facility] [place] [facility] Dec 13, 2014 08:26 PM TOBACCO INPATIENT DECLINES MEDS [facility] [place] [facility] Dec 13, 2014 07:39 PM CURRENT SMOKER [facility] [place] [facility] Dec 13, 2014 07:39 PM V1-PT NOT INTEREST ED IN QUIT TOBACCO USE [facility] [place] [facility] Advance Directives: All historical and [...] Provider Source Sep 13, 2019 ADVANCE DIRECTIVE JUANILUCÍAJOSE MANUEL [facility] Oct 03, 2017 ADVANCE DIRECTIVE DAGMAR THAKUR Amanda [facility] Feb 07, 2016 ADVANCE DIRECTIVE SOFIE POLANCO [facility] Jan 20, 2015 ADVANCE DIRECTIVE DISCUSSION FLORINA COLON [facility] Encounter Notes: All associated encounter notes This section contains the clinical notes associated to the Encounter. Date/Time Encounter Note(s) Provider Source Mar 30, 2024 11:35 AM ADMINISTRATIVE NOTE: LOCAL TITLE: ADMINISTRATIVE NOTE STANDARD TITLE: ADMINISTRATIVE NOTE DATE OF NOTE: MAR 30, 2024@11:35 ENTRY DATE: MAR 30, 2024@11:36:01 AUTHOR: STAR FISHER EXP COSIGNER: URGENCY: STATUS: COMPLETED called looking for approval from [facility] so he can proceed with his dental care. Email has been sent to [place] [facility] for review. /cindy/ STAR FISHER ADVANCED DEVELOPMENT ARCHITECT Signed: 03/30/2024 11:37 STAR FISHER [place] [facility]
--- OUTSIDE RECORDS SUMMARY | 2024-12-28 08:05 | XMS_ITS | Encounter Summary ---
Author Name [facility] [place] [facility] [place] [facility] [place] Address [address] [place] [address] Care Team Providers Care Hvac Residential Service Technician Name Role Phone KERRIE KNIGHT Primary Care [...] PART A February 17, 2017 PART A [id number] [phone] MARY ESPINO PATIENT MEDICARE (WNR) MEDICARE (M) PART B February 17, 2017 PART B [id number] MARY ESPINO PATIENT MEDICARE (WNR) MEDICARE (M) PART A February 17, 2017 PART A [id number] MARY ESPINO PATIENT MEDICARE (WNR) MEDICARE (M) PART A February 17, 2017 PART A [id number] CIMINI,DA [place] PATIENT MEDICARE (WNR) MEDICARE (M) PART B February 17, 2017 PART B [id number] [phone] CIMINI,DA [place] PATIENT MEDICARE (WNR) MEDICARE (M) PART A February 17, 2017 PART A [id number] CIMINI,DA [place] PATIENT MEDICARE (WNR) MEDICARE (M) PART A February 17, 2017 PART A [id number] CIMINI,DA [place] PATIENT MEDICARE (WNR) MEDICARE (M) PART B February 17, 2017 PART B [id number] [phone] CIMINI,DA [place] PATIENT MEDICARE (WNR) MEDICARE (M) PART A February 17, 2017 PART A [id number] [phone] CIMINI,DA [place] PATIENT MEDICARE (WNR) MEDICARE (M) PART B February 17, 2017 PART B [id number] CIMINI,[place] PATIENT MEDICARE (WNR) MEDICARE (M) PART A February 17, 2017 PART A [id number] [phone] CIMINI,MARY [place] PATIENT MEDICARE (WNR) MEDICARE (M) PART B February 17, 2017 PART B [id number] CIMINI,MARY [place] PATIENT Selected Encounter This section includes the information on record at [place] for the Encounter. Date/Time Encounter Type Encounter Description Reason Provider Source Nov 10, 2024 01:00 PM GROUP PSYCHOTHERAPY SUBSTANCE USE DISORDR GRP ICD-10-CM F14.20 Cocaine dependence, uncomplicated LEATHA SIDDIQI NA Isra Encounter Template Text not used by [place] Assessments - Encounter Diagnoses This section includes the primary and secondary diagnoses documented for the Encounter. Date/Time Primary/Secondary Diagnosis Diagnosis Name Provider Source Nov 10, 2024 02:48 PM PRIMARY Cocaine dependence, uncomplicated SABI SIDDIQI [facility] Nov 10, 2024 02:48 PM SECONDARY Alcohol dependence with other alcohol-induced disorder SABI SIDDIQI [facility] Nov 10, 2024 02:48 PM SECONDARY Attention-deficit hyperactivity disorder, unspecified type SABI SIDDIQI [facility] Nov 10, 2024 02:48 PM SECONDARY Nicotine dependence, cigarettes, uncomplicated SABI SIDDIQI [facility] Nov 10, 2024 02:48 PM SECONDARY Other recurrent depressive disorders SABI SIDDIQI [facility] Nov 10, 2024 02:48 PM SECONDARY Post-traumatic stress disorder, chronic SABI SIDDIQI [facility] Plan of Treatment: Future Appointments (+ 6 months) and Future Tests (+/- 45 days) The Plan of Treatment section includes future care activities for the [facility] [place] [facility] This section includes future appointments and future orders which are active, pending or scheduled. Future Appointments This section includes appointments that were scheduled to occur 6 months from the date of the Encounter, up to a maximum of 20 appointments. The data comes from all [place] treatment facilities. Appointment Date/Time Appointment Type Appointme nt Facility Name Nov 16, 2024 10:00 AM AMBULATORY - PSYCHIATRY [facility] Nov 17, 2024 01:00 PM AMBULATORY - PSY[facility]IATRY [facility] Nov 23, 2024 09:00 AM AMBULATORY - NONE [facility] Nov 23, 2024 10:00 AM AMBULATORY - PSYCHIATRY [facility] Nov 24, 2024 01:00 PM AMBULATORY - PSY[facility]IATRY [facility] Nov 25, 2024 09:30 AM AMBULATORY - PS[facility]IATRY [facility] Nov 30, 2024 10:00 AM AMBULATORY - PS[facility]IAT[facility] Nov 30, 2024 11:40 AM AM[facility]ULATORY [facility] MEDICINE [facility] Dec 13, 2024 09:00 AM AMBULATORY - NONE [facility] Dec 14, 2024 03:10 PM AMBULATORY [facility] MEDICINE [facility] Dec 16, 2024 09:30 AM AMBULATORY - MEDICINE [facility] Dec 30, 2024 09:15 AM [facility] Jan 13, 2025 09:00 AM AMBULATORY - PSYCHIATRY [facility] Active, Pending, and Scheduled Orders This section includes a listing of several types of active, pending, and scheduled orders, including clinic medications orders, diagnostic test orders, procedure orders and consult orders; where the start date of the order is 45 days before the date of the Encounter or 45 days after the date of theEncounter. The data comes from all [place] treatment facilities. Test Date/Time Test Type Test Details Facility Name Sep 29, 2024 12:56 PM Consult Order COMM[facility]ITY CARE-DENTAL SPECIALTY Cons Meter/Relay Technician's Choice [facility] Dec 03, 2024 11:49 AM Consult Order [facility]ARE[facility]DENTAL SPECIALTY [facility] Meter/Relay Technician's Choice [facility] Dec 16, 2024 12:42 PM Consult Order NUTRITION ASSESSMENT/EDUCATION /NHM OUTPT Cons Meter/Relay Technician's Choice [facility] Dec 17, 2024 12:00 AM Laboratory - Chemi stry Order OCCULT BLOOD FIT X1 SCREEN(IN-HOUSE) STOOL FECES SP [facility] Social History: Smoking Status (Most current) and Tobacco Use (All prior to encounter date) This section includes the most current, and the historical, smoking and tobacco- related health factors from the [place] facility where the Encounter took place. Current Smoking Status This section includes the most current smoking, or tobacco-related health factor, from the [place] facility where the Encounter took place. Date/Time Current Smoking Status Comment Facil ity Oct 02, 2023 01:00 PM VA-TOBACCO USE WI 30 MIN OF WAKEUP [facility] Tobacco Use History This section includes a history of the smoking, or tobacco-related health factors, that were collected on or before the date of the Encounter. The data comes from the [place] facility where the Encounter took place. Date/Time Smoking Status/Tobacco Use Comment F acility Oct 02, 2023 01:00 PM VA-TOBACCO USE ADVICE [facility] Oct 02, 2023 01:00 PM VA-TOBACCO USE POLICE PILOT NO [facility] Oct 02, 2023 01:00 PM VA-TOBACCO USE MED NO [facility] Oct 02, 2023 01:00 PM VA-TOBACCO USE WI 30 MIN OF WAKEUP [facility] Oct 02, 2023 01:00 PM VA-TOBACCO USER EVERY DAY [facility] Sep 10, 2022 05:31 PM VA-TOBACCO USE > 1 5 LESS THAN 30 YEARS [facility] Sep 10, 2022 05:31 PM VA-TOBACCO USE ADVICE [facility] Sep 10, 2022 05:31 PM VA-TOBACCO USE POLICE PILOT NO [facility] Sep 10, 2022 05:31 PM VA-TOBACCO USE MED NO [facility] Sep 10, 2022 05:31 PM VA-TOBACCO USE WI 30 MIN OF WAKEUP [facility] Sep 10, 2022 05:31 PM VA-TOBACCO USER EVERY DAY [facility] Aug 26, 2020 03:33 PM 689 INPT REPORTS SMOKING [facility] Aug 06, 2020 10:30 PM 689 INPT REPORTS SMOKING [facility] Jul 10, 2020 07:38 PM 689 INPT REPORTS SMOKING [facility] Jun 24, 2020 01:05 AM 689 INPT REPORTS SMOKING [facility] Apr 14, 2020 06:45 AM 689 INPT REPORTS SMOKING [facility] February 29, 2020 02:33 AM 689 INPT REPORTS SMOKING [facility] Jul 20, 2019 06:25 PM 689 INPT REPORTS SMOKING [facility] Mar 25, 2019 05:25 AM 689 INPT REPORTS SMOKING [facility] Apr 15, 2018 06:41 PM ORYX ADMIT TOBACCO SCREEN YES [facility] Apr 15, 2018 06:41 PM ORYX ADMIT TOBACCO USE CIGS GR 5D [facility] Apr 15, 2018 06:41 PM ORYX DAILY TOBACCO POLICE PILOT RECEIVED [facility] Apr 15, 2018 06:41 PM ORYX DAILY TOBACCO MEDS REFUSED [facility] Apr 15, 2018 02:41 PM CURRENT SMOKER [facility] March 12, 2018 11:20 AM CURRENT [facility]KER [facility] March 12, 2018 11:20 AM V1-PT NOT INTEREST ED IN QUIT [facility]ACCO USE [facility] Apr 10, 2016 09:03 AM TOBACCO INPATIENT DESIRES MEDS [facility] Jan 28, 2016 12:53 PM TOBACCO INPATIENT DESIRES MEDS [facility] Oct 21, 2015 05:16 PM TOBACCO INPATIENT DESIRES MEDS [facility] Jul 13, 2015 11:06 PM TOBACCO INPATIENT DECLINES MEDS [facility] Dec 13, 2014 08:26 PM TOBACCO INPATIENT DECLINES MEDS [facility] Dec 13, 2014 07:39 PM CURRENT [facility]MOKER [facility] Dec 13, 2014 07:39 PM V1-PT NOT INTEREST ED IN QUIT TOBACCO USE [facility] Advance Directives: All historical and current Section Date Range: From patient's date of to the date document was created. This section includes ALL of a patient's completed or amended [place] Advance and Rescinded Directives. The entries below indicate that a directive exists for the patient, but an actual copy is not included with this document. The data comes from all [place] facilities. Date Advance Directives Provider Source Sep 13, 2019 ADVANCE DIRECTIVE JOSE MANUEL RICO [facility] Oct 03, 2017 ADVANCE DIRECTIVE DAGMAR THAKUR [facility] Feb 07, 2016 ADVANCE DIRECTIVE SOFIE POLANCO [facility] Jan 20, 2015 ADVANCE DIRECTIVE DISCUSSION FLORINA COLON [facility] Encounter Notes: All associated encounter notes This section contains the clinical notes associated to the Encounter. Date/Time Encounter Note(s) Provider Source Nov 10, 2024 01:00 PM SOCIAL WORK GROUP COUNSELING NOTE: LOCAL TITLE: SOCIAL WORK GROUP NOTE STANDARD TITLE: SOCIAL WORK GROUP COUNSELING NOTE DATE OF NOTE: NOV 10, 2024@13:00 ENTRY DATE: NOV 10, 2024@14:43:14 AUTHOR: ADRIANA SIDDIQI EXP COSIGNER: URGENCY: STATUS: COMPLETED INFORMED CONSENT TO PARTICIPATE: At beginning of session reviewed rights and limits of confidentiality, mandatory reporting situations, duty to warn and protect, Osorio Warning, (if treatment team finds patient to be an acute danger to self or others, that this information could be relayed to a court of law and presented to a jackspooler), and [facility] access for active-duty service members. Provided Suicide Prevention Hotline number, and other contact numbers as necessary. DATE: 11/10/2024 TIME: 1300 DURATION IN MINUTES: 75 NAY-C GROUP: Friends and Family Education Group for Substance Use Disorders TOPIC: Wellness and Safety Planning FACILITATORS: LENKA Haro & Jj Treviño, Histopath Tech Numbers of Veterans Participated: 2 - who were also of support for each other CONTENT: The Friends and Family Education Group [...] based on these goals and topics. MSE: was an active participant in group. engaged with the environmental marketing representative and with other group members appropriately. Did not endorse current suicidal or homicidal ideation. Did not endorse current use or cravings. MSE: Friend/family/support member was an active participant in group. Friend/family/support member engaged with the environmental marketing representative and with other group members appropriately. Did not endorse current suicidal or homicidal ideation. PARTICIPATION: Etna reported difficulty wondering if how he is approaching situations are correct and acknowledged open communicaiton as a wellness skill to continue. PARTICIPATION: 's friend/family/support member reported appreciation for Etna. PLAN: Etna and Etna's friend/family/support member committed to home practice. Etna and 's friend/family/support member committed to continue Friends and Family Education Group for Substance Use Disorders. 'S DIAGNOSES: Cocaine Use Disorder, Severe; Tobacco Use Disorder, Severe; Alcohol Use Disorder, Severe; PTSD; ADHD; MDD ([place]) [facility] Video Connect (VVC) Standard Documentation VVC Clinician Resources Only: E911 (Emergency Call Relay Center): [phone] [place] Crisis Line - (4-615-263-TALK) press #1. SUSANA Suicide Coordinator [phone], Ext. [phone]; Back-up Ext. [phone] Cogeneration Operator of the Day(AOD), Yanci MEZA [phone], Ext. [phone] Introduction: Visit is being conducted by [employer]. Etna identified with 2 identifiers: [X] Full Name [X] Date of [ ] VA ID Card Emergency Plan: confirmed and/or provided the following information in case of emergency or technology failure. PATIENT PHONE - PHONE NUMBER [CELLULAR] - Is patient phone number correct, if not, enter below: Etna's phone number: TOMI ESPINO [address] [place] [address] 's present location and address for appointment: his house 's emergency contact name and phone number: E-Cont.: JULIAN PENG E2-Cont.: MALI FRANCE Relation Type: SISTER Relation Type: MOTHER Relation Note: SISTER Relation Note: MOTHER [address] [place] [id number] [place] [address] [facility] Work Phone: UNSPECIFIED Etna reported that location is private and safe: Yes Informed Consent: Etna informed of the risks and benefits of Telehealth video care. has the right to refuse video services. If refuses video visit, a [id number]-[id number] visit will be scheduled. verbalized consent for this video visit: Yes Etna provided consent for any other persons present for visit: Yes. HERON sent to interoffice mail to be scanned into chart. If yes, who and relationship to patient: friend/roomate Secure visit: Visit was locked for security and privacy:Yes Secure visit: Yes Visit was locked for security and privacy: Yes /cindy/ LENKA HARO CLINICAL RECEIVING TEAM MEMBER Signed: 11/10/2024 14:49 ADRIANA SIDDIQI [facility]
--- OUTSIDE RECORDS SUMMARY | 2024-12-28 08:05 | XMS_ITS | Encounter Summary ---
Author Name [facility] [place] [facility] [place] Address [address] [place] [address] Care Team Providers Care Marketing Programs Manager Name Role Phone KERRIE KNIGHT Primary Care [...] PART A February 17, 2017 PART A [id number] [phone] MARY ESPINO PATIENT MEDICARE (WNR) MEDICARE (M) PART B February 17, 2017 PART B [id number] MARY ESPINO PATIENT MEDICARE (WNR) MEDICARE (M) PART A February 17, 2017 PART A [id number] MARY ESPINO PATIENT MEDICARE (WNR) MEDICARE (M) PART A February 17, 2017 PART A [id number] CIMINIMARY [place] PATIENT MEDICARE (WNR) MEDICARE (M) PART B February 17, 2017 PART B [id number] [phone] CIMINI,MARY [place] PATIENT MEDICARE (WNR) MEDICARE (M) PART A February 17, 2017 PART A [id number] JASMINAINI,MARY [place] PATIENT MEDICARE (WNR) MEDICARE (M) PART A February 17, 2017 PART A [id number] CIMINI,MARY [place] PATIENT MEDICARE (WNR) MEDICARE (M) PART B February 17, 2017 PART B [id number] [phone] CIMINI,MARY [place] PATIENT MEDICARE (WNR) MEDICARE () PART A February 17, 2017 PART A [id number] JASMINAINI,MARY [place] PATIENT MEDICARE (WNR) MEDICARE (M) PART B February 17, 2017 PART B [id number] [phone] CIMINI,MARY [place] PATIENT MEDICARE (WNR) MEDICARE (M) PART B February 17, 2017 PART B [id number] [phone] JASMINAINI,MARY [place] PATIENT MEDICARE (WNR) MEDICARE (M) PART A February 17, 2017 PART A [id number] JASMINAINIMARY PATIENT Selected Encounter This section includes the information on record at [place] for the Encounter. Date/Time Encounter Type Encounter Description Reason Provider Source Jan 29, 2024 04:48 PM PSYCH DIAGNOSTIC EVALUATION [facility] ICD-10-CM F14.20 Cocaine dependence, uncomplicated NARESH SHAIKH E Encounter Template Text not used by [place] Assessments - Encounter Diagnoses This section includes the primary and secondary diagnoses documented for the Encounter. Date/Time Primary/Secondary Diagnosis Diagnosis Name Provider Source Jul 27, 2024 02:27 PM PRIMARY Cocaine dependence, uncomplicated NARESH SHAIKH R [facility] Plan of Treatment: Future Appointments (+ 6 months) and Future Tests (+/- 45 days) The Plan of Treatment section includes future care activities for the patient from all [facility]. This section includes future appointments and future orders which are active, pending or scheduled. Future Appointments This section includes appointments that were scheduled to occur 6 months from the date of the Encounter, up to a maximum of 20 appointments. The data comes from all [place] treatment facilities. Appointment Date/Time Appointment Type Appointme nt Facility Name Feb 06, 2024 10:00 AM AMBULATORY - PS[facility]IATRY [facility] [place] [facility] Feb 09, 2024 11:00 AM AMBULATORY - [facility]IATRY [facility] [place] [facility] Feb 10, 2024 09:00 AM AMBULATORY - PS[facility]CHIATRY [facility] [place] [facility] Feb 10, 2024 11:00 AM AMBULATORY - MEDICINE [facility] [place] [facility] Feb 11, 2024 10:00 AM AMBULATORY - PS[facility]CHIATRY [facility] [place] [facility] Feb 13, 2024 10:00 AM AMBULATORY - PS[facility]CHIATRY [facility] [place] [facility] Feb 16, 2024 03:30 PM AMBULATORY - MEDICINE [facility] [place] [facility] Feb 17, 2024 10:00 AM AMBULATORY - PS[facility]CHIATRY [facility] [place] [facility] May 05, 2024 10:40 AM AMBULATORY - MEDICINE [facility] [place] [facility] May 11, 2024 09:00 AM AMBULATORY - PS[facility]CHIATRY [facility] [place] [facility] May 13, 2024 11:30 AM AMBULATORY - MEDICINE [facility] [place] [facility] May 18, 2024 09:00 AM AMBULATORY - PSYCHIATRY [facility] [place] [facility] May 25, 2024 09:00 AM AMBULATORY - PSYCHIATRY [facility] [place] [facility] Jun 01, 2024 09:00 AM AMBULATORY - PSYCHIATRY [facility] [place] [facility] Jun 03, 2024 12:05 PM AMBULATORY - MEDICINE [facility] [place] [facility] Jun 08, 2024 09:00 AM AMBULATORY - PSYCHIATRY [facility] [place] [facility] Jun 08, 2024 11:30 AM AMBULATORY - PSYCHIATRY [facility] [place] [facility] Jun 11, 2024 03:30 PM AMBULATORY - MEDICINE [facility] [place] [facility] Jun 15, 2024 09:00 AM AMBULATORY - PSYCHIATRY [place] [facility] [place] [facility] Jun 22, 2024 09:00 AM AMBULATORY - PSYCHIATRY [place] [facility] [place] [facility] Social History: Smoking Status (Most [...] 2023 01:00 PM VA[facility]BACCO US[facility] Tobacco Use History This section includes a history of the smoking, or tobacco-related health factors, that were collected on or before the date of the Encounter. The data comes from the [place] facility where the Encounter took place. Date/Time Smoking Status/Tobacco Use Comment F acility Oct 02, 2023 01:00 PM VA-TOBACCO USE ADVICE [facility] [place] [facility] Oct 02, 2023 01:00 PM VA-TOBACCO USE PAPERHANGER PIPE NO [facility] [place] [facility] Oct 02, 2023 01:00 PM VA-TOBACCO USE MED NO [facility] [place] [facility] Oct 02, 2023 01:00 PM VA-TOBACCO USE WI 30 MIN OF WAKEUP [place] [facility] [place] [facility] Oct 02, 2023 01:00 PM VA-TOBACCO USER EVERY DAY [facility] [place] [facility] Sep 10, 2022 05:31 PM VA-TOBACCO USE > 1 5 LESS THAN 30 YEARS [place] [facility] [place] [facility] Sep 10, 2022 05:31 PM VA-TOBACCO USE ADVICE [facility] [place] [facility] Sep 10, 2022 05:31 PM VA-TOBACCO USE PAPERHANGER PIPE NO [facility] [place] [facility] Sep 10, 2022 05:31 PM VA-TOBACCO USE MED NO [place] [facility] [place] [facility] Sep 10, 2022 05:31 PM VA-TOBACCO USE WI 30 MIN OF WAKEUP [place] [facility] [place] [facility] Sep 10, 2022 05:31 PM VA-TOBACCO USER EVERY DAY [facility] [place] [facility] Aug 26, 2020 03:33 PM 689 INPT REPORTS SMOKING [facility] Aug 06, 2020 10:30 PM 689 INPT REPORTS SMOKING [facility] Jul 10, 2020 07:38 PM 689 INPT REPORTS SMOKING [facility] Jun 24, 2020 01:05 AM 689 INPT REPORTS [facility] Apr 14, 2020 06:45 AM 689 INPT REPORTS [facility] February 29, 2020 02:33 AM 689 INPT REPORTS [facility] Jul 20, 2019 06:25 PM 689 INPT REPORTS SMOKING [facility] Mar 25, 2019 05:25 AM 689 INPT REPORTS [facility]MOKING [facility] Apr 15, 2018 06:41 PM ORYX ADMIT TOBACCO SCREEN YES [facility] [place] [facility] Apr 15, 2018 06:41 PM ORYX ADMIT TOBACCO USE CIGS GR 5D [facility] [place] [facility] Apr 15, 2018 06:41 PM ORYX DAILY TOBACCO PAPERHANGER PIPE RECEIVED [facility] [place] [facility] Apr 15, 2018 06:41 PM ORYX DAILY TOBACCO MEDS REFUSED [facility] [place] [facility] Apr 15, 2018 02:41 PM CURRENT SMOKER [facility] [place] [facility] March 12, 2018 11:20 AM CURRENT SMOKER [facility] [place] [facility] March 12, 2018 11:20 AM V1-PT NOT INTEREST ED IN QUIT TOBACCO USE [facility] [place] [facility] Apr 10, 2016 09:03 AM TOBACCO INPATIENT DESIRES MEDS [facility] [place] [facility] Jan 28, 2016 12:53 PM TOBACCO INPATIENT DESIRES MEDS [facility] [place] [facility] Oct 21, 2015 05:16 PM TOBACCO INPATIENT DESIRES MEDS [facility] [place] [facility] Jul 13, 2015 11:06 PM TOBACCO INPATIENT DECLINES MEDS [facility] [place] [facility] Dec 13, 2014 08:26 PM TOBACCO INPATIENT DECLINES MEDS [facility] [place] [facility] Dec 13, 2014 07:39 PM CURRENT SMOKER [facility] Dec 13, 2014 07:39 PM V1-PT NOT INTEREST ED IN QUIT TOBACCO USE [place] [facility] Advance Directives: All historical and current [...] 13, 2019 ADVANCE DIRECTIVE JOSE MANUEL [facility] Oct 03, 2017 [facility] Feb 07, 2016 ADVANCE DIRECTIVE SOFIE POLANCO [facility] Jan 20, 2015 ADVANCE DIRECTIVE DISCUSSION FLORINA COLON [facility] Encounter Notes: All associated encounter notes This section contains the clinical notes associated to the Encounter. Date/Time Encounter Note(s) Provider Source Jan 29, 2024 04:48 PM MENTAL HEALTH OUTR EACH NOTE: LOCAL TITLE: JUSTICE OUTREACH PROGRESS NOTE STANDARD TITLE: MENTAL HEALTH OUTREACH NOTE DATE OF NOTE: JAN 29, 2024@16:48 ENTRY DATE: JAN 29, 2024@16:48:18 AUTHOR: NARESH SHAIKHIGNER: URGENCY: STATUS: COMPLETED Length of contact: 45 minutes Location: [address] Content: CARA met with today at [facility] where he has been held for 81 days. He is being released next Saturday 02/03. Discussed with his RRTP referral which is providers are recommending given most recent difficulties with his recovery. states he is grouped out but willing to accept a referral as he knows he may have his struggles early on. [place] also asks for appointments with his psychiatrist Dr. Hastings and his primarey care provider. [place] sttes tanner wuld like individual treatment in the [facility] and wonders if he can pursue couples work with Uma Ibarra in the near future. [place] highly encouraged to attend appointments in person as isolating at home is a trigger for him. [place] states he would like to work with MELIZA Jaramillo as well for recovery coaching. is also interested in [facility] as he enjoyed this a lot in the past and it could provide him with daily structure which he does not have at home right now. will be supervised by [place] probation so if he relapses could be back in penitentiary which he does not want. CARA will continue to provide support as needed for while he is court involved. /cindy/ LENKA JACOBSON VARNISH FILTERER Signed: 01/29/2024 16:58 Receipt Acknowledged By: 01/30/2024 13:17 /cindy/ YOUSIF FAUST GAS OPERATION MANAGER Batting Machine Operator Insulation NARESH SHAIKH [facility]
--- OUTSIDE RECORDS SUMMARY | 2024-12-28 08:05 | XMS_ITS | Encounter Summary ---
Author Name [facility] [place] [place] [facility] [place] Address [address] [place] [id number] Care Team Providers Care Medical Records Assistant Name Role Phone KERRIE KNIGHT Primary Care [...] PART A February 17, 2017 PART A [id number] MARY ESPINO PATIENT MEDICARE (WNR) MEDICARE (M) PART B February 17, 2017 PART B [id number] [phone] MARY EPSINO PATIENT MEDICARE (WNR) MEDICARE (M) PART A February 17, 2017 PART A [id number] MARY ESPINO PATIENT MEDICARE (WNR) MEDICARE (M) PART A February 17, 2017 PART A [id number] JASMINAINIMARY [place] PATIENT MEDICARE (WNR) MEDICARE (M) PART B February 17, 2017 PART B [id number] CIMINI,MARY [place] PATIENT MEDICARE (WNR) MEDICARE (M) PART A February 17, 2017 PART A [id number] [phone] CIMINI,MARY [place] PATIENT MEDICARE (WNR) MEDICARE (M) PART A February 17, 2017 PART A [id number] CIMINI,DA [place] PATIENT MEDICARE (WNR) MEDICARE (M) PART B February 17, 2017 PART B [id number] CIMINI,MARY [place] PATIENT MEDICARE (WNR) MEDICARE (M) PART A February 17, 2017 PART A [id number] CIMINI,MARY [place] PATIENT MEDICARE (WNR) MEDICARE (M) PART B February 17, 2017 PART B [id number] CIMINI,DA [place] PATIENT MEDICARE (WNR) MEDICARE (M) PART A February 17, 2017 PART A [id number] JASMINAINI,MARY [place] PATIENT MEDICARE (WNR) MEDICARE (M) PART B February 17, 2017 PART B [id number] JASMINAINIMARY PATIENT Selected Encounter This section includes the information on record at [place] for the Encounter. Date/Time Encounter Type Encounter Description Reason Pro vider Source IHE Encounter Template Text not used by [place] Social History: Smoking Status (Most current) and Tobacco Use (All prior to encounter date) This section includes the most current, and the historical, smoking and tobacco- related health factors from the [place] facility where the Encounter took place. Current Smoking Status This section includes the most current smoking, or tobacco-related health factor, from the [place] facility where the Encounter took place. Date/Time Current Smoking Status Comment Facil ity Aug 26, 2020 03:33 PM 689 INPT REPORTS SMOKING [facility] Tobacco Use History This section includes a history of the smoking, or tobacco-related health factors, that were collected on or before the date of the Encounter. The data comes from the [place] facility where the Encounter took place. Date/Time [...] 689 INPT REPORTS SMOKING [facility] Advance Directives: All historical and current Section Date Range: From patient's date of to the date document was created. This section includes ALL of a patient's completed or amended [place] Advance and Rescinded Directives. The entries below indicate that a directive exists for the patient, but an actual copy is not included with this document. The data comes from all [place] facilities. Date Advance Directives Provider Source Sep 13, 2019 ADVANCE DIRECTIVE JOSE MANUEL R[facility] Oct 03, 2017 ADVANCE DIRECTIVE DAGMAR THAKUR [facility] Feb 07, 2016 ADVANCE DIRECTIVE SOFIE POLANCO [facility] Jan 20, 2015 ADVANCE DIRECTIVE DISCUSSION FLORINA COLON [facility]
--- OUTSIDE RECORDS SUMMARY | 2024-12-28 08:05 | XMS_ITS | Encounter Summary ---
Author Name [facility] [place] [facility] [facility] [place] Address [address] [place] [address] Care Team Providers Care Check Pilot Name Role Phone KRERIE KNIGHT Primary Care Provider JOSE MANUEL [place] [...] PART A February 17, 2017 PART A [id number] MARY ESPINO PATIENT MEDICARE (WNR) MEDICARE (M) PART B February 17, 2017 PART B [id number] MARY ESPINO PATIENT MEDICARE (WNR) MEDICARE (M) PART A February 17, 2017 PART A [id number] [phone] MARY ESPINO PATIENT MEDICARE (WNR) MEDICARE (M) PART B February 17, 2017 PART B [id number] CIMINI,MARY [place] PATIENT MEDICARE (WNR) MEDICARE (M) PART A February 17, 2017 PART A [id number] CIMINI,DA [place] PATIENT MEDICARE (WNR) MEDICARE (M) PART A February 17, 2017 PART A [id number] [phone] CIMINI,MARY [place] PATIENT MEDICARE (WNR) MEDICARE (M) PART A February 17, 2017 PART A [id number] CIMINI,DA [place] PATIENT MEDICARE (WNR) MEDICARE (M) PART B February 17, 2017 PART B [id number] CIMINI,MARY [place] PATIENT MEDICARE (WNR) MEDICARE (M) PART A February 17, 2017 PART A [id number] [phone] CIMINI,MARY [place] PATIENT MEDICARE (WNR) MEDICARE (M) PART B February 17, 2017 PART B [id number] CIMINI,DA [place] PATIENT MEDICARE (WNR) MEDICARE (M) PART A February 17, 2017 PART A [id number] CIMINI,MARY [place] PATIENT MEDICARE (WNR) MEDICARE (M) PART B February 17, 2017 PART B [id number] JASMINAINIMARY PATIENT Selected Encounter This section includes the information on record at [place] for the Encounter. Date/Time Encounter Type Encounter Description Reason Provider Source Apr 29, 2024 10:38 AM CASE MANAGEMENT [facility] ICD-10-CM F14.20 Cocaine dependence, uncomplicated NARESH SHAIKH E Encounter Template Text not used by [place] Assessments - Encounter Diagnoses This section includes the primary and secondary diagnoses documented for the Encounter. Date/Time Primary/Secondary Diagnosis Diagnosis Name Provider Source Jul 27, 2024 02:28 PM PRIMARY Cocaine dependence, uncomplicated NARESH SHAIKH [facility] Plan of Treatment: Future Appointments (+ 6 months) and Future Tests (+/- 45 days) The Plan of Treatment section includes future care activities for the patient [facility] This section includes future appointments and future orders which are active, pending or scheduled. Future Appointments This section includes appointments that were scheduled to occur 6 months from the date of the Encounter, up to a maximum of 20 appointments. The data comes from all [place] treatment facilities. Appointment Date/Time Appointment Type Appointme nt Facility Name May 05, 2024 10:40 AM [facility]ULATORY [facility] May 11, 2024 09:00 AM AMBULATORY - PSYCHIATRY [facility] [place] May 13, 2024 11:30 AM AM[facility]UL[facility]ORY [facility]IC[facility] [place] May 18, 2024 09:00 AM AMBULATORY - PS[facility]IATRY [facility] [place] May 25, 2024 09:00 AM AMBULATORY - PS[facility]ATRY [facility] [place] Jun 01, 2024 09:00 AM AMBULATORY [facility] PS[facility] [place] Jun 03, 2024 12:05 PM AMBULATORY [facility]ICINE [facility] [place] [facility] Jun 08, 2024 09:00 AM AMBULATORY - PS[facility]IATRY [facility] [place] Jun 08, 2024 11:30 AM AMBULATORY - PS[facility]ATRY [facility] [place] Jun 11, 2024 03:30 PM AMBULATORY - [facility]ICINE [facility] [place] [facility] Jun 15, 2024 09:00 AM AMBULATORY - PS[facility]IATRY [facility] [place] [facility] Jun 22, 2024 09:00 AM AMBULATORY - PS[facility]ATRY [facility] [place] [facility] Jun 29, 2024 09:00 AM AMBULATORY - PS[facility]IATRY [facility] [place] [facility] Jul 06, 2024 09:00 AM AMBULATORY - PS[facility]IATRY [facility] [place] [facility] Jul 13, 2024 09:00 AM AMBULATORY - PS[facility]CHIATRY [facility] [place] [facility] Jul 16, 2024 09:05 AM [facility]UL[facility]ORY [facility]IC[facility] [place] [facility] Jul 18, 2024 07:45 PM AM[facility]ULATORY [facility] MED[facility]INE [facility] [place] [facility] Jul 20, 2024 09:00 AM AMBULATORY [facility] PS[facility] [place] [facility] Jul 22, 2024 09:30 AM [facility] [place] [facility] Jul 27, 2024 09:00 AM [facility] Social History: Smoking Status (Most current) and Tobacco Use (All prior to encounter date) This section includes the most current, and the historical, smoking and tobacco- related health factors from the [place] facility where the Encounter took place. Current Smoking Status This section includes the most current smoking, or tobacco-related health factor, from the [place] facility where the Encounter took place. Date/Time Current Smoking Status Comment Facil ity Oct 02, 2023 01:00 PM VA-TOBACCO USER EVERY DAY [facility] Tobacco Use History This section includes a history of the smoking, or tobacco-related health factors, that were collected on or before the date of the Encounter. The data comes from the [place] facility where the Encounter took place. Date/Time Smoking Status/Tobacco Use Comment F acility Oct 02, 2023 01:00 PM VA-TOBACCO USE ADVICE [facility] [place] Oct 02, 2023 01:00 PM VA-TOBACCO USE OPEN HEARTH DOOR LINER NO [facility] [place] [facility] Oct 02, 2023 01:00 PM VA-TOBACCO USE MED NO [facility] [place] Oct 02, 2023 01:00 PM VA-TOBACCO USE WI 30 MIN OF WAKEUP [facility] [place] [facility] Oct 02, 2023 01:00 PM VA-TOBACCO USER EVERY DAY [facility] [place] [facility] Sep 10, 2022 05:31 PM VA-TOBACCO USE > 1 5 LESS THAN 30 YEARS [facility] [place] [facility] Sep 10, 2022 05:31 PM VA-TOBACCO USE ADVICE [facility] [place] Sep 10, 2022 05:31 PM VA-TOBACCO USE OPEN HEARTH DOOR LINER NO [facility] [place] Sep 10, 2022 05:31 PM VA-TOBACCO USE MED NO [facility] [place] Sep 10, 2022 05:31 PM VA-TOBACCO USE WI 30 MIN OF WAKEUP [facility] [place] [facility] Sep 10, 2022 05:31 PM VA-TOBACCO USER EVERY DAY [facility] Aug 26, 2020 03:33 PM 689 INPT REPORTS SMOKING [facility] Aug 06, 2020 10:30 PM 689 INPT REPORTS SMOKING [facility] Jul 10, 2020 07:38 PM 689 INPT REPORTS SMOKING [facility] Jun 24, 2020 01:05 AM 689 INPT REPORTS SMOKING [facility] Apr 14, 2020 06:45 AM 689 INPT REPORTS SMOKING [facility] February 29, 2020 02:33 AM 689 INPT REPORTS SMOKING [facility] Jul 20, 2019 06:25 PM 689 INPT REPORTS SMOKING [facility] Mar 25, 2019 05:25 AM 689 INPT REPORTS SMOKING [facility] Apr 15, 2018 06:41 PM ORYX ADMIT TOBACCO SCREEN YES [facility] Apr 15, 2018 06:41 PM ORYX ADMIT TOBACCO USE CIGS GR 5D [facility] [place] Apr 15, 2018 06:41 PM ORYX DAILY TOBACCO OPEN HEARTH DOOR LINER RECEIVED [facility] [place] Apr 15, 2018 06:41 PM ORYX DAILY TOBACCO MEDS REFUSED [facility] [place] Apr 15, 2018 02:41 PM CURRENT SMOKER [facility] [place] March 12, 2018 11:20 AM CURRENT SMOKER [facility] [place] [facility] March 12, 2018 11:20 AM V1-PT NOT INTEREST ED IN QUIT TOBACCO USE [facility] [place] Apr 10, 2016 09:03 AM TOBACCO INPATIENT DESIRES MEDS [facility] [place] [facility] Jan 28, 2016 12:53 PM TOBACCO INPATIENT DESIRES MEDS [facility] [place] [facility] Oct 21, 2015 05:16 PM TOBACCO INPATIENT DESIRES MEDS [facility] [place] [facility] Jul 13, 2015 11:06 PM TOBACCO INPATIENT DECLINES MEDS [facility] [place] [facility] Dec 13, 2014 08:26 PM TOBACCO INPATIENT DECLINES MEDS [facility] [place] [facility] Dec 13, 2014 07:39 PM CURRENT SMOKER [facility] Dec 13, 2014 07:39 PM V1-PT NOT INTEREST ED IN QUIT TOBACCO USE [facility] [place] Advance Directives: All historical and current Section Date Range: From patient's date of to the date document was created. This section includes ALL of a patient's completed or amended [place] Advance and Rescinded Directives. The entries below indicate that a directive exists for the patient, but an actual copy is not included with this document. The data comes from all [place] facilities. Date Advance Directives Provider Source Sep 13, 2019 ADVANCE DIRECTIVE JOSE MANUEL [facility] Oct 03, 2017 ADVANCE DIRECTIVE DAGMAR THAKUR [facility] Feb 07, 2016 ADVANCE DIRECTIVE SOFIE POLANCO [facility] Jan 20, 2015 ADVANCE DIRECTIVE DISCUSSION FLORINA COLON [facility] Encounter Notes: All associated encounter notes This section contains the clinical notes associated to the Encounter. Date/Time Encounter Note(s) Provider Source Apr 28, 2024 03:39 PM MENTAL HEALTH OUTR EACH NOTE: LOCAL TITLE: [facility]ICE [facility]ACH PROGRESS NOTE STANDARD TITLE: MENTAL HEALTH OUTREACH NOTE DATE OF NOTE: APR 28, 2024@15:39 ENTRY DATE: APR 29, 2024@10:39:13 AUTHOR: NARESH SHAIKH EXP COSIGNER: URGENCY: STATUS: COMPLETED [place] identified by: [x ] Full Name [] Address [x ] [ ] SSN [] Facial Recognition Length of contact: 60 minutes Location: [facility] [address], [facility] Content: Cicero was an active participant in court session today. is at home alone now and on a SCRAM unit. He is maintaining sobriety. Met with after the court session. He states he is doing very well. He had a mentor assigned today who is also an [employer] to provide ongoing support. /cindy/ LENKA JACOBSON PARTITION ASSEMBLER Signed: 04/29/2024 10:41 NARESH SHAIKH [facility]
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
--- OUTSIDE RECORDS SUMMARY | 2024-12-28 08:05 | XMS_ITS | Encounter Summary ---
Author Name [facility] [place] [facility] [place] Address [address] [place] [address] Care Team Providers Care Babbitt Spinner Name Role Phone KERRIE KNIGHT Primary Care [...] PART B February 17, 2017 PART B [id number] MRAY ESPINO PATIENT MEDICARE (WNR) MEDICARE (M) PART A February 17, 2017 PART A [id number] [phone] MARY ESPINO PATIENT MEDICARE (WNR) MEDICARE (M) PART A February 17, 2017 PART A [id number] [facility] CIMINI,DA [place] PATIENT MEDICARE (WNR) MEDICARE (M) PART A February 17, 2017 PART A [id number] [phone] CIMINI,MARY [place] PATIENT MEDICARE (WNR) MEDICARE (M) PART B February 17, 2017 PART B [id number] CIMINI,MARY [place] PATIENT MEDICARE (WNR) MEDICARE (M) PART A February 17, 2017 PART A [id number] CIMINI,MARY [place] PATIENT MEDICARE (WNR) MEDICARE (M) PART A February 17, 2017 PART A [id number] CIMINI,DA [place] PATIENT MEDICARE (WNR) MEDICARE (M) PART B February 17, 2017 PART B [id number] [phone] CIMINI,MARY [place] PATIENT MEDICARE (WNR) MEDICARE (M) PART A February 17, 2017 PART A [id number] [phone] JASMINAINI,MARY [place] PATIENT MEDICARE (WNR) MEDICARE (M) PART B February 17, 2017 PART B [id number] CIMINI,DA [place] PATIENT MEDICARE (WNR) MEDICARE (M) PART A February 17, 2017 PART A [id number] CIMINI,MARY [place] PATIENT MEDICARE (WNR) MEDICARE (M) PART B February 17, 2017 PART B [id number] JASMINAINIMARY PATIENT Selected Encounter This section includes the information on record at [place] for the Encounter. Date/Time Encounter Type Encounter Description Reason Provider Source Feb 09, 2024 11:00 AM SELF-HELP/PEER SVC PER 15MIN SUBSTANCE USE DISORDER IND ICD-10-CM F29 Unsp psychosis not due to a substance or known physiol cond RAJESH MARMOLEJO E Encounter Template Text not used by [place] Assessments - Encounter Diagnoses This section includes the primary and secondary diagnoses documented for the Encounter. Date/Time Primary/Secondary Diagnosis Diagnosis Name Provider Source Feb 09, 2024 12:02 PM PRIMARY Unsp psychosis not due to a substance or known physiol cond [place] MARMOLEJO [place] [facility] [place] [facility] Feb 09, 2024 12:02 PM SECONDARY Alcohol dependence with other alcohol-induced disorder [place] MARMOLEJO R [facility] [place] [facility] Feb 09, 2024 12:02 PM SECONDARY 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 [place] MARMOLEJO R [facility] [place] [facility] Feb 09, 2024 12:02 PM SECONDARY Cocaine dependence, uncomplicated [place] MARMOLEJO R [facility] [place] [facility] Feb 09, 2024 12:02 PM SECONDARY Nicotine dependence, cigarettes, uncomplicated [place] MARMOLEJO R [facility] [place] [facility] Feb 09, 2024 12:02 PM SECONDARY Other recurrent depressive disorders [place] MARMOLEJO R [facility] [place] [facility] Feb 09, 2024 12:02 PM SECONDARY Post-traumatic stress disorder, chronic [place] MARMOLEJO R [facility] [place] [facility] Plan of Treatment: Future Appointments (+ 6 months) and Future Tests (+/- 45 days) The Plan of Treatment section includes future care activities for the patient from [facility] [place] [facility]. This section includes future appointments and future orders which are active, pending or scheduled. Future Appointments This section includes appointments that were scheduled to occur 6 months from the date of the Encounter, up to a maximum of 20 appointments. The data comes from all [place] treatment facilities. Appointment Date/Time Appointment Type Appointme nt Facility Name Feb 10, 2024 09:00 AM AMBULATORY - PSYCHIATRY [facility] [place] [facility] Feb 10, 2024 11:00 AM AMBULATORY - MEDICINE [place] [facility] [place] [facility] Feb 11, 2024 10:00 AM AMBULATORY - PS[facility]CHIATRY [facility] [place] [facility] Feb 13, 2024 10:00 AM AMBULATORY - PSYCHIATRY [facility] [place] [facility] Feb 16, 2024 03:30 PM AMBULATORY - MEDICINE [facility] [place] [facility] Feb 17, 2024 10:00 AM AMBULATORY - PSYCHIATRY [facility] [place] [facility] May 05, 2024 10:40 AM AMBULATORY - MEDICINE [place] [facility] [place] [facility] May 11, 2024 09:00 AM AMBULATORY - PSYCHIATRY [facility] [place] [facility] May 13, 2024 11:30 AM AMBULATORY - MEDICINE [facility] [place] [facility] May 18, 2024 09:00 AM AMBULATORY - PSYCHIATRY [facility] [place] [facility] May 25, 2024 09:00 AM AMBULATORY - PSYCHIATRY [facility] [place] [facility] Jun 01, 2024 09:00 AM AMBULATORY - PSYCHIATRY [facility] [place] [facility] Jun 03, 2024 12:05 PM AMBULATORY - MEDICINE [facility] [place] [facility] Jun 08, 2024 09:00 AM AMBULATORY - PSYCHIATRY [facility] [place] [facility] Jun 08, 2024 11:30 AM AMBULATORY - PSYCHIATRY [facility] [place] [facility] Jun 11, 2024 03:30 PM AMBULATORY - MEDICINE [facility] [place] [facility] Jun 15, 2024 09:00 AM AMBULATORY - PSYCHIATRY [facility] [place] [facility] Jun 22, 2024 09:00 AM AMBULATORY - PSYCHIATRY [facility] [place] [facility] Jun 29, 2024 09:00 AM AMBULATORY - PS[facility]CHIATRY [facility] [place] [facility] Jul 06, 2024 09:00 AM AMBULATORY - PSYCHIATRY [facility] [place] [facility] Social History: Smoking Status (Most current) and Tobacco Use (All prior to encounter date) This section includes the most current, and the historical, smoking and tobacco- related health factors from the [place] facility where the Encounter took place. Current Smoking Status This section includes the most current smoking, or tobacco-related health factor, from the [place] facility where the Encounter took place. Date/Time Current Smoking Status Comment Facil ity Oct 02, 2023 01:00 PM VA-TOBACCO USE WI 30 MIN OF WAKEUP [place] [facility] [place] [facility] Tobacco Use History This section includes a history of the smoking, or tobacco-related health factors, that were collected on or before the date of the Encounter. The data comes from the [place] facility where the Encounter took place. Date/Time Smoking Status/Tobacco Use Comment F acility Oct 02, 2023 01:00 PM VA-TOBACCO USE ADVICE [facility] [place] [facility] Oct 02, 2023 01:00 PM VA-TOBACCO USE RETAIL STORE ASSOCIATE NO [facility] [place] [facility] Oct 02, 2023 01:00 PM VA-TOBACCO USE MED NO [facility] [place] [facility] Oct 02, 2023 01:00 PM VA-TOBACCO USE WI 30 MIN OF WAKEUP [facility] [place] [facility] Oct 02, 2023 01:00 PM VA-TOBACCO USER EVERY DAY [facility] [place] [facility] Sep 10, 2022 05:31 PM VA-TOBACCO USE > 1 5 LESS THAN 30 YEARS [facility] [place] [facility] Sep 10, 2022 05:31 PM VA-TOBACCO USE ADVICE [facility] [place] [facility] Sep 10, 2022 05:31 PM VA-TOBACCO USE RETAIL STORE ASSOCIATE NO [facility] [place] [facility] Sep 10, 2022 05:31 PM VA-TOBACCO USE MED NO [facility] [place] [facility] Sep 10, 2022 05:31 PM VA-TOBACCO USE WI 30 MIN OF WAKEUP [place] [facility] [place] [facility] Sep 10, 2022 05:31 PM VA-TOBACCO USER EVERY DAY [place] [facility] [place] [facility] Aug 26, 2020 03:33 PM 689 [facility]PT REPORTS SMOKING [facility] Aug 06, 2020 10:30 PM 689 [employer]PT REPORTS SMOKING [facility] Jul 10, 2020 07:38 PM 689 INPT REPORTS SMOKING [facility] Jun 24, 2020 01:05 AM 689 INPT REPORTS SMOKING [facility] Apr 14, 2020 06:45 AM 689 [employer]PT REPORTS SMOKING [facility] February 29, 2020 02:33 AM 689 INPT REPORTS SMOKING [facility] Jul 20, 2019 06:25 PM 689 INPT REPORTS SMOKING [facility] Mar 25, 2019 05:25 AM 689 INPT REPORTS SMOKING [facility] Apr 15, 2018 06:41 PM ORYX ADMIT TOBACCO SCREEN YES [facility] [place] [facility] Apr 15, 2018 06:41 PM ORYX ADMIT TOBACCO USE CIGS GR 5D [facility] [place] [facility] Apr 15, 2018 06:41 PM ORYX DAILY TOBACCO RETAIL STORE ASSOCIATE RECEIVED [facility] [place] [facility] Apr 15, 2018 06:41 PM ORYX DAILY TOBACCO MEDS REFUSED [facility] [place] [facility] Apr 15, 2018 02:41 PM CURRENT SMOKER [facility] [place] [facility] March 12, 2018 11:20 AM CURRENT SMOKER [facility] [place] [facility] March 12, 2018 11:20 AM V1-PT NOT INTEREST ED IN QUIT TOBACCO USE [facility] [place] [facility] Apr 10, 2016 09:03 AM TOBACCO INPATIENT DESIRES MEDS [facility] [place] [facility] Jan 28, 2016 12:53 PM TOBACCO INPATIENT DESIRES MEDS [facility] [place] [facility] Oct 21, 2015 05:16 PM TOBACCO INPATIENT DESIRES MEDS [facility] [place] [facility] Jul 13, 2015 11:06 PM TOBACCO INPATIENT DECLINES MEDS [facility] [place] [facility] Dec 13, 2014 08:26 PM TOBACCO INPATIENT DECLINES MEDS [place] [facility] [place] [facility] Dec 13, 2014 07:39 PM CURRENT SMOKER [facility] [place] [facility] Dec 13, 2014 07:39 PM V1-PT NOT INTEREST ED IN QUIT TOBACCO USE [place] [facility] [place] [facility] Advance Directives: All historical and current Section Date Range: From patient's date of to the date document was created. This section includes ALL of a patient's completed or amended [place] Advance and Rescinded Directives. The entries below indicate that a directive exists for the patient, but an actual copy is not included with this document. The data comes from all [place] facilities. Date Advance Directives Provider Source Sep 13, 2019 ADVANCE DIRECTIVE JOSE MANUEL RICO [facility] Oct 03, 2017 ADVANCE DIRECTIVE DAGMAR THAKUR [facility] Feb 07, 2016 ADVANCE DIRECTIVE SOFIE POLANCO [facility] Jan 20, 2015 ADVANCE DIRECTIVE DISCUSSION FLORINA COLON [facility] Encounter Notes: All associated encounter notes This section contains the clinical notes associated to the Encounter. Date/Time Encounter Note(s) Provider Source Feb 09, 2024 11:00 AM MENTAL HEALTH COUNSELING NOTE: LOCAL TITLE: PEER SUPPORT NOTE STANDARD TITLE: MENTAL HEALTH COUNSELING NOTE DATE OF NOTE: FEB 09, 2024@11:00 ENTRY DATE: FEB 09, 2024@11:50:36 AUTHOR: KADEEM MARMOLEJO COSIGNER: URGENCY: STATUS: COMPLETED PEER SUPPORT NOTE DATE: 02/09/2024 TIME: 1100 hours. TIME IN SESSION (in minutes): 30 minutes TUBE ROOM SUPERVISOR: Kadeem Marmolejo M.Ed., CPS PURPOSE/FOCUS: Peer Support Service, 1:1 Peer Mentoring, LOCATION: [facility], [facility] CONTENT: met VVC with a 43-year-old male outpatient for 1 to 1 peer support. Devoted time towards reviewing the events of the past week along establishing what our collaboration is going to look like. shared they are in the process of getting establish with their electronic warfare officer, assiting fiancee with merging residences to live together. [place] also having to replace technology, reactivate SSDI, and look into transportation needs such as wanting to get drivers licenses for resuming their life and take care of needs. appears calm and focused on the days activities and appointments. Research Nurse Practitioner with reach out mid week week to lock down the best time for meeting on VVC at the veterans best times. [place] identified with 2 identifiers: [X] Full Name [ ] Date of [ ] VA ID Card [X] Facial Recognition INFORMED CONSENT: informed of the risks and benefits of Telehealth video care. has the right to refuse video services. If refuses video visit, a qyhs-[id number] visit will be scheduled. verbalized consent for this video visit: Yes PEER INTERVENTIONS USED: Mutuality, Motivational Interviewing, Recovery Coaching RESPONSE: reporting that going to busier getting life restarted over the next few days. For the present just talking about what is going on in life is where the feels the need to be able lean on somebody and not over load fiancee whlie they are busy. OBSERVED STRENGTHS: is sincere in feeling better. 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) - Cocaine dependence with cocaine-induced psychotic disorder with delusions (ICD-10-CM F14.250) Posttraumatic stress disorder (SCT 95432559) - Post-traumatic stress disorder, chronic (ICD-10-CM F43.12) Alcohol dependence (SCT 52886620) - Alcohol dependence with other alcohol- induced disorder (ICD-10-CM F10.288) 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
--- OUTSIDE RECORDS SUMMARY | 2024-12-28 08:05 | XMS_ITS | Encounter Summary ---
Author Name [facility] [place] [facility] [place] Address [address] [place] [address] Care Team Providers Care Log Chain Feeder Name Role Phone KERRIE KNIGHT Primary Care [...] PART A February 17, 2017 PART A [id number] MARY ESPINO PATIENT MEDICARE (WNR) MEDICARE (M) PART B February 17, 2017 PART B [id number] [phone] MARY ESPINO PATIENT MEDICARE (WNR) MEDICARE (M) PART A February 17, 2017 PART A [id number] [facility] CIMINI,DA [place] PATIENT MEDICARE (WNR) MEDICARE (M) PART A February 17, 2017 PART A [id number] [phone] CIMINI,MARY [place] PATIENT MEDICARE (WNR) MEDICARE (M) PART B February 17, 2017 PART B [id number] [phone] CIMINI,MARY [place] PATIENT MEDICARE (WNR) MEDICARE (M) PART A February 17, 2017 PART A [id number] CIMINI,MARY [place] PATIENT MEDICARE (WNR) MEDICARE (M) PART A February 17, 2017 PART A [id number] [phone] CIMINI,DA [place] PATIENT MEDICARE (WNR) MEDICARE (M) PART B February 17, 2017 PART B [id number] JASMINAINI,MARY [place] PATIENT MEDICARE (WNR) MEDICARE (M) PART A February 17, 2017 PART A [id number] JASMINAINI,MARY [place] PATIENT MEDICARE (WNR) MEDICARE (M) PART B February 17, 2017 PART B [id number] CIMINI,DA [place] PATIENT MEDICARE (WNR) MEDICARE (M) PART A February 17, 2017 PART A [id number] CIMINI,MARY [place] PATIENT MEDICARE (WNR) MEDICARE (M) PART B February 17, 2017 PART B [id number] JASMINAINIMARY PATIENT Selected Encounter This section includes the information on record at [place] for the Encounter. Date/Time Encounter Type Encounter Description Reason Provider Source May 04, 2024 11:00 AM SELF-HELP/PEER SVC PER 15MIN SUBSTANCE USE DISORDER IND ICD-10-CM F14.20 Cocaine dependence, uncomplicated AUGUSTA MARMOLEJO E Encounter Template Text not used by [place] Assessments - Encounter Diagnoses This section includes the primary and secondary diagnoses documented for the Encounter. 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 This section includes future appointments and future orders which are active, pending or scheduled. Future Appointments This section includes appointments that were scheduled to occur 6 months from the date of the Encounter, up to a maximum of 20 appointments. The data comes from all [place] treatment facilities. Appointment Date/Time Appointment Type Appointme nt Facility Name May 05, 2024 10:40 AM AMBULATORY - MEDICINE [facility] [place] [facility] May 11, 2024 09:00 AM AMBULATORY - PSYCHIATRY [facility] [place] [facility] May 13, 2024 11:30 AM AMBULATORY - MEDICINE [facility] [place] [facility] May 18, 2024 09:00 AM AMBULATORY - PSYCHIATRY [facility] [place] [facility] May 25, 2024 09:00 AM AMBULATORY - PSYCHIATRY [facility] [place] [facility] Jun 01, 2024 09:00 AM AMBULATORY - PSYCHIATRY [facility] [place] [facility] Jun 03, 2024 12:05 PM AMBULATORY - MEDICINE [facility] [place] [facility] Jun 08, 2024 09:00 AM AMBULATORY - PSYCHIATRY [facility] [place] [facility] Jun 08, 2024 11:30 AM AMBULATORY - PSYCHIATRY [facility] [place] [facility] Jun 11, 2024 03:30 PM AMBULATORY - MEDICINE [facility] [place] [facility] Jun 15, 2024 09:00 AM AMBULATORY - PSYCHIATRY [facility] [place] [facility] Jun 22, 2024 09:00 AM AMBULATORY - PSYCHIATRY [facility] [place] [facility] Jun 29, 2024 09:00 AM AMBULATORY - PSYCHIATRY [facility] [place] [facility] Jul 06, 2024 09:00 AM AMBULATORY - PSYCHIATRY [facility] [place] [facility] Jul 13, 2024 09:00 AM AMBULATORY - PSYCHIATRY [facility] [place] [facility] Jul 16, 2024 09:05 AM AMBULATORY - MEDICINE [facility] [place] [facility] Jul 18, 2024 07:45 PM AMBULATORY - MEDICINE [facility] [place] [facility] Jul 20, 2024 09:00 AM AMBULATORY - PSYCHIATRY [facility] [place] [facility] Jul 22, 2024 09:30 AM AMBULATORY - PSYCHIATRY [facility] [place] [facility] Jul 27, 2024 09:00 AM AMBULATORY - PSYCHIATRY [facility] [place] [facility] Social History: Smoking Status (Most current) [...] VA-TOBACCO USE WI 30 MIN OF WAKEUP [facility] Tobacco Use History This section includes a history of the smoking, or tobacco-related health factors, that were collected on or before the date of the Encounter. The data comes from the [place] facility where the Encounter took place. Date/Time Smoking Status/Tobacco Use Comment F acility Oct 02, 2023 01:00 PM VA-TOBACCO USE ADVICE [facility] [place] [facility] Oct 02, 2023 01:00 PM VA-TOBACCO USE DIRECTOR DECISION SUPPORT NO [facility] [place] [facility] Oct 02, 2023 01:00 PM VA-TOBACCO USE MED NO [facility] [place] [facility] Oct 02, 2023 01:00 PM VA-TOBACCO USE WI 30 MIN OF WAKEUP [facility] [place] [facility] Oct 02, 2023 01:00 PM VA-TOBACCO USER EVERY DAY [facility] [place] [facility] Sep 10, 2022 05:31 PM VA-TOBACCO USE > 1 5 LESS THAN 30 YEARS [facility] [place] [facility] Sep 10, 2022 05:31 PM VA-TOBACCO USE ADVICE [facility] [place] [facility] Sep 10, 2022 05:31 PM VA-TOBACCO USE DIRECTOR DECISION SUPPORT NO [facility] [place] [facility] Sep 10, 2022 05:31 PM VA-TOBACCO USE MED NO [facility] [place] [facility] Sep 10, 2022 05:31 PM VA-TOBACCO USE WI 30 MIN OF WAKEUP [facility] [place] [facility] Sep 10, 2022 05:31 PM VA-TOBACCO USER EVERY DAY [facility] [place] [facility] Aug 26, 2020 03:33 PM 689 [...] TOBACCO SCREEN YES [facility] [place] [facility] Apr 15, 2018 06:41 PM ORYX ADMIT TOBACCO USE CIGS GR 5D [facility] [place] [facility] Apr 15, 2018 06:41 PM ORYX DAILY TOBACCO DIRECTOR DECISION SUPPORT RECEIVED [facility] [place] [facility] Apr 15, 2018 06:41 PM ORYX DAILY TOBACCO MEDS REFUSED [facility] [place] [facility] Apr 15, 2018 02:41 PM CURRENT SMOKER [facility] [place] [facility] March 12, 2018 11:20 AM CURRENT SMOKER [facility] [place] [facility] March 12, 2018 11:20 AM V1-PT NOT INTEREST ED IN QUIT TOBACCO USE [facility] [place] [facility] Apr 10, 2016 09:03 AM TOBACCO INPATIENT DESIRES MEDS [facility] [place] [facility] Jan 28, 2016 12:53 PM TOBACCO INPATIENT DESIRES MEDS [facility] [place] [facility] Oct 21, 2015 05:16 PM TOBACCO INPATIENT DESIRES MEDS [facility] [place] [facility] Jul 13, 2015 11:06 PM TOBACCO INPATIENT DECLINES MEDS [facility] [place] [facility] Dec 13, 2014 08:26 PM TOBACCO INPATIENT DECLINES MEDS [facility] [place] [facility] Dec 13, 2014 07:39 PM CURRENT SMOKER [facility] [place] [facility] Dec 13, 2014 07:39 PM V1-PT NOT INTEREST ED IN QUIT TOBACCO USE [facility] Advance Directives: All historical and current Section Date Range: From patient's date of to the date document was created. This section includes ALL of a patient's completed or amended [place] Advance and Rescinded Directives. The entries below indicate that a directive exists for the patient, but an actual copy is not included with this document. The data comes from all [place] facilities. Date Advance Directives Provider Source Sep 13, 2019 ADVANCE DIRECTIVE JOSE MANUEL RICO [facility] Oct 03, 2017 ADVANCE DIRECTIVE DAGMAR THAKUR [facility] Feb 07, 2016 ADVANCE DIRECTIVE SOFIE POLANCO [facility] Jan 20, 2015 ADVANCE DIRECTIVE DISCUSSION [facility] Encounter Notes: All associated encounter notes This section contains the clinical notes associated to the Encounter. Date/Time Encounter Note(s) Provider Source May 04, 2024 11:00 AM MENTAL HEALTH COUNSELING NOTE: LOCAL TITLE: PEER SUPPORT NOTE STANDARD TITLE: MENTAL HEALTH COUNSELING NOTE DATE OF NOTE: MAY 04, 2024@11:00 ENTRY DATE: MAY 04, 2024@13:03:17 AUTHOR: KADEEM MARMOLEJO COSIGNER: URGENCY: STATUS: COMPLETED PEER SUPPORT NOTE DATE: 05/04/2024 TIME: 1100 hours. TIME IN SESSION (in minutes): 75 minutes RADIO PERSONALITY: Kadeem Hudson, M.Ed., CPS PURPOSE/FOCUS: Peer Support Service, 1:1 Peer Mentoring, LOCATION: [facility] CONTENT: met telephonically with 44-year-old male outpatient for peer services. Lakeland is involved in Court relating to domestic issues and was recently released from incarceration for approx. 41 days. described the recent ending of a nursing home engagment and reports they actually feel much better along with strengthing ties to father, brother and uncle. Lakeland also reported turning to spirituality and attending jewish, daily prayers, and bible study. Lakeland described the court process of recovery with the assigned court mentor and weekly video group sessions working from the workbook [employer]ning [employer] In[employer]able [employer] . Session included discussion topics of attending a community college course (1), Financila security,membership with a nearby gym, additional 1 to 1 therapy sessions, securing a mode of transportation, and finally outlining what future peer session will include. Fiscal Officer and agreed to work from their group workbook to add depth of knowledge of material, Begin developing a WRAP plan, and mostly informal conversation of daily life and encounter deeping a garvin towards recovery. identified with 2 identifiers: [X] Full Name [ ] Date of [ ] VA ID Card [X] Facial Recognition INFORMED CONSENT: Lakeland informed of the risks and benefits of Telehealth video care. Lakeland has the right to refuse video services. If refuses video visit, a [id number] visit will be scheduled. verbalized consent for this video visit: Yes PEER INTERVENTIONS USED: Mutuality, Motivational Interviewing, Recovery Coaching RESPONSE: reporting that by end of the week they will be able to secure transportation. has plans to follow through with much needed dental work and deepend their chuch attendance making that a cornerstone of recovery. Lakeland feels safe with support network of family court mentor and commercial lines underwriter. Finally will want to start 1 to 1 therapy in a few week most likely in the fall. OBSERVED STRENGTHS: is sincere in recovery. PLAN: vvc meeting weekly, PROCEDURE: VVC Diagnoses: Cocaine dependence (SCT 87702509) - Cocaine dependence, uncomplicated (ICD- 10-CM F14.20) (Primary) Posttraumatic stress disorder (SCT [id number]) - Post-traumatic stress disorder, chronic (ICD-10-CM F43.12) Alcohol dependence (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 /es/ KADEEM MARMOLEJO Signed: 05/04/2024 13:25 Receipt Acknowledged By: 05/04/2024 14:02 /es/ YOUSIF FAUST [facility] Gas Meter Reader KADEEM MARMOLEJO [facility]
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
--- OUTSIDE RECORDS SUMMARY | 2024-12-28 08:06 | XMS_ITS | Encounter Summary ---
Author Name [facility] [place] Organization [place] Address [address] [place] [id number] Care Team Providers Care Ampoule Inspector Name Role Phone KERRIE KNIGHT Primary Care [...] PART A February 17, 2017 PART A [id number] MARY ESPINO PATIENT MEDICARE (WNR) MEDICARE (M) PART B February 17, 2017 PART B [id number] [phone] MARY ESPINO PATIENT MEDICARE (WNR) MEDICARE (M) PART A February 17, 2017 PART A [id number] [phone] [id number] MARY ESPINO PATIENT MEDICARE (WNR) MEDICARE (M) PART A February 17, 2017 PART A [id number] JASMINAINIMARY MARIETTA PATIENT MEDICARE (WNR) MEDICARE (M) PART B February 17, 2017 PART B [id number] CIMINI,MARY [place] PATIENT MEDICARE (WNR) MEDICARE (M) PART A February 17, 2017 PART A [id number] [phone] CIMINI,MARY [place] PATIENT MEDICARE (WNR) MEDICARE (M) PART A February 17, 2017 PART A [id number] CIMINI,DA [place] PATIENT MEDICARE (WNR) MEDICARE (M) PART B February 17, 2017 PART B [id number] [phone] [id number] CIMINI,MARY [place] PATIENT MEDICARE (WNR) MEDICARE (M) PART A February 17, 2017 PART A [id number] [phone] [id number] CIMINI,MARY [place] PATIENT MEDICARE (WNR) MEDICARE (M) PART B February 17, 2017 PART B [id number] CIMINI,DA [place] PATIENT MEDICARE (WNR) MEDICARE (M) PART A February 17, 2017 PART A [id number] [id number] [id number] JASMINAINI,MARY [place] PATIENT MEDICARE (WNR) MEDICARE (M) PART B February 17, 2017 PART B [id number] JASMINAINIMARY PATIENT Selected Encounter This section includes the information on record at [place] for the Encounter. Date/Time Encounter Type Encounter Description Reason Pro vider Source IHE Encounter Template Text not used by [place] Social History: Smoking Status (Most current) and [...] [facility] Tobacco Use History This section includes [...] [facility] Advance Directives: All historical and current [...] Oct 03, 2017 ADVANCE DIRECTIVE DAGMAR THAKUR [facility] Feb 07, 2016 ADVANCE DIRECTIVE SOFIE POLANCO [facility] Jan 20, 2015 ADVANCE DIRECTIVE DISCUSSION FLORINA COLON [facility]
--- OUTSIDE RECORDS SUMMARY | 2024-12-28 08:07 | XMS_ITS | Encounter Summary ---
Author Name [facility] [place] Address [address] [place] [address] Care Team Providers Care Student Outreach Coordinator Name Role Phone KERRIE KNIGHT Primary [...] PART A February 17, 2017 PART A [id number] MARY ESPINO PATIENT MEDICARE (WNR) MEDICARE (M) PART B February 17, 2017 PART B [id number] [phone] MARY ESPINO PATIENT MEDICARE (WNR) MEDICARE (M) PART A February 17, 2017 PART A [id number] MARY ESPINO PATIENT MEDICARE (WNR) MEDICARE (M) PART A February 17, 2017 PART A [id number] [phone] CIMINI,MARY [place] PATIENT MEDICARE (WNR) MEDICARE (M) PART B February 17, 2017 PART B [id number] [phone] CIMINI,MARY [place] PATIENT MEDICARE (WNR) MEDICARE (M) PART A February 17, 2017 PART A [id number] CIMINI,MARY [place] PATIENT MEDICARE (WNR) MEDICARE (M) PART B February 17, 2017 PART B [id number] [phone] CIMINI,DA [place] PATIENT MEDICARE (WNR) MEDICARE (M) PART A February 17, 2017 PART A [id number] [id number] CIMINI,MARY [place] PATIENT MEDICARE (WNR) MEDICARE (M) PART B February 17, 2017 PART B [id number] [phone] [id number] JASMINAINI,MARY [place] PATIENT MEDICARE (WNR) MEDICARE (M) PART A February 17, 2017 PART A [id number] [id number] CIMINI,DA [place] PATIENT MEDICARE (WNR) MEDICARE (M) PART A February 17, 2017 PART A [id number] [phone] [id number] CIMINI,MARY [place] PATIENT MEDICARE (WNR) MEDICARE (M) PART B February 17, 2017 PART B [id number] [phone] [id number] JASMINAINIMARY PATIENT Selected Encounter This section includes the information on record at [place] for the Encounter. Date/Time Encounter Type Encounter Description Reason Provider Source Aug 11, 2024 04:39 PM CASE MANAGEMENT [facility] ICD-10-CM F14.20 Cocaine dependence, uncomplicated NARESH SHAIKH E Encounter Template Text not used by [place] Assessments - Encounter Diagnoses This section includes the primary and secondary diagnoses documented for the Encounter. Date/Time Primary/Secondary Diagnosis Diagnosis Name Provider Source Aug 11, 2024 04:39 PM PRIMARY Cocaine dependence, uncomplicated NARESH SHAIKH [facility] Plan of Treatment: Future Appointments (+ 6 months) and Future Tests (+/- 45 days) The Plan of Treatment section includes future care activities for the patient from all [place] treatmentvan n[facility] campus. This section includes future appointments and future orders which are active, pending or scheduled. Future Appointments This section includes appointments that were scheduled to occur 6 months from the date of the Encounter, up to a maximum of 20 appointments. The data comes from all [place] treatment facilities. Appointment Date/Time Appointment Type Appointme nt Facility Name Aug 17, 2024 09:00 AM AMBULATORY - PSYCHIATRY [facility] [place] [facility] Aug 24, 2024 09:00 AM AMBULATORY - PSYCHIATRY [facility] [place] [facility] Aug 26, 2024 10:30 AM AMBULATORY - PSYCHIATRY [facility] [place] [facility] Aug 31, 2024 09:00 AM AMBULATORY - PSYCHIATRY [facility] [place] [facility] Sep 01, 2024 08:00 AM AMBULATORY - REHAB MEDICIN E [facility] [place] [facility] Sep 07, 2024 09:00 AM AMBULATORY - PSYCHIATRY [facility] [place] [facility] Sep 14, 2024 09:00 AM AMBULATORY - PSYCHIATRY [facility] [place] [facility] Sep 22, 2024 01:00 PM AMBULATORY - PSYCHIATRY [facility] [place] [facility] Sep 28, 2024 10:00 AM AMBULATORY - PSYCHIATRY [facility] [place] [facility] Sep 29, 2024 01:00 PM AMBULATORY - PSYCHIATRY [facility] [place] [facility] Sep 30, 2024 09:30 AM AMBULATORY - PSYCHIATRY [facility] [place] [facility] Oct 05, 2024 10:00 AM AMBULATORY - PSYCHIATRY [facility] [place] [facility] Oct 06, 2024 01:00 PM AMBULATORY - PSYCHIATRY [facility] [place] [facility] Oct 11, 2024 12:30 PM AMBULATORY - PSYCHIATRY [facility] [place] [facility] Oct 21, 2024 09:30 AM AMBULATORY - PSYCHIATRY [facility] [place] [facility] Oct 27, 2024 01:00 PM AMBULATORY - PSYCHIATRY [facility] [place] [facility] Nov 03, 2024 01:00 PM AMBULATORY - PSYCHIATRY [facility] [place] [facility] Nov 10, 2024 01:00 PM [facility] Nov 16, 2024 10:00 AM [facility] Nov 17, 2024 01:00 PM [facility] Active, Pending, and Scheduled Orders This section includes a listing of several types of active, pending, and scheduled orders, including clinic medications orders, diagnostic test orders, procedure orders and consult orders; where the start date of the order is 45 days before the date of the Encounter or 45 days after the date of theEncounter. The data comes from all [place] treatment facilities. Test Date/Time Test Type Test Details Facility Name Jul 01, 2024 06:46 AM Consult Order [facility] Cons Outreach Director's Choice [facility] Jul 22, 2024 12:54 PM Consult Order [facility]DENTAL [facility]TY Cons Outreach Director's Choice [facility] Social History: Smoking Status (Most current) and Tobacco Use (All prior to encounter date) This section includes the most current, and the historical, smoking and tobacco- related health factors from the [place] facility where the Encounter took place. Current Smoking Status This section includes the most current smoking, or tobacco-related health factor, from the [place] facility where the Encounter took place. Date/Time Current Smoking Status Comment Facil ity Oct 02, 2023 01:00 PM VA-TOBACCO USER EVERY DAY [facility] Tobacco Use History This section includes a history of the smoking, or tobacco-related health factors, that were collected on or before the date of the Encounter. The data comes from the [place] facility where the Encounter took place. Date/Time Smoking Status/Tobacco Use Comment F acility Oct 02, 2023 01:00 PM VA-TO[facility]ACCO [facility] AD[facility]ICE [facility] Oct 02, 2023 01:00 PM VA-TOBACCO USE EQUAL EMPLOYMENT OPPORTUNITY OFFICER NO [facility] Oct 02, 2023 01:00 PM VA-TOBACCO USE MED NO [facility] Oct 02, 2023 01:00 PM VA-TOBACCO USE WI 30 MIN OF WAKEUP [facility] Oct 02, 2023 01:00 PM VA-TOBACCO USER EVERY DAY [facility] [place] [facility] Sep 10, 2022 05:31 PM VA-TOBACCO USE > 1 5 LESS THAN 30 YEARS [facility] [place] [facility] Sep 10, 2022 05:31 PM VA-TOBACCO USE ADVICE [place] [facility] [place] [facility] Sep 10, 2022 05:31 PM VA-TOBACCO USE EQUAL EMPLOYMENT OPPORTUNITY OFFICER NO [place] [facility] [place] [facility] Sep 10, 2022 05:31 PM VA-TOBACCO USE MED NO [facility] [place] [facility] Sep 10, 2022 05:31 PM VA-TOBACCO USE WI 30 MIN OF WAKEUP [place] [facility] [place] [facility] Sep 10, 2022 05:31 PM VA-TOBACCO USER EVERY DAY [facility] [place] [facility] Aug 26, 2020 03:33 PM 689 INPT REPORTS SMOKING [facility] Aug 06, 2020 10:30 PM 689 INPT REPORTS SMOKING [facility] Jul 10, 2020 07:38 PM 689 INPT REPORTS SMOKING [facility] Jun 24, 2020 01:05 AM 689 INPT REPORTS SMOKING [facility] Apr 14, 2020 06:45 AM 689 INPT REPORTS SMOKING [facility] February 29, 2020 02:33 AM 689 INPT REPORTS SMOKING [facility] Jul 20, 2019 06:25 PM 689 INPT REPORTS SMOKING [facility] Mar 25, 2019 05:25 AM 689 INPT REPORTS SMOKING [facility] Apr 15, 2018 06:41 PM ORYX ADMIT TOBACCO SCREEN YES [facility] [place] [facility] Apr 15, 2018 06:41 PM ORYX ADMIT TOBACCO USE CIGS GR 5D [facility] [facility] [place] [facility] Apr 15, 2018 06:41 PM ORYX DAILY TOBACCO EQUAL EMPLOYMENT OPPORTUNITY OFFICER RECEIVED [facility] [place] [facility] Apr 15, 2018 06:41 PM ORYX DAILY TOBACCO MEDS REFUSED [facility] [place] [facility] Apr 15, 2018 02:41 PM CURRENT SMOKER [facility] [place] [facility] March 12, 2018 11:20 AM CURRENT SMOKER [facility] [place] [facility] March 12, 2018 11:20 AM V1-PT NOT INTEREST ED IN QUIT TOBACCO USE [facility] [place] [facility] Apr 10, 2016 09:03 AM TOBACCO INPATIENT DESIRES MEDS [facility] [place] [facility] Jan 28, 2016 12:53 PM TOBACCO INPATIENT DESIRES MEDS [facility] [place] [facility] Oct 21, 2015 05:16 PM TOBACCO INPATIENT DESIRES MEDS [facility] [place] [facility] Jul 13, 2015 11:06 PM TOBACCO INPATIENT DECLINES MEDS [facility] [place] [facility] Dec 13, 2014 08:26 PM TOBACCO INPATIENT DECLINES MEDS [facility] [place] [facility] Dec 13, 2014 07:39 PM CURRENT SMOKER [facility] Dec 13, 2014 07:39 PM V1-PT NOT INTEREST ED IN QUIT TOBACCO [facility] Advance Directives: All historical and current Section Date Range: From patient's date of to the date document was created. This section includes ALL of a patient's completed or amended [place] Advance and Rescinded Directives. The entries below indicate that a directive exists for the patient, but an actual copy is not included with this document. The data comes from all [place] facilities. Date Advance Directives Provider Source Sep 13, 2019 ADVANCE DIRECTIVE JOSE MANUEL RICO [facility] Oct 03, 2017 ADVANCE DIRECTIVE DAGMAR THAKUR [facility] Feb 07, 2016 ADVANCE DIRECTIVE SOFIE POLANCO [facility] Jan 20, 2015 ADVANCE DIRECTIVE DISCUSSION FLORINA COLON [facility] Encounter Notes: All associated encounter notes This section contains the clinical notes associated to the Encounter. Date/Time Encounter Note(s) Provider Source Aug 11, 2024 04:39 PM MENTAL HEALTH OUTR EACH NOTE: LOCAL TITLE: JUSTICE OUTREACH PROGRESS NOTE STANDARD TITLE: MENTAL HEALTH OUTREACH NOTE DATE OF NOTE: AUG 11, 2024@16:39 ENTRY DATE: AUG 11, 2024@16:39:55 AUTHOR: NARESH SHAIKH COSIGNER: URGENCY: STATUS: COMPLETED [place] identified by: [x ] Full Name [] Address [x ] [ ] SSN [] Facial Recognition Length of contact: 60 minutes Location: [facility] [address] Content: [place] was an active participant in court session today. He continues to do well and maintain his sobriety. He is compliant with treatment. His puppy is doing well. He is very involved with his family and has good support from them. CARA to provide ongoing support. /cindy/ LENKA JACOBSON SEGMENT BLOCK LAYER Signed: 08/11/2024 16:40 [facility]ESH SHAIKH [facility]
--- OUTSIDE RECORDS SUMMARY | 2024-12-28 08:07 | XMS_ITS | Encounter Summary ---
Author Name [facility] [place] Address [address] [place] [address] Care Team Providers Care Candlemaker Name Role Phone KERRIE KNIGHT Primary Care [...] PART A February 17, 2017 PART A [id number] MARY ESPINO PATIENT MEDICARE (WNR) MEDICARE (M) PART B February 17, 2017 PART B [id number] MARY ESPINO PATIENT MEDICARE (WNR) MEDICARE (M) PART A February 17, 2017 PART A [id number] MARY ESPINO PATIENT MEDICARE (WNR) MEDICARE (M) PART A February 17, 2017 PART A [id number] JASMINAINIMARY PATIENT MEDICARE (WNR) MEDICARE (M) PART B February 17, 2017 PART B [id number] [phone] JASMINAINIMARY [place] PATIENT MEDICARE (WNR) MEDICARE (M) PART A February 17, 2017 PART A [id number] JASMINAINIMARY [place] PATIENT MEDICARE (WNR) MEDICARE (M) PART A February 17, 2017 PART A [id number] CIMINI,MARY [place] PATIENT MEDICARE (WNR) MEDICARE (M) PART B February 17, 2017 PART B [id number] JASMINAINIMARY [place] PATIENT MEDICARE (WNR) MEDICARE (M) PART A February 17, 2017 PART A [id number] MARY ESPINO [place] PATIENT MEDICARE (WNR) MEDICARE (M) PART B February 17, 2017 PART B [id number] [phone] [id number] JASMINAINIMARY [place] PATIENT MEDICARE (WNR) MEDICARE (M) PART A February 17, 2017 PART A [id number] [phone] [id number] MARY ESPINOEL PATIENT MEDICARE (WNR) MEDICARE (M) PART B February 17, 2017 PART B [id number] [phone] [id number] MARY ESPINO PATIENT Selected Encounter This section includes the information on record at [place] for the Encounter. Date/Time Encounter Type Encounter Description Reason Pro vider Source Dec 16, 2024 12:00 AM Outpatient Encounter EVENT (HISTORICAL) IHE Encounter Template Text not used by [place] Plan of Treatment: Future Appointments (+ 6 months) and Future Tests (+/- 45 days) The Plan of Treatment section includes future care activities for the patient from all [place] treatmentfacilities. This section includes future appointments and [...] 30, 2024 09:15 AM AMBULATORY - NONE [facility] Jan 13, 2025 09:00 AM AMBULATORY - PSYCHIATRY [facility] Jun 15, 2025 09:30 AM AMBULATORY - MEDICINE [facility] Active, Pending, and Scheduled Orders This [...] AM Consult Order COMMUNITY CARE-DENTAL SPECIALTY Cons Concrete Vibrator Operator's Choice [facility] Dec 16, 2024 12:42 PM Consult Order NUTRITION ASSESSMENT/EDUCATION /NHM OUTPT Cons Concrete Vibrator Operator's Choice [facility] Dec 17, 2024 12:00 AM Laboratory - Chemi stry Order OCCULT BLOOD FIT X1 SCREEN(IN-HOUSE) STOOL FECES SP [facility] Lab Results: +/- 30 days of [...] Range Comment Dec 16, 2024 08:30 AM [facility] HEPATITIS B SURFACE ANTIBODY (HBsAb)-WH Specimen Type : SERUM No comment entered. Ordering Provider: LAURYN KNIGHT AM Report Released Date/Time: Dec 09, 2024 04:19 PM Reporting Lab: [facility] [address] [facility] [address] Performing Lab: [address] [address] HBsAb Non Reactive Non Reactive Dec 16, 2024 08:30 AM [facility] CBC Specimen Type: BLOOD No comment entered. Ordering Provider: LAURYN KNIGHT AM Report Released Date/Time: Dec 09, 2024 04:19 PM Reporting Lab: [facility] [address] [facility] [address] Performing Lab: [address] [address] WBC 5.27 10*3/uL 4.50-11.00 RBC 4.47 10*6/uL 4.23-5.66 HGB 13.5 g/dL 12.8-17 HCT 40.3 39.2-50.4 MCV 90.2 fL 82-99 MCHC 33.5 g/dL 30.8-35.1 PLT 178 10*3/uL 140-360 RDW-CV 12.4 12.0-16.0 MCH 30.2 pg 26.2-32.6 Dec 16, 2024 08:30 AM [facility] LIPID PANEL, NON FASTING Specimen Type: SERUM No comment entered. Ordering Provider: LAURYN KNIGHT AM Report Released Date/Time: Dec 09, 2024 04:19 PM Reporting Lab: [address] [address] Performing Lab: [address] [address] CHOLESTEROL 261 mg/dL H TRIGLYCERIDE 179 mg/dL H 0-150 LDL calculated 186 mg/dL H 0-129 CHOL/HDL 6.7 HDL CHOLESTEROL 39 mg/dL L 40-60 Dec 16, 2024 08:30 AM [facility] BASIC METABOLIC PANEL (non-fasting) Specimen Type: SERUM No comment entered. Ordering Provider: LAURYN KNIGHT AM Report Released Date/Time: Dec 09, 2024 04:19 PM Reporting Lab: [facility] [address] [facility] [address] Performing Lab: [address] [address] UREA NITROGEN 12 mg/dL 7-25 GLUCOSE 97 mg/dL 65-100 SODIUM 139 mmol/L 135-145 POTASSIUM 4.7 mmol/L 3.5-5.0 CHLORIDE 106 mmol/L 100-110 CO2 26 meq/L 20-30 CALCIUM 9.4 mg/dL 8.5-10.2 CREATININE, Serum 1.11 mg/dL 0.50-1.40 eGFR(CKD-EPI 2020) 83 mL/min >60 Dec 16, 2024 08:30 AM [facility] LIVER FUNCTION Specimen Type: SERUM No comment entered. Ordering Provider: LAURYN KNIGHT AM Report Released Date/Time: Dec 09, 2024 04:19 PM Reporting Lab: [facility] [address] [facility] [address] Performing Lab: [address] [address] PROTEIN,TOTAL 7.6 g/dL 6.0-8.3 ALBUMIN 4.4 g/dL 3.5-5.0 ALKALINE PHOSPHATASE 48 U/L 40-150 AST 13 U/L 5-34 ALT 14 U/L BILIRUBIN, TOTAL 0.3 mg/dL 0.2-1.2 Dec 16, 2024 08:30 AM [facility] YEN SCREEN/TITER Specimen Type: SERUM No comment entered. Ordering Provider: LAURYN KNIGHT AM Report Released Date/Time: Dec 16, 2024 11:19 AM Reporting Lab: [facility] [address] [facility] [address] Performing Lab: [facility] [address] [facility] [address] YEN SCREEN NEG NEG <1:40 Dec 16, 2024 08:30 AM [facility] RHEUMATOID FACTOR Specimen Type: SERUM No comment entered. Ordering Provider: LAURYN KNIGHT AM Report Released Date/Time: Dec 16, 2024 11:19 AM Reporting Lab: [facility] [address] [facility] [address] Performing Lab: [facility] [address] [facility] [address] RHEUMATOID FACTOR <13 0-15 Dec 16, 2024 08:30 AM [facility] HEMOGLOBIN A1C PANEL Specimen Type: BLOOD [...] Dec 16, 2024 11:19 AM Reporting Lab: [facility] [address] [facility] [address] Performing Lab: [address] [address] HEMOGLOBIN A1C 5.3 4.0-5.6 Vital Signs: All taken on the encounter date This section contains inpatient and outpatient Vital Signs collected on the date of the Encounter. Date/Time Temperature Pulse Blood Pressure Respiratory Rate SP02 Pain Height Weight Body Mass Index Source Dec 16, 2024 09:35 AM 98.3 81 117/79 20 100 7 71 195 27 [facility] Social History: Smoking Status [...] Date/Time Current Smoking Status Comment Faisal ity Dec 16, 2024 09:30 AM VA-TOBACCO USE FOR NIYA CIGARETTES [facility] Tobacco Use History This section includes a history of the smoking, or tobacco-related health factors, that were collected on or before the date of the Encounter. The data comes from the [place] facility where the Encounter took place. Date/Time Smoking Status/Tobacco Use Comment F acnicole Dec 16, 2024 09:30 AM VA-TOBACCO USE FOR NIYA CIGARETTES [facility] Oct 02, 2023 01:00 PM VA-TOBACCO USE > 1 5 LESS THAN 30 [facility] [place] [facility] Oct 02, 2023 01:00 PM VA-TOBACCO USE ADVICE [facility] [place] [facility] Oct 02, 2023 01:00 PM VA-TOBACCO USE FOOD SERVICES COORDINATOR NO [facility] [place] [facility] Oct 02, 2023 01:00 PM VA-TOBACCO USE MED NO [facility] [place] [facility] Oct 02, 2023 01:00 PM VA-TOBACCO USE WI 30 MIN OF WAKEUP [facility] [place] [facility] Oct 02, 2023 01:00 PM VA-TOBACCO USER EVERY DAY [facility] [place] [facility] Sep 10, 2022 05:31 PM VA-TOBACCO USE > 1 5 LESS THAN 30 YEARS [facility] [place] [facility] Sep 10, 2022 05:31 PM VA-TOBACCO USE ADVICE [facility] [place] [facility] Sep 10, 2022 05:31 PM VA-TOBACCO USE FOOD SERVICES COORDINATOR NO [facility] [place] [facility] Sep 10, 2022 05:31 PM VA-TOBACCO USE MED NO [facility] [place] [facility] Sep 10, 2022 05:31 PM VA-TOBACCO USE WI 30 MIN OF WAKEUP [facility] [place] [facility] Sep 10, 2022 05:31 PM VA-TOBACCO USER EVERY DAY [facility] [place] [facility] Aug 26, 2020 03:33 PM 689 INPT REPORTS SMOKING [facility] Aug 06, 2020 10:30 PM 689 INPT REPORTS SMOKING [facility] Jul 10, 2020 07:38 PM 689 INPT REPORTS SMOKING [facility] Jun 24, 2020 01:05 AM 689 INPT REPORTS SMOKING [facility] Apr 14, 2020 06:45 AM 689 INPT REPORTS SMOKING [facility] February 29, 2020 02:33 AM 689 INPT REPORTS SMOKING [facility] Jul 20, 2019 06:25 PM 689 INPT REPORTS SMOKING [facility] Mar 25, 2019 05:25 AM 689 INPT REPORTS SMOKING [facility] Apr 15, 2018 06:41 PM ORYX ADMIT TOBACCO SCREEN YES [facility] [place] [facility] Apr 15, 2018 06:41 PM ORYX ADMIT TOBACCO USE CIGS GR 5D [facility] [place] [facility] Apr 15, 2018 06:41 PM ORYX DAILY TOBACCO FOOD SERVICES COORDINATOR [facility] [place] [facility] Apr 15, 2018 06:41 PM ORYX DAILY TOBACCO MEDS REFUSED [facility] [place] [facility] Apr 15, 2018 02:41 PM CURRENT SMOKER [facility] [place] [facility] March 12, 2018 11:20 AM CURRENT SMOKER [facility] [place] [facility] March 12, 2018 11:20 AM V1-PT NOT INTEREST ED IN QUIT TOBACCO USE [facility] [place] [facility] Apr 10, 2016 09:03 AM TOBACCO INPATIENT DESIRES MEDS [facility] [place] [facility] Jan 28, 2016 12:53 PM TOBACCO INPATIENT DESIRES MEDS [facility] [place] [facility] Oct 21, 2015 05:16 PM TOBACCO INPATIENT DESIRES MEDS [facility] [place] [facility] Jul 13, 2015 11:06 PM TOBACCO INPATIENT DECLINES MEDS [facility] [place] [facility] Dec 13, 2014 08:26 PM TOBACCO INPATIENT DECLINES MEDS [facility] [place] [facility] Dec 13, 2014 07:39 PM CURRENT SMOKER [facility] Dec 13, 2014 07:39 PM V1-PT NOT INTEREST ED IN QUIT TOBACCO USE [facility] Advance Directives: All historical and [...] ADVANCE DIRECTIVE JOSE MANUEL RICO [facility] Oct 03, 2017 ADVANCE DIRECTIVE DAGMAR THAKUR [facility] Feb 07, 2016 ADVANCE DIRECTIVE SOFIE POLANCO [facility] Jan 20, 2015 ADVANCE DIRECTIVE DISCUSSION FLORINA COLON [facility]
--- OUTSIDE RECORDS SUMMARY | 2024-12-28 08:07 | XMS_ITS | Encounter Summary ---
Author Name [facility] [place] Organization [facility] [place] Address [address] [place] [address] Care Team Providers Care Train Starter Name Role Phone KERRIE KNIGHT Primary Care [...] PART A February 17, 2017 PART A [id number] MARY ESPINO PATIENT MEDICARE (WNR) MEDICARE (M) PART B February 17, 2017 PART B [id number] MARY ESPINO PATIENT MEDICARE (WNR) MEDICARE (M) PART A February 17, 2017 PART A [id number] MARY ESPINO PATIENT MEDICARE (WNR) MEDICARE (M) PART A February 17, 2017 PART A [id number] CIMINI,MARY [place] PATIENT MEDICARE (WNR) MEDICARE (M) PART B February 17, 2017 PART B [id number] [phone] CIMINI,MARY [place] PATIENT MEDICARE (WNR) MEDICARE (M) PART A February 17, 2017 PART A [id number] CIMINI,MARY [place] PATIENT MEDICARE (WNR) MEDICARE (M) PART B February 17, 2017 PART B [id number] [phone] CIMINI,DA [place] PATIENT MEDICARE (WNR) MEDICARE (M) PART A February 17, 2017 PART A [id number] CIMINI,MARY [place] PATIENT MEDICARE (WNR) MEDICARE (M) PART B February 17, 2017 PART B [id number] CIMINI,MARY [place] PATIENT MEDICARE (WNR) MEDICARE (M) PART A February 17, 2017 PART A [id number] CIMINI,MARY [place] PATIENT MEDICARE (WNR) MEDICARE (M) PART A February 17, 2017 PART A [id number] CIMINI,MARY [place] PATIENT MEDICARE (WNR) MEDICARE (M) PART B February 17, 2017 PART B [id number] [phone] [id number] JASMINAINIMARY PATIENT Selected Encounter This section includes the information on record at [place] for the Encounter. Date/Time Encounter Type Encounter Description Reason Provider Source Nov 30, 2024 10:00 AM PEER RECOVER SUPPORT SVS SUBSTANCE USE DISORDER IND ICD-10-CM F14.20 Cocaine dependence, uncomplicated AUGUSTA MARMOLEJO R E Encounter Template Text not used by [place] Assessments - Encounter Diagnoses This section includes the primary and secondary diagnoses documented for the Encounter. Date/Time Primary/Secondary Diagnosis Diagnosis Name Provider Source Nov 30, 2024 10:32 AM PRIMARY Cocaine dependence, uncomplicated [facility] 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 Plan of Treatment: Future Appointments (+ 6 months) and Future Tests (+/- 45 days) The Plan of Treatment section includes future care activities for the patient from [facility] [place] [facility] This section includes future appointments and future orders which are active, pending or scheduled. Future Appointments This section includes appointments that were scheduled to occur 6 months from the date of the Encounter, up to a maximum of 20 appointments. The data comes from all [facility] facilities. Appointment Date/Time Appointment Type Appointme nt Facility Name Dec 13, 2024 09:00 AM AMBULATORY - NONE [facility] Dec 14, 2024 03:10 PM AMBULATORY - MEDICINE [facility] Dec 16, 2024 09:30 AM AMBULATORY - MEDICINE [place] [facility] [place] [facility] Dec 30, 2024 09:15 AM AMBULATORY - NONE [facility] [place] [facility] Jan 13, 2025 09:00 AM [facility] Active, Pending, and Scheduled Orders This section includes a listing of several types of active, pending, and scheduled orders, including clinic medications orders, diagnostic test orders, procedure orders and consult orders; where the start date of the order is 45 days before the date of the Encounter or 45 days after the date of theEncounter. The data comes from all [facility] facilities. Test Date/Time Test Type Test Details Facility Name Dec 03, 2024 11:49 AM Consult Order COMMUNITY CARE-DENTAL SPECIALTY Cons Divider Operator[facility] Dec 16, 2024 12:42 PM Consult Order NUTRITION ASSESSMENT/EDUCATION /NHM OUTPT Cons Divider Operator's Choice [facility] Dec 17, 2024 12:00 AM Laboratory - Chemi stry Order OCCULT BLOOD FIT X1 SCREEN(IN-HOUSE) STOOL FECES SP [facility] Lab Results: +/- 30 days of [...] Range Comment Dec 16, 2024 08:30 AM [facility] HEPATITIS B SURFACE ANTIBODY (HBsAb)-WH Specimen Type : SERUM No comment entered. Ordering Provider: LAURYN KNIGHT AM Report Released Date/Time: Dec 09, 2024 04:19 PM Reporting Lab: [address] [address] Performing Lab: [address] [address] HBsAb Non Reactive Non Reactive Dec 16, 2024 08:30 AM [facility] CBC Specimen Type: BLOOD No comment entered. Ordering Provider: LAURYN KNIGHT AM Report Released Date/Time: Dec 09, 2024 04:19 PM Reporting Lab: [address] [address] Performing Lab: [address] [address] WBC 5.27 10*3/uL 4.50-11.00 RBC 4.47 10*6/uL 4.23-5.66 HGB 13.5 g/dL 12.8-17 HCT 40.3 39.2-50.4 MCV 90.2 fL 82-99 MCHC 33.5 g/dL 30.8-35.1 PLT 178 10*3/uL 140-360 RDW-CV 12.4 12.0-16.0 MCH 30.2 pg 26.2-32.6 Dec 16, 2024 08:30 AM [facility] LIPID PANEL, NON FASTING Specimen Type: SERUM No comment entered. Ordering Provider: LAURYN KNIGHT AM Report Released Date/Time: Dec 09, 2024 04:19 PM Reporting Lab: [facility] [address] [facility] [address] Performing Lab: [address] [address] CHOLESTEROL 261 mg/dL H TRIGLYCERIDE 179 mg/dL H 0-150 LDL calculated 186 mg/dL H 0-129 CHOL/HDL 6.7 HDL CHOLESTEROL 39 mg/dL L 40-60 Dec 16, 2024 08:30 AM [facility] BASIC METABOLIC PANEL (non-fasting) Specimen Type: SERUM No comment entered. Ordering Provider: LAURYN KNIGHT AM Report Released Date/Time: Dec 09, 2024 04:19 PM Reporting Lab: [address] [address] Performing Lab: [address] [address] UREA NITROGEN 12 mg/dL 7-25 GLUCOSE 97 mg/dL 65-100 SODIUM 139 mmol/L 135-145 POTASSIUM 4.7 mmol/L 3.5-5.0 CHLORIDE 106 mmol/L 100-110 CO2 26 meq/L 20-30 CALCIUM 9.4 mg/dL 8.5-10.2 CREATININE, Serum 1.11 mg/dL 0.50-1.40 eGFR(CKD-EPI 2020) 83 mL/min >60 Dec 16, 2024 08:30 AM [facility] LIVER FUNCTION Specimen Type: SERUM No comment entered. Ordering Provider: LAURYN KNIGHT AM Report Released Date/Time: Dec 09, 2024 04:19 PM Reporting Lab: [address] [address] Performing Lab: [address] [address] PROTEIN,TOTAL 7.6 g/dL 6.0-8.3 ALBUMIN 4.4 g/dL 3.5-5.0 ALKALINE PHOSPHATASE 48 U/L 40-150 AST 13 U/L 5-34 ALT 14 U/L BILIRUBIN, TOTAL 0.3 mg/dL 0.2-1.2 Dec 16, 2024 08:30 AM [facility] YEN SCREEN/TITER Specimen Type: SERUM No comment entered. Ordering Provider: LAURYN KNIGHT AM Report Released Date/Time: Dec 16, 2024 11:19 AM Reporting Lab: [facility] [address] [facility] [address] Performing Lab: [facility] [address] [facility] [address] YEN SCREEN NEG NEG <1:40 Dec 16, 2024 08:30 AM [facility] RHEUMATOID FACTOR Specimen Type: SERUM No comment entered. Ordering Provider: LAURYN KNIGHT AM Report Released Date/Time: Dec 16, 2024 11:19 AM Reporting Lab: [facility] [address] [facility] [address] Performing Lab: [facility] [address] [facility] [address] RHEUMATOID FACTOR <13 0-15 Dec 16, 2024 08:30 AM [facility] HEMOGLOBIN A1C PANEL Specimen Type: BLOOD [...] Dec 16, 2024 11:19 AM Reporting Lab: [facility] [address] [facility] [address] Performing Lab: [address] [address] HEMOGLOBIN A1C 5.3 4.0-5.6 Social History: Smoking [...] 2023 01:00 PM VA-TOBACCO USER EVERY DAY [facility] [place] [facility] Tobacco Use History This section includes a history of the smoking, or tobacco-related health factors, that were collected on or before the date of the Encounter. The data comes from the [place] facility where the Encounter took place. Date/Time Smoking Status/Tobacco Use Comment F acility Oct 02, 2023 01:00 PM VA-TOBACCO USE ADVICE [facility] [place] [facility] Oct 02, 2023 01:00 PM VA-TOBACCO USE FORENSIC STRUCTURAL ENGINEER NO [facility] [place] [facility] Oct 02, 2023 01:00 PM VA-TOBACCO USE MED NO [facility] [place] [facility] Oct 02, 2023 01:00 PM VA-TOBACCO USE WI 30 MIN OF WAKEUP [facility] [place] [facility] Oct 02, 2023 01:00 PM VA-TOBACCO USER EVERY DAY [facility] [place] [facility] Sep 10, 2022 05:31 PM VA-TOBACCO USE > 1 5 LESS THAN 30 YEARS [facility] [place] [facility] Sep 10, 2022 05:31 PM VA-TOBACCO USE ADVICE [facility] [place] [facility] Sep 10, 2022 05:31 PM VA-TOBACCO USE FORENSIC STRUCTURAL ENGINEER NO [facility] [place] [facility] Sep 10, 2022 05:31 PM VA-TOBACCO USE MED NO [facility] [place] [facility] Sep 10, 2022 05:31 PM VA-TOBACCO USE WI 30 MIN OF WAKEUP [facility] [place] [facility] Sep 10, 2022 05:31 PM VA-TOBACCO USER EVERY DAY [facility] [place] [facility] Aug 26, 2020 03:33 PM 689 INPT REPORTS SMOKING [facility] Aug 06, 2020 10:30 PM 689 INPT REPORTS SMOKING [facility] Jul 10, 2020 07:38 PM 689 INPT REPORTS SMOKING [facility] Jun 24, 2020 01:05 AM 689 INPT REPORTS SMOKING [facility] Apr 14, 2020 06:45 AM 689 INPT REPORTS SMOKING [facility] February 29, 2020 02:33 AM 689 INPT REPORTS SMOKING [facility] Jul 20, 2019 06:25 PM 689 INPT REPORTS SMOKING [facility] Mar 25, 2019 05:25 AM 689 INPT REPORTS SMOKING [facility] Apr 15, 2018 06:41 PM ORYX ADMIT TOBACCO SCREEN YES [facility] [place] [facility] Apr 15, 2018 06:41 PM ORYX ADMIT TOBACCO USE CIGS GR 5D [facility] [place] [facility] Apr 15, 2018 06:41 PM ORYX DAILY TOBACCO FORENSIC STRUCTURAL ENGINEER RECEIVED [facility] [place] [facility] Apr 15, 2018 06:41 PM ORYX DAILY TOBACCO MEDS REFUSED [facility] [place] [facility] Apr 15, 2018 02:41 PM CURRENT SMOKER [facility] [place] [facility] March 12, 2018 11:20 AM CURRENT SMOKER [facility] [place] [facility] March 12, 2018 11:20 AM V1-PT NOT INTEREST ED IN QUIT TOBACCO USE [facility] [place] [facility] Apr 10, 2016 09:03 AM TOBACCO INPATIENT DESIRES MEDS [facility] [place] [facility] Jan 28, 2016 12:53 PM TOBACCO INPATIENT DESIRES MEDS [facility] [place] [facility] Oct 21, 2015 05:16 PM TOBACCO INPATIENT DESIRES MEDS [facility] [place] [facility] Jul 13, 2015 11:06 PM TOBACCO INPATIENT DECLINES MEDS [facility] [place] [facility] Dec 13, 2014 08:26 PM TOBACCO INPATIENT DECLINES MEDS [facility] [place] [facility] Dec 13, 2014 07:39 PM CURRENT SMOKER [facility] [place] [facility] Dec 13, 2014 07:39 PM V1-PT NOT INTEREST ED IN QUIT TOBACCO USE [facility] [place] [facility] Advance Directives: All historical and [...] 13, 2019 ADVANCE DIRECTIVE JOSE MANUEL RICO [facility] Oct 03, 2017 ADVANCE DIRECTIVE DAGMAR THAKUR [facility] Feb 07, 2016 ADVANCE DIRECTIVE SFOIE POLANCO [facility] Jan 20, 2015 ADVANCE DIRECTIVE DISCUSSION FLORINA COLON [facility] Encounter Notes: All associated encounter notes This section contains the clinical notes associated to the Encounter. Date/Time Encounter Note(s) Provider Source Nov 30, 2024 10:00 AM MENTAL HEALTH COUNSELING NOTE: LOCAL TITLE: PEER SUPPORT NOTE STANDARD TITLE: MENTAL HEALTH COUNSELING NOTE DATE OF NOTE: NOV 30, 2024@10:00 ENTRY DATE: NOV 30, 2024@10:26:26 AUTHOR: KADEEM MARMOLEJO EXP COSIGNER: URGENCY: STATUS: COMPLETED PEER SUPPORT NOTE DATE: 11/30/2024 TIME: 1000 hours. TIME IN SESSION (in minutes): 45 minutes CUT OUT MACHINE OPERATOR: Kadeem Marmoeljo M.Ed., [facility] PURPOSE/FOCUS: Peer Support Service, 1:1 Peer Mentoring, LOCATION: [facility] CONTENT: met [facility] with 44-year-old male outpatient for peer support. Devoted time towards reviewing the events of the past couple of weeks with a focus on events occuring with the past 12 hours concerning roomate. shared that roomate, who is also a has been difficult to live with over the past 4 weeks with noted increase use of cannibus. The increased use directly affect the sobriety that has so far into recovery. Carpenters and vetean focused on the wellness stategies insuring is able to continue recovery. Veterans needs are as follows: budget counseling, identified with 2 identifiers: [X] Full Name [ ] Date of [ ] VA ID Card [X] Facial Recognition INFORMED CONSENT: informed of the risks and benefits of Telehealth video care. [place] has the right to refuse video services. If refuses video visit, a [id number] visit will be scheduled. verbalized consent for this video visit: Yes PEER INTERVENTIONS USED: Mutuality, Motivational Interviewing, Recovery Coaching RESPONSE: [place] reporting being pleased with noticing that symptoms are becoming less powerful and assure curriculum writer they are doing well with the environmental turbulence. OBSERVED STRENGTHS: is sincere in recovery. 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
--- OUTSIDE RECORDS SUMMARY | 2024-12-28 08:07 | XMS_ITS | Encounter Summary ---
Author Name [facility] [place] Organization [facility] [place] [place] Address [address] [place] [address] Care Team Providers Care Glazier Apprentice Name Role Phone KERRIE KNIGHT Primary Care [...] PART A February 17, 2017 PART A [id number] [phone] MARY ESPINO PATIENT MEDICARE (WNR) MEDICARE (M) PART B February 17, 2017 PART B [id number] [phone] MARY ESPINO PATIENT MEDICARE (WNR) MEDICARE (M) PART A February 17, 2017 PART A [id number] MARY ESPINO PATIENT MEDICARE (WNR) MEDICARE (M) PART A February 17, 2017 PART A [id number] [phone] CIMINI,MARY [place] PATIENT MEDICARE (WNR) MEDICARE (M) PART B February 17, 2017 PART B [id number] CIMINI,DA [place] PATIENT MEDICARE (WNR) MEDICARE (M) PART A February 17, 2017 PART A [id number] [phone] CIMINI,MARY [place] PATIENT MEDICARE (WNR) MEDICARE (M) PART A February 17, 2017 PART A [id number] CIMINI,DA [place] PATIENT MEDICARE (WNR) MEDICARE (M) PART B February 17, 2017 PART B [id number] [phone] CIMINI,MARY [place] PATIENT MEDICARE (WNR) MEDICARE (M) PART A February 17, 2017 PART A [id number] [phone] CIMINI,MARY [place] PATIENT MEDICARE (WNR) MEDICARE (M) PART B February 17, 2017 PART B [id number] [phone] CIMINI,MARY [place] PATIENT MEDICARE (WNR) MEDICARE (M) PART A February 17, 2017 PART A [id number] CIMINI,MARY [place] PATIENT MEDICARE (WNR) MEDICARE (M) PART B February 17, 2017 PART B [id number] [phone] CIMINI,MARY MCMANUS PATIENT Selected Encounter This section includes the information on record at [place] for the Encounter. Date/Time Encounter Type Encounter Description Reason Provider Source Dec 14, 2024 09:00 AM PEER RECOVER SUPPORT SVS SUBSTANCE USE DISORDER IND ICD-10-CM F29 Unsp psychosis not due to a substance or known physiol cond RAJESH MARMOLEJO IHE Encounter Template Text not used by [place] Assessments - Encounter Diagnoses This section includes the primary and secondary diagnoses documented for the Encounter. 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 AUGUSTA MARMOLEJO R [facility] [place] [facility] Dec 14, 2024 11:24 AM SECONDARY Cocaine dependence, uncomplicated AUGUSTA MARMOLEJO R [facility] [place] [facility] Dec 14, 2024 11:24 AM SECONDARY Other recurrent depressive disorders AUGUSTA MARMOLEJO R [facility] [place] [facility] Dec 14, 2024 11:24 AM SECONDARY Post-traumatic stress disorder, chronic AUGUSTA MARMOLEJO R [facility] [place] [facility] Plan of Treatment: Future Appointments (+ 6 months) and Future Tests (+/- 45 days) The Plan of Treatment section includes future care activities for the [facility] This section includes future appointments and future orders which are active, pending or scheduled. Future Appointments This section includes appointments that were scheduled to occur 6 months from the date of the Encounter, up to a maximum of 20 appointments. The data comes from all [place] treatment facilities. Appointment Date/Time Appointment Type Appointme nt Facility Name Dec 16, 2024 09:30 AM AMBULATORY - MEDICINE [facility] [place] [facility] Dec 30, 2024 09:15 AM AMBULATORY - NONE [facility] Jan 13, 2025 09:00 AM [facility] Active, Pending, and Scheduled Orders This section includes a listing of several types of active, pending, and scheduled orders, including clinic medications orders, diagnostic test orders, procedure orders and consult orders; where the start date of the order is 45 days before the date of the Encounter or 45 days after the date of theEncounter. The data comes from all [place] treatment facilities. Test Date/Time Test Type Test Details Facility Name Dec 03, 2024 11:49 AM Consult Order COMMUNITY CARE-DENTAL SPECIALTY Cons Capacity Manager's Choice [facility] Dec 16, 2024 12:42 PM Consult Order NUTRITION ASSESSMENT/EDUCATION /NHM OUTPT Cons Capacity Manager's Choice [facility] Dec 17, 2024 12:00 AM Laboratory - Chemi stry Order OCCULT BLOOD FIT X1 SCREEN(IN-HOUSE) STOOL FECES SP [facility] Lab Results: +/- 30 days of the encounter This section includes the Chemistry and Hematology Lab Results on record with [place] for the patient. Radiology Reports and Pathology Reports are provided separately, in subsequent sections. Lab Results This section contains the Chemistry/Hematology Results that were resulted 30 days before or 30 daysafter the date of the Encounter. Date/Time Source Result Type Result - Unit Interpretation Reference Range Comment Dec 16, 2024 08:30 AM [facility] HEPATITIS B SURFACE ANTIBODY (HBsAb)-WH Specimen Type : SERUM No comment entered. Ordering Provider: LAURYN KNIGHT AM Report Released Date/Time: Dec 09, 2024 04:19 PM Reporting Lab: [address] [address] Performing Lab: [address] [address] HBsAb Non Reactive Non Reactive Dec 16, 2024 08:30 AM [facility] CBC Specimen Type: BLOOD No comment entered. Ordering Provider: LAURYN KNIGHT AM Report Released Date/Time: Dec 09, 2024 04:19 PM Reporting Lab: [address] [address] Performing Lab: [address] [address] WBC 5.27 10*3/uL 4.50-11.00 RBC 4.47 10*6/uL 4.23-5.66 HGB 13.5 g/dL 12.8-17 HCT 40.3 39.2-50.4 MCV 90.2 fL 82-99 MCHC 33.5 g/dL 30.8-35.1 PLT 178 10*3/uL 140-360 RDW-CV 12.4 12.0-16.0 MCH 30.2 pg 26.2-32.6 Dec 16, 2024 08:30 AM [facility] LIPID PANEL, NON FASTING Specimen Type: SERUM No comment entered. Ordering Provider: LAURYN KNIGHT AM Report Released Date/Time: Dec 09, 2024 04:19 PM Reporting Lab: [facility] [address] [facility] [address] Performing Lab: [address] [address] CHOLESTEROL 261 mg/dL H TRIGLYCERIDE 179 mg/dL H 0-150 LDL calculated 186 mg/dL H 0-129 CHOL/HDL 6.7 HDL CHOLESTEROL 39 mg/dL L 40-60 Dec 16, 2024 08:30 AM [facility] BASIC METABOLIC PANEL (non-fasting) Specimen Type: SERUM No comment entered. Ordering Provider: LAURYN KNIGHT AM Report Released Date/Time: Dec 09, 2024 04:19 PM Reporting Lab: [facility] [address] [facility] [address] Performing Lab: [address] [address] UREA NITROGEN 12 mg/dL 7-25 GLUCOSE 97 mg/dL 65-100 SODIUM 139 mmol/L 135-145 POTASSIUM 4.7 mmol/L 3.5-5.0 CHLORIDE 106 mmol/L 100-110 CO2 26 meq/L 20-30 CALCIUM 9.4 mg/dL 8.5-10.2 CREATININE, Serum 1.11 mg/dL 0.50-1.40 eGFR(CKD-EPI 2020) 83 mL/min >60 Dec 16, 2024 08:30 AM [facility] LIVER FUNCTION Specimen Type: SERUM No comment entered. Ordering Provider: LAURYN KNIGHT AM Report Released Date/Time: Dec 09, 2024 04:19 PM Reporting Lab: [facility] [address] [facility] [address] Performing Lab: [address] [address] PROTEIN,TOTAL 7.6 g/dL 6.0-8.3 ALBUMIN 4.4 g/dL 3.5-5.0 ALKALINE PHOSPHATASE 48 U/L 40-150 AST 13 U/L 5-34 ALT 14 U/L BILIRUBIN, TOTAL 0.3 mg/dL 0.2-1.2 Dec 16, 2024 08:30 AM [facility] YEN SCREEN/TITER Specimen Type: SERUM No comment entered. Ordering Provider: LAURYN KNIGHT AM Report Released Date/Time: Dec 16, 2024 11:19 AM Reporting Lab: [facility] [address] [facility] [address] Performing Lab: [facility] [address] [facility] [address] YEN SCREEN NEG NEG <1:40 Dec 16, 2024 08:30 AM [facility] RHEUMATOID FACTOR Specimen Type: SERUM No comment entered. Ordering Provider: LAURYN KNIGHT AM Report Released Date/Time: Dec 16, 2024 11:19 AM Reporting Lab: [facility] [address] [facility] [address] Performing Lab: [facility] [address] [facility] [address] RHEUMATOID FACTOR <13 0-15 Dec 16, 2024 08:30 AM [facility] HEMOGLOBIN A1C PANEL Specimen Type: BLOOD Comment: [...] Dec 16, 2024 11:19 AM Reporting Lab: [facility] [address] [facility] [address] Performing Lab: [address] [address] HEMOGLOBIN A1C 5.3 4.0-5.6 Social History: Smoking Status (Most current) and Tobacco Use (All prior to encounter date) This section includes the most current, and the historical, smoking and tobacco- related health factors from the [place] facility where the Encounter took place. Current Smoking Status This section includes the most current smoking, or tobacco-related health factor, from the [place] facility where the Encounter took place. Date/Time Current Smoking Status Comment Facil ity Oct 02, 2023 01:00 PM VA-TOBACCO USER EVERY DAY [facility] [place] [facility] Tobacco Use History This section includes a history of the smoking, or tobacco-related health factors, that were collected on or before the date of the Encounter. The data comes from the [place] facility where the Encounter took place. Date/Time Smoking Status/Tobacco Use Comment F acility Oct 02, 2023 01:00 PM VA-TOBACCO USE ADVICE [facility] [place] [facility] Oct 02, 2023 01:00 PM VA-TOBACCO USE CLERK TO JUSTICE NO [facility] [place] [facility] Oct 02, 2023 01:00 PM VA-TOBACCO USE MED NO [facility] [place] [facility] Oct 02, 2023 01:00 PM VA-TOBACCO USE WI 30 MIN OF WAKEUP [facility] [place] [facility] Oct 02, 2023 01:00 PM VA-TOBACCO USER EVERY DAY [facility] [place] [facility] Sep 10, 2022 05:31 PM VA-TOBACCO USE > 1 5 LESS THAN 30 YEARS [facility] [place] [facility] Sep 10, 2022 05:31 PM VA-TOBACCO USE ADVICE [facility] [place] [facility] Sep 10, 2022 05:31 PM VA-TOBACCO USE CLERK TO JUSTICE NO [facility] [place] [facility] Sep 10, 2022 05:31 PM VA-TOBACCO USE MED NO [facility] [place] [facility] Sep 10, 2022 05:31 PM VA-TOBACCO USE WI 30 MIN OF WAKEUP [facility] [place] [facility] Sep 10, 2022 05:31 PM VA-TOBACCO USER EVERY DAY [facility] [place] [facility] Aug 26, 2020 03:33 PM 689 INPT REPORTS SMOKING [facility] Aug 06, 2020 10:30 PM 689 INPT REPORTS SMOKING [facility] Jul 10, 2020 07:38 PM 689 INPT REPORTS SMOKING [facility] Jun 24, 2020 01:05 AM 689 INPT REPORTS SMOKING [facility] Apr 14, 2020 06:45 AM 689 INPT REPORTS SMOKING [facility] February 29, 2020 02:33 AM 689 INPT REPORTS SMOKING [facility] Jul 20, 2019 06:25 PM 689 INPT REPORTS SMOKING [facility] Mar 25, 2019 05:25 AM 689 INPT REPORTS SMOKING [facility] Apr 15, 2018 06:41 PM ORYX ADMIT TOBACCO SCREEN YES [facility] [place] [facility] Apr 15, 2018 06:41 PM ORYX ADMIT TOBACCO USE CIGS GR 5D [facility] [place] [facility] Apr 15, 2018 06:41 PM ORYX DAILY TOBACCO CLERK TO JUSTICE RECEIVED [facility] [place] [facility] Apr 15, 2018 06:41 PM ORYX DAILY TOBACCO MEDS REFUSED [facility] [place] [facility] Apr 15, 2018 02:41 PM CURRENT SMOKER [facility] [place] [facility] March 12, 2018 11:20 AM CURRENT SMOKER [facility] [place] [facility] March 12, 2018 11:20 AM V1-PT NOT INTEREST ED IN QUIT TOBACCO USE [facility] [place] [facility] Apr 10, 2016 09:03 AM TOBACCO INPATIENT DESIRES MEDS [facility] [place] [facility] Jan 28, 2016 12:53 PM TOBACCO INPATIENT DESIRES MEDS [facility] [place] [facility] Oct 21, 2015 05:16 PM TOBACCO INPATIENT DESIRES MEDS [facility] [place] [facility] Jul 13, 2015 11:06 PM TOBACCO INPATIENT DECLINES MEDS [facility] [place] [facility] Dec 13, 2014 08:26 PM TOBACCO INPATIENT DECLINES MEDS [facility] [place] [facility] Dec 13, 2014 07:39 PM CURRENT SMOKER [facility] C [facility] [place] [facility] Dec 13, 2014 07:39 PM V1-PT NOT INTEREST ED IN QUIT TOBACCO USE [facility] [place] [facility] Advance Directives: All historical and current Section Date Range: From patient's date of to the date document was created. This section includes ALL of a patient's completed or amended [place] Advance and Rescinded Directives. The entries below indicate that a directive exists for the patient, but an actual copy is not included with this document. The data comes from all [place] facilities. Date Advance Directives Provider Source Sep 13, 2019 ADVANCE DIRECTIVE JOSE MANUEL [facility] Oct 03, 2017 ADVANCE DIRECTIVE BLAZECICI SIERRAArnold [facility] Feb 07, 2016 ADVANCE DIRECTIVE SOFIE POLANCO [facility] Jan 20, 2015 ADVANCE DIRECTIVE DISCUSSION [facility] Encounter Notes: All associated encounter notes This section contains the clinical notes associated to the Encounter. Date/Time Encounter Note(s) Provider Source Dec 14, 2024 09:00 AM MENTAL HEALTH COUNSELING NOTE: LOCAL TITLE: PEER SUPPORT NOTE STANDARD TITLE: MENTAL HEALTH COUNSELING NOTE DATE OF NOTE: DEC 14, 2024@09:00 ENTRY DATE: DEC 14, 2024@11:20:24 AUTHOR: KADEEM MARMOLEJO EXP COSIGNER: URGENCY: STATUS: COMPLETED PEER SUPPORT NOTE DATE: 12/14/2024 TIME: 0900 hours. TIME IN SESSION (in minutes): 45 minutes CLOTH BURLER: Kadeem Marmolejo M.Ed., [facility] PURPOSE/FOCUS: Peer Support Service, 1:1 Peer Mentoring, [facility] CONTENT: Met with a 44-year-old male outpatient for peer support. Logan had completed treatments with [facility]. Devoted time towards reviewing the events of the past week and check in with with events associated to continued recovery. Logan identified with 2 identifiers: [X] Full Name [ ] Date of [ ] VA ID Card [X] Facial Recognition INFORMED CONSENT: informed of the risks and benefits of Telehealth video care. has the right to refuse video services. If refuses video visit, a [id number] visit will be scheduled. Logan verbalized consent for this video visit: Yes PEER INTERVENTIONS USED: Mutuality, Motivational Interviewing, Recovery Coaching RESPONSE: Logan reporting going to [facility] to reinstate drivers license OBSERVED STRENGTHS: is sincere in maintaining independence and wellness PLAN: weekly PROCEDURE: [facility] Recovery Support Services, Related to: Service Connected Condition Diagnoses: Psychotic disorder (SCT 86752155) - Unspecified psychosis not due to a substance or known physiological condition (ICD-10-CM F29.) (Primary) Cocaine dependence (SCT 98257453) - Cocaine dependence, uncomplicated (ICD-10-CM F14.20) Adult attention deficit hyperactivity disorder (SCT 090333995) - Attention- deficit hyperactivity disorder, unspecified type (ICD-10-CM F90.9) Alcohol dependence (SCT 40465488) - Alcohol dependence with other alcohol- induced disorder (ICD-10-CM F10.288) 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
--- OUTSIDE RECORDS SUMMARY | 2024-12-28 08:08 | XMS_ITS | Encounter Summary ---
Author Name [facility] [place] [facility] [place] Address [address] [place] [address] Care Team Providers Care Buyers' Agent Name Role Phone KERRIE KNIGHT Primary Care [...] PART A February 17, 2017 PART A [id number] [phone] MARY ESPINO PATIENT MEDICARE (WNR) MEDICARE (M) PART B February 17, 2017 PART B [id number] [phone] MARY ESPINO PATIENT MEDICARE (WNR) MEDICARE (M) PART A February 17, 2017 PART A [id number] [facility] CIMINI,DA [place] PATIENT MEDICARE (WNR) MEDICARE (M) PART A February 17, 2017 PART A [id number] [phone] CIMINI,MARY [place] PATIENT MEDICARE (WNR) MEDICARE (M) PART B February 17, 2017 PART B [id number] [phone] CIMINI,MARY [place] PATIENT MEDICARE (WNR) MEDICARE (M) PART A February 17, 2017 PART A [id number] CIMINI,MARY [place] PATIENT MEDICARE (WNR) MEDICARE (M) PART B February 17, 2017 PART B [id number] [phone] CIMINI,DA [place] PATIENT MEDICARE (WNR) MEDICARE (M) PART A February 17, 2017 PART A [id number] CIMINI,MARY [place] PATIENT MEDICARE (WNR) MEDICARE (M) PART B February 17, 2017 PART B [id number] JASMINAINI,MARY [place] PATIENT MEDICARE (WNR) MEDICARE (M) PART A February 17, 2017 PART A [id number] CIMINI,DA [place] PATIENT MEDICARE (WNR) MEDICARE (M) PART A February 17, 2017 PART A [id number] [phone] CIMINI,MARY [place] PATIENT MEDICARE (WNR) MEDICARE (M) PART B February 17, 2017 PART B [id number] JASMINAINIMARY PATIENT Selected Encounter This section includes the information on record at [place] for the Encounter. Date/Time Encounter Type Encounter Description Reason Provider Source Jun 22, 2024 09:00 AM SELF-HELP/PEER SVC PER 15MIN SUBSTANCE USE DISORDER IND ICD-10-CM F29 Unsp psychosis not due to a substance or known physiol cond RAJESH MARMOLEJO E Encounter Template Text not used by [place] Assessments - Encounter Diagnoses This section includes the primary and secondary diagnoses documented for the Encounter. 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 This section includes future appointments and future orders which are active, pending or scheduled. Future Appointments This section includes appointments that were scheduled to occur 6 months from the date of the Encounter, up to a maximum of 20 appointments. The data comes from all [place] treatment facilities. Appointment Date/Time Appointment Type Appointme nt Facility Name Jun 29, 2024 09:00 AM AMBULATORY - PSYCHIATRY [facility] [place] [facility] Jul 06, 2024 09:00 AM AMBULATORY - PSYCHIATRY [facility] [place] [facility] Jul 13, 2024 09:00 AM AMBULATORY - PSYCHIATRY [facility] [place] [facility] Jul 16, 2024 09:05 AM AMBULATORY - MEDICINE [facility] [place] [facility] Jul 18, 2024 07:45 PM AMBULATORY - MEDICINE [facility] [place] [facility] Jul 20, 2024 09:00 AM AMBULATORY - PSYCHIATRY [facility] [place] [facility] Jul 22, 2024 09:30 AM AMBULATORY - PSYCHIATRY [facility] [place] [facility] Jul 27, 2024 09:00 AM AMBULATORY - PSYCHIATRY [facility] [place] [facility] Aug 03, 2024 09:00 AM AMBULATORY - PSYCHIATRY [facility] [place] [facility] Aug 10, 2024 09:00 AM AMBULATORY - PSYCHIATRY [facility] [place] [facility] Aug 17, 2024 09:00 AM AMBULATORY - PSYCHIATRY [facility] [place] [facility] Aug 24, 2024 09:00 AM AMBULATORY - [place]IATRY [facility] [facility] [place] [facility] Aug 26, 2024 10:30 AM AMBULATORY - PS[place]CHIATRY [place] [facility] [place] [facility] Aug 31, 2024 09:00 AM AMBULATORY - PSYCHIATRY [facility] [place] [facility] Sep 01, 2024 08:00 AM AMBULATORY - REHAB MEDICIN E [facility] [place] [facility] Sep 07, 2024 09:00 AM AMBULATORY - PSYCHIATRY [place] [facility] [place] [facility] Sep 14, 2024 09:00 AM AMBULATORY - PS[place]CHIATRY [place] [facility] [place] [facility] Sep 22, 2024 01:00 PM AMBULATORY - PS[place]CHIATRY [facility] [facility] [place] [facility] Sep 28, 2024 10:00 AM AMBULATORY - PS[place]CHIATRY [place] [facility] [place] [facility] Sep 29, 2024 01:00 PM [facility] Active, Pending, and Scheduled Orders This [...] 01, 2024 06:46 AM Consult Order [facility]COLONOS[facility] SCREENING Cons Plant Buyer's Choice [facility] Jul 22, 2024 12:54 PM Consult Order [facility]DENTAL SPECIALTY Cons Plant Buyer's Choice [facility] Lab Results: +/- 30 days of the encounter This section includes the Chemistry and Hematology Lab Results on record with [place] for the patient. Radiology Reports and Pathology Reports are provided separately, in subsequent sections. Lab Results This section contains the Chemistry/Hematology Results that were resulted 30 days before or 30 daysafter the date of the Encounter. Date/Time Source Result Type Result - Unit Interpretation Reference Range Comment Jun 11, 2024 12:51 PM [facility] HEPATITIS B SURFACE ANTIBODY (HBsAb)-WH Specimen Type: SERUM No comment entered. Ordering Provider: KAMLA KNIGHT Report Released Date/Time: May 31, 2024 09:45 AM Reporting Lab: [address] [address] Performing Lab: [address] [address] HBsAb Non Reactive Non Reactive Jun 11, 2024 12:51 PM [facility] LIPID PANEL, NON FASTING Specimen Type: SERUM No comment entered. Ordering Provider: KAMLA KNIGHT Report Released Date/Time: May 31, 2024 09:45 AM Reporting Lab: [address] [address] Performing Lab: [address] [address] CHOLESTEROL 212 mg/dL H TRIGLYCERIDE 124 mg/dL 0-150 LDL calculated 152 mg/dL H 0-129 CHOL/HDL 6.1 HDL CHOLESTEROL 35 mg/dL L 40-60 Jun 11, 2024 12:51 PM [facility] LIVER FUNCTION Specimen Type: SERUM No comment entered. Ordering Provider: KAMLA KNIGHT Report Released Date/Time: May 31, 2024 09:45 AM Reporting Lab: [address] [address] Performing Lab: [address] [address] PROTEIN,TOTAL 7.4 g/dL 6.0-8.3 ALBUMIN 4.5 g/dL 3.5-5.0 ALKALINE PHOSPHATASE 38 U/L L 40-150 AST 13 U/L 5-34 ALT 11 U/L BILIRUBIN, TOTAL 0.7 mg/dL 0.2-1.2 Jun 11, 2024 12:51 PM [facility] CBC Specimen Type: BLOOD No comment entered. Ordering Provider: KAMLA KNIGHT Report Released Date/Time: May 31, 2024 09:45 AM Reporting Lab: [address] [address] Performing Lab: [facility] [address] [facility] [address] WBC 5.98 10*3/uL 4.50-11.00 RBC 4.60 10*6/uL 4.23-5.66 HGB 13.9 g/dL 12.8-17 HCT 40.5 39.2-50.4 MCV 88.0 fL 82-99 MCHC 34.3 g/dL 30.8-35.1 PLT 190 10*3/uL 140-360 RDW-CV 13.5 12.0-16.0 MCH 30.2 pg 26.2-32.6 Jun 11, 2024 12:51 PM [facility] BASIC METABOLIC PANEL (non-fasting) Specimen Type: SERUM No comment entered. Ordering Provider: KAMLA KNIGHT Report Released Date/Time: May 31, 2024 09:45 AM Reporting Lab: [address] [address] Performing Lab: [address] [address] UREA NITROGEN 16 mg/dL 7-25 GLUCOSE 86 [...] 01:00 PM VA-TOBACCO USER EVERY DAY [facility] Tobacco Use History This section includes a history of the smoking, or tobacco-related health factors, that were collected on or before the date of the Encounter. The data comes from the [place] facility where the Encounter took place. Date/Time Smoking Status/Tobacco Use Comment F acility Oct 02, 2023 01:00 PM VA-TOBACCO USE ADVICE [facility] [place] [facility] Oct 02, 2023 01:00 PM VA-TOBACCO USE REMEDIATION PROJECT ENGINEER NO [facility] [place] [facility] Oct 02, 2023 01:00 PM VA-TOBACCO USE MED NO [facility] [place] [facility] Oct 02, 2023 01:00 PM VA-TOBACCO USE WI 30 MIN OF WAKEUP [facility] [place] [facility] Oct 02, 2023 01:00 PM VA-TOBACCO USER EVERY DAY [facility] [place] [facility] Sep 10, 2022 05:31 PM VA-TOBACCO USE > 1 5 LESS THAN 30 YEARS [facility] [place] [facility] Sep 10, 2022 05:31 PM VA-TOBACCO USE ADVICE [facility] [place] [facility] Sep 10, 2022 05:31 PM VA-TOBACCO USE REMEDIATION PROJECT ENGINEER NO [facility] [place] [facility] Sep 10, 2022 05:31 PM VA-TOBACCO USE MED NO [facility] [place] [facility] Sep 10, 2022 05:31 PM VA-TOBACCO USE WI 30 MIN OF WAKEUP [facility] [place] [facility] Sep 10, 2022 05:31 PM VA-TOBACCO USER EVERY DAY [facility] [place] [facility] Aug 26, 2020 03:33 PM 689 [...] TOBACCO SCREEN YES [facility] [place] [facility] Apr 15, 2018 06:41 PM [facility] ADMIT TOBACCO [facility]IGS GR [facility]D [facility] [place] [facility] Apr 15, 2018 06:41 PM [place] DAILY TOBACCO REMEDIATION PROJECT ENGINEER RECEIVED [facility] Apr 15, 2018 06:41 PM [place] DAILY TOBACCO MEDS REFUSED [facility] [facility] Apr 15, 2018 02:41 PM CURRENT SMOKER [facility] March 12, 2018 11:20 AM CURRENT SMOKER [facility] March 12, 2018 11:20 AM V1-PT NOT INTEREST ED IN QUIT [facility]BACCO [facility] Apr 10, 2016 09:03 AM TOBACCO INPATIENT DESIRES [facility] Jan 28, 2016 12:53 PM TOBACCO INPATIENT DESIRES MEDS [facility] [place] [facility] Oct 21, 2015 05:16 PM TOBACCO INPATIENT [facility]ES [facility] [place] [facility] Jul 13, 2015 11:06 PM TOBACCO INPATIENT DECLINES [facility] [place] [facility] Dec 13, 2014 08:26 PM TOBACCO INPATIENT DECLINES [facility] [place] [facility] Dec 13, 2014 07:39 PM CURRENT SMOKER [facility] Dec 13, 2014 07:39 PM V1-PT NOT INTEREST ED IN QUIT TOBACCO USE [facility] Advance Directives: All historical and [...] 13, 2019 ADVANCE DIRECTIVE JOSE MANUEL RICO [facility] Oct 03, 2017 ADVANCE DIRECTIVE DAGMAR THAKUR [facility] Feb 07, 2016 ADVANCE DIRECTIVE SOFIE POLANCO [facility] Jan 20, 2015 ADVANCE DIRECTIVE DISCUSSION FLORINA COLON [facility] Encounter Notes: All associated encounter notes This section contains the clinical notes associated to the Encounter. Date/Time Encounter Note(s) Provider Source Jun 22, 2024 09:00 AM MENTAL HEALTH COUNSELING NOTE: LOCAL TITLE: PEER SUPPORT NOTE STANDARD TITLE: MENTAL HEALTH COUNSELING NOTE DATE OF NOTE: JUN 22, 2024@09:00 ENTRY DATE: JUN 22, 2024@10:22:18 AUTHOR: KADEEM MARMOLEJO COSIGNER: URGENCY: STATUS: COMPLETED PEER SUPPORT NOTE DATE: 06/22/2024 TIME: 0900 hours. TIME IN SESSION (in minutes): 15 minutes EDI MANAGER: Kadeem Marmolejo M.Ed. [facility] PURPOSE/FOCUS: Peer Support Service, 1:1 Peer Mentoring, LOCATION: [facility], [facility] ONTENT: met [facility] with 44-year-old male outpatient for peer support. [place] has been doing well into recovery with no relapses for 3 months. Devoted time towards reviewing the events of the past week and getting ready for the next week as well. Jaxson has paperwork and schedule appearances to clear his driving record with the hope to adjust back into the community with volunteering possibly with local non-profits. [place] continues to reestablish deep connect with family; today watching nephews and plan for dinner out with sibling this week. still spending a lot of the session talking about ex fianc?e and the painful behaviors she exhibited during the relationship. [place] has so far successfully broken direct contact by changing phone numbers, but she still finds way to get messages through leaving the possibility of restraining order violation creating a legal threat to the . [place] identified with 2 identifiers: [X] Full Name [ ] Date of [ ] VA ID Card [X] Facial Recognition INFORMED CONSENT: [place] informed of the risks and benefits of Telehealth video care. [place] has the right to refuse video services. If refuses video visit, a [id number]-[id number] visit will be scheduled. [place] verbalized consent for this video visit: Yes PEER INTERVENTIONS USED: Mutuality, Motivational Interviewing, Recovery Coaching RESPONSE: reporting being pleased with noticing that cravings are becoming less powerful OBSERVED STRENGTHS: is sincere in recovery. 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) - Cocaine dependence with cocaine-induced psychotic disorder with delusions (ICD-10-CM F14.250) Nicotine dependence ([facility]CT 67603293) - Nicotine dependence, cigarettes, uncomplicated (ICD-10-CM F17.210) Alcohol dependence (SCT 10803070) - Alcohol dependence with other alcohol- induced disorder (ICD-10-CM F10.288)Diagnoses: Psychotic disorder ([facility] 33082863) - Unspecified psychosis not due to a substance or known physiological condition (ICD-10-CM F29.) (Primary) Cocaine dependence ([facility] 89848518) - Cocaine dependence, uncomplicated (ICD-10-CM F14.20) Cocaine-induced psychotic disorder with delusions (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) - Cocaine dependence with cocaine-induced psychotic disorder with delusions (ICD-10-CM F14.250) Nicotine dependence (SCT 17040014) - Nicotine dependence, cigarettes, uncomplicated (ICD-10-CM F17.210) Alcohol dependence (SCT 11871859) - Alcohol dependence with other alcohol- induced disorder (ICD-10-CM F10.288) Diagnoses: Psychotic disorder ([facility] 89024073) - Unspecified psychosis not due to a substance or known physiological condition (ICD-10-CM F29.) (Primary) Cocaine dependence (SCT 80090764) - Cocaine dependence, uncomplicated (ICD-10-CM F14.20) Cocaine-induced psychotic disorder with delusions (SCT 54817456) - Cocaine dependence with cocaine-induced psychotic disorder with delusions (ICD-10-CM F14.250) Nicotine dependence (SCT 67881499) - Nicotine dependence, cigarettes, uncomplicated (ICD-10-CM F17.210) Alcohol dependence (SCT 44126747) - Alcohol dependence with other alcohol- induced disorder (ICD-10-CM F10.288) /cindy/ KADEEM MARMOLEJO Signed: 06/22/2024 10:34 KADEEM MARMOLEJO [place] [facility] [place] [facility]
--- OUTSIDE RECORDS SUMMARY | 2024-12-28 08:08 | XMS_ITS | Continuity of Care Document ---
Author Name [facility] Organization [facility] Care Team Providers Care Fire Tender Name Role Phone [facility] Unavailable Unavailable Problems Combined list of problems from Department of Defense and Veterans Affairs facilities. It does not include entries that were removed or entered in error. Problem Status Onset Date Problem Type Date of Resolution Comments Source Abnormal results of liver function studies Active Condition [facility] Adult attention deficit hyperactivity disorder Active Condition [facility] Adult attention deficit hyperactivity disorder (SNOMED CT 933347449) Active Condition [facility] Alcohol [facility] Active Condition [facility] Alcohol dependence (SNOMED CT 05234584) Active Condition [facility] Alcohol withdrawal-induced convulsion Active Condition [facility] Alcohol-induced acute pancreatitis Active Condition [place] Anxiety Active Condition [facility] Arthralgia of the lower leg Active Condition [facility] Arthralgia of the pelvic region and thigh Active Condition [facility] Attention deficit hyperactivity disorder Active Condition [facility] Attention deficit hyperactivity disorder, predominantly hyperactive impulsive type Active Condition [facility] Bilateral hearing loss Active Condition Aug 20, 2013 Entered By: JUNIE ROE Comment: R > L Sides [place] BP - High blood pressure (SNOMED CT 78776894) Active Condition [facility] Cervicalgia Active Condition [facility] Chronic back pain Active Condition [facility] Chronic low back pain Active Condition [place] Cocaine dependence Active Condition [facility] Cocaine dependence Active Condition D ec 2022 Entered By: AGA SHELLEY Comment: Cocaine use disorder, severe [facility] 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 [facility] Concussion with loss of consciousness (SNOMED CT 42730346) Active Condition [facility] Depression Active Condition [facility] Depressive disorder Active Condition [place] Dry eyes Active Condition [facility] elevated B12 of unknown cause Active Condition [facility] Elevated blood pressure Active Condition [facility] Environmental Allergies Active Condition [facility] Erectile dysfunction Active Condition [facility] Foot pain Active Condition [place] Hearing loss Active Condition [facility] Hyperlipidemia [facility] Hyperlipidemia (SNOMED CT 26780306) Active Condition [facility] Hypertriglyceridemia Active Condition [facility] Legal problem Active Condition [facility] Low back pain Active Condition [facility] Major depressive disorder Active Condition [facility] Mild major depression Active Condition [place] Multiple joint pain Active Condition [facility] Nicotine dependence Active Condition [facility] Nightmares Active Condition [place] Posttraumatic stress disorder Active Condition Dec 16, 2013 Entered By: FLORINA GIRON Comment: See PTSD Consult report dated 11/15/13 [facility] Posttraumatic stress disorder Active Condition [facility] Psychotic disorder Active Condition [facility] Sciatica Active Condition [facility] Severe alcohol dependence Active Condition [facility] TB testing Active Condition Feb 14 015 Entered By: Danni RIVERA Comment: 01/2015 Quantiferon negative [facility] Unemployment * Active Condition [facility] Alcohol withdrawal syndrome (SNOMED CT 127958529) Inactive Condition 11/14/2015 [facility] Injury of hand Inactive Condition 11/01/2013 Nov 01, 2013 Entered By: SIOBHAN KENNEDY Comment: status post [facility] Diagnosis: ICD-10-CM M54.2 Cervicalgia Active Diagnosis [facility] Diagnosis: ICD-10-CM F29 Unsp psychosis not due to a substance or known physiol cond Active Diagnosis [facility] Diagnosis: ICD-10-CM F14.20 Cocaine dependence, uncomplicated Active Diagnosis [facility] Diagnosis: ICD-10-CM F10.288 Alcohol dependence with other alcohol-induced disorder Active Diagnosis [facility] Diagnosis: ICD-10-CM F90.9 Attention-deficit hyperactivity disorder, unspecified type Active Diagnosis [facility] Diagnosis: ICD-10-CM F43.12 Post-traumatic stress disorder, chronic Active Diagnosis [facility] Diagnosis: ICD-10-CM F14.250 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 Active Diagnosis [facility] Diagnosis: ICD-10-CM F33.3 Major depressv disorder, recurrent, severe w psych symptoms Active Diagnosis [facility] Diagnosis: ICD-10-CM H10.12 Acute atopic conjunctivitis, left eye Active Diagnosis [facility] Diagnosis: ICD-10-CM Y93.42 Activity, yoga Active Diagnosis [facility] Diagnosis: ICD-10-CM Z13.6 Encounter for screening for cardiovascular disorders Active Diagnosis [facility] Medications Combined list of outpatient medications from Department of Defense and Veterans Affairs facilities.Medications provided include 1) outpatient medications from the last 15 months, and 2) patient-reported medications. Medication Details Route Status Patient Instructions Prescription Expires Prescription Number Last Dispense Date Ordering Provider Order Date Order Qty Source ACETAMINOPH EN 325MG TAB TAKE TWO TABLETS BY MOUTH EVERY 6 HOURS NEEDED FOR PAIN ORAL ACTIVE 12/17/2025 [id number] KERRIE KNIGHT 2024 200 [facility] ATOMOXETINE 40MG CAP TAKE ONE CAPSULE BY MOUTH EVERY MORNING FOR ADHD ORAL DISCONT INUED (EDIT) 08/07/2024 [id number] 4 Lalito CARPENTER 2023 60 [facility] ATOMOXETINE 80MG CAP TAKE ONE CAPSULE BY MOUTH EVERY MORNING FOR ADHD ORAL DISCONT INUED BY PROVIDE R 07/23/2025 [id number] 4 Lalito CARPENTER 2023 60 [facility] CLONIDINE HCL 0.1MG TAB TAKE ONE TABLET BY MOUTH AT BEDTIME ADHD ORAL DISCONT INUED (EDIT) 10/27/2024 [id number] 4 Lalito CARPENTER E 2023 30 [facility] CLONIDINE HCL 0.1MG TAB TAKE ONE TABLET BY MOUTH AT BEDTIME ADHD ORAL DISCONT INUED 09/25/2024 [id number] 4 Lalito CARPENTER E 2023 30 [facility] CLONIDINE HCL 0.2MG TAB TAKE ONE TABLET BY MOUTH AT BEDTIME TO CONTROL BLOOD PRESSURE ORAL DISCONT INUED (EDIT) 10/30/2024 [id number] 4 Lalito CARPENTER E 2023 30 [facility] CLONIDINE HCL 0.3MG TAB TAKE ONE TABLET BY MOUTH AT BEDTIME ORAL ACTIVE 10/22/2025 [id number] 5 Lalito CARPENTER 2024 60 [facility] GABAPENTIN 300MG CAP TAKE THREE CAPSULES BY MOUTH THREE TIMES A DAY FOR NERVE PAIN DOSE INCREASE ORAL ACTIVE 11/23/2025 [id number] 5 BEKAH VARGAS 2024 270 [facility] GABAPENTIN 300MG CAP TAKE THREE CAPSULES BY MOUTH THREE TIMES A DAY FOR NERVE PAIN DOSE INCREASE ORAL DISCONT INUED 09/20/2025 [id number] 4 Lalito CARPENTER E 2023 270 [facility] GABAPENTIN 300MG CAP TAKE ONE CAPSULE BY MOUTH THREE TIMES A DAY ANXIETY ORAL DISCONT INUED (EDIT) 07/23/2025 [id number] 4 Lalito CARPENTER E 2023 270 [facility] IBUPROFEN 400MG TAB TAKE ONE TABLET BY MOUTH EVERY 6 HOURS NEEDED FOR PAIN TAKE WITH FOOD ORAL ACTIVE 09/23/2025 [id number] 5 KERRIE KNIGHT 2023 120 [facility] IBUPROFEN 400MG TAB TAKE ONE TABLET BY MOUTH EVERY 6 HOURS NEEDED FOR PAIN TAKE WITH FOOD ORAL 10/11/2023 [id number] 3 KERRIE KNIGHT 2021 120 [facility] LORATADINE 10MG TAB TAKE ONE TABLET BY MOUTH ONCE DAILY FOR ALLERGY ORAL 06/12/2024 [id number] 4 RAZ BERGER NP 2023 30 [facility] METHYLPHENI DATE HCL (EQV-CONCER TA) 54MG TAB,SA TAKE ONE TABLET BY MOUTH EVERY MORNING NEXT FILL 01/20 ORAL ACTIVE 01/12/2025 [id number] 5 Lalito CARPENTER E 2024 30 [facility] METHYLPHENI DATE HCL (EQV-METADA TE CD) 10MG CAP,SA TAKE 4 CAPS BY MOUTH EVERY MORNING NOTE DOSE, 20MGSA CAPSULES ON BACK ORDER ORAL DISCONT INUED (EDIT) 12/25/2024 [id number] 5 Lalito CARPENTER E 2024 120 [facility] METHYLPHENI DATE HCL (EQV-METADA TE CD) 20MG CAP,SA TAKE ONE CAPSULE BY MOUTH EVERY MORNING ORAL DISCONT INUED (EDIT) 10/30/2024 [id number] 4 Lalito CARPENTER E 2023 30 [facility] METHYLPHENI DATE HCL (EQV-METADA TE CD) 20MG CAP,SA TAKE ONE CAPSULE BY MOUTH EVERY MORNING (NEXT FILL 10/12/24 ) ORAL 09/25/2024 [id number] 4 Lalito CARPENTER E 2023 30 [facility] METHYLPHENI DATE HCL (EQV-METADA TE CD) 30MG CAP,SA TAKE ONE CAPSULE BY MOUTH EVERY MORNING ORAL DISCONT INUED (EDIT) 12/22/2024 [id number] 5 BEKAH VARGAS 2024 4 [facility] METHYLPHENI DATE HCL (EQV-METADA TE CD) 30MG CAP,SA TAKE ONE CAPSULE BY MOUTH EVERY MORNING ORAL 11/17/2024 [id number] 4 Lalito CARPENTER E 2023 30 [facility] MULTIVITAMI NS CAP/TAB TAKE 1 TABLET BY MOUTH ONCE DAILY ORAL 10/06/2024 [id number] 4 KERRIE KNIGHT 2022 100 [facility] [place] SILDENAFIL CITRATE 50MG TAB TAKE ONE TABLET BY MOUTH ONCE DAILY NEEDED TAKE 1 HOUR PRIOR TO SEXUAL ACTIVITY ORAL DISCONT INUED BY PROVIDE R 03/18/2024 [id number] 4 KERRIE KNIGHT 2022 6 [facility] VARENICLINE 0.5MG TAB TAKE ONE TABLET BY MOUTH ONCE DAILY FOR 1 WEEK, THEN TAKE ONE TABLET TWICE DAILY FOR 1 WEEK, THEN TAKE TWO TABLETS TWICE DAILY FOR SMOKING CESSATIO N ORAL DISCONT INUED (EDIT) 07/23/2024 [id number] 4 Lalito CARPENTER E 2023 145 [facility] VARENICLINE 1MG TAB TAKE ONE TABLET BY MOUTH TWICE DAILY ORAL SUSPEND ED 11/26/2025 [id number] 5 Lalito CARPENTER E 2024 180 [facility] VARENICLINE 1MG TAB TAKE ONE TABLET BY MOUTH TWICE DAILY FOR SMOKING CESSATIO N ORAL DISCONT INUED (EDIT) 10/01/2025 [id number] 4 Lalito CARPENTER E 2023 180 [facility] VARENICLINE 1MG TAB TAKE ONE TABLET BY MOUTH TWICE DAILY FOR SMOKING CESSATIO N ORAL DISCONT INUED (EDIT) 07/23/2025 [id number] 4 Lalito CARPENTER E 2023 180 [facility] Allergies, Adverse Reactions, Alerts Combined list of allergies from Department of Defense and Veterans Affairs facilities. It does not include entries that were removed or entered in error. Substance Category Reaction Severity Reaction type Status Date Reported Comments Source ADDERALL Propensity to adverse reactions to drug (finding) Psychotic disorder active 3 [facility] ATOMOXETINE Propensity to adverse reactions to drug (finding) Headache, Sedated MILD active 7 [facility] ATOMOXETINE Propensity to adverse reactions to drug (finding) Headache, Sedated active 7 [facility] ATOMOXETINE Propensity to adverse reactions to drug (finding) Drowsy active 2 [facility] Immunizations Combined list of available immunizations from the Department of Defense and Veterans Affairs facilities. Immunization Series Date Given Administered By Site Reaction Lot Number CVX Code Drug Xerox Machine Assembler Status Comments Source FLU,3 YRS (HISTORICAL) 2018 88 complet ed [place] [facility]/TR PNEUMOCOCCAL POLYSACCHARID E PPV23 2016 33 complet ed [facility] FLU,3 YRS (HISTORICAL) 2015 88 complet ed [facility] TDAP 2015 115 complet ed [facility] TD(ADULT) UNSPECIFIED FORMULATION 2015 139 complet ed [facility] FLU,3 YRS (HISTORICAL) 2014 88 complet ed Site: Left Deltoid [facility] INFLUENZA, SEASONAL, INJECTABLE 2014 141 complet ed [facility] FLU,3 YRS (HISTORICAL) 2012 88 complet ed Site: Left Deltoid [facility] [place] [facility] TD(ADULT) UNSPECIFIED FORMULATION 2007 139 complet ed Pt thinks he had received it when in [facility] Results Combined list of recent chemistry, hematology and other laboratory results from Department of Defense and Veterans Affairs, ranging from 15 months to all on record, depending upon the facility. Order Name Results Value Reference Range Date Interpretation Specimen Comments Source BASIC METABOLI C PANEL (non-fas ting) UREA NITROGEN [MASS/VOLU ME] IN SERUM OR PLASMA 12 mg/dL 7 - 25 12/16 Specimen Type: SERUM No comment entered. Ordering Provider: KILO KNIGHT Report Released Date/Time: Dec 09, 2024 04:19 PM Reporting [facility]: [facility] [address] [address] Performing Lab: [address] [address] [facility] BASIC METABOLI C PANEL (non-fas ting) GLUCOSE [MASS/VOLU ME] IN SERUM OR PLASMA 97 mg/dL 65 - 100 12/16 Specimen Type: SERUM No comment entered. Ordering Provider: KILO KNIGHT Report Released Date/Time: Dec 09, 2024 04:19 PM Reporting Lab: [address] [address] Performing Lab: [address] [address] [facility] BASIC METABOLI C PANEL (non-fas ting) SODIUM [MOLES/VOL UME] IN SERUM OR PLASMA 139 mmol/L 135 - 145 12/16 Specimen Type: SERUM No comment entered. Ordering Provider: KILO KNIGHT Report Released Date/Time: Dec 09, 2024 04:19 PM Reporting Lab: [address] [address] Performing Lab: [address] [address] [facility] BASIC METABOLI C PANEL (non-fas ting) POTASSIUM [MOLES/VOL UME] IN SERUM OR PLASMA 4.7 mmol/L 3.5 - 5.0 12/16 Specimen Type: SERUM No comment entered. Ordering Provider: KILO KNIGHT Report Released Date/Time: Dec 09, 2024 04:19 PM Reporting Lab: [facility] [place] [facility] [address] [address] Performing Lab: [facility] [place] [facility] [address] [facility] [address] [facility] BASIC METABOLI C PANEL (non-fas ting) CHLORIDE [MOLES/VOL UME] IN SERUM OR PLASMA 106 mmol/L 100 - 110 12/16 Specimen Type: SERUM No comment entered. Ordering Provider: KILO KNIGHT Report Released Date/Time: Dec 09, 2024 04:19 PM Reporting Lab: [facility] [place] [address] [address] Performing Lab: [facility] [place] [address] [address] [facility] [place] [facility] BASIC METABOLI C PANEL (non-fas ting) CARBON DIOXIDE, TOTAL [MOLES/VOL UME] IN SERUM OR PLASMA 26 meq/L 20 - 30 12/16 Specimen Type: SERUM No comment entered. Ordering Provider: KILO KNIGHT Report Released Date/Time: Dec 09, 2024 04:19 PM Reporting Lab: [facility] [place] [address] [address] Performing Lab: [facility] [place] [address] [address] [facility] [place] [facility] BASIC METABOLI C PANEL (non-fas ting) CALCIUM [MASS/VOLU ME] IN SERUM OR PLASMA 9.4 mg/dL 8.5 - 10.2 12/16 Specimen Type: SERUM No comment entered. Ordering Provider: KILO KNIGHT Report Released Date/Time: Dec 09, 2024 04:19 PM Reporting Lab: [facility] [place] [address] [address] Performing Lab: [facility] [place] [address] [address] [facility] [place] [facility] BASIC METABOLI C PANEL (non-fas ting) CREATININE [MASS/VOLU ME] IN SERUM OR PLASMA 1.11 mg/dL 0.50 - 1.40 12/16 Specimen Type: SERUM No comment entered. Ordering Provider: KILO KNIGHT Report Released Date/Time: Dec 09, 2024 04:19 PM Reporting Lab: [facility] [place] [facility] [address] [address] Performing Lab: [facility] [place] [facility] [address] [address] [facility] [place] [facility] BASIC METABOLI C PANEL (non-fas ting) GLOMERULAR FILTRATION RATE/1.73 SQ M.PREDICTE D [VOLUME RATE/AREA] IN SERUM, PLASMA OR BLOOD BY CREATININE -BASED FORMULA (CKD-EPI 2020) 83 mL/min 60 12/16 Specimen Type: SERUM No comment entered. Ordering Provider: KILO KNIGHT Report Released Date/Time: Dec 09, 2024 04:19 PM Reporting Lab: [facility] [place] [address] [address] Performing Lab: [facility] [place] [address] [address] [facility] CBC LEUKOCYTES [#/VOLUME] IN BLOOD BY AUTOMATED COUNT 5.27 10*3/uL 4.50 - 11.00 12/16 Specimen Type: BLOOD No comment entered. Ordering Provider: KILO KNIGHT Report Released Date/Time: Dec 09, 2024 04:19 PM Reporting Lab: [facility] [place] [address] [address] Performing Lab: [facility] [place] [address] [address] [facility] [facility] CBC ERYTHROCYT ES [#/VOLUME] IN BLOOD BY AUTOMATED COUNT 4.47 10*6/uL 4.23 - 5.66 02/27 /2025 Specimen Type: BLOOD No comment entered. Ordering Provider: KILO KNIGHT Report Released Date/Time: Dec 09, 2024 04:19 PM Reporting Lab: [facility] [address] [address] Performing Lab: [facility] [address] [facility] [address] [address] [facility] [place] [facility] CBC HEMOGLOBIN [MASS/VOLU ME] IN BLOOD 13.5 g/dL 12.8 - 17 12/16 Specimen Type: BLOOD No comment entered. Ordering Provider: KILO KNIGHT Report Released Date/Time: Dec 09, 2024 04:19 PM Reporting Lab: [facility] [address] [facility] [address] Performing Lab: [facility] [place] [address] [address] [facility] [place] [facility] CBC HEMATOCRIT [VOLUME FRACTION] OF BLOOD BY AUTOMATED COUNT 40.3 39.2 - 50.4 12/16 Specimen Type: BLOOD No comment entered. Ordering Provider: KILO KNIGHT Report Released Date/Time: Dec 09, 2024 04:19 PM Reporting Lab: [facility] [address] [facility] [address] Performing Lab: [facility] [place] [facility] [address] [facility] [address] [facility] [place] [facility] CBC MCV [ENTITIC VOLUME] BY AUTOMATED COUNT 90.2 fL 82 - 99 12/16 Specimen Type: BLOOD No comment entered. Ordering Provider: KILO KNIGHT Report Released Date/Time: Dec 09, 2024 04:19 PM Reporting Lab: [facility] [address] [facility] [address] Performing Lab: [facility] [address] [facility] [address] [facility] [place] [facility] CBC MCHC [MASS/VOLU ME] BY AUTOMATED COUNT 33.5 g/dL 30.8 - 35.1 12/16 Specimen Type: BLOOD No comment entered. Ordering Provider: KILO KNIGHT Report Released Date/Time: Dec 09, 2024 04:19 PM Reporting Lab: [facility] [place] [facility] [address] [address] Performing Lab: [facility] [place] [facility] [address] [address] [address] [facility] [place] [facility] CBC PLATELETS [#/VOLUME] IN BLOOD BY AUTOMATED COUNT 178 10*3/uL 140 - 360 12/16 Specimen Type: BLOOD No comment entered. Ordering Provider: KILO KNIGHT Report Released Date/Time: Dec 09, 2024 04:19 PM Reporting Lab: [facility] [place] [address] [address] Performing Lab: [facility] [place] [address] [address] [facility] [place] [facility] CBC ERYTHROCYT E DISTRIBUTI ON WIDTH [RATIO] BY AUTOMATED COUNT 12.4 12.0 - 16.0 12/16 Specimen Type: BLOOD No comment entered. Ordering Provider: KILO KNIGHT Report Released Date/Time: Dec 09, 2024 04:19 PM Reporting Lab: [facility] [place] [address] [address] Performing Lab: [facility] [place] [facility] [address] [address] [facility] [place] [facility] CBC MCH [ENTITIC MASS] BY AUTOMATED COUNT 30.2 pg 26.2 - 32.6 12/16 Specimen Type: BLOOD No comment entered. Ordering Provider: KILO KNIGHT Report Released Date/Time: Dec 09, 2024 04:19 PM Reporting Lab: [facility] [place] [facility] [address] [facility] [address] Performing Lab: [facility] [place] [address] [address] [facility] HEPATITI S B SURFACE ANTIBODY (HBsAb)- WH HEPATITIS B VIRUS SURFACE AB [PRESENCE] IN SERUM BY IMMUNOASSA Y Non Reactive 12/16 Specimen Type: SERUM No comment entered. Ordering Provider: KILO KNIGHT Report Released Date/Time: Dec 09, 2024 04:19 PM Reporting Lab: [address] [address] Performing Lab: [address] [address] [facility] LIPID PANEL, NON FASTING CHOLESTERO L [MASS/VOLU ME] IN SERUM OR PLASMA 261 mg/dL 12/16 H Specimen Type: SERUM No comment entered. Ordering Provider: KILO KNIGHT Report Released Date/Time: Dec 09, 2024 04:19 PM Reporting Lab: [address] [address] Performing Lab: [address] [address] [facility] LIPID PANEL, NON FASTING TRIGLYCERI DE [MASS/VOLU ME] IN SERUM OR PLASMA 179 mg/dL 0 - 150 12/16 H Specimen Type: SERUM No comment entered. Ordering Provider: KILO KNIGHT Report Released Date/Time: Dec 09, 2024 04:19 PM Reporting Lab: [address] [address] Performing Lab: [address] [address] [facility] LIPID PANEL, NON FASTING CHOLESTERO L IN LDL [MASS/VOLU ME] IN SERUM OR PLASMA BY CALCULATIO N 186 mg/dL 0 - 129 12/16 H Specimen Type: SERUM No comment entered. Ordering Provider: KILO KNIGHT Report Released Date/Time: Dec 09, 2024 04:19 PM Reporting Lab: [address] [place] [address] Performing Lab: [facility] [place] [facility] [address] [address] [facility] [place] [facility] LIPID PANEL, NON FASTING CHOLESTERO L.TOTAL/CH OLESTEROL IN HDL [MASS RATIO] IN SERUM OR PLASMA 6.7 12/16 Specimen Type: SERUM No comment entered. Ordering Provider: KILO KNIGHT Report Released Date/Time: Dec 09, 2024 04:19 PM Reporting Lab: [facility] [place] [facility] [address] [facility] [address] Performing Lab: [facility] [place] [facility] [address] [facility] [address] [facility] [place] [facility] LIPID PANEL, NON FASTING CHOLESTERO L IN HDL [MASS/VOLU ME] IN SERUM OR PLASMA 39 mg/dL 40 - 60 12/16 L Specimen Type: SERUM No comment entered. Ordering Provider: KILO KNIGHT Report Released Date/Time: Dec 09, 2024 04:19 PM Reporting Lab: [facility] [place] [facility] [address] [facility] [address] Performing Lab: [facility] [place] [facility] [address] [address] [facility] [place] [facility] LIVER FUNCTION PROTEIN [MASS/VOLU ME] IN SERUM OR PLASMA 7.6 g/dL 6.0 - 8.3 12/16 Specimen Type: SERUM No comment entered. Ordering Provider: KILO KNIGHT Report Released Date/Time: Dec 09, 2024 04:19 PM Reporting Lab: [facility] [place] [facility] [address] [facility] [address] Performing Lab: [facility] [place] [facility] [facility] [address] [facility] [address] [facility] [place] [facility] LIVER FUNCTION ALBUMIN [MASS/VOLU ME] IN SERUM OR PLASMA 4.4 g/dL 3.5 - 5.0 02/27 /2025 Specimen Type: SERUM No comment entered. Ordering Provider: KILO KNIGHT Report Released Date/Time: Dec 09, 2024 04:19 PM Reporting Lab: [facility] [place] [facility] [address] [facility] [facility] [address] Performing Lab: [facility] [place] [facility] [address] [facility] [address] [facility] [place] [facility] LIVER FUNCTION ALKALINE PHOSPHATAS E [ENZYMATIC ACTIVITY/V OLUME] IN SERUM OR PLASMA 48 U/L 40 - 150 12/16 Specimen Type: SERUM No comment entered. Ordering Provider: KILO KNIGHT Report Released Date/Time: Dec 09, 2024 04:19 PM Reporting Lab: [facility] [place] [facility] [address] [facility] [facility] [address] Performing Lab: [facility] [place] [facility] [address] [facility] [address] [place] [facility] [place] [facility] LIVER FUNCTION ASPARTATE AMINOTRANS FERASE [ENZYMATIC ACTIVITY/V OLUME] IN SERUM OR PLASMA 13 U/L 5 - 34 12/16 Specimen Type: SERUM No comment entered. Ordering Provider: KILO KNIGHT Report Released Date/Time: Dec 09, 2024 04:19 PM Reporting Lab: [facility] [place] [facility] [address] [facility] [facility] [address] Performing Lab: [facility] [place] [place] [facility] [address] [facility] [address] [facility] [place] [facility] LIVER FUNCTION ALANINE AMINOTRANS FERASE [ENZYMATIC ACTIVITY/V OLUME] IN SERUM OR PLASMA 14 U/L 12/16 Specimen Type: SERUM No comment entered. Ordering Provider: KILO KNIGHT Report Released Date/Time: Dec 09, 2024 04:19 PM Reporting Lab: [facility] [place] [facility] [address] [facility] [address] Performing Lab: [facility] [place] [facility] [address] [facility] [address] [facility] [place] [facility] LIVER FUNCTION BILIRUBIN. TOTAL [MASS/VOLU ME] IN SERUM OR PLASMA 0.3 mg/dL 0.2 - 1.2 12/16 Specimen Type: SERUM No comment entered. Ordering Provider: KILO KNIGHT Report Released Date/Time: Dec 09, 2024 04:19 PM Reporting Lab: [facility] [address] [facility] [facility] [address] Performing Lab: [facility] [address] [facility] [facility] [address] [facility] YEN SCREEN/T ITER NUCLEAR AB [PRESENCE] IN SERUM NEG NEG <1:40 - 140 12/16 Specimen Type: SERUM No comment entered. Ordering Provider: KILO KNIGHT Report Released Date/Time: Dec 16, 2024 11:19 AM Reporting Lab: [facility] [address] [facility] [facility] [address] Performing Lab: [facility] [address] [facility] [facility] [address] [facility] HEMOGLOB IN A1C PANEL HEMOGLOBIN A1C/HEMOGL OBIN.TOTAL IN BLOOD BY HPLC 5.3 4.0 - 5.6 12/16 Specimen Type: BLOOD Comment: Values obtained from A1C measurement s can vary. For atypical A1C assays, a reported value of 7.0 could actually be between 6.72 and 7.28 if measured by a reference method. A reported value of 9.0 could actually be between 8.73 and 9.27. Ref: http://www. ngsp.org/[place] Pdata.asp Ordering Provider: KILO KNIGHT Report Released Date/Time: Dec 16, 2024 11:19 AM Reporting Lab: [facility] [address] [facility] [facility] [address] Performing Lab: [facility] [address] [facility] [facility] [address] [facility] RHEUMATO ID FACTOR RHEUMATOID FACTOR [UNITS/VOL UME] IN SERUM BY NEPHELOMET RY <13 0 - 15 12/16 Specimen Type: SERUM No comment entered. Ordering Provider: KILO KNIGHT Report Released Date/Time: Dec 16, 2024 11:19 AM Reporting Lab: [place] [facility] [place] [facility] [address] [facility] [facility] [address] Performing Lab: [facility] [place] [facility] [address] [facility] [address] [facility] [place] [facility] HEPATITI S B SURFACE ANTIBODY (HBsAb)- WH HEPATITIS B VIRUS SURFACE AB [PRESENCE] IN SERUM BY IMMUNOASSA Y Non Reactive 06/11 Specimen Type: SERUM No comment entered. Ordering Provider: KILO KNIGHT Report Released Date/Time: May 31, 2024 09:45 AM Reporting Lab: [facility] [address] [facility] [facility] [address] Performing Lab: [facility] [place] [facility] [address] [facility] [address] [facility] LIPID PANEL, NON FASTING CHOLESTERO L [MASS/VOLU ME] IN SERUM OR PLASMA 212 mg/dL 06/11 H Specimen Type: SERUM No comment entered. Ordering Provider: KILO KNIGHT Report Released Date/Time: May 31, 2024 09:45 AM Reporting Lab: [place] [facility] [place] [address] [address] Performing Lab: [facility] [address] [facility] [facility] [address] [facility] LIPID PANEL, NON FASTING TRIGLYCERI DE [MASS/VOLU ME] IN SERUM OR PLASMA 124 mg/dL 0 - 150 06/11 Specimen Type: SERUM No comment entered. Ordering Provider: KILO KNIGHT Report Released Date/Time: May 31, 2024 09:45 AM Reporting Lab: [facility] [address] [address] Performing Lab: [facility] [address] [address] [facility] [place] [facility] LIPID PANEL, NON FASTING CHOLESTERO L IN LDL [MASS/VOLU ME] IN SERUM OR PLASMA BY CHENCHO Avalos 152 mg/dL 0 - 129 06/11 H Specimen Type: SERUM No comment entered. Ordering Provider: KILO KNIGHT Report Released Date/Time: May 31, 2024 09:45 AM Reporting Lab: [facility] [address] [facility] [facility] [address] Performing Lab: [facility] [place] [facility] [address] [facility] [facility] [address] [facility] LIPID PANEL, NON FASTING CHOLESTERO L.TOTAL/CH OLESTEROL IN HDL [MASS RATIO] IN SERUM OR PLASMA 6.1 06/11 Specimen Type: SERUM No comment entered. Ordering Provider: KILO KNIGHT Report Released Date/Time: May 31, 2024 09:45 AM Reporting Lab: [facility] [address] [facility] [facility] [address] Performing Lab: [facility]ATRN [facility] [address] [facility] [facility] [address] [facility] LIPID PANEL, NON FASTING CHOLESTERO L IN HDL [MASS/VOLU ME] IN SERUM OR PLASMA 35 mg/dL 40 - 60 06/11 L Specimen Type: SERUM No comment entered. Ordering Provider: KILO KNIGHT Report Released Date/Time: May 31, 2024 09:45 AM Reporting Lab: [facility]OOSATRN [facility] [address] [facility] [facility] [address] Performing Lab: [facility] [address] [address] [facility] Vital Signs Combined list of inpatient and outpatient Vital Signs from Department of Defense and Veterans Affairs, ranging from 12 months to all on record, depending upon the facility. Vital Sign Value Date Comments Source SYSTOLIC BLOOD PRESSURE 117 12/16/19 25 09:35:02 [facility] DIASTOLIC BLOOD PRESSURE 79 025 09:35:02 [facility] [place] [facility] PULSE OXIMETRY 100 12/16/2024 09:35:02 [facility] [place] [facility] WEIGHT 195 12/16/2024 09[facility]35:02 [facility] [place] [facility] BMI 27 kg/m2 12/16/2024 09:35:02 [facility] [place] [facility] PAIN 7 12/16/2024 09:35:02 [facility] [place] [facility] HEIGHT 71 12/16/2024 09:35:02 [facility] [place] [facility] TEMPERATURE 98.3 12/16/2024 09:35:02 [facility] [place] [facility] PULSE 81 12/16/2024 09:35:02 [facility] [place] [facility] RESPIRATION 20 12/16/2024 09:35:02 [facility] [place] [facility] SYSTOLIC BLOOD PRESSURE 103 06/11/20 24 14:38:27 [facility] [place] [facility] DIASTOLIC BLOOD PRESSURE 68 024 14:38:27 [facility] [place] [facility] PULSE OXIMETRY 98 06/11/2024 14:38:27 [facility] [place] [facility] WEIGHT 186 06/11/2024 14:38:27 [facility] [place] [facility] BMI 27 kg/m2 06/11/2024 14:38:27 [facility] [place] [facility] PAIN 5 06/11/2024 14:38:27 [facility] [place] [facility] HEIGHT 70 06/11/2024 14:38:27 [facility] [place] [facility] TEMPERATURE 98.7 06/11/2024 14:38:27 [facility] [place] [facility] PULSE 85 06/11/2024 14:38:27 [facility] [place] [facility] RESPIRATION 20 06/11/2024 14:38:27 [facility] [place] [facility] Encounters Combined list of: 1) Encounters from Department of Veterans Affairs facilities going backup to the last 18 months, not all [place] inpatient encounters are included; 2) Encounters from the Department of Defense facilities going backup to 280 months. Location Location Details Encounter Type Encounter Number Reason For Visit Attending Provider ADM Date DC Date Status Disposition Source [facility] [place] [facility] Outpatient Encounter [id number] 06/30 [place] [facility] [place] [facility] OFF/OP EST MAY X REQ PHY/QHP [id number] Diagnos is: ICD-10- CM F43.12 Post-tr aumatic stress disorde r, chronic SINCERE,M KALIN JAMES 07/02 [place] [facility] [place] [facility] PSYTX W PT 60 MINUTES [id number] Diagnos is: ICD-10- CM F43.12 Post-tr aumatic stress disorde r, chronic CHRISTOSZOTTAP ELLA FUENTES 07/02 [place] [facility] RE[facility] [id number] Diagnos is: ICD-10- CM Z13.6 Encount er for screeni ng for cardiov ascular disorde YARITZA Kaminski 07/02 [place] [facility] [place] [place] [facility] Outpatient Encounter [id number] 07/07 [place] [facility] [place] [facility] OFFICE O/P EST HI 40-54 MIN [id number] Diagnos is: ICD-10- CM F14.250 Cocaine depend w cocaine -induc psych disorde r w ROSELYN Eubanks SSICA E 07/08 [place] [facility] [place] [facility] [place] [facility] Outpatient Encounter [id number] 07/08 [facility] [place] [facility] [place] En[facility] [id number] 07/08 [facility] [place] [facility] [facility] [place] En[facility] [id number] 07/15 [facility] [place] [place] SELF-HELP/ PEER SVC PER 15MIN [id number] Diagnos is: ICD-10- CM F14.250 Cocaine depend w cocaine -induc psych disorde r KADEEM Broderick 09/15 [facility] [place] [place] GROUP PSYCHOTHER APY [id number] Diagnos is: ICD-10- CM F10.288 Alcohol depende nce with other alcohol -induce d disorde r CHAYO SOL IG 09/15 [facility] [place] [place] [id number] Diagnos is: ICD-10- CM F14.250 Cocaine depend w cocaine -induc psych disorde r AILEEN Aguirre HIRAM 09/16 [facility] [place] [place] [id number] Diagnos is: ICD-10- CM F14.20 Cocaine depende nce, uncompl icated SANJAY SHELLEY N 09/16 [facility] [place] [place] THERAPEUTI C ACTIVITIES [id number] Diagnos is: ICD-10- CM F14.250 Cocaine depend w cocaine -induc psych disorde r JUNIOR RomoTNILES 09/16 [facility] [place] [place] PSYTX W PT 30 MINUTES [id number] Diagnos is: ICD-10- CM F10.288 Alcohol depende nce with other alcohol -induce d disorde seth FAUST,NORBERTO AN 09/18 [facility] [place] [place] Out[facility] En[facility] [id number] 09/22 [facility] [place] [place]CHOTHER [facility] [id number] Diagnos is: ICD-10- CM F14.20 Cocaine depende nce, uncompl icated AILEEN SIDDIQI HIRAM 09/23 [facility] [place] [place] [id number] Diagnos is: ICD-10- CM F14.20 Cocaine depende nce, uncompl icated ARTIS WEBSTER 09/23 [facility] [place] [place] THERAPEUTI C ACTIVITIES [id number] Diagnos is: ICD-10- CM F14.20 Cocaine depende nce, uncompl icated JUNIOR ROBERT 09/23 [facility] [place] En[facility] [id number] AASHISH PAL 09/23 [facility] [place] [place]CHOTHER [facility]Y [id number] Diagnos is: ICD-10- CM F10.288 Alcohol depende nce with other alcohol -induce d disorde r GOVIND,NORBERTO AN 09/25 [facility] [place] [place]CHOTHER [facility] [id number] Diagnos is: ICD-10- CM F14.20 Cocaine depende nce, uncompl icated SANJAY SHELLEY N 09/25 [facility] [place] [place] GROUP PSYCHOTHER APY [id number] Diagnos is: ICD-10- CM F14.20 Cocaine depende nce, uncompl icated KADEEM MARMOLEJO 09/25 [facility] [place] [place] PSYTX W PT 60 MINUTES [id number] Diagnos is: ICD-10- CM F10.288 Alcohol depende nce with other alcohol -induce d disorde r GOVIND,NORBERTO AN 09/25 [facility] [place] [place] GROUP PSYCHOTHER APY [id number] Diagnos is: ICD-10- CM F10.288 Alcohol depende nce with other alcohol -induce d disorde r GOVIND,NORBERTO AN 09/26 [facility] [place] [place] GROUP PSYCHOTHER APY [id number] Diagnos is: ICD-10- CM F14.20 Cocaine depende nce, uncompl icated ARTIS WEBSTER 09/26 [facility] [place] [place] GROUP PSYCHOTHER APY [id number] Diagnos is: ICD-10- CM F14.20 Cocaine depende nce, uncompl icated AILEEN SIDDIQI 09/30 [facility] [place] [place] GROUP PSYCHOTHER APY [id number] Diagnos is: ICD-10- CM F14.20 Cocaine depende nce, uncompl icated SANJAY SHELLEY IFER N 09/30 [facility] [place] [place] THERAPEUTI C ACTIVITIES [id number] Diagnos is: ICD-10- CM F10.288 Alcohol depende nce with other alcohol -induce d disorde r YESICA,CO URTNEY 09/30 [facility] [place] [place] HC PRO PHONE CALL 11-20 MIN [id number] Diagnos is: ICD-10- CM F10.288 Alcohol depende nce with other alcohol -induce d disorde r GOVIND,NORBERTO AN 09/30 [facility] [place] [place] EXERCISE CLASS [id number] Diagnos is: ICD-10- CM Y93.42 Activit y, yoga SOHAIL, JULIAN 10/01 [facility] [place] [place] GROUP PSYCHOTHER APY [id number] Diagnos is: ICD-10- CM F14.20 Cocaine depende nce, uncompl icated SANJAY SHELLEYER N 10/01 [facility] [place] [place] GROUP PSYCHOTHER APY [id number] Diagnos is: ICD-10- CM F10.288 Alcohol depende nce with other alcohol -induce d disorde r CHAYO SOL IG 10/01 [facility] [place] [place] GROUP PSYCHOTHER APY [id number] Diagnos is: ICD-10- CM F10.288 Alcohol depende nce with other alcohol -induce d disorde r GOVIND,NORBERTO AN 10/02 [facility] [place] [place] GROUP PSYCHOTHER APY [id number] Diagnos is: ICD-10- CM F14.20 Cocaine depende nce, uncompl icated SANJAY SHELLEY N 10/02 [facility] [place] [place] GROUP PSYCHOTHER [facility]Y [id number] Diagnos is: ICD-10- CM F14.20 Cocaine depende nce, uncompl icated VERONICA BURROUGHS 10/02 [facility] [place] [place] PSYTX W PT 60 MINUTES [id number] Diagnos is: ICD-10- CM F10.288 Alcohol depende nce with other alcohol -induce d disorde r GOVIND,NORBERTO AN 10/02 [facility] [place] En[facility] [id number] 10[facility]02 [facility] [place] [facility] [place] GROUP PSYCHOTHER APY [id number] Diagnos is: ICD-10- CM F14.20 Cocaine depende nce, uncompl icated AILEEN SIDDIQI HIRAM 10/03 [facility] [place] [place] GROUP PSYCHOTHER APY [id number] Diagnos is: ICD-10- CM F10.288 Alcohol depende nce with other alcohol -induce d disorde r GOVIND,NORBERTO AN 10/03 [facility] [place] [place] [place]OTHER [place]Y [id number] Diagnos is: ICD-10- CM F14.20 Cocaine depende nce, uncompl icated KADEEM MARMOLEJO 10/03 [facility] [place] [id number] 10/03 [facility] [place] En[facility] [id number] AUGUSTIN SAUCEDA 10/06 [facility] [place] [place] GROUP PSYCHOTHER APY [id number] Diagnos is: ICD-10- CM F14.20 Cocaine depende nce, uncompl icated AILEEN SIDDIQI 10/07 [facility] [place] [place] GROUP PSYCHOTHER APY [id number] Diagnos is: ICD-10- CM F10.288 Alcohol depende nce with other alcohol -induce d disorde r SANJAY SHELLEY 10/07 [facility] [place] THERAPEUTI C ACTIVITIES [id number] Diagnos is: ICD-10- CM F10.288 Alcohol depende nce with other alcohol -induce d disorde r JUNIOR ROBERT 10/07 [facility] [place] Out[facility] En[facility] [id number] 10/09 [facility] [place] HC PRO PHONE CALL 11-20 MIN [id number] Diagnos is: ICD-10- CM F10.288 Alcohol depende nce with other alcohol -induce d disorde r NORBERTO FAUST AN 10/09 [facility] [place] GROUP PSYCHOTHER APY [id number] Diagnos is: ICD-10- CM F10.288 Alcohol depende nce with other alcohol -induce d disorde r AILEEN SIDDIQI HIRAM 10/14 [facility] En[facility] [id number] Liu SHERWOOD 10/14 [facility] [place] GROUP PSYCHOTHER APY [id number] Diagnos is: ICD-10- CM F14.20 Cocaine depende nce, uncompl icated AILEEN SIDDIQI HIRAM 10/14 [facility] [place] En[facility] [id number] 10/14 [facility] [place] EXERCISE CLASS [id number] Diagnos is: ICD-10- CM Y93.42 Activit y, yoga JULIAN SAUCEDA 10/15 [facility] [place] GROUP PSYCHOTHER APY [id number] Diagnos is: ICD-10- CM F14.20 Cocaine depende nce, uncompl icated SANJAY SHELLEY N 10/15 [facility] [place] [id number] 10/15 [facility] [place] [place] GROUP PSYCHOTHER APY [id number] Diagnos is: ICD-10- CM F14.20 Cocaine depende nce, uncompl icated GOVIND,NORBERTO AN 10/16 [facility] [place] [place]CHOTHER [place] [id number] Diagnos is: ICD-10- CM F14.20 Cocaine depende nce, uncompl icated SANJAY SHELLEY N 10/16 [facility] [place] GROUP PSYCHOTHER [facility]Y [id number] Diagnos is: ICD-10- CM F10.288 Alcohol depende nce with other alcohol -induce d disorde r MANJEETVERONICA WEST 10/16 [facility] PSYTX W PT 45 MINUTES [id number] Diagnos is: ICD-10- CM F10.288 Alcohol depende nce with other alcohol -induce d disorde r GOVIND,NORBERTO AN 10/16 [facility] [id number] Diagnos is: ICD-10- CM F14.20 Cocaine depende nce, uncompl icated AILEEN SIDDIQI HIRAM 10/17 [facility] [id number] Diagnos is: ICD-10- CM F14.20 Cocaine depende nce, uncompl icated GOVIND,NORBERTO AN 10/17 [facility] [id number] Diagnos is: ICD-10- CM F14.20 Cocaine depende nce, uncompl icated DARINARTIS MANN 10/17 [facility] En[facility] [id number] 10/17 [facility] [id number] Diagnos is: ICD-10- CM F14.20 Cocaine depende nce, uncompl icated SANJAY SHELLEY N 10/21 [facility] En[facility] [id number] JUNIOR ROBERTTNILES 10/21 [facility] En[facility] [id number] JUNIOR ROBERTTNILES 10/21 [facility] En[facility] [id number] 10/21 [facility] En[facility] [id number] 10/23 [facility] [id number] Diagnos is: ICD-10- CM F14.20 Cocaine depende nce, uncompl icated ARTIS WEBSTER 10/24 [facility]Y [id number] Diagnos is: ICD-10- CM F14.20 Cocaine depende nce, uncompl icated GOVIND,NORBERTO AN 10/24 [facility]Y [id number] Diagnos is: ICD-10- CM F14.20 Cocaine depende nce, uncompl icated ARTIS WEBSTER 10/24 [facility] En[facility] [id number] 10/24 [facility] PSYTX W PT 45 MINUTES [id number] Diagnos is: ICD-10- CM F14.20 Cocaine depende nce, uncompl icated GOVIND,NORBERTO AN 10/24 [facility] [id number] Diagnos is: ICD-10- CM F14.20 Cocaine depende nce, uncompl icated KRISTENBOParker,CITY COLLECTOR IG 10/27 [facility] [id number] Diagnos is: ICD-10- CM F14.20 Cocaine depende nce, uncompl icated ARTIS WEBSTERBETH 10/27 [facility] [id number] Diagnos is: ICD-10- CM F14.20 Cocaine depende nce, uncompl icated AILEEN SIDDIQI HIRAM 10/27 [facility] En[facility] [id number] 10/28 [facility] STRESS MGMT CLASS [id number] Diagnos is: ICD-10- CM Y93.42 Activit y, yoga JULIAN SAUCEDA 10/29 [facility] [id number] Diagnos is: ICD-10- CM F29 Unsp psychos is not due to a substan ce or known physiol cond AUGUSTA MARMOLEJOALD R 10/29 [facility] GROUP PSYCHOTHER APY [id number] Diagnos is: ICD-10- CM F14.20 Cocaine depende nce, uncompl icated CHAYO SOL 10/29 [facility] PSYCHOTHER APY [id number] Diagnos is: ICD-10- CM F14.20 Cocaine depende nce, uncompl icated DARINARTIS JOHNATHAN 10/30 [facility] PSYCHOTHER APY [id number] Diagnos is: ICD-10- CM F29 Unsp psychos is not due to a substan ce or known physiol cond AUGUSTA MARMOLEJOLIZZY Cordero 10/30 [facility] PSYCHOTHER APY [id number] Diagnos is: ICD-10- CM F14.20 Cocaine depende nce, uncompl icated VERONICA BURROUGHS 10/30 [facility] SELF-HELP/ PEER SVC PER 15MIN [id number] Diagnos is: ICD-10- CM F14.20 Cocaine depende nce, uncompl icated FRANCIEKADEEM R 10/30 [facility] GROUP PSYCHOTHER APY [id number] Diagnos is: ICD-10- CM F14.20 Cocaine depende nce, uncompl icated AILEEN SIDDIQI 10/31 [facility] GROUP PSYCHOTHER APY [id number] Diagnos is: ICD-10- CM F14.20 Cocaine depende nce, uncompl icated AILEEN SIDDIQI 10/31 [facility] GROUP PSYCHOTHER APY [id number] Diagnos is: ICD-10- CM F14.20 Cocaine depende nce, uncompl icated ARTIS WEBSTER 10/31 [facility] Outpatient Encounter [id number] TIMOTHYAUGUSTIN BANSAL 11/04 [facility] SELF-HELP/ PEER SVC PER 15MIN [id number] Diagnos is: ICD-10- CM F29 Unsp psychos is not due to a substan ce or known physiol cond KADEEM MARMOLEJO 11/05 [facility] Out[facility] Encounter [id number] 11/27 [facility] Encounter [id number] 12/03 [facility] Encounter [id number] BRAULIO FLOYD 01/05 [facility] Encounter [id number] 01/06 [facility] Encounter [id number] 01/19 [facility] PSYCH DIAGNOSTIC EVALUATION [id number] Diagnos is: ICD-10- CM F14.20 Cocaine depende nce, uncompl icated SABA SHAIKH R 01/28 [facility] Out[facility] Encounter [id number] 02/05 [facility] Encounter [id number] Liu KAUR 02/05 [facility] SELF-HELP/ PEER SVC PER 15MIN [id number] [id number] Diagnos is: ICD-10- CM F29 Unsp psychos is not due to a substan ce or known physiol KADEEM Willams R 02/08 [facility] SELF-HELP/ PEER SVC PER 15MIN [id number] Diagnos is: ICD-10- CM F29 Unsp psychos is not due to a substan ce or known physiol KADEEM Willams 02/09 [facility] Out[facility] Encounter [id number] 02/09 [facility] SELF-HELP/ PEER SVC PER 15MIN [id number] Diagnos is: ICD-10- CM F29 Unsp psychos is not due to a substan ce or known physiol KADEEM Willams 02/10 [facility] SELF-HELP/ PEER SVC PER 15MIN [id number] Diagnos is: ICD-10- CM F14.20 Cocaine depende nce, uncompl icated KADEEM MARMOLEJO R 02/10 [facility] Outpatient Encounter [id number] 02/11 [facility] [place] Outpatient Encounter [id number] 02/12 [place] [facility] Out[facility] Encounter [id number] 02/12 [facility]counter [id number] 02/16 [facility] Encounter [id number] 02/17 [facility] CASE MANAGEMENT [id number] Diagnos is: ICD-10- CM F14.20 Cocaine depende nce, uncompl icated SABA SHAIKH R 03/18 [facility] CASE MANAGEMENT [id number] Diagnos is: ICD-10- CM F43.12 Post-tr aumatic stress disorde r, chronic SABA SHAIKH R 03/25 [facility] Out[facility] Encounter [id number] 03/30 [facility] CASE MANAGEMENT [id number] Diagnos is: ICD-10- CM F43.12 Post-tr aumatic stress disorde r, chronic SABA SHAIKH R 04/01 [facility] Out[facility] Encounter [id number] 04/13 [facility] CASE MANAGEMENT [id number] Diagnos is: ICD-10- CM F14.20 Cocaine depende nce, uncompl icated SABA SHAIKH R 04/26 [facility] CASE MANAGEMENT [id number] Diagnos is: ICD-10- CM F14.20 Cocaine depende nce, uncompl icated SABA SHAIKH ANDERSON R 04/29 [facility] SELF-HELP/ PEER SVC PER 15MIN [id number] Diagnos is: ICD-10- CM F14.20 Cocaine depende nce, uncompl icated KADEEM MARMOLEJO R 05/04 [facility] Out[facility] Encounter [id number] 05/05 [facility] Encounter [id number] 05/05 [facility] SELF-HELP/ PEER SVC PER 15MIN [id number] Diagnos is: ICD-10- CM F29 Unsp psychos is not due to a substan ce or known physiol cond KADEEM MARMOLEJO R 05/11 [facility] Encounter [id number] 05/12 [facility] OFFICE O/P EST LOW 20 MIN [id number] Diagnos is: ICD-10- CM H10.12 Acute atopic conjunc tivitis , left eye 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,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 05/13 [facility] CASE MANAGEMENT [id number] Diagnos is: ICD-10- CM F14.20 Cocaine depende nce, uncompl icated SABA SHAIKH R 05/13 [facility] SELF-HELP/ PEER SVC PER 15MIN [id number] [id number] Diagnos is: ICD-10- CM F29 Unsp psychos is not due to a substan ce or known physiol cond KADEEM MARMOLEJO 05/18 [facility] SELF-HELP/ PEER SVC PER 15MIN [id number] Diagnos is: ICD-10- CM F29 Unsp psychos is not due to a substan ce or known physiol KADEEM Willams 05/25 [facility] Outpatient Encounter [id number] FAWAD HYDE 05/31 [facility] CASE MANAGEMENT [id number] Diagnos is: ICD-10- CM F14.20 Cocaine depende nce, uncompl icated SABA SHAIKH R 05/31 [facility] SELF-HELP/ PEER SVC PER 15MIN [id number] Diagnos is: ICD-10- CM F29 Unsp psychos is not due to a substan ce or known physiol KADEEM Willams R 06/01 [facility] CASE MANAGEMENT [id number] 1. Diagnos is: ICD-10- CM F14.20 Cocaine depende nce, uncompl icated SABA SHAIKH R 06/03 [facility] Out[facility] Encounter [id number] 06/03 [facility] Out[facility] Encounter [id number] 06/07 [facility] SELF-HELP/ PEER SVC PER 15MIN [id number] 1. Diagnos is: ICD-10- CM F29 Unsp psychos is not due to a substan ce or known physiol cond KADEEM MARMOLEJO R 06/08 [facility] OFFICE O/P EST HI 40 MIN [id number] Diagnos is: ICD-10- CM F10.288 Alcohol depende nce with other alcohol -induce d ROSELYN Galo SSICA E 06/08 [facility] CASE MANAGEMENT [id number] Diagnos is: ICD-10- CM F14.20 Cocaine depende nce, uncompl icated SABA SHAIKH R 06/10 [facility] Out[facility] Encounter [id number] 06/11 [facility] OFFICE O/P EST LOW 20 MIN [id number] Diagnos is: ICD-10- CM F33.3 Major depress v disorde r, recurre nt, severe w psych symptom s KNIGHTMin J 06/11 [facility] SELF-HELP/ PEER SVC PER 15MIN [id number] [id number] Diagnos is: ICD-10- CM F29 Unsp psychos is not due to a substan ce or known physiol KADEEM Willams 06/15 [facility] Out[facility]counter [id number] 1.06/18 [facility] SELF-HELP/ PEER SVC PER 15MIN [id number] Diagnos is: ICD-10- CM F29 Unsp psychos is not due to a substan ce or known physiol KADEEM Willams 06/22 [facility] SELF-HELP/ PEER SVC PER 15MIN [id number] Diagnos is: ICD-10- CM 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 LEXI FIGUEROA 07/01 [facility] Out[facility] Encounter [id number] 07/02 [facility] SELF-HELP/ PEER SVC PER 15MIN [id number] [id number] Diagnos is: ICD-10- CM F29 Unsp psychos is not due to a substan ce or known physiol cond KADEEM MARMOLEJO 07/06 [facility] SELF-HELP/ PEER SVC PER 15MIN [id number] [id number] Diagnos is: ICD-10- CM F29 Unsp psychos is not due to a substan ce or known physiol cond KADEEM MARMOLEJO 07/13 [facility] Out[facility] Encounter [id number] 07/16 [facility] Out[facility] Encounter [id number] 07/18 [facility] SELF-HELP/ PEER SVC PER 15MIN [id number] Diagnos is: ICD-10- CM F14.20 Cocaine depende nce, uncompl icated KADEEM MARMOLEJO 07/20 [facility] OFFICE O/P EST HI 40 MIN [id number] [id number] Diagnos is: ICD-10- CM F10.288 Alcohol depende nce with other alcohol -induce d ROSELYN GaloCA E 07/22 [facility] SELF-HELP/ PEER SVC PER 15MIN [id number] Diagnos is: ICD-10- CM F14.20 Cocaine depende nce, uncompl icated FRANCIEKADEEM R 07/27 [facility] CASE MANAGEMENT [id number] 1. Diagnos is: ICD-10- CM F43.12 Post-tr aumatic stress disorde r, chronic SABA SHAIKH R 07/28 [facility] SELF-HELP/ PEER SVC PER 15MIN 25578-4.63 1. Diagnos is: ICD-10- CM F29 Unsp psychos is not due to a substan ce or known physiol cond KADEEM MARMOLEJO 08/03 [facility] Out[facility] Encounter [id number] 1. AUGUSTIN SAUCEDA 08/05 [facility] SELF-HELP/ PEER SVC PER 15MIN [id number] 1. Diagnos is: ICD-10- CM F29 Unsp psychos is not due to a substan ce or known physiol cond FRANCIEKADEEM R 08/10 [facility] Out[facility] Encounter [id number] 08/10 [facility] CASE MANAGEMENT [id number] [id number] Diagnos is: ICD-10- CM F14.20 Cocaine depende nce, uncompl icated ROBERARONMarieSABA ANDERSON R 08/11 [facility] Out[facility] Encounter [id number] AUGUSTIN SAUCEDA 08/12 [facility] Out[facility] Encounter [id number] [facility] SELF-HELP/ PEER SVC PER 15MIN [id number] 1. Diagnos is: ICD-10- CM F29 Unsp psychos is not due to a substan ce or known physiol cond KADEEM MARMOLEJO 08/17 [facility] SELF-HELP/ PEER SVC PER 15MIN 29137-1.63 1. Diagnos is: ICD-10- CM F29 Unsp psychos is not due to a substan ce or known physiol cond KADEEM MARMOLEJO 08/24 [facility] OFFICE O/P EST HI 40 MIN [id number] [id number] Diagnos is: ICD-10- CM F14.250 Cocaine depend w cocaine -induc psych disorde r w ROSELYN Eubanks E 08/26 [facility] CASE MANAGEMENT [id number] 1. Diagnos is: ICD-10- CM F43.12 Post-tr aumatic stress disorde r, chronic DEMSABA GLASS R 08/26 [facility] Out[facility] Encounter [id number] SOHAIL AUGUSTIN 08/27 [facility] SELF-HELP/ PEER SVC PER 15MIN [id number] [id number] Diagnos is: ICD-10- CM F14.20 Cocaine depende nce, uncompl icated KADEEM MARMOLEJO 08/31 [facility] Out[facility] Encounter [id number] 09/01 [facility] SELF-HELP/ PEER SVC PER 15MIN [id number] Diagnos is: ICD-10- CM F29 Unsp psychos is not due to a substan ce or known physiol cond KADEEM MARMOLEJO 09/07 [facility] Out[facility] Encounter [id number] 1. AUGUSTIN SAUCEDA 09/07 [facility] SELF-HELP/ PEER SVC PER 15MIN [id number] Diagnos is: ICD-10- CM F29 Unsp psychos is not due to a substan ce or known physiol cond KADEEM MARMOLEJO 09/14 [facility] Out[facility] Encounter [id number] ROSELYN CARPENTER 09/19 [facility] Out[facility] Encounter [id number] 09/20 [facility] GROUP PSYCHOTHER APY [id number] [id number] Diagnos is: ICD-10- CM F14.20 Cocaine depende nce, uncompl icated HAYDEALLIEAILEEN 09/22 [facility] CASE MANAGEMENT [id number] Diagnos is: ICD-10- CM F43.12 Post-tr aumatic stress disorde r, chronic DEMARESABA Salazar 09/23 [facility] SELF-HELP/ PEER SVC PER 15MIN [id number] [id number] Diagnos is: ICD-10- CM F29 Unsp psychos is not due to a substan ce or known physiol cond KADEEM MARMOLEJO R 09/28 [facility] GROUP PSYCHOTHER APY [id number] 1. Diagnos is: ICD-10- CM F14.20 Cocaine depende nce, uncompl icated AILEEN SIDDIQI HIRAM 09/29 [facility] OFFICE O/P EST LOW 20 MIN [id number] Diagnos is: ICD-10- CM F90.9 Attenti on-defi cit hyperac tivity disorde r, unspeci fied type ROSELYN CARPENTER 09/30 [facility] Out[facility] Encounter [id number] 10/06 [facility] Outpatient Encounter [id number] AUGUSTIN SAUCEDA 10/11 [facility] SELF-HELP/ PEER SVC PER 15MIN [id number] [id number] Diagnos is: ICD-10- CM F14.20 Cocaine depende nce, uncompl icated KADEEM MARMOLEJO 10/11 [facility] OFFICE O/P EST LOW 20 MIN [id number] [id number] Diagnos is: ICD-10- CM F10.288 Alcohol depende nce with other alcohol -induce d disorde r ROSELYN CARPENTER SSICA E 10/21 [facility] Outpatient Encounter [id number]/27 [facility] CASE MANAGEMENT [id number] Diagnos is: ICD-10- CM F29 Unsp psychos is not due to a substan ce or known physiol cond SABA SHAIKH 10/28 [facility] Out[facility] Encounter [id number] 11/03 [facility] GROUP PSYCHOTHER APY [id number] Diagnos is: ICD-10- CM F14.20 Cocaine depende nce, uncompl icated NEERU,TAT HIRAM 11/10 [facility] SELF-HELP/ PEER SVC PER 15MIN [id number] Diagnos is: ICD-10- CM F14.20 Cocaine depende nce, uncompl icated KADEEM MARMOLEJO 11/16 [facility] Out[facility] Encounter [id number] 11/17 [facility] Out[facility] Encounter [id number] 11/22 [facility] [place] [id number] [id number] Diagnos is: ICD-10- CM F90.9 Attenti on-defi cit hyperac tivity disorde r, unspeci fied type KADEEM MARMOLEJO 11/23 [facility] GROUP PSYCHOTHER APY [id number] Diagnos is: ICD-10- CM F14.20 Cocaine depende nce, uncompl icated AILEEN SIDDIQI 11/24 [facility] Out[facility] Encounter [id number] 11/24 [facility] SYNCH AUDIO-VIDE O EST MOD 30 [id number] Diagnos is: ICD-10- CM F10.288 Alcohol depende nce with other alcohol -induce d disorde ROSELYN Hanson SSICA E 11/25 [facility] [place] [id number] [id number] Diagnos is: ICD-10- CM F14.20 Cocaine depende nce, uncompl icated KADEEM MARMOLEJO 11/30 [facility] [place] [id number] [id number] Diagnos is: ICD-10- CM F14.20 Cocaine depende nce, uncompl icated KADEEM MARMOLEJO 12/07 [facility] Outpatient Encounter [id number] 12/10 [facility] [place] [id number] Diagnos is: ICD-10- CM F29 Unsp psychos is not due to a substan ce or known physiol cond KADEEM MARMOLEJO 12/14 [facility] Outpatient Encounter [id number] 12/14 [facility] Outpatient Encounter [id number] 12/16 [facility] OFFICE O/P EST HI 40 MIN [id number] Diagnos is: ICD-10- CM M54.2 [employer],Min PARADA Lalito 12/16 [facility] Social History Combined list of available smoking, tobacco, and other social history from [facility] of Defense and [facility] facilities. Social History Type Response Date Comment Source Tobacco smoking status [facility] VA-TOBACCO USE FORMER CIGARETTES 12/16/2024 [facility] [place] History of tobacco use VA-TOBACCO NEVER USED OTHER TYPE 12/16/2024 [facility] [place] History of tobacco use VA-TOBACCO USER EVERY DAY 10/02/2023 [facility] [place] [facility] History of tobacco use VA-TOBACCO USER EVERY DAY 09/10/2022 [facility] [place] [facility] History of tobacco use VA-VAAES TOBACCO USE CURRENT NRT DECLINE 11/03/2021 [facility] History of tobacco use CURRENT SMOKER 08/31/2021 1PPD, currently precontemplative [place] History of tobacco use [facility]AA[facility] TOBACCO USE CURRENT NRT ACCEPT 08/17/2021 [facility] History of tobacco use VA-TOBACCO USER SOME DAYS 12/22/2020 [facility] History of tobacco use ONS TOBACCO USE CURRENT 08/26/[address] [facility] History of tobacco use 689 INPT REPORTS SMOKING 08/26/2020 [facility] History of tobacco use 689 INPT REPORTS SMOKING 08/06/2020 [facility] History of tobacco use 689 INPT REPORTS SMOKING 07/10/2020 [facility] History of tobacco use 689 INPT REPORTS SMOKING 06/24/2020 [facility] History of tobacco use 689 INPT REPORTS SMOKING 04/14/2020 [facility] History of tobacco use 689 INPT REPORTS SMOKING 02/29/2020 [facility] History of tobacco use CURRENT SMOKER 09/28/2019 [place] History of tobacco use MED CURRENT SMOKER 09/10/2019 [place] History of tobacco use 689 INPT REPORTS SMOKING 07/20/2019 [facility] History of tobacco use 689 INPT REPORTS SMOKING 03/25/2019 [facility] History of tobacco use VA-TOBACCO USE WI 30 MIN OF WAKEUP 09/08/2018 [place] History of tobacco use ORYX ADMIT TOBACCO SCREEN YES 04/15/2018 [facility] [place] [facility] History of tobacco use CURRENT SMOKER 04/15/2018 [facility] [place] [facility] History of tobacco use CURRENT SMOKER 03/12/2018 [facility] [place] [facility] History of tobacco use CURRENT SMOKER 10/15/2017 [place] History of tobacco use REFUSED SMOKING CESSATION 05/15/2017 [facility] History of tobacco use INPATIENT TOBACCO SCREEN 05/12/2017 [facility] History of tobacco use INPATIENT TOBACCO SCREEN 05/11/2017 [facility] History of tobacco use CURRENT TOBACCO USER (INPT) 05/08/2017 [facility] History of tobacco use NSG CURRENT SMOKER PAST 30 DAYS 04/19/2017 [facility] History of tobacco use CURRENT SMOKER 02/25/2017 current user of [employer] products smokes cigarettes 1 pack per day [employer] History of tobacco use CURRENT SMOKER 02/19/2017 [facility] History of tobacco use CURRENT SMOKER 02/19/2017 [facility] History of tobacco use MED CURRENT SMOKER 10/14/2016 [place] History of tobacco use NSG CURRENT SMOKER PAST 30 DAYS 10/13/2016 [place] History of tobacco use NSG CURRENT SMOKER PAST 30 DAYS 09/19/2016 [place] History of tobacco use TOBACCO INPATIENT DESIRES MEDS 04/10/2016 [facility] [place] [facility] History of tobacco use REFUSED SMOKING CESSATION 02/06/2016 [facility] History of tobacco use REFUSED SMOKING CESSATION [facility] of tobacco use TOBACCO INPATIENT DESIRES MEDS 01/28/2016 [facility] [place] [facility] History of tobacco use TOBACCO INPATIENT DESIRES MEDS 10/21/2015 [facility] History of tobacco use TOBACCO INPATIENT DECLINES MEDS 07/13/2015 [facility] History of tobacco use V1-PT NOT INTERESTED IN QUIT TOBACCO USE 01/19[facility] of tobacco use CURRENT SMOKER 01/18/2015 1 ppd RITA FRITZRONAK [facility] History of tobacco use TOBACCO INPATIENT DECLINES MEDS 12/13/2014 [facility] History of tobacco use CURRENT SMOKER 12/13/2014 [facility] History of tobacco use CURRENT SMOKER 08/20/2013 Pt. stated he smokes a pack a day! [place] This section is an empty social history section. [facility] Plan of Care List of future care activities from [facility]. Additional future care activities may be listed in the Assessment and Plan section. Date/Time Care Activity Care Activity Detail Facili ty 12/30/2024 AMBULATORY - NONE AMBULATORY - NONE [facility] 01/13/2025 AMBULATORY - PSYCHIATRY AMBULATORY - PSYC HIATRY [facility] 06/15/2025 AMBULATORY - MEDICINE AMBULATORY - MEDICI NE [facility] 12/03/2024 Consult Order COMMUNITY CARE-D ENTAL SPECIALTY Cons Communications Field Technician's Choice [facility] 12/16/2024 Consult Order NUTRITION ASSESSMENT/EDUCATION/NHM OUTPT Cons Communications Field Technician's Choice [facility] 12/17/2024 Laboratory - Support Dba ry Order OCCULT BLOOD FIT X1 SCREEN(IN-HOUSE) STOOL FECES SP [facility] Advance Directives List of completed, amended, or rescinded Advance Directives on record at [facility]. An actual copy of the Directive is not included. Date Advance Directive Provider Source 09/13/2019 ADVANCE DIRECTIVE JOSE MANUEL R[facility] 10/03/2017 ADVANCE DIRECTIVE DAGMAR THAKUR [facility] 02/07/2016 ADVANCE DIRECTIVE SOFIE POLANCO [facility] 01/20/2015 ADVANCE DIRECTIVE DISCUSSION FLORINA COLON [facility]
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
--- OUTSIDE RECORDS SUMMARY | 2024-12-28 08:08 | XMS_ITS | Encounter Summary ---
Author Name [facility] [place] Address [address] [place] [address] Care Team Providers Care Transmitter Engineer Name Role Phone KERRIE KNIGHT Primary Care [...] PART A February 17, 2017 PART A [id number] [phone] MARY ESPINO PATIENT MEDICARE (WNR) MEDICARE (M) PART B February 17, 2017 PART B [id number] [id number] MARY ESPINO PATIENT MEDICARE (WNR) MEDICARE (M) PART A February 17, 2017 PART A [id number] MARY ESPINO PATIENT MEDICARE (WNR) MEDICARE (M) PART A February 17, 2017 PART A [id number] [phone] CIMINI,MARY [place] PATIENT MEDICARE (WNR) MEDICARE (M) PART B February 17, 2017 PART B [id number] CIMINI,MARY [place] PATIENT MEDICARE (WNR) MEDICARE (M) PART A February 17, 2017 PART A [id number] CIMINI,MARY [place] PATIENT MEDICARE (WNR) MEDICARE (M) PART B February 17, 2017 PART B [id number] CIMINI,DA [place] PATIENT MEDICARE (WNR) MEDICARE (M) PART A February 17, 2017 PART A [id number] [id number] CIMINI,MARY [place] PATIENT MEDICARE (WNR) MEDICARE (M) PART B February 17, 2017 PART B [id number] [phone] JASMINAINI,MARY [place] PATIENT MEDICARE (WNR) MEDICARE (M) PART A February 17, 2017 PART A [id number] CIMINI,MARY [place] PATIENT MEDICARE (WNR) MEDICARE (M) PART A February 17, 2017 PART A [id number] [id number] CIMINI,MARY [place] PATIENT MEDICARE (WNR) MEDICARE (M) PART B February 17, 2017 PART B [id number] [phone] [id number] JASMINAINIMARY PATIENT Selected Encounter This section includes the information on record at [place] for the Encounter. Date/Time Encounter Type Encounter Description Reason Provider Source Apr 01, 2024 04:18 PM CASE MANAGEMENT [facility] ICD-10-CM F43.12 Post-traumatic stress disorder, chronic NARESH SHAIKH E Encounter Template Text not used by [place] Assessments - Encounter Diagnoses This section includes the primary and secondary diagnoses documented for the Encounter. Date/Time Primary/Secondary Diagnosis Diagnosis Name Provider Source Apr 12, 2024 04:55 PM PRIMARY Post-traumatic stress disorder, chronic [facility] [place] Apr 12, 2024 04:55 PM SECONDARY Cocaine dependence, uncomplicated NARESH SHAIKH [facility] [place] [facility] Plan of Treatment: Future Appointments (+ 6 months) and Future Tests (+/- 45 days) The Plan of Treatment section includes future care activities for the patient [facility] [place] [facility] This section includes future appointments [...] - MEDICINE [facility] [place] [facility] May 11, 2024 09:00 AM AMBULATORY - PSYCHIATRY [facility] [place] [facility] May 13, 2024 11:30 AM AMBULATORY - MEDICINE [facility] [place] [facility] May 18, 2024 09:00 AM AMBULATORY - PSYCHIATRY [facility] [place] [facility] May 25, 2024 09:00 AM AMBULATORY - PSYCHIATRY [facility] [place] [facility] Jun 01, 2024 09:00 AM AMBULATORY - PSYCHIATRY [facility] [place] [facility] Jun 03, 2024 12:05 PM AMBULATORY - MEDICINE [facility] [place] [facility] Jun 08, 2024 09:00 AM AMBULATORY - PSYCHIATRY [facility] [place] [facility] Jun 08, 2024 11:30 AM AMBULATORY - PSYCHIATRY [facility] [place] [facility] Jun 11, 2024 03:30 PM AMBULATORY - MEDICINE [facility] [place] [facility] Jun 15, 2024 09:00 AM AMBULATORY - PSYCHIATRY [facility] [place] [facility] Jun 22, 2024 09:00 AM AMBULATORY - PSYCHIATRY [facility] [place] [facility] Jun 29, 2024 09:00 AM AMBULATORY - PSYCHIATRY [facility] [place] [facility] Jul 06, 2024 09:00 AM AMBULATORY - PSYCHIATRY [facility] [place] [facility] Jul 13, 2024 09:00 AM AMBULATORY - PSYCHIATRY [facility] [place] [facility] Jul 16, 2024 09:05 AM AMBULATORY - MEDICINE [facility] [place] [facility] Jul 18, 2024 07:45 PM AMBULATORY - MEDICINE [facility] [place] [facility] Jul 20, 2024 09:00 AM AMBULATORY - PSYCHIATRY [place] [facility] [facility] Jul 22, 2024 09:30 AM AMBULATORY - PSYCHIATRY [facility] [place] [facility] Jul 27, 2024 09:00 AM AMBULATORY - PSYCHIATRY [place] [facility] [place] [facility] Social History: Smoking Status (Most [...] USER EVERY DAY [place] [facility] [place] [facility] Tobacco Use History This section includes a history of the smoking, or tobacco-related health factors, that were collected on or before the date of the Encounter. The data comes from the [place] facility where the Encounter took place. Date/Time Smoking Status/Tobacco Use Comment F acility Oct 02, 2023 01:00 PM VA-TOBACCO USE ADVICE [facility] [place] 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 Oct 02, 2023 01:00 PM VA-TOBACCO USE MED NO [facility] [place] [facility] Oct 02, 2023 01:00 PM VA-TOBACCO USE [place] 30 MIN OF WAKEUP [place] [facility] [facility] Oct 02, 2023 01:00 PM VA-TOBACCO USER EVERY DAY [facility] [place] [facility] Sep 10, 2022 05:31 PM VA-TOBACCO USE > 1 5 LESS THAN 30 YEARS [facility] [place] [facility] Sep 10, 2022 05:31 PM VA-TOBACCO USE ADVICE [facility] [place] [facility] Sep 10, 2022 05:31 PM VA-TOBACCO USE DIE LAY OUT WORKER NO [facility] [place] [facility] Sep 10, 2022 05:31 PM VA-TOBACCO USE MED NO [facility] [place] [facility] Sep 10, 2022 05:31 PM VA-TOBACCO USE [place] 30 MIN OF WAKEUP [place] [facility] [facility] Sep 10, 2022 05:31 PM VA-TOBACCO USER EVERY DAY [place] [facility] [place] [facility] Aug 26, 2020 03:33 PM 689 INPT [facility]TS [facility] Aug 06, 2020 10:30 PM 689 INPT REPORTS [facility] Jul 10, 2020 07:38 PM 689 INPT REPORTS SMOKING [facility] Jun 24, 2020 01:05 AM 689 INPT REPORTS SMOKING [facility] Apr 14, 2020 06:45 AM 689 INPT REPORTS SMOKING [facility] February 29, 2020 02:33 AM 689 INPT REPORTS SMOKING [facility] Jul 20, 2019 06:25 PM 689 INPT REPORTS SMOKING [facility] Mar 25, 2019 05:25 AM 689 INPT REPORTS SMOKING [facility] Apr 15, 2018 06:41 PM ORYX ADMIT TOBACCO SCREEN YES [facility] [place] [facility] Apr 15, 2018 06:41 PM ORYX ADMIT TOBACCO USE CIGS GR 5D [place] [facility] [facility] Apr 15, 2018 06:41 PM ORYX DAILY TOBACCO DIE LAY OUT WORKER RECEIVED [place] [facility] [facility] Apr 15, 2018 06:41 PM ORYX DAILY TOBACCO MEDS REFUSED [place] [facility] [facility] Apr 15, 2018 02:41 PM CURRENT SMOKER [place] [facility] [facility] March 12, 2018 11:20 AM CURRENT SMOKER [facility] [place] [facility] March 12, 2018 11:20 AM V1-PT NOT INTEREST ED IN QUIT TOBACCO USE [facility] [place] [facility] Apr 10, 2016 09:03 AM TOBACCO INPATIENT DESIRES MEDS [facility] [place] [facility] Jan 28, 2016 12:53 PM TOBACCO INPATIENT DESIRES MEDS [facility] [place] [facility] Oct 21, 2015 05:16 PM TOBACCO INPATIENT DESIRES MEDS [facility] [place] [facility] Jul 13, 2015 11:06 PM TOBACCO INPATIENT DECLINES MEDS [facility] [place] [facility] Dec 13, 2014 08:26 PM TOBACCO INPATIENT DECLINES MEDS [facility] Dec 13, 2014 07:39 PM CURRENT SMOKER [facility] Dec 13, 2014 07:39 PM V1-PT NOT [...] 13, 2019 ADVANCE DIRECTIVE JOSE MANUEL RICO [facility] Oct 03, 2017 AD[address] DAGMAR THAKUR [facility] Feb 07, 2016 ADVANCE DIRECTIVE SOFIE POLANCO [facility] Jan 20, 2015 ADVANCE DIRECTIVE DISCUSSION FLORINA COLON [facility] Encounter Notes: All associated encounter notes This section contains the clinical notes associated to the Encounter. Date/Time Encounter Note(s) Provider Source Mar 31, 2024 03:18 PM MENTAL HEALTH OUTR EACH NOTE: LOCAL TITLE: JUSTICE OUTREACH PROGRESS NOTE STANDARD TITLE: MENTAL HEALTH OUTREACH NOTE DATE OF NOTE: MAR 31, 2024@15:18 ENTRY DATE: APR 01, 2024@16:18:15 AUTHOR: NARESH SHAIKH COSIGNER: URGENCY: STATUS: COMPLETED identified by: [x ] Full Name [] Address [x ] [ ] SSN [] Facial Recognition Length of contact: 60 minutes Location: [facility] [address], [facility] Content: [place] was an active participant in court session today. is at home alone now and on a SCRAM unit. He is maintaining sobriety. Head Field Hockey Coach met with him before court session and he would like to be reconnected with [facility]. Head Field Hockey Coach will do this for him. Provided support and VJO contact Yuy[place] card. [place] presents in good spirits with positive outlook. VJO to provide ongoing support. /cindy/ LENKA JACOBSON CLUBHOUSE MANAGER Signed: 04/01/2024 16:21 NARESH SHAIKH [facility]
--- OUTSIDE RECORDS SUMMARY | 2024-12-28 08:08 | XMS_ITS | Encounter Summary ---
Author Name [facility] [place] Address [address] [place] [address] Care Team Providers Care Steam Tunnel Feeder Name Role Phone KERRIE KNIGHT Primary [...] PART A February 17, 2017 PART A [id number] MARY ESPINO PATIENT MEDICARE (WNR) MEDICARE (M) PART B February 17, 2017 PART B [id number] MARY ESPINO PATIENT MEDICARE (WNR) MEDICARE (M) PART A February 17, 2017 PART A [id number] MARY ESPINO PATIENT MEDICARE (WNR) MEDICARE (M) PART A February 17, 2017 PART A [id number] CIMINIMARY [place] PATIENT MEDICARE (WNR) MEDICARE (M) PART B February 17, 2017 PART B [id number] CIMINI,MARY [place] PATIENT MEDICARE (WNR) MEDICARE (M) PART A February 17, 2017 PART A [id number] [phone] JASMINAINI,MARY [place] PATIENT MEDICARE (WNR) MEDICARE (M) PART A February 17, 2017 PART A [id number] CIMINI,MARY [place] PATIENT MEDICARE (WNR) MEDICARE (M) PART B February 17, 2017 PART B [id number] [phone] CIMINI,MARY [place] PATIENT MEDICARE (WNR) MEDICARE (M) PART A February 17, 2017 PART A [id number] JASMINAINI,MARY [place] PATIENT MEDICARE (WNR) MEDICARE (M) PART B February 17, 2017 PART B [id number] CIMINI,MARY [place] PATIENT MEDICARE (WNR) MEDICARE (M) PART A February 17, 2017 PART A [id number] [phone] JASMINAINI,MARY [place] PATIENT MEDICARE (WNR) MEDICARE (M) PART B February 17, 2017 PART B [id number] JASMINAINIMARY PATIENT Selected Encounter This section includes the information on record at [place] for the Encounter. Date/Time Encounter Type Encounter Description Reason Provider Source Sep 23, 2024 11:50 AM CASE MANAGEMENT [facility] ICD-10-CM F43.12 Post-traumatic stress disorder, chronic NARESH SHAIKH E Encounter Template Text not used by [place] Assessments - Encounter Diagnoses This section includes the primary and secondary diagnoses documented for the Encounter. Date/Time Primary/Secondary Diagnosis Diagnosis Name Provider Source Sep 23, 2024 11:50 AM PRIMARY Post-traumatic stress disorder, NARESH Da Silva [place] [facility] [place] [facility] Plan of Treatment: Future Appointments (+ 6 months) and Future Tests (+/- 45 days) The Plan of Treatment section includes future care activities for the patient from all [place] treatment[facility]. This section includes future appointments and future orders which are active, pending or scheduled. Future Appointments This section includes appointments that were scheduled to occur 6 months from the date of the Encounter, up to a maximum of 20 appointments. The data comes from all [place] treatment facilities. Appointment Date/Time Appointment Type Appointme nt Facility Name Sep 28, 2024 10:00 AM AMBULATORY - PSYCHIATRY [facility] [place] [facility] Sep 29, 2024 01:00 PM AMBULATORY - PSYCHIATRY [facility] [place] [facility] Sep 30, 2024 09:30 AM AMBULATORY - PSYCHIATRY [facility] [place] [facility] Oct 05, 2024 10:00 AM AMBULATORY - PSYCHIATRY [facility] [place] [facility] Oct 06, 2024 01:00 PM AMBULATORY - PSYCHIATRY [facility] [place] [facility] Oct 11, 2024 12:30 PM AMBULATORY - PSYCHIATRY [facility] [place] [facility] Oct 21, 2024 09:30 AM AMBULATORY - PSYCHIATRY [facility] [place] [facility] Oct 27, 2024 01:00 PM AMBULATORY - PSYCHIATRY [facility] [place] [facility] Nov 03, 2024 01:00 PM AMBULATORY - PSYCHIATRY [facility] [place] [facility] Nov 10, 2024 01:00 PM AMBULATORY - PSYCHIATRY [facility] [place] [facility] Nov 16, 2024 10:00 AM AMBULATORY - PSYCHIATRY [facility] [place] [facility] Nov 17, 2024 01:00 PM AMBULATORY - PSYCHIATRY [facility] [place] [facility] Nov 23, 2024 09:00 AM AMBULATORY - NONE [facility] [place] [facility] Nov 23, 2024 10:00 AM AMBULATORY - PSYCHIATRY [facility] [place] [facility] Nov 24, 2024 01:00 PM AMBULATORY - PSYCHIATRY [facility] [place] [facility] Nov 25, 2024 09:30 AM AMBULATORY - PSYCHIATRY [facility] [place] [facility] Nov 30, 2024 10:00 AM AMBULATORY - PSYCHIATRY [facility] [place] [facility] Nov 30, 2024 11:40 AM AMBULATORY - MEDICINE [place] [facility] [place] [facility] Dec 13, 2024 09:00 AM AMBULATORY - NONE [place] [facility] [place] [facility] Dec 14, 2024 03:10 PM AMBULATORY - MEDICINE [facility] Active, Pending, and Scheduled Orders This section includes a listing of several types of active, pending, and scheduled orders, including clinic medications orders, diagnostic test orders, procedure orders and consult orders; where the start date of the order is 45 days before the date of the Encounter or 45 days after the date of theEncounter. The data comes from all [place] treatment facilities. Test Date/Time Test Type Test Details Facility Name Sep 29, 2024 12:56 PM Consult Order COMMUNITY CARE-DENTAL SPECIALTY Cons Printing Specialist's Choice [facility] Social History: Smoking Status (Most current) and Tobacco Use (All prior to encounter date) This section includes the most current, and the historical, smoking and tobacco- related health factors from the [place] facility where the Encounter took place. Current Smoking Status This section includes the most current smoking, or tobacco-related health factor, from the [place] facility where the Encounter took place. Date/Time Current Smoking Status Comment Facil ity Oct 02, 2023 01:00 PM VA-TOBACCO USER EVERY DAY [facility] Tobacco Use History This section includes a history of the smoking, or tobacco-related health factors, that were collected on or before the date of the Encounter. The data comes from the [place] facility where the Encounter took place. Date/Time Smoking Status/Tobacco Use Comment F acility Oct 02, 2023 01:00 PM VA-TOBACCO USE ADVICE [place] [facility] [facility] Oct 02, 2023 01:00 PM VA-TOBACCO USE FAMILY RESOURCE SPECIALIST NO [place] [facility] [place] [facility] Oct 02, 2023 01:00 PM VA-TOBACCO USE MED NO [place] [facility] [facility] Oct 02, 2023 01:00 PM VA-TOBACCO USE [place] 30 MIN OF WAKEUP [place] [facility] [place] [facility] Oct 02, 2023 01:00 PM VA-TOBACCO USER EVERY DAY [place] [facility] [facility] Sep 10, 2022 05:31 PM VA-TOBACCO USE > 1 5 LESS THAN 30 YEARS [place] [facility] [place] [facility] Sep 10, 2022 05:31 PM VA-TOBACCO USE ADVICE [place] [facility] [place] [facility] Sep 10, 2022 05:31 PM VA-TOBACCO USE FAMILY RESOURCE SPECIALIST NO [place] [facility] [facility] Sep 10, 2022 05:31 PM VA-TOBACCO USE MED NO [place] [facility] [place] [facility] Sep 10, 2022 05:31 PM VA-TOBACCO USE [place] 30 MIN OF WAKEUP [place] [facility] [place] [facility] Sep 10, 2022 05:31 PM VA-TOBACCO USER EVERY DAY [place] [facility] [place] [facility] Aug 26, 2020 03:33 PM 689 INPT REPORTS SMOKING [facility] Aug 06, 2020 10:30 PM 689 INPT REPORTS SMOKING [facility] Jul 10, 2020 07:38 PM 689 INPT REPORTS SMOKING [facility] Jun 24, 2020 01:05 AM 689 INPT REPORTS SMOKING [facility] Apr 14, 2020 06:45 AM 689 INPT REPORTS SMOKING [facility] February 29, 2020 02:33 AM 689 INPT REPORTS SMOKING [facility] Jul 20, 2019 06:25 PM 689 INPT REPORTS SMOKING [facility] Mar 25, 2019 05:25 AM 689 INPT REPORTS SMOKING [facility] Apr 15, 2018 06:41 PM ORYX ADMIT TOBACCO SCREEN YES [place] [facility] [place] [facility] Apr 15, 2018 06:41 PM ORYX ADMIT TOBACCO USE CIGS GR 5D [place] [facility] [place] [facility] Apr 15, 2018 06:41 PM ORYX DAILY TOBACCO FAMILY RESOURCE SPECIALIST RECEIVED [place] [facility] [place] [facility] Apr 15, 2018 06:41 PM ORYX DAILY TOBACCO MEDS REFUSED [place] [facility] [place] [facility] Apr 15, 2018 02:41 PM CURRENT SMOKER [place] [facility] [place] [facility] March 12, 2018 11:20 AM CURRENT SMOKER [place] [facility] [place] [facility] March 12, 2018 11:20 AM V1-PT NOT INTEREST ED IN QUIT TOBACCO USE [place] [facility] [place] [facility] Apr 10, 2016 09:03 AM TOBACCO INPATIENT DESIRES MEDS [place] [facility] [place] [facility] Jan 28, 2016 12:53 PM TOBACCO INPATIENT DESIRES MEDS [facility] [place] [facility] Oct 21, 2015 05:16 PM TOBACCO INPATIENT DESIRES MEDS [facility] [place] [facility] Jul 13, 2015 11:06 PM TOBACCO INPATIENT DECLINES MEDS [place] [facility] [place] [facility] Dec 13, 2014 08:26 PM TOBACCO INPATIENT DECLINES MEDS [place] [facility] [facility] Dec 13, 2014 07:39 PM CURRENT SMOKER [place] [facility] Dec 13, 2014 07:39 PM V1-PT NOT INTEREST ED IN QUIT TOBACCO USE [facility] Advance Directives: All historical and current Section Date Range: From patient's date of to the date document was created. This section includes ALL of a patient's completed or amended [place] Advance and Rescinded Directives. The entries below indicate that a directive exists for the patient, but an actual copy is not included with this document. The data comes from all [place] facilities. Date Advance Directives Provider Source Sep 13, 2019 ADVANCE DIRECTIVE JOSE MANUEL RICO [facility] Oct 03, 2017 ADVANCE DIRECTIVE DAGMAR THAKUR [facility] Feb 07, 2016 ADVANCE DIRECTIVE SOFIE POLANCO [facility] Jan 20, 2015 ADVANCE DIRECTIVE DISCUSSION FLORINA COLON [facility] Encounter Notes: All associated encounter notes This section contains the clinical notes associated to the Encounter. Date/Time Encounter Note(s) Provider Source Sep 22, 2024 03:50 PM MENTAL HEALTH OUTR EACH NOTE: LOCAL TITLE: JUSTICE OUTREACH PROGRESS NOTE STANDARD TITLE: MENTAL HEALTH OUTREACH NOTE DATE OF NOTE: SEP 22, 2024@15:50 ENTRY DATE: SEP 23, 2024@11:51:07 AUTHOR: NARESH SHAIKH COSIGNER: URGENCY: STATUS: COMPLETED [place] identified by: [x ] Full Name [] Address [x ] [ ] SSN [] Facial Recognition Length of contact: 60 minutes Location: [facility] [address], [facility] Content: was an active participant in court session today. He has been fully compliant with all treatment and testing. He has a good support system. No issues reported today. V to provide ongoing support. /cindy/ NARESH SHAIKH [facility] FINE Signed: 09/23/2024 11:52 [facility]
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
--- OUTSIDE RECORDS SUMMARY | 2024-12-28 08:08 | XMS_ITS | Encounter Summary ---
Author Name [facility] [place] Address [address] [place] [address] Care Team Providers Care Produce Associate Name Role Phone KERRIE KNIGHT Primary [...] PART A February 17, 2017 PART A [id number] [phone] MARY ESPINO PATIENT MEDICARE (WNR) MEDICARE (M) PART B February 17, 2017 PART B [id number] JASMINAMARY DAS PATIENT MEDICARE (WNR) MEDICARE (M) PART A February 17, 2017 PART A [id number] [facility] JASMINAINI,DA [place] PATIENT MEDICARE (WNR) MEDICARE (M) PART A February 17, 2017 PART A [id number] [phone] JASMINAINIMARY [place] PATIENT MEDICARE (WNR) MEDICARE (M) PART B February 17, 2017 PART B [id number] [phone] JASMINAINI,MARY [place] PATIENT MEDICARE (WNR) MEDICARE (M) PART A February 17, 2017 PART A [id number] JASMINAINIMARY [place] PATIENT MEDICARE (WNR) MEDICARE (M) PART A February 17, 2017 PART A [id number] JASMINAINI,MARY [place] PATIENT MEDICARE (WNR) MEDICARE (M) PART B February 17, 2017 PART B [id number] [phone] JASMINAINI,MARY [place] PATIENT MEDICARE (WNR) MEDICARE (M) PART A February 17, 2017 PART A [id number] MARY ESPINO [place] PATIENT MEDICARE (WNR) MEDICARE (M) PART B February 17, 2017 PART B [id number] [phone] JASMINAINI,MARY [place] PATIENT MEDICARE (WNR) MEDICARE (M) PART A February 17, 2017 PART A [id number] JASMINAINIMARY [place] PATIENT MEDICARE (WNR) MEDICARE (M) PART B February 17, 2017 PART B [id number] MARY ESPINO PATIENT Selected Encounter This section includes the information on record at [place] for the Encounter. Date/Time Encounter Type Encounter Description Reason Pro vider Source Dec 14, 2024 10:16 AM Outpatient Encounter ADMIN PAT ACTIVTIES (MASNONCT) IHE Encounter Template Text not used by MS Plan of Treatment: Future Appointments (+ 6 months) and Future Tests (+/- 45 days) The Plan of Treatment section includes future care activities for the patient from all [place] treatmentfacilities. This section includes future appointments and future orders which are active, pending or scheduled. Future Appointments This section includes appointments that were scheduled to occur 6 months from the date of the Encounter, up to a maximum of 20 appointments. The data comes from all [place] treatment facilities. Appointment Date/Time Appointment Type Appointme nt Facility Name Dec 16, 2024 09:30 AM AMBULATORY - MEDICINE [facility] Dec 30, 2024 09:15 AM AMBULATORY - NONE [facility] Jan 13, 2025 09:00 AM AMBULATORY - PSYCHIATRY [facility] Active, Pending, and Scheduled Orders This section includes a listing of several types of active, pending, and scheduled orders, including clinic medications orders, diagnostic test orders, procedure orders and consult orders; where the start date of the order is 45 days before the date of the Encounter or 45 days after the date of theEncounter. The data comes from all [place] treatment facilities. Test Date/Time Test Type Test Details Facility Name Dec 03, 2024 11:49 AM Consult Order COMMUNITY CARE-DENTAL SPECIALTY Cons Conditioner Tender's Choice [facility] Dec 16, 2024 12:42 PM Consult Order NUTRITION ASSESSMENT/EDUCATION /NHM OUTPT Cons [facility]er [facility] Dec 17, 2024 12:00 AM Laboratory - Chemi stry Order OCCULT BLOOD FIT X1 SCREEN(IN-HOUSE) STOOL FECES SP [facility] Lab Results: +/- 30 days of the encounter This section includes the Chemistry and Hematology Lab Results on record with [place] for the patient. Radiology Reports and Pathology Reports are provided separately, in subsequent sections. Lab Results This section contains the Chemistry/Hematology Results that were resulted 30 days before or 30 daysafter the date of the Encounter. Date/Time Source Result Type Result - Unit Interpretation Reference Range Comment Dec 16, 2024 08:30 AM [facility] HEPATITIS B SURFACE ANTIBODY (HBsAb)-WH Specimen Type : SERUM No comment entered. Ordering Provider: LAURYN KNIGHT AM Report Released Date/Time: Dec 09, 2024 04:19 PM Reporting Lab: [facility] [address] [address] Performing Lab: [address] [address] HBsAb Non Reactive Non Reactive Dec 16, 2024 08:30 AM [facility] CBC Specimen Type: BLOOD No comment entered. Ordering Provider: LAURYN KNIGHT AM Report Released Date/Time: Dec 09, 2024 04:19 PM Reporting Lab: [facility] [address] [address] Performing Lab: [facility] [address] [address] WBC 5.27 10*3/uL 4.50-11.00 RBC 4.47 10*6/uL 4.23-5.66 HGB 13.5 g/dL 12.8-17 HCT 40.3 39.2-50.4 MCV 90.2 fL 82-99 MCHC 33.5 g/dL 30.8-35.1 PLT 178 10*3/uL 140-360 RDW-CV 12.4 12.0-16.0 MCH 30.2 pg 26.2-32.6 Dec 16, 2024 08:30 AM [facility] LIPID PANEL, NON FASTING Specimen Type: SERUM No comment entered. Ordering Provider: LAURYN KNIGHT AM Report Released Date/Time: Dec 09, 2024 04:19 PM Reporting Lab: [address] [address] Performing Lab: [address] [address] CHOLESTEROL 261 mg/dL H TRIGLYCERIDE 179 mg/dL H 0-150 LDL calculated 186 mg/dL H 0-129 CHOL/HDL 6.7 HDL CHOLESTEROL 39 mg/dL L 40-60 Dec 16, 2024 08:30 AM [facility] BASIC METABOLIC PANEL (non-fasting) Specimen Type: SERUM No comment entered. Ordering Provider: LAURYN KNIGHT AM Report Released Date/Time: Dec 09, 2024 04:19 PM Reporting Lab: [facility] [address] [address] Performing Lab: [address] [address] UREA NITROGEN 12 mg/dL 7-25 GLUCOSE 97 mg/dL 65-100 SODIUM 139 mmol/L 135-145 POTASSIUM 4.7 mmol/L 3.5-5.0 CHLORIDE 106 mmol/L 100-110 CO2 26 meq/L 20-30 CALCIUM 9.4 mg/dL 8.5-10.2 CREATININE, Serum 1.11 mg/dL 0.50-1.40 eGFR(CKD-EPI 2020) 83 mL/min >60 Dec 16, 2024 08:30 AM [facility] LIVER FUNCTION Specimen Type: SERUM No comment entered. Ordering Provider: LAURYN KNIGHT AM Report Released Date/Time: Dec 09, 2024 04:19 PM Reporting Lab: [facility] [address] [address] Performing Lab: [facility] [address] [address] PROTEIN,TOTAL 7.6 g/dL 6.0-8.3 ALBUMIN 4.4 g/dL 3.5-5.0 ALKALINE PHOSPHATASE 48 U/L 40-150 AST 13 U/L 5-34 ALT 14 U/L BILIRUBIN, TOTAL 0.3 mg/dL 0.2-1.2 Dec 16, 2024 08:30 AM [facility] YEN SCREEN/TITER Specimen Type: SERUM No comment entered. Ordering Provider: LAURYN KNIGHT AM Report Released Date/Time: Dec 16, 2024 11:19 AM Reporting Lab: [facility] [address] [address] Performing Lab: [facility] [address] [facility] [facility] [address] YEN SCREEN NEG NEG <1:40 Dec 16, 2024 08:30 AM [facility] RHEUMATOID FACTOR Specimen Type: SERUM No comment entered. Ordering Provider: LAURYN KNIGHT AM Report Released Date/Time: Dec 16, 2024 11:19 AM Reporting Lab: [facility] [address] [address] Performing Lab: [facility] [address] [facility] [address] RHEUMATOID FACTOR <13 0-15 Dec 16, 2024 08:30 AM [facility] HEMOGLOBIN A1C PANEL Specimen Type: BLOOD Comment: [...] Dec 16, 2024 11:19 AM Reporting Lab: [facility] [address] [address] [facility] [address] [address] HEMOGLOBIN A1C 5.3 4.0-5.6 Social History: Smoking Status (Most current) and Tobacco Use (All prior to encounter date) This section includes the most current, and the historical, smoking and tobacco- related health factors from the [place] facility where the Encounter took place. Current Smoking Status This section includes the most current smoking, or tobacco-related health factor, from the [place] facility where the Encounter took place. Date/Time Current Smoking Status Comment Faisal ity Oct 02, 2023 01:00 PM [facility]ACCO US[facility] Tobacco Use History This section includes a history of the smoking, or tobacco-related health factors, that were collected on or before the date of the Encounter. The data comes from the [place] facility where the Encounter took place. Date/Time Smoking Status/Tobacco Use Comment F acility Oct 02, 2023 01:00 PM VA-TOBACCO USE ADVICE [facility] [place] [facility] Oct 02, 2023 01:00 PM VA-TOBACCO USE OPENSTACK CLOUD CONSULTING ARCHITECT NO [facility] [place] [facility] Oct 02, 2023 01:00 PM VA-TOBACCO USE MED NO [facility] [place] [facility] Oct 02, 2023 01:00 PM VA-TOBACCO USE WI 30 MIN OF WAKEUP [facility] [place] [facility] Oct 02, 2023 01:00 PM VA-TOBACCO USER EVERY DAY [facility] [place] [facility] Sep 10, 2022 05:31 PM VA-TOBACCO USE > 1 5 LESS THAN 30 YEARS [facility] [place] [facility] Sep 10, 2022 05:31 PM VA-TOBACCO USE ADVICE [facility] [place] [facility] Sep 10, 2022 05:31 PM VA-TOBACCO USE OPENSTACK CLOUD CONSULTING ARCHITECT NO [facility] [place] [facility] Sep 10, 2022 05:31 PM VA-TOBACCO USE MED NO [facility] [place] [facility] Sep 10, 2022 05:31 PM VA-TOBACCO USE WI 30 MIN OF WAKEUP [facility] [place] [facility] Sep 10, 2022 05:31 PM VA-TOBACCO USER EVERY DAY [facility] [place] [facility] Aug 26, 2020 03:33 PM 689 INPT [...] 06:41 PM ORYX ADMIT TOBACCO SCREEN YES [facility] [place] [facility] Apr 15, 2018 06:41 PM ORYX ADMIT TOBACCO USE CIGS GR 5D [facility] [place] [facility] Apr 15, 2018 06:41 PM ORYX DAILY TOBACCO OPENSTACK CLOUD CONSULTING ARCHITECT RECEIVED [facility] [place] [facility] Apr 15, 2018 06:41 PM ORYX DAILY TOBACCO MEDS REFUSED [facility] [place] [facility] Apr 15, 2018 02:41 PM CURRENT SMOKER [facility] [place] [facility] March 12, 2018 11:20 AM CURRENT SMOKER [facility] [place] [facility] March 12, 2018 11:20 AM V1-PT NOT INTEREST ED IN QUIT TOBACCO USE [facility] [place] [facility] Apr 10, 2016 09:03 AM TOBACCO INPATIENT DESIRES MEDS [facility] [place] [facility] Jan 28, 2016 12:53 PM TOBACCO INPATIENT DESIRES MEDS [facility] [place] [facility] Oct 21, 2015 05:16 PM TOBACCO INPATIENT DESIRES MEDS [facility] [place] [facility] Jul 13, 2015 11:06 PM TOBACCO INPATIENT DECLINES MEDS [facility] [place] [facility] Dec 13, 2014 08:26 PM TOBACCO INPATIENT DECLINES MEDS [facility] [place] [facility] Dec 13, 2014 07:39 PM CURRENT SMOKER [facility] [place] [facility] Dec 13, 2014 07:39 PM V1-PT NOT INTEREST ED IN QUIT TOBACCO USE [facility] [place] [facility] Advance Directives: All historical and current Section Date Range: From patient's date of to the date document was created. This section includes ALL of a patient's completed or amended [place] Advance and Rescinded Directives. The entries below indicate that a directive exists for the patient, but an actual copy is not included with this document. The data comes from all [place] facilities. Date Advance Directives Provider Source Sep 13, 2019 ADVANCE DIRECTIVE JOSE MANUEL RICO [facility] Oct 03, 2017 ADVANCE DIRECTIVE DAGMAR THAKUR [facility] Feb 07, 2016 ADVANCE DIRECTIVE SOFIE POLANCO [facility] Jan 20, 2015 ADVANCE DIRECTIVE DISCUSSION FLORINA COLON [facility] Encounter Notes: All associated encounter notes This section contains the clinical notes associated to the Encounter. Date/Time Encounter Note(s) Provider Source Dec 14, 2024 10:16 AM ADMINISTRATIVE NOTE: LOCAL TITLE: CCC: SCHEDULING ADMINISTRATION STANDARD TITLE: ADMINISTRATIVE NOTE DATE OF NOTE: DEC 14, 2024@10:16:46 ENTRY DATE: DEC 14, 2024@10:16:47 AUTHOR: KUNAL BOSTON COSIGNER: URGENCY: STATUS: COMPLETED CCC: SCHEDULING ADMINISTRATION Has ADDENDA Patient Demographics Patient Name: TOMI ESPINO Patient Primary Phone: [phone] Patient Primary Address: [address] [place] [address] [place] [address] Patient : 1980 Patient Age: 44 Caller/Recipient Relation to Patient: Self Caller Name: TOMI ESPINO Administrative Administrative Note Reason: Other Administrative Note Comments: states that when he met with [facility] on 11/30, they stated that they are needing full authorization to perform a oral graft. [facility] told him they only have partial authorization. can be reached at [phone]. IMPORTANT: This note was created by [facility] Clinical Contact Center staff. Please do not alert the staff member by adding them as a signer for future communications. Alerts are not monitored by this user. /cindy/ KUNAL BOSTON [id number] Signed: 12/14/2024 10:16 Receipt Acknowledged By: 12/16/2024 15:12 /es/ Jimi Ortez, Health Shoulder Sawyer DYE EXPERT,PRIMARY CARE 12/14/2024 10:32 /cindy/ Rashmi Humphrey MSN RN CNL Primary Care RN 12/14/2024 ADDENDUM STATUS: COMPLETED Adding dental who initiated CC Dental consultation for assistance /cindy/ Rashmi Humphrey MSN RN CNL Primary Care RN Signed: 12/14/2024 10:32 Receipt Acknowledged By: * AWAITING SIGNATURE * FLORINA PHAM MARIELA A [facility]
--- OUTSIDE RECORDS SUMMARY | 2024-12-28 08:08 | XMS_ITS | Encounter Summary ---
Author Name [facility] [place] Organization [facility] [place] Address [address] [place] [address] Care Team Providers Care Dental Technician Name Role Phone KERRIE KNIGHT Primary [...] PART A February 17, 2017 PART A [id number] MARY ESPINO PATIENT MEDICARE (WNR) MEDICARE (M) PART B February 17, 2017 PART B [id number] [phone] MARY ESPINO PATIENT MEDICARE (WNR) MEDICARE (M) PART A February 17, 2017 PART A [id number] MARY ESPINO PATIENT MEDICARE (WNR) MEDICARE (M) PART A February 17, 2017 PART A [id number] MARY ESPINO PATIENT MEDICARE (WNR) MEDICARE (M) PART B February 17, 2017 PART B [id number] [phone] JASMINAINIMARY [place] PATIENT MEDICARE (WNR) MEDICARE (M) PART A February 17, 2017 PART A [id number] JASMINAINIMARY [place] PATIENT MEDICARE (WNR) MEDICARE (M) PART A February 17, 2017 PART A [id number] CIMINIMARY [place] PATIENT MEDICARE (WNR) MEDICARE (M) PART B February 17, 2017 PART B [id number] JASMINAINIMARY [place] PATIENT MEDICARE (WNR) MEDICARE (M) PART A February 17, 2017 PART A [id number] MARY ESPINOEL PATIENT MEDICARE (WNR) MEDICARE (M) PART B February 17, 2017 PART B [id number] JASMINAINIMARY [place] PATIENT MEDICARE (WNR) MEDICARE (M) PART A February 17, 2017 PART A [id number] MARY ESPINO PATIENT MEDICARE (WNR) MEDICARE (M) PART B February 17, 2017 PART B [id number] MARY ESPINO PATIENT Selected Encounter This section includes the information on record at [place] for the Encounter. Date/Time Encounter Type Encounter Description Reason Pro vider Source Dec 10, 2024 01:15 PM Outpatient Encounter PRIMARY CARE/MEDICINE I[facility] Encounter Template Text not used by [place] Plan of Treatment: Future Appointments (+ 6 months) and Future Tests (+/- 45 days) The Plan of Treatment section includes future care activities for the patient from all [place] treatmentfacilities. This section includes future appointments and future orders which are active, pending or scheduled. Future Appointments This section includes appointments that were scheduled to occur 6 months from the date of the Encounter, up to a maximum of 20 appointments. The data comes from all [place] treatment facilities. Appointment Date/Time Appointment Type Appointme nt Facility Name Dec 13, 2024 09:00 AM AMBULATORY - NONE [facility] [place] [facility] Dec 14, 2024 03:10 PM AMBULAT[facility] - MEDICINE [facility] Dec 16, 2024 09:30 AM AMBULATORY - MEDICINE [facility] [place] [facility] Dec 30, 2024 09:15 AM [facility] Jan 13, 2025 09:00 AM [facility] Active, Pending, and Scheduled Orders This section includes a listing of several types of active, pending, and scheduled orders, including clinic medications orders, diagnostic test orders, procedure orders and consult orders; where the start date of the order is 45 days before the date of the Encounter or 45 days after the date of theEncounter. The data comes from all [place] treatment facilities. Test Date/Time Test Type Test Details Facility Name Dec 03, 2024 11:49 AM Consult Order COMMUNITY CARE-DENTAL SPECIALTY Cons Process Area Supervisor's [facility] Dec 16, 2024 12:42 PM Consult Order NUTRITION ASSESSMENT/EDUCATION /NHM OUTPT Cons Process Area Supervisor's [facility] Dec 17, 2024 12:00 AM Laboratory - Chemi stry Order OCCULT BLOOD FIT X1 SCREEN(IN-HOUSE) STOOL FECES SP [facility] [place] Lab Results: +/- 30 days of the encounter This section includes the Chemistry and Hematology Lab Results on record with [place] for the patient. Radiology Reports and Pathology Reports are provided separately, in subsequent sections. Lab Results This section contains the Chemistry/Hematology Results that were resulted 30 days before or 30 daysafter the date of the Encounter. Date/Time Source Result Type Result - Unit Interpretation Reference Range Comment Dec 16, 2024 08:30 AM [facility] [place] HEPATITIS B SURFACE ANTIBODY (HBsAb)-WH Specimen Type : SERUM No comment entered. Ordering Provider: LAURYN KNIGHT AM Report Released Date/Time: Dec 09, 2024 04:19 PM Reporting Lab: [address] [address] Performing Lab: [facility] [address] [facility] [address] HBsAb Non Reactive Non Reactive Dec 16, 2024 08:30 AM [facility] [place] LIPID PANEL, NON FASTING Specimen Type: SERUM No comment entered. Ordering Provider: LAURYN KNIGHT AM Report Released Date/Time: Dec 09, 2024 04:19 PM Reporting Lab: [facility] [place] [address] [facility] [address] Performing Lab: [address] [address] CHOLESTEROL 261 mg/dL H TRIGLYCERIDE 179 mg/dL H 0-150 LDL calculated 186 mg/dL H 0-129 CHOL/HDL 6.7 HDL CHOLESTEROL 39 mg/dL L 40-60 Dec 16, 2024 08:30 AM [facility] [place] CBC Specimen Type: BLOOD No comment entered. Ordering Provider: LAURYN KNIGHT AM Report Released Date/Time: Dec 09, 2024 04:19 PM Reporting Lab: [address] [address] Performing Lab: [address] [address] WBC 5.27 10*3/uL 4.50-11.00 RBC 4.47 10*6/uL 4.23-5.66 HGB 13.5 g/dL 12.8-17 HCT 40.3 39.2-50.4 MCV 90.2 fL 82-99 MCHC 33.5 g/dL 30.8-35.1 PLT 178 10*3/uL 140-360 RDW-CV 12.4 12.0-16.0 MCH 30.2 pg 26.2-32.6 Dec 16, 2024 08:30 AM [facility] [place] BASIC METABOLIC PANEL (non-fasting) Specimen Type: SERUM No comment entered. Ordering Provider: LAURYN KNIGHT AM Report Released Date/Time: Dec 09, 2024 04:19 PM Reporting Lab: [address] [address] Performing Lab: [facility] [place] [address] [facility] [address] UREA NITROGEN 12 mg/dL 7-25 GLUCOSE 97 mg/dL 65-100 SODIUM 139 mmol/L 135-145 POTASSIUM 4.7 mmol/L 3.5-5.0 CHLORIDE 106 mmol/L 100-110 CO2 26 meq/L 20-30 CALCIUM 9.4 mg/dL 8.5-10.2 CREATININE, Serum 1.11 mg/dL 0.50-1.40 eGFR(CKD-EPI 2020) 83 mL/min >60 Dec 16, 2024 08:30 AM [facility] [place] LIVER FUNCTION Specimen Type: SERUM No comment entered. Ordering Provider: LAURYN KNIGHT AM Report Released Date/Time: Dec 09, 2024 04:19 PM Reporting Lab: [address] [address] Performing Lab: [address] [address] PROTEIN,TOTAL 7.6 g/dL 6.0-8.3 ALBUMIN 4.4 g/dL 3.5-5.0 ALKALINE PHOSPHATASE 48 U/L 40-150 AST 13 U/L 5-34 ALT 14 U/L BILIRUBIN, TOTAL 0.3 mg/dL 0.2-1.2 Dec 16, 2024 08:30 AM [facility] [place] YEN SCREEN/TITER Specimen Type: SERUM No comment entered. Ordering Provider: LAURYN KNIGHT AM Report Released Date/Time: Dec 16, 2024 11:19 AM Reporting Lab: [facility] [place] [address] [facility] [address] Performing Lab: [facility] [place] [address] [facility] [address] YEN SCREEN NEG NEG <1:40 Dec 16, 2024 08:30 AM [facility] [place] RHEUMATOID FACTOR Specimen Type: SERUM No comment entered. Ordering Provider: LAURYN KNIGHT AM Report Released Date/Time: Dec 16, 2024 11:19 AM Reporting [facility] [address] [facility] [address] Performing Lab: [facility] [address] [facility] [address] RHEUMATOID FACTOR <13 0-15 Dec 16, 2024 08:30 AM [facility] [place] HEMOGLOBIN A1C PANEL Specimen Type: BLOOD Comment: [...] Dec 16, 2024 11:19 AM Reporting Lab: [facility] [place] [address] [facility] [address] Performing Lab: [facility] [place] [address] [facility] [address] HEMOGLOBIN A1C 5.3 4.0-5.6 Social History: Smoking Status (Most current) and Tobacco Use (All prior to encounter date) This section includes the most current, and the historical, smoking and tobacco- related health factors from the [place] facility where the Encounter took place. Current Smoking Status This section includes the most current smoking, or tobacco-related health factor, from the [place] facility where the Encounter took place. Date/Time Current Smoking Status Comment Facil ity Oct 02, 2023 01:00 PM VA-TOBACCO USER EVERY DAY [facility] [place] Tobacco Use History This section includes a history of the smoking, or tobacco-related health factors, that were collected on or before the date of the Encounter. The data comes from the [place] facility where the Encounter took place. Date/Time Smoking Status/Tobacco Use Comment F acility Oct 02, 2023 01:00 PM [facility]ACCO [facility] Oct 02, 2023 01:00 PM VA-TOBACCO USE FLOOR SCRUBBER NO [facility] Oct 02, 2023 01:00 PM VA-TOBACCO USE MED NO [facility] Oct 02, 2023 01:00 PM VA-TOBACCO USE WI 30 MIN OF WAKEUP [facility] [place] [facility] Oct 02, 2023 01:00 PM VA-TOBACCO USER EVERY DAY [facility] [place] [facility] Sep 10, 2022 05:31 PM VA-TOBACCO USE > 1 5 LESS THAN 30 YEARS [facility] [place] [facility] Sep 10, 2022 05:31 PM VA-TOBACCO USE ADVICE [facility] [place] [facility] Sep 10, 2022 05:31 PM VA-TOBACCO USE FLOOR SCRUBBER NO [facility] [place] [facility] Sep 10, 2022 05:31 PM VA-TOBACCO USE MED NO [facility] [place] [facility] Sep 10, 2022 05:31 PM VA-TOBACCO USE WI 30 MIN OF WAKEUP [facility] [place] [facility] Sep 10, 2022 05:31 PM VA-TOBACCO USER EVERY DAY [facility] [place] [facility] Aug 26, 2020 03:33 PM [id number] [...] TOBACCO SCREEN YES [facility] [place] [facility] Apr 15, 2018 06:41 PM ORYX ADMIT TOBACCO USE CIGS GR 5D [facility] [place] [facility] Apr 15, 2018 06:41 PM ORYX DAILY TOBACCO FLOOR SCRUBBER RECEIVED [facility] [place] [facility] Apr 15, 2018 06:41 PM ORYX DAILY TOBACCO MEDS REFUSED [facility] [place] [facility] Apr 15, 2018 02:41 PM CURRENT SMOKER [facility] [place] [facility] March 12, 2018 11:20 AM CURRENT SMOKER [facility] [place] [facility] March 12, 2018 11:20 AM V1-PT NOT INTEREST ED IN QUIT TOBACCO USE [facility] [place] [facility] Apr 10, 2016 09:03 AM TOBACCO INPATIENT DESIRES MEDS [facility] [place] [facility] Jan 28, 2016 12:53 PM TOBACCO INPATIENT DESIRES MEDS [facility] [place] [facility] Oct 21, 2015 05:16 PM TOBACCO INPATIENT DESIRES MEDS [facility] [place] [facility] Jul 13, 2015 11:06 PM TOBACCO INPATIENT DECLINES MEDS [facility] [place] [facility] Dec 13, 2014 08:26 PM TOBACCO INPATIENT DECLINES MEDS [facility] [place] [facility] Dec 13, 2014 07:39 PM CURRENT SMOKER [facility] [place] [facility] Dec 13, 2014 07:39 PM V1-PT NOT INTEREST ED IN QUIT TOBACCO USE [facility] Advance Directives: All historical and current Section Date Range: From patient's date of to the date document was created. This section includes ALL of a patient's completed or amended [place] Advance and Rescinded Directives. The entries below indicate that a directive exists for the patient, but an actual copy is not included with this document. The data comes from all [place] facilities. Date Advance Directives Provider Source Sep 13, 2019 ADVANCE DIRECTIVE JOSE MANUEL [facility] Oct 03, 2017 ADVANCE DIRECTIVE DAGMAR THAKUR [facility] Feb 07, 2016 ADVANCE DIRECTIVE SOFIE POLANCO [facility] Jan 20, 2015 ADVANCE DIRECTIVE DISCUSSION FLORINA COLON [facility] Encounter Notes: All associated encounter notes This section contains the clinical notes associated to the Encounter. Date/Time Encounter Note(s) Provider Source Dec 10, 2024 01:15 PM NURSING NOTE: LOCAL TITLE: NURSING/TELEPHONE STANDARD TITLE: NURSING NOTE DATE OF NOTE: DEC 10, 2024@13:15 ENTRY DATE: DEC 10, 2024@13:15:34 AUTHOR: JIMI KOO COSIGNER: URGENCY: STATUS: COMPLETED vet was called, HT spoke with vet inform he/she has an appt with PCP on 12-16-2024@[id number],also labs have been orderd,vet acknowledge these instructions. /cindy/ Jimi Koo, Health Tomography Technologist INSULATOR APPRENTICE,PRIMARY CARE Signed: 12/10/2024 13:18 JIMI KOO [facility]
--- OUTSIDE RECORDS SUMMARY | 2024-12-28 08:09 | XMS_ITS ---
Author Name [facility] Organization [facility] Address [address] [place] [address] Care Team Providers Care Paste Thinner Name Role Phone KERRIE KNIGHT Primary Care [...] PART A February 17, 2017 PART A [id number] [phone] MARY ESPINO PATIENT MEDICARE (WNR) MEDICARE (M) PART B February 17, 2017 PART B [id number] [phone] MARY ESPINO PATIENT MEDICARE (WNR) MEDICARE (M) PART A February 17, 2017 PART A [id number] MARY ESPINO PATIENT MEDICARE (WNR) MEDICARE (M) PART A February 17, 2017 PART A [id number] MARY ESPINO PATIENT MEDICARE (WNR) MEDICARE (M) PART B February 17, 2017 PART B [id number] [place] PATIENT MEDICARE (WNR) MEDICARE (M) PART A February 17, 2017 PART A [id number] [place]AINIMARY PATIENT MEDICARE (WNR) MEDICARE (M) PART B February 17, 2017 PART B [id number] [place]IMARY [place] PATIENT MEDICARE (WNR) MEDICARE (M) PART A February 17, 2017 PART A [id number] [id number] MARY ESPINO PATIENT MEDICARE (WNR) MEDICARE (M) PART A February 17, 2017 PART A [id number] [phone] [id number] MARY ESPINO PATIENT MEDICARE (WNR) MEDICARE (M) PART B February 17, 2017 PART B [id number] [phone] [id number] MARY ESPINO PATIENT MEDICARE (WNR) MEDICARE (M) PART A February 17, 2017 PART A [id number] MARY ESPINO PATIENT MEDICARE (WNR) MEDICARE (M) PART B February 17, 2017 PART B [id number] [phone] [id number] MARY ESPINO PATIENT Selected Encounter This section includes the information on record at ME for the Encounter. Date/Time Encounter Type Encounter Description Reason Pro vider Source Feb 17, 2024 10:00 AM Outpatient Encounter [facility] Encounter Template Text not used by ME Plan of Treatment: Future Appointments (+ 6 months) and Future Tests (+/- 45 days) The Plan of Treatment section includes future care activities for the patient from all [place] treatmentfacilities. This section includes future appointments and [...] - MEDICINE [facility] [place] [facility] May 11, 2024 09:00 AM AMBULATORY - PSYCHIATRY [facility] [place] [facility] May 13, 2024 11:30 AM AMBULATORY - MEDICINE [facility] [place] [facility] May 18, 2024 09:00 AM AMBULATORY - PSYCHIATRY [facility] [place] [facility] May 25, 2024 09:00 AM AMBULATORY - PSYCHIATRY [facility] [place] [facility] Jun 01, 2024 09:00 AM AMBULATORY - PSYCHIATRY [facility] [place] [facility] Jun 03, 2024 12:05 PM AMBULATORY - MEDICINE [facility] [place] [facility] Jun 08, 2024 09:00 AM AMBULATORY - PSYCHIATRY [facility] [place] [facility] Jun 08, 2024 11:30 AM AMBULATORY - PSYCHIATRY [facility] [place] [facility] Jun 11, 2024 03:30 PM AMBULATORY - MEDICINE [facility] [place] [facility] Jun 15, 2024 09:00 AM AMBULATORY - PSYCHIATRY [facility] [place] [facility] Jun 22, 2024 09:00 AM AMBULATORY - PSYCHIATRY [facility] [place] [facility] Jun 29, 2024 09:00 AM AMBULATORY - PSYCHIATRY [facility] [place] [facility] Jul 06, 2024 09:00 AM AMBULATORY - PSYCHIATRY [facility] [place] [facility] Jul 13, 2024 09:00 AM AMBULATORY - PS[facility]CHIATRY [facility] [place] [facility] Jul 16, 2024 09:05 AM AMBULATORY - MEDICINE [facility] [place] [facility] Jul 18, 2024 07:45 PM AMBULATORY - MEDICINE [facility] [place] [facility] Jul 20, 2024 09:00 AM AMBULATORY - PSYCHIATRY [facility] [place] [facility] Jul 22, 2024 09:30 AM AMBULATORY - PSYCHIATRY [facility] [place] [facility] Jul 27, 2024 09:00 AM AMBULATORY - PSYCHIATRY [facility] [place] [facility] Social History: Smoking Status (Most current) [...] 2023 01:00 PM VA-TOBACCO USER EVERY DAY [facility] [place] [facility] Tobacco Use History This section includes a history of the smoking, or tobacco-related health factors, that were collected on or before the date of the Encounter. The data comes from the [place] facility where the Encounter took place. Date/Time Smoking Status/Tobacco Use Comment F acility Oct 02, 2023 01:00 PM VA-TOBACCO USE ADVICE [facility] [place] [facility] Oct 02, 2023 01:00 PM VA-TOBACCO USE ENVIRONMENTAL OFFICER NO [facility] [place] [facility] Oct 02, 2023 01:00 PM VA-TOBACCO USE MED NO [facility] [place] [facility] Oct 02, 2023 01:00 PM VA-TOBACCO USE WI 30 MIN OF WAKEUP [facility] [place] [facility] Oct 02, 2023 01:00 PM VA-TOBACCO USER EVERY DAY [facility] [place] [facility] Sep 10, 2022 05:31 PM VA-TOBACCO USE > 1 5 LESS THAN 30 YEARS [facility] [place] [facility] Sep 10, 2022 05:31 PM VA-TOBACCO USE ADVICE [facility] [place] [facility] Sep 10, 2022 05:31 PM VA-TOBACCO USE ENVIRONMENTAL OFFICER NO [facility] [place] [facility] Sep 10, 2022 05:31 PM VA-TOBACCO USE MED NO [facility] [place] [facility] Sep 10, 2022 05:31 PM VA-TOBACCO USE WI 30 MIN OF WAKEUP [facility] [place] [facility] Sep 10, 2022 05:31 PM VA-TOBACCO USER EVERY DAY [facility] [place] [facility] Aug 26, 2020 03:33 PM 689 INPT REPORTS SMOKING [facility] Aug 06, 2020 10:30 PM 689 INPT REPORTS SMOKING [facility] Jul 10, 2020 07:38 PM 689 INPT REPORTS SMOKING [facility] Jun 24, 2020 01:05 AM 689 INPT REPORTS SMOKING [facility] Apr 14, 2020 06:45 AM 689 INPT REPORTS SMOKING [facility] February 29, 2020 02:33 AM 689 INPT REPORTS SMOKING [facility] Jul 20, 2019 06:25 PM 689 INPT REPORTS SMOKING [facility] Mar 25, 2019 05:25 AM 689 INPT REPORTS SMOKING [facility] Apr 15, 2018 06:41 PM ORYX ADMIT TOBACCO SCREEN YES [facility] [place] [facility] Apr 15, 2018 06:41 PM ORYX ADMIT TOBACCO USE CIGS GR 5D [facility] [place] [facility] Apr 15, 2018 06:41 PM ORYX DAILY TOBACCO ENVIRONMENTAL OFFICER RECEIVED [facility] [place] [facility] Apr 15, 2018 06:41 PM ORYX DAILY TOBACCO MEDS REFUSED [facility] [place] [facility] Apr 15, 2018 02:41 PM CURRENT SMOKER [facility] [place] [facility] March 12, 2018 11:20 AM CURRENT SMOKER [facility] [place] [facility] March 12, 2018 11:20 AM V1-PT NOT INTEREST ED IN QUIT TOBACCO USE [facility] [place] [facility] Apr 10, 2016 09:03 AM TOBACCO INPATIENT DESIRES MEDS [facility] [place] [facility] Jan 28, 2016 12:53 PM TOBACCO INPATIENT DESIRES MEDS [facility] [place] [facility] Oct 21, 2015 05:16 PM TOBACCO INPATIENT DESIRES MEDS [facility] [place] [facility] Jul 13, 2015 11:06 PM TOBACCO INPATIENT DECLINES MEDS [facility] [place] [facility] Dec 13, 2014 08:26 PM TOBACCO INPATIENT DECLINES MEDS [facility] [place] [facility] Dec 13, 2014 07:39 PM CURRENT SMOKER [facility] [place] [facility] Dec 13, 2014 07:39 PM V1-PT NOT INTEREST ED IN QUIT TOBACCO USE [facility] [place] [facility] Advance Directives: All historical and current [...] 13, 2019 ADVANCE DIRECTIVE JOSE MANUEL [facility] Oct 03, 2017 ADVANCE DIRECTIVE DAGMAR THAKUR [facility] Feb 07, 2016 ADVANCE DIRECTIVE SOFIE POLANCO [facility] Jan 20, 2015 ADVANCE DIRECTIVE DISCUSSION FLORINA COLON [facility] Encounter Notes: All associated encounter notes This section contains the clinical notes associated to the Encounter. Date/Time Encounter Note(s) Provider Source February 23, 2024 09:39 AM ADDENDUM: LOCAL TITLE: Addendum STANDARD TITLE: ADDENDUM DATE OF NOTE: FEBRUARY 23, 2024@09:39:08 ENTRY DATE: FEBRUARY 23, 2024@09:39:09 AUTHOR: DARLYN ANN COSIGNER: URGENCY: STATUS: COMPLETED RTC dispositioned for CWM/LAM/CHRISTIAN/JAYDEN 1, PID as [place] is currently held at the [facility] (please refer to 02/18/2024 note). /cindy/ DARLYN ANN ADVANCED [employer] OPERATOR HELPER Signed: 02/23/2024 09:42 Receipt Acknowledged By: 02/23/2024 12:06 /cecy CARPENTER PSYCHIATRIST ====== --- Original Document --- 02/17/24 APPOINTMENT NO SHOW: Patient Name: TOMI ESPINO Patient SSN: [id number] Date and time of Appointment No show : 02/17/24 10:00 PATIENT PHONE - PHONE NUMBER [CELLULAR] - Patient's medical record was reviewed. Follow-up actions were determined and initiated: Please check/complete as applies: [X]Telephoned Directly [ ]Re-scheduled for next available appt [X]Sent a N0-show letter ( must call for appointment) [ ]Other (Emergent/Overbook, etc.): Additional Comments: Vet did not connect/arrive at the appointment time. Called vet and left message asking to reschedule. Future Clinic Visits No data available /cindy/ BRANDON CARPENTER PSYCHIATRIST Signed: 02/17/2024 16:00 Receipt Acknowledged By: 02/18/2024 10:00 /cindy/ DARLNY ANN ADVANCED [employer] PR[employer] OPERATOR HELPER 02/18/2024 ADDENDUM STATUS: COMPLETED No show letter sent on 02/19/2024. Day 14 is 03/04/2024. /cindy/ DARLYN MARISSA ADVANCED [employer] OPERATOR HELPER Signed: 02/18/2024 10:01 DARLYN ANN [facility] [place] [facility] Feb 17, 2024 03:59 PM CLERICAL NOTE: LOCAL TITLE: APPOINTMENT NO SHOW STANDARD TITLE: CLERICAL NOTE DATE OF NOTE: FEB 17, 2024@15:59 ENTRY DATE: FEB 17, 2024@15:59:58 AUTHOR: BRANDON CARPENTER COSIGNER: URGENCY: STATUS: COMPLETED APPOINTMENT NO SHOW Has ADDENDA Patient Name: TOMI ESPINO Patient SSN: [id number] Date and time of Appointment No show : 02/17/24 10:00 PATIENT PHONE - PHONE NUMBER [CELLULAR] - Patient's medical record was reviewed. Follow-up actions were determined and initiated: Please check/complete as applies: [X]Telephoned Directly [ ]Re-scheduled for next available appt [X]Sent a N0-show letter ( must call for appointment) [ ]Other (Emergent/Overbook, etc.): Additional Comments: Vet did not connect/arrive at the appointment time. Called vet and left message asking to reschedule. Future Clinic Visits No data available /cindy/ BRANDON CARPENTER PSYCHIATRIST Signed: 02/17/2024 16:00 Receipt Acknowledged By: 02/18/2024 10:00 /cecy ANN ADVANCED P[employer] PR[employer] OPERATOR HELPER 02/18/2024 ADDENDUM STATUS: COMPLETED No show letter sent on 02/19/2024. Day 14 is 03/04/2024. /cecy ANN ADVANCED P[employer] PR[employer] OPERATOR HELPER Signed: 02/18/2024 10:01 02/23/2024 ADDENDUM STATUS: COMPLETED RTC dispositioned for CWM/LAM/CHRISTIAN/JAYDEN 1, PID as is currently held at the [facility] (please refer to 02/18/2024 note). /cindy/ DARLYN ANN ADVANCED [employer] PR[employer] OPERATOR HELPER Signed: 02/23/2024 09:42 Receipt Acknowledged By: * AWAITING SIGNATURE * BRANDON CARPENTER JESSICA E [facility] [place] [facility]
--- OUTSIDE RECORDS SUMMARY | 2024-12-28 08:09 | XMS_ITS | Encounter Summary ---
Author Name [facility] [place] [facility] [place] Address [address] [place] [address] Care Team Providers Care Money Position Officer Name Role Phone KERRIE KNIGHT Primary [...] PART A February 17, 2017 PART A [id number] MARY ESPINO PATIENT MEDICARE (WNR) MEDICARE (M) PART B February 17, 2017 PART B [id number] [phone] MARY ESPINO PATIENT MEDICARE (WNR) MEDICARE (M) PART A February 17, 2017 PART A [id number] [facility] CIMINI,DA [place] PATIENT MEDICARE (WNR) MEDICARE (M) PART A February 17, 2017 PART A [id number] CIMINI,MARY [place] PATIENT MEDICARE (WNR) MEDICARE (M) PART B February 17, 2017 PART B [id number] CIMINI,MARY [place] PATIENT MEDICARE (WNR) MEDICARE (M) PART A February 17, 2017 PART A [id number] CIMINI,MARY [place] PATIENT MEDICARE (WNR) MEDICARE (M) PART A February 17, 2017 PART A [id number] CIMINI,DA [place] PATIENT MEDICARE (WNR) MEDICARE (M) PART B February 17, 2017 PART B [id number] [phone] [id number] CIMINI,MARY [place] PATIENT MEDICARE (WNR) MEDICARE (M) PART A February 17, 2017 PART A [id number] [phone] [id number] JASMINAINI,MARY [place] PATIENT MEDICARE (WNR) MEDICARE (M) PART B February 17, 2017 PART B [id number] CIMINI,DA [place] PATIENT MEDICARE (WNR) MEDICARE (M) PART A February 17, 2017 PART A [id number] [id number] CIMINI,MARY [place] PATIENT MEDICARE (WNR) MEDICARE (M) PART B February 17, 2017 PART B [id number] [id number] JASMINAINIMARY PATIENT Selected Encounter This section includes the information on record at [place] for the Encounter. Date/Time Encounter Type Encounter Description Reason Provider Source May 18, 2024 09:00 AM SELF-HELP/PEER SVC PER 15MIN SUBSTANCE USE DISORDER IND ICD-10-CM F29 Unsp psychosis not due to a substance or known physiol cond RAJESH MARMOLEJO [facility] Encounter Template Text not used by [place] Assessments - Encounter Diagnoses This section includes the primary and secondary diagnoses documented for the Encounter. Date/Time Primary/Secondary Diagnosis Diagnosis Name Provider Source May 19, 2024 08:31 AM PRIMARY Unsp psychosis not due to a substance or known physiol cond AUGUSTA MARMOLEJO [facility] [place] [facility] May 19, 2024 08:31 AM SECONDARY Alcohol dependence with other alcohol-induced disorder [place]A MARMOLEJO R [facility] [place] [facility] May 19, 2024 08:31 AM SECONDARY Attention-deficit hyperactivity disorder, unspecified type AUG[place]A MARMOLEJO R [facility] [place] [facility] May 19, 2024 08:31 AM SECONDARY 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 AUGUSTA MARMOLEJO R [facility] [place] [facility] May 19, 2024 08:31 AM SECONDARY Cocaine dependence, uncomplicated AUGUSTA MARMOLEJO ALD R [facility] [place] [facility] May 19, 2024 08:31 AM SECONDARY Post-traumatic stress disorder, chronic AUGUSTA MARMOLEJO ALD R [facility] [place] [facility] Plan of Treatment: Future Appointments (+ 6 months) and Future Tests (+/- 45 days) The Plan of Treatment section includes future care activities for the patient from all [place] treatmentdoctors hospitalities. This section includes future appointments and future orders which are active, pending or scheduled. Future Appointments This section includes appointments that were scheduled to occur 6 months from the date of the Encounter, up to a maximum of 20 appointments. The data comes from all [place] treatment facilities. Appointment Date/Time Appointment Type Appointme nt Facility Name May 25, 2024 09:00 AM AMBULATORY - PSYCHIATRY [facility] [place] [facility] Jun 01, 2024 09:00 AM AMBULATORY - PSYCHIATRY [facility] [place] [facility] Jun 03, 2024 12:05 PM AMBULATORY - MEDICINE [facility] [place] [facility] Jun 08, 2024 09:00 AM AMBULATORY - PSYCHIATRY [facility] [place] [facility] Jun 08, 2024 11:30 AM AMBULATORY - PSYCHIATRY [facility] [place] [facility] Jun 11, 2024 03:30 PM AMBULATORY - MEDICINE [facility] [place] [facility] Jun 15, 2024 09:00 AM AMBULATORY - PSYCHIATRY [facility] [place] [facility] Jun 22, 2024 09:00 AM AMBULATORY - PSYCHIATRY [facility] [place] [facility] Jun 29, 2024 09:00 AM AMBULATORY - PSYCHIATRY [facility] [place] [facility] Jul 06, 2024 09:00 AM AMBULATORY - PSYCHIATRY [facility] [place] [facility] Jul 13, 2024 09:00 AM [facility] [place] [facility] Jul 16, 2024 09:05 AM AMBULATORY - MEDICINE [facility] [place] [facility] Jul 18, 2024 07:45 PM AMBULATORY - MEDICINE [facility] [place] [facility] Jul 20, 2024 09:00 AM [facility] Jul 22, 2024 09:30 AM [facility] Jul 27, 2024 09:00 AM [facility] Aug 03, 2024 09:00 AM [facility] Aug 10, 2024 09:00 AM AM[facility] Aug 17, 2024 09:00 AM [facility] Aug 24, 2024 09:00 AM AM[facility]ULAT[facility] Active, Pending, and Scheduled Orders This section includes a listing of several types of active, pending, and scheduled orders, including clinic medications orders, diagnostic test orders, procedure orders and consult orders; where the start date of the order is 45 days before the date of the Encounter or 45 days after the date of theEncounter. The data comes from all [facility] facilities. Test Date/Time Test Type Test Details Facility Name Jul 01, 2024 06:46 AM Consult Order COMMUNITY CARE-COLONOSCOPY SCREENING Cons Auto Radiator Specialist's Choice [facility] Lab Results: +/- 30 days of [...] Range Comment Jun 11, 2024 12:[address] [facility] HEPATITIS B SURFACE ANTIBODY (HBsAb)-WH Specimen Type: SERUM No comment entered. Ordering Provider: KAMLA KNIGHT Report Released Date/Time: May 31, 2024 09:45 AM Reporting Lab: [address] [address] Performing Lab: [address] [address] HBsAb Non Reactive Non Reactive Jun 11, 2024 12:51 PM [facility] LIPID PANEL, NON FASTING Specimen Type: SERUM No comment entered. Ordering Provider: KAMLA KNIGHT Report Released Date/Time: May 31, 2024 09:45 AM Reporting Lab: [address] [address] Performing Lab: [address] [address] CHOLESTEROL 212 mg/dL H TRIGLYCERIDE 124 mg/dL 0-150 LDL calculated 152 mg/dL H 0-129 CHOL/HDL 6.1 HDL CHOLESTEROL 35 mg/dL L 40-60 Jun 11, 2024 12:51 PM [facility] LIVER FUNCTION Specimen Type: SERUM No comment entered. Ordering Provider: KAMLA KNIGHT Report Released Date/Time: May 31, 2024 09:45 AM Reporting Lab: [address] [address] Performing Lab: [address] [address] PROTEIN,TOTAL 7.4 g/dL 6.0-8.3 ALBUMIN 4.5 g/dL 3.5-5.0 ALKALINE PHOSPHATASE 38 U/L L 40-150 AST 13 U/L 5-34 ALT 11 U/L BILIRUBIN, TOTAL 0.7 mg/dL 0.2-1.2 Jun 11, 2024 12:51 PM [facility] CBC Specimen Type: BLOOD No comment entered. Ordering Provider: KAMLA KNIGHT Report Released Date/Time: May 31, 2024 09:45 AM Reporting Lab: [address] [address] Performing Lab: [facility] [address] [facility] [address] WBC 5.98 10*3/uL 4.50-11.00 RBC 4.60 10*6/uL 4.23-5.66 HGB 13.9 g/dL 12.8-17 HCT 40.5 39.2-50.4 MCV 88.0 fL 82-99 MCHC 34.3 g/dL 30.8-35.1 PLT 190 10*3/uL 140-360 RDW-CV 13.5 12.0-16.0 MCH 30.2 pg 26.2-32.6 Jun 11, 2024 12:51 PM [facility] BASIC METABOLIC PANEL (non-fasting) Specimen Type: SERUM No comment entered. Ordering Provider: KAMLA KNIGHT Report Released Date/Time: May 31, 2024 09:45 AM Reporting Lab: [address] [address] Performing Lab: [address] [address] UREA NITROGEN 16 mg/dL 7-25 GLUCOSE 86 [...] VA-TOBACCO USE WI 30 MIN OF WAKEUP [facility] Tobacco Use History This section includes a history of the smoking, or tobacco-related health factors, that were collected on or before the date of the Encounter. The data comes from the [place] facility where the Encounter took place. Date/Time Smoking Status/Tobacco Use Comment F acility Oct 02, 2023 01:00 PM VA-TOBACCO USE ADVICE [facility] [place] [facility] Oct 02, 2023 01:00 PM VA-TOBACCO USE ORACLE EBS DEVELOPER NO [facility] [place] [facility] Oct 02, 2023 01:00 PM VA-TOBACCO USE MED NO [facility] [place] [facility] Oct 02, 2023 01:00 PM VA-TOBACCO USE WI 30 MIN OF WAKEUP [facility] [place] [facility] Oct 02, 2023 01:00 PM VA-TOBACCO USER EVERY DAY [facility] [place] [facility] Sep 10, 2022 05:31 PM VA-TOBACCO USE > 1 5 LESS THAN 30 YEARS [facility] [place] [facility] Sep 10, 2022 05:31 PM VA-TOBACCO USE ADVICE [facility] [place] [facility] Sep 10, 2022 05:31 PM VA-TOBACCO USE ORACLE EBS 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 NO [facility] [place] [facility] Sep 10, 2022 05:31 PM VA-TOBACCO USE MED NO [facility] [place] [facility] Sep 10, 2022 05:31 PM VA-TOBACCO USE WI 30 MIN OF WAKEUP [facility] [place] [facility] Sep 10, 2022 05:31 PM VA-TOBACCO USER EVERY DAY [facility] [place] [facility] Aug 26, 2020 03:33 PM 689 INPT REPORTS SMOKING [facility] Aug 06, 2020 10:30 PM 689 INPT REPORTS SMOKING [facility] Jul 10, 2020 07:38 PM 689 INPT REPORTS SMOKING [facility] Jun 24, 2020 01:05 AM 689 INPT REPORTS SMOKING [facility] Apr 14, 2020 06:45 AM 689 INPT REPORTS SMOKING [facility] February 29, 2020 02:33 AM 689 INPT REPORTS SMOKING [facility] Jul 20, 2019 06:25 PM 689 INPT REPORTS SMOKING [facility] Mar 25, 2019 05:25 AM 689 INPT REPORTS SMOKING [facility] Apr 15, 2018 06:41 PM ORYX ADMIT TOBACCO SCREEN YES [facility] [place] [facility] Apr 15, 2018 06:41 PM ORYX ADMIT TOBACCO USE CIGS GR 5D [facility] [place] [facility] Apr 15, 2018 06:41 PM ORYX DAILY TOBACCO ORACLE EBS DEVELOPER RECEIVED [facility] Apr 15, 2018 06:41 PM ORYX DAILY TOBACCO MEDS REFUSED [facility] [place] [facility] Apr 15, 2018 02:41 PM CURRENT SMOKER [facility] [place] [facility] March 12, 2018 11:20 AM CURRENT SMOKER [facility] [place] [facility] March 12, 2018 11:20 AM V1-PT NOT INTEREST ED IN QUIT TOBACCO USE [facility] [place] [facility] Apr 10, 2016 09:03 AM TOBACCO INPATIENT DESIRES MEDS [facility] [place] [facility] Jan 28, 2016 12:53 PM TOBACCO INPATIENT DESIRES MEDS [facility] [place] [facility] Oct 21, 2015 05:16 PM TOBACCO INPATIENT DESIRES MEDS [facility] [place] [facility] Jul 13, 2015 11:06 PM TOBACCO INPATIENT DECLINES MEDS [facility] [place] [facility] Dec 13, 2014 08:26 PM TOBACCO INPATIENT DECLINES MEDS [facility] [place] [facility] Dec 13, 2014 07:39 PM CURRENT SMOKER [facility] Dec 13, 2014 07:39 PM V1-PT NOT INTEREST ED IN QUIT TOBACCO USE [facility] Advance Directives: All historical and current [...] 13, 2019 ADVANCE DIRECTIVE JOSE MANUEL RICO [facility] Oct 03, 2017 ADVANCE DIRECTIVE DAGMAR THAKUR [facility] Feb 07, 2016 ADVANCE DIRECTIVE SOFIE POLANCO [facility] Jan 20, 2015 ADVANCE DIRECTIVE DISCUSSION FLORINA COLON [facility] Encounter Notes: All associated encounter notes This section contains the clinical notes associated to the Encounter. Date/Time Encounter Note(s) Provider Source Jun 01, 2024 09:00 AM MENTAL HEALTH COUNSELING NOTE: LOCAL TITLE: PEER SUPPORT NOTE STANDARD TITLE: MENTAL HEALTH COUNSELING NOTE DATE OF NOTE: JUN 01, 2024@09:00 ENTRY DATE: JUN 01, 2024@10:14:40 AUTHOR: KADEEM MARMOLEJO EXP COSIGNER: URGENCY: STATUS: COMPLETED PEER SUPPORT NOTE DATE: 06/01/2024 TIME: 0800 hours. TIME IN SESSION (in minutes): 60 minutes THEATRE INSTRUCTOR: Kadeem Marmolejo M.Ed., CPS PURPOSE/FOCUS: Peer Support Service, 1:1 Peer Mentoring, [facility] CONTENT: met [facility] with 44-year-old male outpatient for peer support. Devoted time towards reviewing the events of the past week. Discussion included keeping risky people out of their life and looking at more activity such as a regular volunteer activity. [place] identified with 2 identifiers: [X] Full Name [ ] Date of [ ] [place] ID Card [X] Facial Recognition INFORMED CONSENT: [place] informed of the risks and benefits of Telehealth video care. has the right to refuse video services. If refuses video visit, a fgtw-el-wvmb visit will be scheduled. verbalized consent for this video visit: Yes PEER INTERVENTIONS USED: Mutuality, Motivational Interviewing, Recovery Coaching RESPONSE: reporting 2 temptations to use when a former relationship messaged and was in a room when when a dealer called a friend, He was strong in the moment and walked away both times and did not respond. used wellness in listing the positive and talking with a support OBSERVED STRENGTHS: is sincere in recovery. PLAN: as needed PROCEDURE: C DIAGNOSES: Alcohol dependence ([facility] [id number], /es/ KADEEM MARMOLEJO Signed: 06/01/2024 10:21 Receipt Acknowledged By: 06/09/2024 08:45 /es/ YOUSIF FAUST [facility] Cycle Liaison KADEEM MARMOLEJO [facility] [place] [facility] May 18, 2024 09:26 AM MENTAL HEALTH COUNSELING NOTE: LOCAL TITLE: PEER SUPPORT NOTE STANDARD TITLE: MENTAL HEALTH COUNSELING NOTE DATE OF NOTE: MAY 18, 2024@09:26:50 ENTRY DATE: MAY 18, 2024@09:26:50 AUTHOR: KADEEM MARMOLEJO COSIGNER: URGENCY: STATUS: COMPLETED These assessments were completed by TOMI ESPINO via provider direct entry on 05/18/2024 9:25:04 AM. BRIEF ADDICTION MONITOR-INTENSIVE OUTPATIENT TREATMENT (BAM-IOP) [...] might have increased risk for using alcohol/drugs: Two days 12. Gnosticist or spirituality supports recovery: Extremely 13. Days [...] >1 suggests need for clinical attention RISK: 8 Scores range from 0 to 24, High (>12) or rising scores suggest need for clinical attention PROTECTION: 20 Scores range from 0 to 24, Low (<12) or decreasing scores suggest need for clinical attention BAM-IOP Risk (past 180 days): 05/18/2024 8 10/17/2023 9 10/03/2023 10 BAM-IOP Protective (past 180 days): 05/18/2024 20 10/17/2023 15 10/03/2023 17 BAM-IOP Use (past 180 days): 05/18/2024 0 10/17/2023 6 10/03/2023 6 /es/ KADEEM MARMOLEJO Signed: 05/19/2024 09:22 KADEEM MARMOLEJO [facility] [place] [facility] May 18, 2024 09:00 AM MENTAL HEALTH COUNSELING NOTE: LOCAL TITLE: PEER SUPPORT NOTE STANDARD TITLE: MENTAL HEALTH COUNSELING NOTE DATE OF NOTE: MAY 18, 2024@09:00 ENTRY DATE: MAY 19, 2024@08:24 AUTHOR: KADEEM MARMOLEJO EXP COSIGNER: URGENCY: STATUS: COMPLETED PEER SUPPORT NOTE DATE: 05/18/2024 TIME: 0900 hours. TIME IN SESSION (in minutes): 60 minutes THEATRE INSTRUCTOR: Kadeem Marmolejo M.Ed., [facility] PURPOSE/FOCUS: Peer Support Service, 1:1 Peer Mentoring, [facility] CONTENT: met C for check in with 44-year-old male outpatient for peer support. Devoted time towards reviewing the events of the past week and talk about forward steps. reported that events occuring with ex fiancee and their drug use has been apart of his social interactions over the past week. [place] using spiritual beliefs to find strength to successfully stay removed from that persons life. [place] reporting financial secuirty has been increasing due his now being in conrtol over own budget. [place] continuing to care for issues with probation and getting transportation independance established. 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 identified with 2 identifiers: [X] Full Name [ ] Date of [ ] [place] ID Card [X] Facial Recognition INFORMED CONSENT: [place] informed of the risks and benefits of Telehealth video care. has the right to refuse video services. If refuses video visit, a prul-ra-vzbk visit will be scheduled. verbalized consent for this video visit: Yes PEER INTERVENTIONS USED: Mutuality, Motivational Interviewing, Recovery Coaching RESPONSE: [place] reporting feeling stronger in shirley and family OBSERVED STRENGTHS: is sincere in recovery. 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) - Cocaine dependence with cocaine-induced psychotic disorder with delusions (ICD-10-CM F14.250) Posttraumatic stress disorder (SCT 99509773) - Post-traumatic stress disorder, chronic (ICD-10-CM F43.12) Adult attention deficit hyperactivity disorder (SCT 009035793) - Attention- deficit hyperactivity disorder, unspecified type (ICD-10-CM F90.9) Alcohol dependence (SCT 56833441) - Alcohol dependence with other alcohol- induced disorder (ICD-10-CM F10.288) /cindy/ KADEEM MARMOLEJO Signed: 05/19/2024 08:31 Receipt Acknowledged By: 05/19/2024 09:58 /cindy/ OBINNA BURROUGHS [facility] Cycle Liaison for KADEEM FREY [facility]
[2024-12-28 08:59] VITALS: BP 143/96; PULSE 67; RESP 16; O2SAT 100
== END 2024-12-28 09:08 | disposition home or self-care (01) ==
LOC: HO.PMCPRC 07:56
PROVIDERS: PCP Internal Medicine Endocrinology, Diabetes & Metabolism; Visit Provider Anesthesiology
DX: M47.812 Spondylosis without myelopathy or radiculopathy, cervical region (principal)
CPT/HCPCS: 64555

== ENCOUNTER 2025-01-03 08:47 | Outpatient (AMB) | payer OTHER, SELFPAY ==
--- NOTE | 2025-01-03 08:56 | A.OFFVIS_ITS ---
Vital Signs 01/03/25 08:57 Height 6 ft Weight 190 lb BMI 25.8 BP 135/93 H Blood Pressure Location Lt brachial Position Sitting Respiration 16 Pulse 77 Pulse Source Pulse Oximeter Pulse Oximetry (%) 100 Oxygen Delivery Method Room Air Intake Visit Reasons: LEFT C6 SPRINT PNS TRIAL Vendor Quality Supervisor Required: No Allergies No Known Allergies [No Known Allergies*] Allergy (Verified 01/03/25 08:59) Medication List - Last Reconciled 01/03/25 by Radha Gilliland LPN gabapentin 300 mg PO TID ibuprofen 600 mg PO Q6H PRN methylphenidate HCl ER 20 mg PO DAILY HPI Comments Details: David is back in my office after a trial of sprint PNS on the left. He is suffering from intractable cervicalgia. He reports today very good pain relief on stimulation. He reports when his stimulation is too high he decreases the stimulation amplitude and becomes very comfortable. He reports today pain 2/10. Before the procedure his pain was 9 to 9.5/10. Prior: pain started 3 years ago. No inciting event such as trauma or car accident, pain is mostly on the left however he experienced pain on the right when during physical therapy they applied axial extension on the neck. he is retired from [employer] he was suffering from PTSD.. He had an MRI performed at [facility] of his neck results of which dictated as below. On the MRI there are some advanced arthritis on both facet joints as well as uncovertebral joints mostly on the left side, there are some minimal stenosis at C6-C7 interval as well. His past medical history significant for alcoholism however he stopped drinking 11 months ago. He smokes half a pack per day for 25 years he is taking Chantix trying to stop smoking. [facility] Social History Household Members: Significant Other Housing: House Do you presently have visiting nurse or other home services: No Alcohol intake: former Patient Tobacco Use Status: Current everyday Tobacco user Tobacco use type: Cigarette e-Cigarette/Vaping Use: Never Used Second Hand Smoke Exposure: Yes Substance Use Type: Crack/Cocaine service: Yes Current occupational status: retired Review of Systems Const All systems reviewed & are unremarkable except as noted in HPI and below ENT Reports Normal hearing present Neuro Reports Normal hearing present, Denies Abnormal speech present, Denies confusion and Denies Sensory deficit (Neuro) Psych Denies confusion Physical Exam Vital Signs: Last Vital Signs Pulse 77 01/03/25 08:57 Resp 16 01/03/25 08:57 BP 135/93 H 01/03/25 08:57 Pulse Ox 100 01/03/25 08:57 Oxygen Delivery Method Room Air 01/03/25 08:57 BMI result Body Mass Index 25.8 Const General: no acute distress; No confusion Orientation/consciousness: patient oriented x3 and No confusion Eyes General: appearance normal, both eyes and all related structures Pupils: Equal, round and reactive pupils present EOM: EOMs intact bilaterally Neck Other: Limited ROM, advanced lordosis of the cervical spine. Lhermitte test is negative. Valsalva test is negative. Spurling test is negative bilaterally. No tenderness on palpation in paraspinal spinal region of the cervical spine short of the very bottom of the cervical spine probably C7 area or T1. Neck: No full ROM Chest Chest palpation & inspection: normal inspection of the chest Resp Effort & Inspection: normal respiratory effort, able to speak in complete sentences, normal respiratory pattern, no audible wheezes and no cough Cardio Jugular venous distension: no JVD GI Inspection: Yes normal to inspection Neuro General: patient oriented x3, gait normal and No confusion Cranial nerves: Yes CN's II-XII intact bilaterally, Yes Equal, round and reactive pupils present, Yes Normal hearing present and Yes Ability to bilaterally elevate shoulders present Speech: No Abnormal speech present Gait exam (Neuro): Normal gait present Motor exam (neuro): 5/5 motor strength present throughout Sensory Exam: No Sensory deficit (Neuro) Extrem General: No pedal edema Psych Speech and movement: Normal speech and movement present Affect: normal affect Attitude: cooperative Thought process: Normal thought process present Thought content: Normal thought content present Insight: Good insight present (Psych) Judgement: Good judgement present (Psych) Results Reviewed Results Reviewed: MR CERVICAL SPINE WITHOUT CONTRAST CLINICAL INFORMATION: Neck pain.. COMPARISON: CT cervical spine 05/20/2022. TECHNIQUE: MRI of the cervical spine was obtained using routine sequences without contrast. FINDINGS: Alignment is normal. Vertebral body heights are preserved. No acute bone marrow signal changes. There is disc desiccation at multiple levels without substantial loss of intervertebral Basketball Coach. There is no canal compromise or cord compression. No abnormal intramedullary signal changes. The cervicomedullary junction is normal. Limited visualization of the posterior fossa reveals no abnormal finding. The occipital condyles and lateral C1 masses are intact. There is degenerative arthrosis of the atlantodental joint. C1-C2 articular facets are unremarkable. At C2-C3 the annular contour is normal. No canal stenosis. Asymmetric uncovertebral joint spurring causes mild left neuroforaminal encroachment. At C3-C4 there is a bulging disc. No canal stenosis. Asymmetric uncovertebral joint spurring and facet degenerative change causes mild left neuroforaminal encroachment. At C4-C5 there is a bulging disc. No canal stenosis. Uncovertebral joint spurring and facet degenerative change causes mild bilateral neuroforaminal encroachment. At C5-C6 there is a bulging disc. No canal stenosis. Uncovertebral joint spurring and facet degenerative change causes mild left neuroforaminal encroachment. At C6-C7 there is a shallow right foraminal soft disc protrusion superimposed upon a diffusely bulging disc. Mild canal stenosis. Uncovertebral joint spurring and facet degenerative change causes moderate to severe bilateral neuroforaminal encroachment, slightly greater on the right. At C7-T1 the annular contour is normal. No canal or neuroforaminal compromise. Visualized soft tissues of the neck are normal. Vascular flow voids are maintained. IMPRESSION: There is multilevel degenerative spondylosis of the cervical spine. A shallow right foraminal soft disc protrusion at C6-C7 superimposed upon a bulging disc causing mild canal stenosis. There is also moderate to severe bilateral neuroforaminal encroachment, slightly greater on the right. Otherwise no canal compromise. No cord compression or abnormal intramedullary signal changes. Mild neuroforaminal encroachment at multiple additional levels. Assessment & Plan Assessment & Plan (1) Cervicalgia: Code(s): M54.2 - Cervicalgia Category: Medical (2) Spondylosis of cervical region without myelopathy or radiculopathy: Code(s): M47.812 - Spondylosis without myelopathy or radiculopathy, cervical region Category: Medical (3) Degeneration, intervertebral disc, cervical: Code(s): M50.30 - Other cervical disc degeneration, unspecified cervical region Category: Medical (4) Chronic pain syndrome: Code(s): G89.4 - Chronic pain syndrome Category: Medical (5) Intractable back pain: Code(s): M54.9 - Dorsalgia, unspecified Category: Medical Plan On the MRI as above this patient has some foraminal disc encroachment as well as advanced arthritis mostly on the left. Physical exam support spondylosis and arthritis. 400 mg of ibuprofen twice a day alleviates pain very minimally. He completed 8 sessions of physical therapy continues home exercise program with minimal short-lived improvement. Sprint PNS resulted in very good pain relief. Patient reports improved activities of daily living and improved mobility. He has left-sided electrode. He will visit us once a week more often as needed to change the dressing as nu rsing appointment. In 8 weeks we will remove the stimulating electrode. Coding Level of Care Code Est Pt Level 3 (99743) Diagnoses Cervicalgia M54.2 Spondylosis of cervical region without myelopathy or radiculopathy M47.812 Degeneration, intervertebral disc, cervical M50.30 Chronic pain syndrome G89.4 Intractable back pain M54.9
[2025-01-03 08:57] VITALS: BP 135/93; PULSE 77; RESP 16; O2SAT 100; BMI 25.8
--- OUTSIDE RECORDS SUMMARY | 2025-01-03 09:08 | XMS_ITS | Clinical Summary ---
[facility] Address [address] [place] [address] Care Team Providers Care Teacher Citizenship Name Role Phone Roman Small MD Primary [...] age to complete this topic Care Teams Teacher Citizenship Relationship Specialty Start Date End Date Roman Small MD PCP - General Internal Medicine 06/23/12
--- OUTSIDE RECORDS SUMMARY | 2025-01-03 09:08 | XMS_ITS | Clinical Summary ---
Author Organization [facility] Address [address] [place] [address] Care Team Providers Care Cane Furniture Maker Name Role Phone Unavailable Primary Care Provider [...] Advance Directives For more information, please contact: [phone] Latest Code Status on File Code Status [...]
== END 2025-01-03 09:13 | disposition home or self-care (01) ==
LOC: HO.PMC 08:48
PROVIDERS: PCP Internal Medicine Endocrinology, Diabetes & Metabolism; Visit Provider Anesthesiology
DX: M54.2 Cervicalgia (principal); M47.812 Spondylosis without myelopathy or radiculopathy, cervical region; M50.30 Other cervical disc degeneration, unspecified cervical region; G89.4 Chronic pain syndrome; M54.9 Dorsalgia, unspecified
CPT/HCPCS: 99024

== ENCOUNTER → 2025-01-03 08:47 | Outpatient (BNVA) | payer OTHER, SELFPAY | PROVIDERS: PCP Internal Medicine Endocrinology, Diabetes & Metabolism; Visit Provider Anesthesiology | DX: M54.2 Cervicalgia (principal); M47.812 Spondylosis without myelopathy or radiculopathy, cervical region; G89.4 Chronic pain syndrome; M54.9 Dorsalgia, unspecified | CPT/HCPCS: 99212 ==

== ENCOUNTER 2025-02-10 09:16 | Outpatient (AMB) | payer OTHER, SELFPAY ==
--- NOTE | 2025-02-10 09:26 | A.OFFVIS_ITS ---
Vital Signs 02/10/25 09:27 Height 6 ft Weight 190 lb BMI 25.8 BP 145/86 H Blood Pressure Location Rt brachial Position Sitting Pulse 72 Pulse Source Pulse Oximeter Pulse Oximetry (%) 100 Oxygen Delivery Method Room Air Intake Visit Reasons: SPRINT REVISION Intake Note: Sprint removed Collections And Archives Director Required: No Allergies No Known Allergies [No Known Allergies*] Allergy (Verified 02/10/25 09:27) Medication List - Last Reconciled 02/10/25 by Linda Nolen, CAPSULE FILLER gabapentin 300 mg PO TID ibuprofen 600 mg PO Q6H PRN methylphenidate HCl ER 20 mg PO DAILY HPI Comments Details: David is back in my office after a trial of sprint PNS on the left. He is suffering from intractable cervicalgia. Initially he reported very good pain relief. However lately he started to complain on more pain in the cervical spine with radiation of the pain into bilateral upper extremities as well as sensation of the weakness and numbness of the 1st 3 fingers. This probably corresponds to C6 and C7 nerve roots. On the previous MRI he had significant disc protrusion on top of bulging however without nerve root compressions. It could be that his condition turned to worse and now there is significant nerve root compression. I would like to perform urgent MRI to this patient. I also will refer this patient to neurosurgeon for evaluation soon as MRI is ready. Prior: pain started 3 years ago. No inciting event such as trauma or car accident, pain is mostly on the left however he experienced pain on the right when during physical therapy they applied axial extension on the neck. he is retired from [employer] he was suffering from PTSD.. He had an MRI performed at [facility] of his neck results of which dictated as below. On the MRI there are some advanced arthritis on both facet joints as well as uncovertebral joints mostly on the left side, there are some minimal stenosis at C6-C7 interval as well. His past medical history significant for alcoholism however he stopped drinking 11 months ago. He smokes half a pack per day for 25 years he is taking Chantix trying to stop smoking. History of alcoh ol withdrawal seizures in 2021. [facility] Social History Household Members: Significant Other Housing: House Do you presently have visiting nurse or other home services: No Alcohol intake: former Patient Tobacco Use Status: Current everyday Tobacco user Tobacco use type: Cigarette e-Cigarette/Vaping Use: Never Used Second Hand Smoke Exposure: Yes Substance Use Type: Crack/Cocaine service: Yes Current occupational status: retired Review of Systems Const All systems reviewed & are unremarkable except as noted in HPI and below ENT Reports Normal hearing present Neuro Reports Normal hearing present, Denies Abnormal speech present, Denies confusion and Denies Sensory deficit (Neuro) Psych Denies confusion Physical Exam Vital Signs: Last Vital Signs Pulse 72 02/10/25 09:27 BP 145/86 H 02/10/25 09:27 Pulse Ox 100 02/10/25 09:27 Oxygen Delivery Method Room Air 02/10/25 09:27 BMI result Body Mass Index 25.8 Const General: no acute distress; No confusion Orientation/consciousness: patient oriented x3 and No confusion Eyes General: appearance normal, both eyes and all related structures Pupils: Equal, round and reactive pupils present EOM: EOMs intact bilaterally Neck Other: Limited ROM, advanced lordosis of the cervical spine. Lhermitte test is negative. Valsalva test is negative. Spurling test is negative bilaterally. No tenderness on palpation in paraspinal spinal region of the cervical spine short of the very bottom of the cervical spine probably C7 area or T1. Neck: No full ROM Chest Chest palpation & inspection: normal inspection of the chest Resp Effort & Inspection: normal respiratory effort, able to speak in complete sentences, normal respiratory pattern, no audible wheezes and no cough Cardio Jugular venous distension: no JVD GI Inspection: Yes normal to inspection Neuro General: patient oriented x3, gait normal and No confusion Cranial nerves: Yes CN's II-XII intact bilaterally, Yes Equal, round and reactive pupils present, Yes Normal hearing present and Yes Ability to bilaterally elevate shoulders present Speech: No Abnormal speech present Gait exam (Neuro): Normal gait present Motor exam (neuro): 5/5 motor strength present throughout Sensory Exam: No Sensory deficit (Neuro) Extrem General: No pedal edema Psych Speech and movement: Normal speech and movement present Affect: normal affect Attitude: cooperative Thought process: Normal thought process present Thought content: Normal thought content present Insight: Good insight present (Psych) Judgement: Good judgement present (Psych) Results Reviewed Results Reviewed: MR CERVICAL SPINE WITHOUT CONTRAST CLINICAL INFORMATION: Neck pain.. COMPARISON: CT cervical spine 05/20/2022. TECHNIQUE: MRI of the cervical spine was obtained using routine sequences without contrast. FINDINGS: Alignment is normal. Vertebral body heights are preserved. No acute bone marrow signal changes. There is disc desiccation at multiple levels without substantial loss of intervertebral Mine Boss. There is no canal compromise or cord compression. No abnormal intramedullary signal changes. The cervicomedullary junction is normal. Limited visualization of the posterior fossa reveals no abnormal finding. The occipital condyles and lateral C1 masses are intact. There is degenerative arthrosis of the atlantodental joint. C1-C2 articular facets are unremarkable. At C2-C3 the annular contour is normal. No canal stenosis. Asymmetric uncovertebral joint spurring causes mild left neuroforaminal encroachment. At C3-C4 there is a bulging disc. No canal stenosis. Asymmetric uncovertebral joint spurring and facet degenerative change causes mild left neuroforaminal encroachment. At C4-C5 there is a bulging disc. No canal stenosis. Uncovertebral joint spurring and facet degenerative change causes mild bilateral neuroforaminal encroachment. At C5-C6 there is a bulging disc. No canal stenosis. Uncovertebral joint spurring and facet degenerative change causes mild left neuroforaminal encroachment. At C6-C7 there is a shallow right foraminal soft disc protrusion superimposed upon a diffusely bulging disc. Mild canal stenosis. Uncovertebral joint spurring and facet degenerative change causes moderate to severe bilateral neuroforaminal encroachment, slightly greater on the right. At C7-T1 the annular contour is normal. No canal or neuroforaminal compromise. Visualized soft tissues of the neck are normal. Vascular flow voids are maintained. IMPRESSION: There is multilevel degenerative spondylosis of the cervical spine. A shallow right foraminal soft disc protrusion at C6-C7 superimposed upon a bulging disc causing mild canal stenosis. There is also moderate to severe bilateral neuroforaminal encroachment, slightly greater on the right. Otherwise no canal compromise. No cord compression or abnormal intramedullary signal changes. Mild neuroforaminal encroachment at multiple additional levels. Assessment & Plan Assessment & Plan (1) Cervicalgia: Code(s): M54.2 - Cervicalgia Category: Medical (2) Spondylosis of cervical region without myelopathy or radiculopathy: Code(s): M47.812 - Spondylosis without myelopathy or radiculopathy, cervical region Category: Medical (3) Degeneration, intervertebral disc, cervical: Code(s): M50.30 - Other cervical disc degeneration, unspecified cervical region Category: Medical (4) Chronic pain syndrome: Code(s): G89.4 - Chronic pain syndrome Category: Medical (5) Intractable back pain: Code(s): M54.9 - Dorsalgia, unspecified Category: Medical (6) Radiculopathy, cervical: Code(s): M54.12 - Radiculopathy, cervical region Category: Medical Plan On the MRI as above this patient has some foraminal disc encroachment as well as advanced arthritis mostly on the left. Physical exam support spondylosis and arthritis. 400 mg of ibuprofen twice a day alleviates pain very minimally. He completed 8 sessions of physical therapy continues home exercise program with minimal short-lived improvement. Sprint PNS initially resulted in good pain relief however now patient complains on new pattern of pain with bilateral pain radiating into bilateral upper extremities with weakness and numbness of the 1st 2nd and 3rd finger bilaterally. I will diagnose him with radiculopathy. I will send him for urgent MRI of the cervical spine with the potential to refer patient to a neurosurgeon when MRI is ready and demonstrating nerve root compressions. Orders: Orders MR cervical spine wo con Today G89.4 - Chronic pain syndrome, M47.812 - Spondylosis without myelopathy or radiculopathy, cervical region, M50.30 - Other cervical disc degeneration, unspecified cervical region, M54.12 - Radiculopathy, cervical region Referrals Neurosurgery Referral G89.4 - Chronic pain syndrome, M47.812 - Spondylosis without myelopathy or radiculopathy, cervical region, M50.30 - Other cervical disc degeneration, unspecified cervical region, M54.12 - Radiculopathy, cervical region, M54.2 - Cervicalgia, M54.9 - Dorsalgia, unspecified Patient Instructions: I here by testify that I spent 32 minutes in conversation with this patient as well as planning her care making appropriate orders and organizing this note. Coding Level of Care Code Est Pt Level 4 (83085) Diagnoses Cervicalgia M54.2 Spondylosis of cervical region without myelopathy or radiculopathy M47.812 Degeneration, intervertebral disc, cervical M50.30 Chronic pain syndrome G89.4 Intractable back pain M54.9 Radiculopathy, cervical M54.12
[2025-02-10 09:27] VITALS: BP 145/86; PULSE 72; O2SAT 100; BMI 25.8
--- OUTSIDE RECORDS SUMMARY | 2025-02-10 10:03 | XMS_ITS | Clinical Summary ---
Author Organization [facility] Address [address] [place] [address] Care Team Providers Care Biofuels Plant Manager Name Role Phone Unavailable Primary Care Provider [...] Advance Directives For more information, please contact: [phone] Latest Code Status on File Code Status [...]
--- OUTSIDE RECORDS SUMMARY | 2025-02-10 10:03 | XMS_ITS | Clinical Summary ---
Author Organization [facility] it Address [address] [place] [address] Care Team Providers Care Composition Stone Applicator Name Role Phone Roman Small MD Primary [...] Vaccine (2023-2 5 season) 2024 Influenza Vaccine (Season Ended) 2025 07/09/20 12 HIB Vaccines Aged Out No longer eligi [...] age to complete this topic Meningococcal B Vaccine Aged Out No l onger eligible based on patient's age to complete [...] age to complete this topic Care Teams Composition Stone Applicator Relationship Specialty Start Date End Date Roman Small MD PCP - General Internal Medicine 06/23/12
== END 2025-02-10 09:52 | disposition home or self-care (01) ==
LOC: HO.PMC 09:16
PROVIDERS: PCP Internal Medicine Endocrinology, Diabetes & Metabolism; Visit Provider Anesthesiology
DX: M47.812 Spondylosis without myelopathy or radiculopathy, cervical region (principal); M50.30 Other cervical disc degeneration, unspecified cervical region; G89.4 Chronic pain syndrome; M54.9 Dorsalgia, unspecified; M54.12 Radiculopathy, cervical region
CPT/HCPCS: 99214

== ENCOUNTER → 2025-02-10 09:16 | Outpatient (BNVA) | payer OTHER, SELFPAY | PROVIDERS: PCP Internal Medicine Endocrinology, Diabetes & Metabolism; Visit Provider Anesthesiology | DX: M47.22 Other spondylosis with radiculopathy, cervical region (principal); M50.30 Other cervical disc degeneration, unspecified cervical region; G89.4 Chronic pain syndrome; Z96.82 Presence of neurostimulator | CPT/HCPCS: 99212 ==

== ENCOUNTER → 2025-02-16 19:24 | Outpatient (BNV) | payer OTHER, SELFPAY | PROVIDERS: PCP Nurse Practitioner Family; Visit Provider Radiology Neuroradiology | DX: M99.61 Osseous and subluxation stenosis of intervertebral foramina of cervical region (principal); M46.92 Unspecified inflammatory spondylopathy, cervical region | CPT/HCPCS: 72141 ==

== ENCOUNTER 2025-02-16 19:25 | Outpatient (REF) | payer OTHER, SELFPAY ==
--- NOTE | ~2025-02-16 | MR_ITS ---
CLINICAL HISTORY: M54.12 - Radiculopathy, cervical region MR cervical spine without intravenous contrast Comparison: MRI of the cervical spine from 07/18/2024 Findings: Straightening of the cervical lordosis. No significant change in vertebral heights or vertebral alignments. Heterogeneous marrow signal redemonstrated without new or suspicious marrow lesion. No definite abnormal signal of the cervical spinal cord, accounting for motion and phase artifacts. No drainable paraspinal fluid collection. Likely accessory azygous fissure. Mild osteoarthritis of the craniocervical junction. C2-C3: Bilateral facet arthropathy. No spinal canal stenosis. Mild worsening of the mild left foraminal narrowing. C3-C4: Small disc osteophyte complex and bilateral facet arthropathy. No spinal stenosis. C4-C5: Small disc osteophyte complex and bilateral facet arthropathy. Mild worsening of the mild spinal canal stenosis. Worsening of moderate to severe right and mild to moderate left foraminal narrowing. C5-C6: Small disc osteophyte complex and bilateral facet arthropathy. No spinal canal stenosis. Mild left foraminal narrowing. C6-C7: Mild worsening of the disc osteophyte complex and bilateral facet arthropathy with mild spinal canal stenosis. Worsening severe bilateral foraminal narrowing. C7-T1: Bilateral facet arthropathy. No spinal stenosis. IMPRESSION: 1. Mild worsening of the degenerative changes when compared to 07/18/2024 2. Mild spinal canal stenosis at C6-C7. 3. Multilevel foraminal narrowing, including severe foraminal narrowing at C6-C7. 4. Facet arthropathy with straightening of the cervical lordosis. This document has been electronically signed by: Yeison Fuentes MD on 02/16/2025 20:53:07
== END 2025-02-16 19:26 | disposition home or self-care (01) ==
LOC: HO.MRI 19:25
PROVIDERS: PCP Nurse Practitioner Family; Visit Provider Anesthesiology
DX: M54.12 Radiculopathy, cervical region (principal); G89.4 Chronic pain syndrome; M50.30 Other cervical disc degeneration, unspecified cervical region; M47.812 Spondylosis without myelopathy or radiculopathy, cervical region
CPT/HCPCS: 72141

== ENCOUNTER 2025-02-28 09:52 | Outpatient (AMB) | payer OTHER, SELFPAY ==
--- NOTE | 2025-02-28 10:21 | HO.SPINEOV ---
Intake Visit Reasons: radiculopathy, cervical region Intake Note: Mr. Ramirez is here today c/o neck pain. MRI done @ [facility] [place]. 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 He is a very nice 44-year-old gentleman, disabled , presents for evaluation of neck pain and bilateral upper extremity pain that started about 3 years ago. At 1st he thought it was a shoulder problem of some sort but as it progressed it would radiate down his arm into his index and middle finger. The pain would be aggravated with different head movements. He underwent a series of physical therapy for few months, and noticed that the exercises done to realign his head as well as the traction would end up causing him more pain. He ultimately quit that, trialed a chiropractor with similar results. You put in a Sprint PNS and this was working somewhat, but for whatever reason stopped working and it was removed. The patient comes in today for evaluation of bilateral upper extremity pain in the setting of an MRI showing C6-7 disc degeneration with bilateral foraminal stenosis. He has no myelopathic complaints. He takes gabapentin and ibuprofen 3 times a day. 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 He has surgery on his right big toe but other than that he is healthy. His liver function tests are back to normal now that he stopped drinking. Social hx: He quit smoking last year, quit drinking 2 years ago. There was a time when he was using crack cocaine about a year and a half ago but he has been off that and gets drug tested weekly. Medications: Ibuprofen and gabapentin Allergies: None Physical exam: Awake alert oriented no acute distress, strength in his hands is mildly reduced, other than that motor examination, gait and reflexes are normal. Imaging review: Cervical MRI done at [place] shows disc degeneration at C5-6 with anterior osteophytes but no evidence of nerve compression at this level, C6-7 there is disc degeneration with bilateral neuroforaminal stenosis. Impression: 44-year-old male presents with neck pain and bilateral upper extremity pain progressing over the last 3 years despite conservative treatment with bilateral neuroforaminal stenosis at C6-7. I believe this to be the source of his symptoms. Typically this is something Dr. Parra would treat with an anterior cervical diskectomy and fusion. We did discuss that procedure at length as well as risks, benefits etc.. Success rate quoted at 90% improvement of arm pain. Once I have a chance to review this with Dr. Parra I will call the patient back with a final plan. Thank you for allowing us to care for your patient. The total time spent with this visit with this patient was 45 minutes reviewing history, physical exam, cervical imaging review, and implementation of treatment plan or further diagnostic testing Sixto Parra MD,PhD [facility] Coding Level of Care Code New Pt Level 4 (40481) Diagnoses Radiculopathy, cervical M54.12
--- OUTSIDE RECORDS SUMMARY | 2025-02-28 10:21 | XMS_ITS | Clinical Summary ---
Author Organization [facility] Address [address] [place] [address] Care Team Providers Care Aluminizer Name Role Phone Unavailable Primary Care Provider [...] Advance Directives For more information, please contact: [phone] Latest Code Status on File Code Status [...]
== END 2025-02-28 11:24 | disposition home or self-care (01) ==
LOC: HO.HNS 09:58
PROVIDERS: PCP Nurse Practitioner Family; Referring Provider Anesthesiology; Visit Provider Physician Assistant
DX: M54.12 Radiculopathy, cervical region (principal)
CPT/HCPCS: 99204

== ENCOUNTER → 2025-02-28 09:52 | Outpatient (BNVA) | payer OTHER, SELFPAY | PROVIDERS: PCP Nurse Practitioner Family; Referring Provider Anesthesiology; Visit Provider Physician Assistant | DX: M54.12 Radiculopathy, cervical region (principal) | CPT/HCPCS: 99202 ==

== ENCOUNTER → 2025-03-07 13:07 | Outpatient (BNV) | payer OTHER, SELFPAY | PROVIDERS: PCP Nurse Practitioner Family; Visit Provider Internal Medicine Cardiovascular Disease | DX: Z01.810 Encounter for preprocedural cardiovascular examination (principal) | CPT/HCPCS: 93010 ==

== ENCOUNTER 2025-03-10 07:14 | Day surgery (SDC) | payer OTHER, SELFPAY ==
--- OUTSIDE RECORDS SUMMARY | 2025-03-03 07:24 | XMS_ITS | Clinical Summary ---
Author Organization [facility] it Address [address] [place] [address] Care Team Providers Care Counseling Department Chair Name Role Phone Roman Small MD Primary Care Provider [phone] Surgical History Surgery Date Site/Laterality Comments TONSILLECTOMY [...] age to complete this topic Care Teams Counseling Department Chair Relationship Specialty Start Date End Date Roman Small MD PCP - General Internal Medicine 06/23/12
--- OUTSIDE RECORDS SUMMARY | 2025-03-03 07:24 | XMS_ITS | Clinical Summary ---
Author Organization [facility] Address [address] [place] [address] Care Team Providers Care Complaint Operator Name Role Phone Unavailable Primary Care Provider [...] Advance Directives For more information, please contact: [phone] Latest Code Status on File Code Status [...]
[2025-03-04 12:01] VITALS: BP 120/88; PULSE 68; RESP 16; O2SAT 98; BMI 27.5
--- NOTE | 2025-03-07 13:07 | ECG_ITS ---
Test Reason : preop Blood Pressure : */* mmHG Vent. Rate : 65 BPM Atrial Rate : 65 BPM P-R Int : 176 ms QRS Dur : 78 ms QT Int : 370 ms P-R-T Axes : 44 73 60 degrees QTcB Int : 384 ms Normal sinus rhythm Normal ECG When compared with ECG of 01-Jul-2022 17:58, Criteria for Septal infarct are no longer Present QT has shortened Referred By: Kath Wade Electronically Signed By: Julio C Muñoz
[2025-03-07 13:50] LABS: Hematocrit 42.5 % (42.0-52.0); Hemoglobin 14.3 g/dl (14.0-18.0); Mean Corpuscular HGB Conc 33.6 g/dl (31.0-36.0); Mean Corpuscular Hemoglobin 30.2 pg (27.0-33.0); Mean Corpuscular Volume 89.7 fL (80.0-98.0); Mean Platelet Volume 9.7 fL (9.4-12.4); Platelet Count 188 X10*3/uL (160-400); Red Blood Count 4.74 X10*6/uL (4.60-5.80); Red Cell Distribution Width 12.2 % (11.0-16.0); White Blood Count 5.2 X10*3/uL (4.8-10.8)
[2025-03-07 14:21] LABS: Alanine Aminotransferase 15 U/L (0-40); Albumin Level 4.8 g/dL (3.5-5.0); Alkaline Phosphatase 40 U/L (39-117); Anion Gap 10 (12-20); Aspartate Amino Transferase 17 U/L (5-37); Bilirubin Total 0.6 mg/dL (0.0-1.0); Blood Urea Nitrogen 14 mg/dL (9-16); Calcium 9.7 mg/dL (8.4-10.2); Carbon Dioxide 28 mmol/L (22-29); Chloride 108 mmol/L (96-108); Estimated Glomerular Filt Rate > 60; Glucose Random 94 mg/dL (60-115); Magnesium 1.9 mg/dL (1.6-2.6); Potassium 4.2 mmol/L (3.3-5.1); Sodium 142 mmol/L (135-145); Total Protein 7.6 g/dL (6.5-8.0)
[2025-03-07 14:48] LABS: Prothrombin Time 11.6 SEC (10.9-12.4)
[2025-03-10] VITALS (12 sets, daily range): BP systolic 111–143; BP diastolic 77–89; PULSE 67–88; RESP 16–20; TEMP 36.3–36.8; O2SAT 96–100; BMI 26.9
--- NOTE | ~2025-03-10 | FL_ITS ---
EXAMINATION: FL GUIDANCE ONLY HISTORY: C6-7 ACDF COMPARISON: Relation is made with an MRI of the cervical spine dated 02/16/2085. TECHNIQUE: Fluoroscopy time: 3.3 seconds. Cumulative Dose: 0.4293 mGy. DAP: 0.0959 mGym2 Images: 2. FINDINGS: AP and lateral fluoroscopic spot films of the cervical spine demonstrate anterior cervical disc fusion at C6-7. FL/FL guidance in OR IMPRESSION: Fluoroscopy during procedure. Please see procedure report for additional information. Electronically signed by: Jake Garcia MD 03/10/2025 11:45 AM EDT
[2025-03-10 08:14] LABS: Amphetamine Screen Urine Not Detected (Not Detect); Barbiturates, Urine Not Detected (Not Detect); Benzodiazepines Screen Urine Not Detected (Not Detect); Buprenorphine Scr Not Detected (Not Detect); Cannabinoid Screen Urine Not Detected (Not Detect); Cocaine Screen Urine Not Detected (Not Detect); Fentanyl, urine Not Detected (Not Detect); Methadone Screen, Urine Not Detected (Not Detect); Opiate Screen Urine Not Detected (Not Detect); Oxycodone Screen Urine Not Detected (Not Detect); Phencyclidine Screen Urine Not Detected (Not Detect)
[2025-03-10] MEDS: methocarbamoL 750 MG TABLET PO (08:19)
[2025-03-10] MEDS: Lactated Ringers 1,000 ML 100 ML IVCONT (08:37)
--- NOTE | 2025-03-10 08:39 | MHC.SHP ---
Pre-Procedural Eval Section A - 24 Hr Update-Section A only Date of Service: 03/10/25 The patient is an INPATIENT: No Section B - Complete if H&P > 30 days Chief Complaint: Radiculopathy, cervical region Allergies: Allergies Allergy/AdvReac Type Severity Reaction Status Date / Time No Known Allergies Allergy Verified 03/04/25 12:16 [No Known Allergies*] Review of Systems Sugical H&P ROS: Negative: Constitution, Cardiovascular, Respiratory, Neurological, Psychiatric, Hem-Onc, Allergic/Immunologic, Gastrointestinal, Genitourinary, Musculoskeletal, Integumentary, Endocrine and Eyes/Ears/Nose/Throat Exam Surgical H&P Exam: Normal: HEENT, Normal: Heart, Normal: Lungs, Normal: Extremities, Normal: Abdomen, Normal: Skin and Normal: Neurological (Awake, alert) Plan Diagnosis/Plan: Unchanged I have reviewed the history and physical and performed a pertinent physical examination on my patient. No changes have occurred unless specified. Anterior diskectomy and fusion C6-7 Time Spent With Patient Time: Total time managing care of this patient today __ 8 __ minutes.
--- NOTE | 2025-03-10 08:47 | P.DS_ITS ---
DS: Providers Provider Date of Service: 03/10/25 Date of discharge: 03/10/25 Primary care physician: Matthew Esquivel NP Admitting clinician: Aubrey Parra DS: Diagnosis Discharge Diagnosis (1) Radiculopathy, cervical: Status: Acute DS: Summary Time Attestation Discharge Coordination Time (in mins): 6 Quality: Safe Use of Opioids Does Pt have an Active Cancer Diagnosis on the Problem List?: No Quality: Stroke Does the patient have a stroke diagnosis?: No Physical Exam Vital Signs: Vital Signs: Last Vital Signs Temp 97.3 F 03/10/25 08:09 Pulse 67 03/10/25 08:09 Resp 16 03/10/25 08:09 BP 111/82 03/10/25 08:09 Pulse Ox 99 03/10/25 08:09 O2 Del Method Room Air 03/10/25 08:09 BMI result Body Mass Index 26.9 DS: Data Data Completed and Pending Completed studies during hospitalization [Text1]: Procedures Detoxification Services for Substance Abuse Treatment (05/20/22) Labs on day of discharge: Laboratory Results - last 24 hr 03/10/25 07:50 Urine Opiates Screen Not Detected Ur Buprenorphine Scrn Not Detected Ur Oxycodone Screen Not Detected Urine Methadone Screen Not Detected Urine Fentanyl Screen Not Detected Ur Barbiturates Screen Not Detected Ur Phencyclidine Scrn Not Detected Ur Amphetamines Screen Not Detected U Benzodiazepines Scrn Not Detected Urine Cocaine Screen Not Detected U Marijuana (THC) Screen Not Detected Discharge Plan Discharge Patient Disposition: Home, Self-Care Referrals: Matthew Esquivel NP [Primary Care Provider] - 1 Week Discharge Medications: New docusate sodium [Colace] 100 mg capsule 100 mg PO BID Qty: 20 0RF oxycodone 5 mg tablet 5 mg PO Q4H PRN (Reason: pain) Qty: 20 0RF Rx Instructions: Partial Fill upon patient request. Continued ibuprofen 800 mg Tablet 800 mg PO TID PRN (Reason: Pain) gabapentin 300 mg capsule 900 mg PO TID Discharge Orders: Discharge Order (Routine); Ordered 03/10/25 Ordered By: Sixto Dove Diet: Advance to usual diet Activity on Discharge: As tolerated Activity Restrictions/Additional Instructions: After your spinal surgery we ask you to observe the following restrictions/guidelines: Activity: It is normal to feel some discomfort as you increase your activity, but that will improve with time. We ask you avoid heavy lifting or acitivities that cause pain. As a general rule, 8lbs is a safe limit for lifting right after surgery. Walk as much as you feel comfortable but not to exhaustion. You will feel extra tired the first few days after surgery. Stay well hydrated. It is OK to walk up and down stairs You may return to driving when you are off narcotics (such as vicodin, oxycodone, dilaudid, etc), and you are back to normal functional capacity. If you have any concerns please check with office before driving. Return to work is specific to each patient and each surgery, so please speak with your doctor/PA at first follow up. Please bring paperwork such as FMLA at that time if you need it filled out. Medications: For optimum pain control, it is best to start with a combination of 500 mg of Tylenol every 4 hours with 600 mg of Motrin every 8 hours, and use narcotics as needed in between for breakthrough pain. We will give you a short supply of narcotics after surgery (usually one weeks worth). If you need more please call the office but do not use more than prescribed. You will need to give our office 48 hours notice if you need narcotics refilled and we do not fill narcotics on weekends or evenings. If you are on a narcotic, it is a good idea to take a stool softener such as colace or senna to avoid constipation If you take blood thinner such as aspirin, Plavix, Coumadin, Effient, Eliquis etc for conditions such as Afib, DVT, Pulmonary embolus, coronary disease, stents etc please speak with your surgeon about specific details as to when you can resume these medications. You can resume NSAIDs on post op day 1 (eg: Motrin, Naproxen, etc). Follow up: Please call the office, , after surgery to arrange a 3 week follow up for wound check. Wound Care: You may remove your dressing on the first day after surgery. ?You may ?leave open to air. Please do not remove the steri strips underneath. they will fall off on their own in one week. IT IS NORMAL FOR THE WOUND TO OOZE OR BE BLOODY FOR A FEW DAYS AFTER SURGERY. ?IF THIS HAPPENS JUST PLACE NEW DRESSING OVER IT TO AVOID STAINING CLOTHES. You may shower on post op day # 1 We ask that you do not let the water soak the wound. If it does get wet, just towel dry lightly. Please do not scrub your incision or place any type of chemical/ointment on the wound. No tub baths, pools or jacuzzis for one month. If you have any leaking or redness from your wound, or fevers, please call office Print Language: Citizen [place]
--- NOTE | 2025-03-10 09:04 | HO.ANESPROP2 ---
Documented by User: Kath Wade NP 03/09/25 10:01 HPI - Anesthesia Eval Consult details Narrative: 45yo M for C6-7 Ant Cerv Discectomy w/ fusion, 03/10/25 No recent illness No CP/SOB with walking Hx polysub: none since 2022 per patient. Discussed preop utox. PMFSH Active Problems Active Problems: All Active Problems Radiculopathy, cervical (Acute) Intractable back pain (Acute) Chronic pain syndrome (Acute) Degeneration, intervertebral disc, cervical (Acute) Spondylosis of cervical region without myelopathy or radiculopathy (Acute) Cervicalgia (Acute) Alcohol withdrawal seizure (Acute) Alcoholism (Acute) Anemia of chronic disease (Acute) Hypophosphatemia (Acute) Hypomagnesemia (Acute) Hypomagnesemia (Acute) Alcohol withdrawal (Acute) Seizure (Acute) Past Medical History Medical History (Updated 03/04/25 @ 12:38 by Linda Yeung RN) History of coma (~2016) Hx of staphylococcal infection (12/2023) ADHD (attention deficit hyperactivity disorder) History of seizure (~2020) Spinal stenosis in cervical region Neck pain PTSD (post-traumatic stress disorder) Erectile dysfunction Hx of major depression Joint pain Lumbago HLD (hyperlipidemia) Hearing loss Hx of concussion Family History Family history of problems with anesthesia: No Surgical History Surgical History (Updated 03/04/25 @ 12:39 by Linda Yeung RN) History of tonsillectomy and adenoidectomy H/O oral surgery (~01/05/25) H/O foot surgery (~2019) History of Problems with Anesthesia: No Social History Social History (Updated 03/04/25 @ 12:17 by Linda Yeung RN) Household Members: None Housing: House Are you a primary home care attendant to a significant other at home: No Do you presently have visiting nurse or other home services: No Alcohol intake: former Patient Tobacco Use Status: Former Tobacco user Tobacco use type: Cigarette e-Cigarette/Vaping Use: Never Used Second Hand Smoke Exposure: Yes Substance Use Type: Crack/Cocaine Substance Use Type Other:: quit cocaine 09/2023 Have you been hit, kicked, punched, or otherwise hurt by someone within the past year? If so, by whom?: No Are you DNR?: No Advance Directives: No Advance Directives Information Provided: Yes Advance Directives on File: No Poor oral hygiene: No (teeth) service: Yes Meds Allergies Allergy/AdvReac Type Severity Reaction Status Date / Time No Known Allergies Allergy Verified 03/04/25 12:16 [No Known Allergies*] Home Medications ?Medication ?Instructions ?Recorded ?Confirmed ?Last Taken ?Type gabapentin 300 mg capsule 900 mg PO TID 09/01/24 03/04/25 03/10/25 05:45 History ibuprofen 800 mg tablet 800 mg PO TID PRN Pain 03/04/25 03/04/25 Unknown History Exam Height,Weight and Vital Signs: Height 5 ft 11 in Weight 89.358 kg Last Vital Signs Pulse 68 03/04/25 12:01 Resp 16 03/04/25 12:01 BP 120/88 03/04/25 12:01 Pulse Ox 98 03/04/25 12:01 O2 Del Method Room Air 03/04/25 12:01 Pertinent Lab Results Pertinent Lab Results: Lab Results 03/07/25 Range/Units 13:17 WBC 5.2 (4.8-10.8) X10*3/uL RBC 4.74 (4.60-5.80) X10*6/uL Hgb 14.3 (14.0-18.0) g/dl Hct 42.5 (42.0-52.0) % MCV 89.7 (80.0-98.0) fL MCH 30.2 (27.0-33.0) pg MCHC 33.6 (31.0-36.0) g/dl RDW 12.2 (11.0-16.0) % Plt Count 188 D (160-400) X10*3/uL MPV 9.7 (9.4-12.4) fL Absolute Nucleated RBC 0.000 (0.0-0.012) X10*3/uL Nucleated RBC % (auto) 0.0 (0.0-0.2) /100WBC PT 11.6 (10.9-12.4) SEC INR 1.0 (0.9-1.1) Sodium 142 (135-145) mmol/L Potassium 4.2 (3.3-5.1) mmol/L Chloride 108 (96-108) mmol/L Carbon Dioxide 28 (22-29) mmol/L Anion Gap 10 L (12-20) BUN 14 (9-16) mg/dL Creatinine 1.17 (0.5-1.4) mg/dL Estim Creat Clear Calc 84.0 Estimated GFR > 60 Random Glucose 94 (60-115) mg/dL Calcium 9.7 D (8.4-10.2) mg/dL Magnesium 1.9 (1.6-2.6) mg/dL Total Bilirubin 0.6 (0.0-1.0) mg/dL AST 17 (5-37) U/L ALT 15 (0-40) U/L Alkaline Phosphatase 40 (39-117) U/L Total Protein 7.6 (6.5-8.0) g/dL Albumin 4.8 (3.5-5.0) g/dL Narrative Narrative: EKG 02/2025 Vent. Rate : 65 BPM Atrial Rate : 65 BPM P-R Int : 176 ms QRS Dur : 78 ms QT Int : 370 ms P-R-T Axes : 44 73 60 degrees QTcB Int : 384 ms Normal sinus rhythm Normal ECG When compared with ECG of 01-Jul-2022 17:58, Criteria for Septal infarct are no longer Present QT has shortened Airway Mallampati Class: III TM Dist: >3cm Neck ROM: Poor Loose/Missing/Broken Teeth: Yes (Edentulous, bone graft ) Heart: RRR Lungs: CTAB Assessment and Plan Assessment Anesthesia Assessment: Anesthesia Plan Discussed and PAT Visit Final Anesthetic Review Family History of Problems with Anesthesia: No History of Problems with Anesthesia: No Documented by User: Alexa Pena DO 03/10/25 09:05 [facility] Past Medical History Medical History (Updated 03/04/25 @ 12:38 by Linda Yeung RN) History of coma (~2016) Hx of staphylococcal infection (12/2023) ADHD (attention deficit hyperactivity disorder) History of seizure (~2020) Spinal stenosis in cervical region Neck pain PTSD (post-traumatic stress disorder) Erectile dysfunction Hx of major depression Joint pain Lumbago HLD (hyperlipidemia) Hearing loss Hx of concussion Family History Family history of problems with anesthesia: No Surgical History Surgical History (Updated 03/04/25 @ 12:39 by Linda Yeung RN) History of tonsillectomy and adenoidectomy H/O oral surgery (~01/05/25) H/O foot surgery (~2019) History of Problems with Anesthesia: No Social History Social History (Updated 03/04/25 @ 12:17 by Linda Yeung RN) Household Members: None Housing: House Are you a primary home care attendant to a significant other at home: No Do you presently have visiting nurse or other home services: No Alcohol intake: former Patient Tobacco Use Status: Former Tobacco user Tobacco use type: Cigarette e-Cigarette/Vaping Use: Never Used Second Hand Smoke Exposure: Yes Substance Use Type: Crack/Cocaine Substance Use Type Other:: quit cocaine 09/2023 Have you been hit, kicked, punched, or otherwise hurt by someone within the past year? If so, by whom?: No Are you DNR?: No Advance Directives: No Advance Directives Information Provided: Yes Advance Directives on File: No Poor oral hygiene: No (teeth) service: Yes Meds Allergies Allergy/AdvReac Type Severity Reaction Status Date / Time No Known Allergies Allergy Verified 03/04/25 12:16 [No Known Allergies*] Home Medications ?Medication ?Instructions ?Recorded ?Confirmed ?Last Taken ?Type gabapentin 300 mg capsule 900 mg PO TID 09/01/24 03/04/25 03/10/25 05:45 History ibuprofen 800 mg tablet 800 mg PO TID PRN Pain 03/04/25 03/04/25 Unknown History Exam Exam Date and Time: 03/10/25 0905 Height,Weight and Vital Signs: Height 5 ft 11 in Weight 89.358 kg Last Vital Signs Pulse 68 03/04/25 12:01 Resp 16 03/04/25 12:01 BP 120/88 03/04/25 12:01 Pulse Ox 98 03/04/25 12:01 O2 Del Method Room Air 03/04/25 12:01 Vital Signs Pulse Rate 68 03/04/25 12:01 Respiratory Rate 16 03/04/25 12:01 Blood Pressure 120/88 03/04/25 12:01 Pulse Oximetry 98 03/04/25 12:01 Oxygen Delivery Method Room Air 03/04/25 12:01 Temperature 97.3 F 03/10/25 08:09 Pulse Rate 67 03/10/25 08:09 Respiratory Rate 16 03/10/25 08:09 Blood Pressure 111/82 03/10/25 08:09 Pulse Oximetry 99 03/10/25 08:09 Oxygen Delivery Method Room Air 03/10/25 08:09 Airway Mallampati Class: II TM Dist: <=3cm Neck ROM: Limited Loose/Missing/Broken Teeth: Yes (Edentulous) Heart: S1S2 Assessment and Plan Assessment Anesthesia Assessment: Anesthesia Plan Discussed and Chart Reviewed Final Anesthetic Review Family History of Problems with Anesthesia: No History of Problems with Anesthesia: No NPO: Yes ASA Class: II Final Preanesthetic Review: No Changes in Pt Med Stat, Meds/Allgs Chart Reviewed, Consent Obtained/Reviewed and Anes Risks/Benef Reviewed Patient Risk: Low Procedure Risk: Intermediate Anesthetic Plan Anesthetic Plan: GA and Agree w/ Assess. and Plan Disposition: Standard PACU
[2025-03-10] MEDS: ceFAZolin Sodium/Dextrose,Iso 2 GM/50 ML PIGGYBACK IV (10:00)
[2025-03-10] MEDS: Acetaminophen 1,000 MG/100 ML PIGGYBACK 400 MG IV (11:00)
--- NOTE | 2025-03-10 11:08 | P.OP_ITS ---
Operative Note Operative Note Date of Service: 03/10/25 Narrative: Preoperative Diagnosis: Bilateral cervical radiculopathy due to severe bilateral C7 foraminal stenosis Procedure: C6-7 Anterior discectomy, arthrodesis and implantation cage ; C6-7 anterior instrumentation ; local autograft; microscope Informed Consent was obtained for this operation. I have explained the nature, purpose and benefits of the operation. I have discussed the risks and benefit of the operation including possible complications or adverse events with patient/family. Alternative(s) were discussed with the patient with their relative benefits and risks as well as the consequences of not accepting the op eration were included in obtaining consent. Surgeon: PHILLIP GAUTHIER MD, PHD Procedure Assisted By: fang Pardo Description of Procedure: This patient is suffering from bilateral cervical radiculopathy due to severe C7 neuroforaminal stenosis bilaterally. Patient was offered an anterior diskectomy and fusion C6-7 The procedure complications were explained. The patient was consented. The patient was brought to the operating room and endotracheally intubated. The patient was put in supine position with slight extension of the neck. Prep and drape was done followed by timeout. A mid cervical incision was made followed by opening of the platysma. The prevertebral fascia was reached following the natural planes while the physician medical office assistant provided manual retraction. The prevertebral fascia was opened to expose the disc space. A spinal needle was placed in the disk space to confirm the correct level with xray. The longus colli muscles were released bilaterally and a self retaining retractor was inserted. Two Norden pins were placed in the C6 and C7 vertebral bodies and distraction was give over the interspace. The discectomy was completed toward the posterior annulus of the disc. The microscope was brought in. The remainder of the discectomy was completed. The posterior ligament was opened and resected to expose the underlying dura. Osteophytes were resected from the body of C6 and C7 and saved for autograft. Bilateral foraminotomies were done to decompress the bilateral C7 nerve roots. Severe stenosis was encountered. At the end of the decompression a nerve hook would easily pass over the nerve root. The endplates were prepared after which a 6 mm cage filled with autograft was inserted into the disc space. A separate attached plate was locked down with 2 x 14 mm screws as anterior instrumentation. Final x-rays in AP and lateral projection showed a satisfactory position of the implant. The physician medical office assistant took over. The Norden pin was removed. Hemostasis was done. He closed the incision in 2 layers with a 3-0 Vicryl. Steri-Strips used to approximate incision. An OpSite with Tegaderm was used to cover the incision. All sponge and needle counts were correct. Patient was extubated and transported in stable is to recovery room. Anesthesia: General Estimated Blood Loss (ml): 15 Duration of Surgery: 50 minutes Postoperative Plan: Discharge home Complications: None
[2025-03-10] MEDS: fentaNYL citrate/PF 100 MCG/2 ML VIAL 50 MCG IVPUSH ×2 (11:41→11:46)
== END 2025-03-10 12:57 | disposition home or self-care (01) ==
PROVIDERS: Nurse Practitioner; PCP Nurse Practitioner Family; Visit Provider Neurological Surgery
PROC: (CPT 22551; principal; 2025-03-10 10:00)
DX: M50.123 Cervical disc disorder at C6-C7 level with radiculopathy (principal); M48.02 Spinal stenosis, cervical region; G89.4 Chronic pain syndrome; M50.322 Other cervical disc degeneration at C5-C6 level; M79.621 Pain in right upper arm; M79.622 Pain in left upper arm; F19.11 Other psychoactive substance abuse, in remission; F10.21 Alcohol dependence, in remission; Z79.1 Long term (current) use of non-steroidal anti-inflammatories (NSAID); Z79.899 Other long term (current) drug therapy; Z87.891 Personal history of nicotine dependence
CPT/HCPCS: 22551; 22853; 22845; 20936; 36415; 80053; 80307; 83735; 85027; 85610; 93005; C1713; J0131; J0690; J1100; J2003; J2250; J2405; J2704; J3010

== ENCOUNTER → 2025-03-10 07:14 | Outpatient (BNV) | payer OTHER, SELFPAY | PROVIDERS: PCP Nurse Practitioner Family; Visit Provider Neurological Surgery | DX: M54.12 Radiculopathy, cervical region (principal); M48.02 Spinal stenosis, cervical region; M99.61 Osseous and subluxation stenosis of intervertebral foramina of cervical region | CPT/HCPCS: 20930; 22551; 22845; 22853; 99499 ==

== ENCOUNTER 2025-03-31 09:16 | Outpatient (AMB) | payer OTHER, SELFPAY ==
--- NOTE | 2025-03-31 09:26 | A.SPINEOV_ITS ---
Intake Visit Reasons: 1st post op Intake Note: Mr. Ramirez is here today for his 1st post op. Hair Tinter Required: No Allergies No Known Allergies [No Known Allergies*] Allergy (Verified 03/04/25 12:16) Assessment & Plan Assessment & Plan (1) Radiculopathy, cervical: Code(s): M54.12 - Radiculopathy, cervical region Category: Medical Plan Procedure: C6-7 ACDF David is a 45-year-old male who underwent C6-[address] Parra a few weeks ago. To recap he initially presented to clinic with neck pain and shooting pains down his bilateral upper extremities. He initially was experiencing some difficulties with pain in the immediate postoperative period, however he states that this has largely resolved. He no longer has any shooting pains into his bilateral upper extremities. He is still experiencing some posterior neck pain, but states that this is mild compared to what it was prior to surgery. He is no longer taking prescription pain medication and has just been using ibuprofen at home. He asked several questions regarding the postoperative healing course including questions about physical therapy, weightlifting/exercise, and activity at home. No new neurological deficits. The patient ambulates well and rises from a seated position without difficulty. His anterior incision site is closed and well healing. I would like to follow up with David again in 6 weeks for his 2nd postoperative visit. We will get a set of x-rays at his next appointment. Shan Parra MD,PhD [facility] Orders: Orders XR cervical spine 4V Today M54.12 - Radiculopathy, cervical region Coding Level of Care Code Global (48652) Diagnoses Radiculopathy, cervical M54.12
--- OUTSIDE RECORDS SUMMARY | 2025-03-31 10:00 | XMS_ITS | Clinical Summary ---
Author Organization [facility] Address [address] [place] [address] Care Team Providers Care Cash Grain Farmer Name Role Phone Unavailable Primary Care Provider [...] Advance Directives For more information, please contact: [phone] Latest Code Status on File Code Status [...]
== END 2025-03-31 09:37 | disposition home or self-care (01) ==
LOC: HO.HNS 09:16
PROVIDERS: PCP Nurse Practitioner Family; Visit Provider Physician Assistant
DX: M54.12 Radiculopathy, cervical region (principal)
CPT/HCPCS: 99024

== ENCOUNTER 2025-03-31 09:16 | Outpatient (REF) | payer OTHER, SELFPAY | END 2025-03-31 09:17 | disposition home or self-care (01) | LOC: HO.HOSX 09:16 | PROVIDERS: PCP Nurse Practitioner Family; Visit Provider Physician Assistant | DX: M54.12 Radiculopathy, cervical region (principal); Z98.1 Arthrodesis status | CPT/HCPCS: 99212 ==

== ENCOUNTER 2025-05-11 10:36 | Outpatient (REF) | payer OTHER, SELFPAY ==
--- OUTSIDE RECORDS SUMMARY | 2025-05-05 07:22 | XMS_ITS | Encounter Summary ---
Author Name [facility] [facility] [place] [facility] Address [address] [place] [address] Care Team Providers Care Guidance Adviser Name Role Phone JOSE MANUEL LEE Primary Care Provider KERRIE Ponce Primary Care Provider Sal jain Insurance Providers: All historical and current Section [...] PART A February 17, 2017 PART A [id number] JASMINAMARY DAS PATIENT MEDICARE (WNR) MEDICARE (M) PART B February 17, 2017 PART B [id number] MARY ESPINO PATIENT MEDICARE (WNR) MEDICARE (M) PART A February 17, 2017 PART A [id number] [phone] MARY ESPINO PATIENT MEDICARE (WNR) MEDICARE (M) PART B February 17, 2017 PART B [id number] CIMINIMARY [place] PATIENT MEDICARE (WNR) MEDICARE (M) PART A February 17, 2017 PART A [id number] CIMINI,MARY [place] PATIENT MEDICARE (WNR) MEDICARE (M) PART A February 17, 2017 PART A [id number] JASMINAINI,MARY [place] PATIENT MEDICARE (WNR) MEDICARE (M) PART A February 17, 2017 PART A [id number] CIMINI,MARY [place] PATIENT MEDICARE (WNR) MEDICARE (M) PART B February 17, 2017 PART B [id number] [phone] CIMINI,MARY [place] PATIENT MEDICARE (WNR) MEDICARE (M) PART B February 17, 2017 PART B [id number] JASMINAINI,MARY [place] PATIENT MEDICARE (WNR) MEDICARE (M) PART A February 17, 2017 PART A [id number] [phone] CIMINI,MARY [place] PATIENT MEDICARE (WNR) MEDICARE (M) PART B February 17, 2017 PART B [id number] JASMINAINIMARY [place] PATIENT MEDICARE (WNR) MEDICARE (M) PART A February 17, 2017 PART A [id number] [phone] MARY ESPINO PATIENT Selected Encounter This section includes the information on record at [place] for the Encounter. Date/Time Encounter Type Encounter Description Reason Provider Source May 05, 2025 11:22 AM CASE MANAGEMENT [facility] ICD-10-CM F10.21 Alcohol dependence, in remission NARESH SHAIKH [facility] Encounter Template Text not used by [place] Assessments - Encounter Diagnoses This section includes the primary and secondary diagnoses documented for the Encounter. Date/Time Primary/Secondary Diagnosis Diagnosis Name Provider Source May 05, 2025 11:22 AM PRIMARY Alcohol dependence, in remission NARESH SHAIKH [place] [facility] [place] [facility] Plan of Treatment: Future Appointments (+ 6 months) and Future Tests (+/- 45 days) The Plan of Treatment section includes future care activities for the patient from all [place] [facility]. This section includes future appointments and future orders which are active, pending or scheduled. Future Appointments This section includes appointments that were scheduled to occur 6 months from the date of the Encounter, up to a maximum of 20 appointments. The data comes from all [facility]. Appointment Date/Time Appointment Type Appointme nt Facility Name May 17, 2025 10:00 AM AMBULATORY [place]IATRY [place] [facility] [place] [facility] May 19, 2025 11:30 AM AM[place]UL[place]ORY [place]IC[place] [facility] [place] [facility] May 24, 2025 10:00 AM [place] [place] [facility] [place] [facility] May 31, 2025 08:00 AM AMBULATORY [place] [facility] [place] [facility] Jun 07, 2025 10:00 AM AMBUL[place]ORY [place] [facility] [place] [facility] Jun 14, 2025 08:00 AM AMBUL[place]ORY [place] [facility] [place] [facility] Jun 15, 2025 09:30 AM [place] [facility] [place] [facility] Jun 21, 2025 10:00 AM AMBUL[place] [facility] [place] [facility] Jun 21, 2025 10:30 AM [place] [facility] [place] [facility] Jun 28, 2025 08:00 AM AMBUL[place]ORY [place] [facility] [place] [facility] Active, Pending, and Scheduled Orders This section includes a listing of several types of active, pending, and scheduled orders, including clinic medications orders, diagnostic test orders, procedure orders and consult orders; where the start date of the order is 45 days before the date of the Encounter or 45 days after the date of theEncounter. The data comes from all [facility]. Test Date/Time Test Type Test Details Facility Name May 04, 2025 12:00 AM Laboratory - Chemi stry Order BASIC METABOLIC PANEL (non-fasting) BLOOD (SST-SERUM) [facility] [place] [facility] May 04, 2025 12:00 AM Laboratory - Chemi stry Order CBC BLOOD (LAV-BLOOD) [facility] May 04, 2025 12:00 AM Laboratory - Chemi stry Order LIPID PANEL, NON FASTING BLOOD (SST-SERUM) [place] [facility] [place] [facility] May 04, 2025 12:00 AM Laboratory - Chemi stry Order LIVER FUNCTION BLOOD (SST-SERUM) [place] [facility] [place] [facility] May 04, 2025 12:00 AM Laboratory - Chemi stry Order HEPATITIS A ANTIBODY (IGG) BLOOD (SST-SERUM) [facility] May 09, 2025 08:28 AM Consult Order COMMUNITY CARE-DENTAL SPECIALTY Cons Facility Maintenance Mechanic's Choice [facility] Social History: Smoking Status (Most [...] Date/Time Current Smoking Status Comment Facil ity Dec 16, 2024 09:30 AM VA-TOBACCO USE FOR NIYA CIGARETTES [facility] Tobacco Use History This section includes a history of the smoking, or tobacco-related health factors, that were collected on or before the date of the Encounter. The data comes from the [place] facility where the Encounter took place. Date/Time Smoking Status/Tobacco Use Comment F acnicole Dec 16, 2024 09:30 AM VA-TOBACCO USE FOR NIYA CIGARETTES [facility] Oct 02, 2023 01:00 PM VA-TOBACCO USE > 1 5 LESS THAN 30 YEARS [place] [facility] [place] [facility] Oct 02, 2023 01:00 PM VA-TOBACCO USE ADVICE [facility] [place] [facility] Oct 02, 2023 01:00 PM VA-TOBACCO USE RESIDENT HALL DIRECTOR NO [facility] Oct 02, 2023 01:00 PM VA-TOBACCO USE MED NO [place] [facility] [place] [facility] Oct 02, 2023 01:00 PM VA-TOBACCO USE WI 30 MIN OF WAKEUP [facility] [place] [facility] Oct 02, 2023 01:00 PM VA-TOBACCO USER EVERY DAY [place] [facility] [place] [facility] Sep 10, 2022 05:31 PM VA-TOBACCO USE > 1 5 LESS THAN 30 YEARS [place] [facility] [facility] Sep 10, 2022 05:31 PM VA-TOBACCO USE ADVICE [facility] [place] [facility] Sep 10, 2022 05:31 PM VA-TOBACCO USE RESIDENT HALL DIRECTOR NO [facility] Sep 10, 2022 05:31 PM VA-TOBACCO USE MED NO [facility] [place] [facility] Sep 10, 2022 05:31 PM VA-TOBACCO USE [place] 30 MIN OF WAKEUP [place] [facility] Sep 10, 2022 05:31 PM VA-TOBACCO USER EVERY DAY [place] [facility] [facility] Aug 26, 2020 03:33 PM 689 [...] 06:41 PM ORYX ADMIT TOBACCO SCREEN YES [place] [facility] [facility] Apr 15, 2018 06:41 PM ORYX ADMIT TOBACCO USE CIGS GR 5D [place] [facility] [facility] Apr 15, 2018 06:41 PM ORYX DAILY TOBACCO RESIDENT HALL DIRECTOR RECEIVED [place] [facility] [facility] Apr 15, 2018 06:41 PM ORYX DAILY TOBACCO MEDS REFUSED [facility] [place] [facility] Apr 15, 2018 02:41 PM CURRENT SMOKER [facility] [place] [facility] March 12, 2018 11:20 AM CURRENT SMOKER [facility] [place] [facility] March 12, 2018 11:20 AM V1-PT NOT INTEREST ED IN QUIT TOBACCO USE [facility] [place] [facility] Apr 10, 2016 09:03 AM TOBACCO INPATIENT DESIRES MEDS [facility] [place] [facility] Jan 28, 2016 12:53 PM TOBACCO INPATIENT DESIRES MEDS [facility] [place] [facility] Oct 21, 2015 05:16 PM TOBACCO INPATIENT DESIRES MEDS [facility] [place] [facility] Jul 13, 2015 11:06 PM TOBACCO INPATIENT DECLINES MEDS [facility] [place] [facility] Dec 13, 2014 08:26 PM TOBACCO INPATIENT DECLINES MEDS [facility] [place] [facility] Dec 13, 2014 07:39 PM CURRENT SMOKER [facility] Dec 13, 2014 07:39 PM V1-PT NOT INTEREST ED IN QUIT TOBACCO USE [place] [facility] Advance Directives: All historical and [...] 13, 2019 ADVANCE DIRECTIVE JOSE MANUEL RICO [facility] Oct 03, 2017 ADVANCE DIRECTIVE DAGMAR THAKUR [facility] Feb 07, 2016 ADVANCE DIRECTIVE SOFIE POLANCO [facility] Jan 20, 2015 ADVANCE DIRECTIVE DISCUSSION FLORINA COLON [facility] Encounter Notes: All associated encounter notes This section contains the clinical notes associated to the Encounter. Date/Time Encounter Note(s) Provider Source May 04, 2025 03:22 PM MENTAL HEALTH OUTR EACH NOTE: LOCAL TITLE: JUSTICE OUTREACH PROGRESS NOTE STANDARD TITLE: MENTAL HEALTH OUTREACH NOTE DATE OF NOTE: MAY 04, 2025@15:22 ENTRY DATE: MAY 05, 2025@11:22:20 AUTHOR: NARESH SHAIKH COSIGNER: URGENCY: STATUS: COMPLETED Hope identified by: [x ] Full Name [] Address [x ] [ ] SSN [] Facial Recognition Length of contact: 60 minutes Location: [facility] [address], [facility] Content: Hope was an active participant in court session today. He is doing well and compliant with all treatment.Hope vacationed on the [facility] with his mother and states he has regained her trust after about 13 years. is also buying a house in [place]. He is very excited about this. VJO to provide support as needed. /cindy/ NARESH SHAIKH ELECTRICAL TECHNICIAN INSTRUCTOR RUGBY LEAGUE FOOTBALLER Signed: 05/05/2025 11:23 NARESH SHAIKH [place] [facility]
--- NOTE | ~2025-05-11 | XR_ITS ---
EXAMINATION: XR CERVICAL SPINE CLINICAL INFORMATION: M54.12 - Radiculopathy, cervical region COMPARISON: Correlated to MRI dated February 16, 2025. TECHNIQUE: Lateral views in neutral flexion and extension position. AP view. FINDINGS: Craniocervical junction is intact. Metallic disc spacer placed at C6-7. Marginal osteophyte formation and syndesmophyte formation at C5-6. No gross malalignment in neutral nor during flexion and/or extension position. Upper airways patent. Edentulous. XR/XR cervical spine 4V IMPRESSION: No gross instability. Cervical spondylosis C5-6 and C6-7. Status post intervertebral disc spacer placement C6-7. Electronically signed by: Willie Cedeno MD 05/11/2025 01:30 PM EDT
--- OUTSIDE RECORDS SUMMARY | 2025-05-12 11:30 | XMS_ITS | Clinical Summary ---
[facility] Address [address] [place] [address] Care Team Providers Care Wire Stockkeeper Name Role Phone Roman Small MD Primary Care Provider [phone] Surgical History Surgery Date Site/Laterality Comments TONSILLECTOMY [...] age to complete this topic Care Teams Wire Stockkeeper Relationship Specialty Start Date End Date Roman Small MD PCP - General Internal Medicine 06/23/12
--- OUTSIDE RECORDS SUMMARY | 2025-05-12 11:30 | XMS_ITS | Clinical Summary ---
Author Organization [facility] Address [address] [place] [address] Care Team Providers Care Dynamotor Repairer Name Role Phone Unavailable Primary Care Provider [...] Advance Directives For more information, please contact: [phone] Latest Code Status on File Code Status [...]
== END 2025-05-11 10:37 | disposition home or self-care (01) ==
LOC: HO.HOSX 10:36
PROVIDERS: Referring Provider Physician Assistant; Visit Provider Physician Assistant
DX: M54.12 Radiculopathy, cervical region (principal); Z98.1 Arthrodesis status
CPT/HCPCS: 72050; 99212

== ENCOUNTER 2025-05-11 12:50 | Outpatient (AMB) | payer OTHER, SELFPAY ==
--- OUTSIDE RECORDS SUMMARY | 2025-05-11 13:12 | XMS_ITS | Clinical Summary ---
[facility] Address [address] [place] [address] Care Team Providers Care Chocolate Finisher Name Role Phone Roman Small MD Primary Care Provider [phone] Surgical History Surgery Date Site/Laterality Comments TONSILLECTOMY [...] 1998 COVID-19 Vaccine (2023-2 5 season) 2024 Depression Screening 10/20/2024 Influenza Vaccine (#1) 2025 07/09/2012 HIB Vaccines Aged Out No longer [...] 5 Years) and At-Risk Patients (6 to 49 Years) Aged Out No longer eligi ble based on patient's age to complete this topic RSV Immunization Patients Un delta 20 months Aged Out No longer eligible b ased on patient's age to complete this topic Varicella Vaccines Aged Out No longer eligible based on patient's age to complete this topic Care Teams Chocolate Finisher Relationship Specialty Start Date End Date Roman Small MD PCP - General Internal Medicine 06/23/12
--- OUTSIDE RECORDS SUMMARY | 2025-05-11 13:12 | XMS_ITS | Clinical Summary ---
Author Organization [facility] Address [address] [place] [address] Care Team Providers Care Insulation Nozzleman Name Role Phone Unavailable Primary Care Provider [...] 90 09/01/2021 8:48 AM EST Temperature 36.7 C (98.1 F) 09/01/2021 8:48 AM EST Respiratory Rate 16 09/01/2021 8:48 AM EST Oxygen Saturation 98% 09/01/2021 8:48 AM EST Inhaled Oxygen Concentration - - Weight 77.1 kg (170 lb) 08/31/2021 4:50 PM EST Height 185.4 cm (6' 1 ) 08/31/2021 4:50 PM EST Body Mass Index 22.43 08/31/2021 4:50 PM EST Plan of Treatment Not on file Advance Directives For more information, please contact: [phone] Latest Code Status on File Code Status [...]
--- NOTE | 2025-05-11 13:19 | A.SPINEOV_ITS ---
Intake Visit Reasons: 2nd post op with Xrays Intake Note: Mr. Ramirez is here today fo his 2nd post op with xrays Chimney Construction Supervisor Required: No Allergies No Known Allergies (No Known Allergies*) Allergy (Verified 05/11/25 13:22) Assessment & Plan Assessment & Plan (1) Radiculopathy, cervical: Code(s): M54.12 - Radiculopathy, cervical region Category: Medical Plan David is a pleasant 45-year-old male who comes in today for his 2nd postoperative visit after having a C6-[address] Parra a couple of months ago. To recap he initially had some continued difficulties with arm pain after surgery, however this has resolved with time. He does continue to report some low-grade posterior neck pain, but attributes this to increased activity as of late as he is trying to fix up his house so he can sell it. Other than that, he reports he is very satisfied with the surgery and feels much better overall. He asked several questions regarding the postoperative healing course, all of which I answered to the best of my ability. We reviewed his x- ray imaging taking in office today, which shows stable placement of the surgical construct with no changes from fluoroscopy. No new neurological deficits. The patient ambulates well and rises from a seated position without difficulty. His anterior incision site is closed and well healing. There is no need for continued routine follow up with David, he may follow up with us in the future as needed. Shan Parra MD,PhD [facility] Coding Level of Care Code Global (62104) Diagnoses Radiculopathy, cervical M54.12
== END 2025-05-11 13:47 | disposition home or self-care (01) ==
LOC: HO.HNS 12:50
PROVIDERS: PCP Nurse Practitioner Family; Visit Provider Physician Assistant
DX: M54.12 Radiculopathy, cervical region (principal)
CPT/HCPCS: 99024

== ENCOUNTER → 2025-05-11 13:09 | Outpatient (BNV) | payer OTHER, SELFPAY | PROVIDERS: Visit Provider Radiology Diagnostic Radiology | DX: M50.322 Other cervical disc degeneration at C5-C6 level (principal) | CPT/HCPCS: 72050 ==